=== PATIENT | female | born 1965 | race Caucasian/White ===

== ENCOUNTER → 2017-06-09 11:37 | Outpatient (CLI) | payer MEDICARE, MEDICAID, SELFPAY ==
[2017-06-09 18:17] LABS: Chlamydia Trachomatis by PCR Negative (Negative); Neisserai gonorrhoeae by PCR Negative (Negative); Probe Check PASS; Sample Adequacy Control PASS; Specimen Processing Control PASS
[2017-06-10 05:07] LABS: HIV 1/0/2 SCREEN 4TH GEN Non Reactive (Non Reactive)
[2017-06-11 11:27] LABS: Hep C Antibodies 0.1 s/co ratio (0.0-0.9)
[2017-06-16 02:56] LABS: Rapid Plasmin Reagin (RPR) NONREACTIVE (NONREACTIVE)
== END | disposition home or self-care (01) ==
PROVIDERS: Family Provider Family Medicine; PCP Family Medicine; Visit Provider Nurse Practitioner Women's Health
DX: Z11.3 Encounter for screening for infections with a predominantly sexual mode of transmission (principal); Z12.4 Encounter for screening for malignant neoplasm of cervix
CPT/HCPCS: 36415; 86592; 86703; 86803; 87491; 87591

== ENCOUNTER → 2017-11-15 12:28 | Outpatient (CLI) | payer MEDICARE, MEDICAID, SELFPAY ==
[2017-11-15 13:48] LABS: Absolute Lymphocyte Count 2.78 X10^3/ul (0.83-4.51); Absolute Neutrophil Count 3.6 X10^3/uL (2.0-7.7); Basophil# 0.06 X10^3/uL; Basophil% 0.8 % (0-1); Eosinophil# 0.15 X10^3/uL; Hematocrit 41.5 % (37-47); Hemoglobin 13.5 g/dl (12.0-15.0); Lymphocyte # 2.78 X10^3/ul (4.0); Mean Corp Hgb Conc 32.5 g/gl (32-36); Mean Corpuscular Hgb 28.5 pg (27.0-32.0); Mean Corpuscular Volume 87.7 fL (81-99); Monocyte# 0.69 X10^3/uL; Monocyte% 9.4 % (0-10); Neutrophil % 49.3 % (47-70); Platelet Count 169 K/mm3 (150-450); RBC Distribution Width CV 13.2 % (11.6-14.6); RBC Distribution Width SD 41.5 fl (35.1-43.9); Red Blood Count 4.73 M/mm3 (4.2-5.4); White Blood Count 7.3 K/mm3 (4.4-11.0)
[2017-11-15 13:49] LABS: POSITIVE COUNT NO; POSITIVE DIFFERENTIAL NO; POSITIVE MORPHOLOGY NO
[2017-11-15 14:15] LABS: Ferritin 377 ng/mL (8-252); Iron 61 ug/dL (50-170)
== END ==
PROVIDERS: Family Provider Family Medicine; PCP Family Medicine; Visit Provider Family Medicine
DX: D64.9 Anemia, unspecified (principal)
CPT/HCPCS: 36415; 82728; 83540; 85025

== ENCOUNTER 2018-02-27 01:55 | Emergency (ER) | payer MEDICARE, MEDICAID, SELFPAY ==
[2018-02-27 02:01] VITALS: BP 119/74; PULSE 64; RESP 16; TEMP 36.4; O2SAT 94; BMI 37.8
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
[2018-02-27 03:06] LABS: Absolute Lymphocyte Count 3.35 X10^3/ul (0.83-4.51); Absolute Neutrophil Count 4.3 X10^3/uL (2.0-7.7); Basophil# 0.05 X10^3/uL; Basophil% 0.6 % (0-1); Eosinophil# 0.28 X10^3/uL; Eosinophils% 3.2 % (0-5); Hematocrit 37.2 % (37-47); Hemoglobin 12.1 g/dl (12.0-15.0); Lymphocyte # 3.35 X10^3/ul (4.0); Lymphocyte % 38.6 % (19-41); Mean Corp Hgb Conc 32.5 g/gl (32-36); Mean Corpuscular Hgb 28.6 pg (27.0-32.0); Mean Corpuscular Volume 87.9 fL (81-99); Mean Platelet Vol. 10.7 fl (6.2-12.0); Monocyte# 0.69 X10^3/uL; Monocyte% 7.9 % (0-10); Neutrophil # 4.27 X10^3/uL (2.7-7.7); Neutrophil % 49.2 % (47-70); Platelet Count 189 K/mm3 (150-450); RBC Distribution Width CV 14.4 % (11.6-14.6); RBC Distribution Width SD 46.1 fl (35.1-43.9); Red Blood Count 4.23 M/mm3 (4.2-5.4); White Blood Count 8.7 K/mm3 (4.4-11.0)
[2018-02-27 03:07] LABS: POSITIVE COUNT NO; POSITIVE DIFFERENTIAL NO; POSITIVE MORPHOLOGY NO
[2018-02-27 03:08] LABS: Anion Gap 11 (5-15); BUN 13 mg/dL (7-18); BUN/Creat Ratio 11.4 RATIO (10-20); Calcium,Total 8.7 mg/dL (8.5-10.1); Chloride 102 mmol/L (98-107); Creatinine, Serum 1.14 mg/dL (0.55-1.02); EST Glomerular Filtration Rate 53 mL/min (>60); Est Glom Filt Rate - Afr Amer 64 mL/min (>60); Estimated Creatinine Clearance 45.14 ml/min; Glucose 109 mg/dL (74-106); Potassium 3.4 mmol/L (3.5-5.1); Sodium Level 140 mmol/L (136-145)
[2018-02-27 03:09] VITALS: RESP 18
[2018-02-27 03:22] LABS: Amphetamine Urine VISTA NEGATIVE (<1000 ng/mL); Barbiturate Urine VISTA NEGATIVE (< 200 ng/mL); Benzodiazepine Urine VISTA NEGATIVE (< 200 ng/mL); Cocaine Urine VISTA NEGATIVE (< 300 ng/mL); Ecstacy Urine VISTA NEGATIVE (< 500 ng/mL); Methadone Urine VISTA NEGATIVE (< 300 ng/mL); PCP Urine VISTA NEGATIVE (< 25 ng/mL); THC Urine VISTA NEGATIVE (< 50 ng/mL); Vista UDS pH Range 6
[2018-02-27 03:22] LABS: Pregnancy, Serum, hCG Quali. NEGATIVE Negative (0-9 Nonpreg)
[2018-02-27 05:22] VITALS: BP 126/57; PULSE 80; RESP 17; O2SAT 95
== END 2018-02-27 05:25 | disposition home or self-care (01) ==
PROVIDERS: Emergency Provider Emergency Medicine; Family Provider Family Medicine; PCP Family Medicine
DX: F20.9 Schizophrenia, unspecified (principal); E03.9 Hypothyroidism, unspecified; F41.9 Anxiety disorder, unspecified; K21.9 Gastro-esophageal reflux disease without esophagitis; Z85.3 Personal history of malignant neoplasm of breast
CPT/HCPCS: 72220; 80048; 80307; 80320; 84703; 85025; 99285; G0480

== ENCOUNTER → 2018-03-12 13:33 | Outpatient (CLI) | payer MEDICARE, MEDICAID, SELFPAY ==
[2018-03-12 14:41] LABS: Absolute Lymphocyte Count 3.91 X10^3/ul (0.83-4.51); Absolute Neutrophil Count 5.3 X10^3/uL (2.0-7.7); Basophil# 0.06 X10^3/uL; Basophil% 0.6 % (0-1); Eosinophil# 0.19 X10^3/uL; Eosinophils% 1.9 % (0-5); Hematocrit 38.8 % (37-47); Hemoglobin 12.6 g/dl (12.0-15.0); Lymphocyte # 3.91 X10^3/ul (4.0); Lymphocyte % 38.8 % (19-41); Mean Corp Hgb Conc 32.5 g/gl (32-36); Mean Corpuscular Volume 89.4 fL (81-99); Mean Platelet Vol. 10.7 fl (6.2-12.0); Monocyte% 5.9 % (0-10); Neutrophil # 5.28 X10^3/uL (2.7-7.7); Neutrophil % 52.3 % (47-70); Platelet Count 140 K/mm3 (150-450); RBC Distribution Width CV 14.2 % (11.6-14.6); RBC Distribution Width SD 46.9 fl (35.1-43.9); Red Blood Count 4.34 M/mm3 (4.2-5.4); White Blood Count 10.1 K/mm3 (4.4-11.0)
[2018-03-12 14:43] LABS: POSITIVE COUNT NO; POSITIVE DIFFERENTIAL NO; POSITIVE MORPHOLOGY NO
[2018-03-12 14:52] LABS: Ferritin 347 ng/mL (8-252); Iron 54 ug/dL (50-170); Thyroid Stim Hormone (TSH) 2.48 uIU/mL (0.358-3.74)
== END ==
PROVIDERS: Family Provider Family Medicine; PCP Family Medicine; Visit Provider Family Medicine
DX: D64.9 Anemia, unspecified (principal); E03.9 Hypothyroidism, unspecified
CPT/HCPCS: 36415; 82728; 83540; 84443; 85025

== ENCOUNTER 2018-10-21 17:21 | Emergency (ER) | payer MEDICARE, SELFPAY ==
[2018-09-04 13:53] VITALS: BMI 37.3
[2018-10-21 17:37] VITALS: BP 139/79; PULSE 85; RESP 16; TEMP 36.9; O2SAT 92; BMI 37.5
[2018-10-21 18:36] VITALS: RESP 16
[2018-10-21 18:45] LABS: Absolute Lymphocyte Count 4.36 X10^3/ul (0.83-4.51); Basophil# 0.08 X10^3/uL; Basophil% 0.6 % (0-1); Eosinophil# 0.14 X10^3/uL; Eosinophils% 1.1 % (0-5); Hematocrit 42.8 % (37-47); Hemoglobin 14.1 g/dl (12.0-15.0); Lymphocyte # 4.36 X10^3/ul (4.0); Mean Corp Hgb Conc 32.9 g/gl (32-36); Mean Corpuscular Volume 87.9 fL (81-99); Mean Platelet Vol. 9.6 fl (6.2-12.0); Monocyte# 0.87 X10^3/uL; Neutrophil # 6.97 X10^3/uL (2.7-7.7); POSITIVE COUNT NO; POSITIVE DIFFERENTIAL NO; POSITIVE MORPHOLOGY NO; Platelet Count 262 K/mm3 (150-450); RBC Distribution Width CV 13.3 % (11.6-14.6); RBC Distribution Width SD 42.3 fl (35.1-43.9); Red Blood Count 4.87 M/mm3 (4.2-5.4); White Blood Count 12.5 K/mm3 (4.4-11.0)
[2018-10-21 18:55] LABS: Anion Gap 8 (5-15); BUN 13 mg/dL (7-18); BUN/Creat Ratio 12.4 RATIO (10-20); Chloride 106 mmol/L (98-107); Creatinine, Serum 1.05 mg/dL (0.55-1.02); EST Glomerular Filtration Rate 58 mL/min (>60); Est Glom Filt Rate - Afr Amer 70 mL/min (>60); Estimated Creatinine Clearance 48.44 ml/min; Glucose 107 mg/dL (74-106); Potassium 3.9 mmol/L (3.5-5.1); Sodium Level 137 mmol/L (136-145)
[2018-10-21 18:56] LABS: Alcohol, Blood (Medical)-Serum < 3.0 mg/dL
[2018-10-21 18:57] LABS: Amphetamine Urine VISTA NEGATIVE (<1000 ng/mL); Barbiturate Urine VISTA NEGATIVE (< 200 ng/mL); Benzodiazepine Urine VISTA NEGATIVE (< 200 ng/mL); Cocaine Urine VISTA NEGATIVE (< 300 ng/mL); Ecstacy Urine VISTA NEGATIVE (< 500 ng/mL); Methadone Urine VISTA NEGATIVE (< 300 ng/mL); PCP Urine VISTA NEGATIVE (< 25 ng/mL); THC Urine VISTA NEGATIVE (< 50 ng/mL); Vista UDS pH Range 6
--- NOTE | 2018-10-21 19:00 | ED.RN ---
$304 LOPEZ COUNTED WITH BRAEDEN Srivastava RN PLACED IN VALUABLES ENVELOPE AND TAKEN TO ROLL FORM OPERATOR TO PLACE IN [place].
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
--- NOTE | 2018-10-21 19:10 | ED.RN ---
TALKED TO MARTHA FROM [facility] AND NOTIFIED HER THAT THIS PT IS HERE AND NEEDS TO BE EVALUATED BY [facility]. SHE STATED SHE WILL BE HERE SOON SHE CAN TO SEE THIS PT.
[2018-10-21 19:38] LABS: Thyroid Stim Hormone (TSH) 2.51 uIU/mL (0.358-3.74)
--- NOTE | 2018-10-21 21:48 | ED.RN ---
FELIX FROM [facility] IS HERE TO EVALUATE THIS PT NOW.
[2018-10-21 23:18] VITALS: BP 120/71; PULSE 83; RESP 14; O2SAT 93
--- NOTE | 2018-10-22 01:23 | ED.DEP ---
ED Disposition - Plan for ED Patient: Disposition: Home or Assisted Living Instructions: ED Schizophrenia General Referrals: Counseling,Center [GROUP OF PHYSICIANS] - As soon as possible
[2018-10-22 02:03] VITALS: PULSE 94; RESP 22; O2SAT 96
--- NOTE | 2018-10-22 02:04 | ED.RN ---
D/C INSTRUCTIONS REVIEWED WITH THE PT. PT VALUABLE BELONGING RETURNED TO THE PT. THIS NURSE AND ALO RN COUNTED THE MONEY WITH THE PT. PT BELONGINGS RETURNED TO PT. PT D/C WITH FELIX FROM THE COUNSELING CENTER
== END 2018-10-22 02:06 | disposition home or self-care (01) ==
PROVIDERS: Emergency Medicine; Emergency Provider Emergency Medicine; Family Provider Family Medicine; PCP Family Medicine
DX: R45.851 Suicidal ideations (principal); F22 Delusional disorders; F41.9 Anxiety disorder, unspecified; Z85.3 Personal history of malignant neoplasm of breast; F20.9 Schizophrenia, unspecified; D69.6 Thrombocytopenia, unspecified
CPT/HCPCS: 36415; 80048; 80307; 80320; 84443; 85025; 99284; G0480

== ENCOUNTER → 2019-08-09 13:41 | Outpatient (CLI) | payer MEDICARE, SELFPAY ==
[2019-03-26 13:01] VITALS: BMI 38.5
[2019-08-09 16:22] LABS: Hemoglobin A1c 6.4 % (4.2-6.3)
[2019-08-09 16:23] LABS: ALB/GLOB Ratio 0.8 RATIO (0.9-2.4); AST(SGOT) 18 U/L (15-37); Alanine Aminotransfer ALT/SGPT 40 U/L (13-56); Albumin, Serum 3.2 g/dL (3.2-5.0); Alkaline Phosphatase 95 U/L (45-117); Anion Gap 4 (5-15); BUN 9 mg/dL (7-18); BUN/Creat Ratio 9.9 RATIO (10-20); Calcium,Total 8.8 mg/dL (8.5-10.1); Chloride 111 mmol/L (98-107); Creatinine, Serum 0.91 mg/dL (0.55-1.02); EST Glomerular Filtration Rate 68 mL/min (>60); Est Glom Filt Rate - Afr Amer 83 mL/min (>60); Ferritin 464 ng/mL (8-252); Globulin 4.1 g/dL (2.2-4.2); Glucose 108 mg/dL (74-106); Iron 27 ug/dL (50-170); Potassium 3.8 mmol/L (3.5-5.1); Protein, Total 7.3 g/dL (6.4-8.2); Sodium Level 141 mmol/L (136-145); T4 Free Direct 1.08 ng/dL (0.76-1.46); Thyroid Stim Hormone (TSH) 1.58 uIU/mL (0.358-3.74)
[2019-08-09 16:24] LABS: Absolute Lymphocyte Count 2.54 X10^3/uL (0.83-4.51); Absolute Neutrophil Count 5.8 X10^3/uL (2.0-7.7); Basophil# 0.08 X10^3/uL; Basophil% 0.9 % (0-1); Eosinophil# 0.15 X10^3/uL; Eosinophils% 1.6 % (0-5); Hematocrit 37.6 % (37-47); Hemoglobin 11.9 g/dL (12.0-15.0); Lymphocyte # 2.54 X10^3/ul (4.0); Lymphocyte % 27.9 % (19-41); Mean Corp Hgb Conc 31.6 g/dL (32-36); Mean Corpuscular Hgb 28.5 pg (27.0-32.0); Mean Platelet Vol. 10.7 fl (6.2-12.0); Monocyte# 0.49 X10^3/uL; Monocyte% 5.4 % (0-10); NRBC Flagged by Analyzer 0 % (0-5); Neutrophil # 5.79 X10^3/uL (2.7-7.7); Neutrophil % 63.5 % (47-70); POSITIVE COUNT YES; RBC Distribution Width CV 13.3 % (11.6-14.6); RBC Distribution Width SD 44.1 fl (35.1-43.9); Red Blood Count 4.18 M/mm3 (4.2-5.4); White Blood Count 9.1 K/mm3 (4.4-11.0)
[2019-08-09 16:53] LABS: Differential Indicated SCAN CRITERIA MET
[2019-08-09 18:05] LABS: Platelet Estimate ADEQUATE (ADEQ)
[2019-08-09 18:06] LABS: Red Cell Morphology NORM C+C NORMAL (NORM C&C)
[2019-08-09 18:07] LABS: Platelet Morphology CLUMPED
== END ==
PROVIDERS: Family Provider Family Medicine; PCP Family Medicine; Visit Provider Family Medicine
DX: I10 Essential (primary) hypertension (principal); E03.9 Hypothyroidism, unspecified; D64.9 Anemia, unspecified; D47.2 Monoclonal gammopathy
CPT/HCPCS: 36415; 80053; 82728; 83036; 83540; 84439; 84443; 85025

== ENCOUNTER 2021-01-25 13:40 | Emergency (ER) | payer MEDICARE, MEDICAID, SELFPAY ==
[2020-03-24 13:06] VITALS: BMI 37.5
[2021-01-25 13:41] VITALS: BP 107/64; PULSE 71; RESP 15; TEMP 36.6; O2SAT 95; BMI 29.6
--- NOTE | 2021-01-25 13:46 | RAD_ITS ---
STUDY: X-RAY - LEFT FOOT CLINICAL: Female, 55 years old. INJURY TECHNIQUE: 3 view(s) of the foot. COMPARISON: None. FINDINGS: Normal talus, calcaneus, and tarsal bones. Normal visualized subtalar, talonavicular, calcaneocuboid, tarsal and tarsometatarsal articulations. Normal metatarsi. Normal metatarsophalangeal joint of the great toe. Normal tibial and fibular sesamoid bones. Normal interphalangeal joint of the great toe. Normal phalanges of the great toe. Normal second through fifth metatarsophalangeal joints. Normal interphalangeal joints and phalanges of the lesser toes. Diffuse soft tissue swelling more prominent along the foot. Foot. RAD/Foot min 3 Views IMPRESSION: Diffuse soft tissue swelling more prominent along the dorsal aspect of the foot. Electronically Signed: Doug Colindres MD at 15:12 EDT , Service support ,
--- NOTE | 2021-01-25 15:26 | EDS_ITS ---
HPI History of Present Illness Chief Complaint: Lower Extremity Injury Informant: patient Narrative Narrative: 55-year-old female states that earlier today she kicked a hard plastic rocker in her house. She has noticed a lot of swelling and bruising over the dorsum of the left foot. She notes some mild pain. [facility] Medical History Anxiety Asthma GERD (gastroesophageal reflux disease) Hypertension Hypokalemia Monoclonal gammopathy Schizophrenia Thyroid disease Home Medications omeprazole 20 mg PO DAILY 11/11/13 [History Last Taken 05/09/14 07:30 20 MG] sennosides-docusate sodium [Doc-Q-Lax Tablet] 2 ea PO QHS 05/14/14 [History Last Taken Unknown] quetiapine [Seroquel Xr] 500 mg PO QHS 05/15/14 [History Last Taken Unknown] lisinopril 20 mg PO DAILY 05/12/15 [History Last Taken Unknown] Quetiapine Fumarate [Seroquel Xr] 300 mg PO BREAKFAST 10/05/16 [History Last Taken Unknown] amlodipine 10 mg PO DAILY 10/05/16 [History Last Taken Unknown] benztropine 1 mg PO BID PRN PRN 10/05/16 [History Last Taken Unknown] meloxicam 15 mg PO DAILY 10/05/16 [History Last Taken Unknown] clonazepam [Klonopin] 0.5 mg PO DAILY 10/26/16 [History Last Taken Unknown] propranolol [Inderal Xl] 60 mg PO BID 10/21/18 [History Last Taken Unknown] clonazepam 1 mg PO QHS 03/24/20 [History Last Taken Unknown] tamoxifen 20 mg tablet 20 mg PO DAILY #30 tab 01/21/21 [Rx Last Taken Unknown] Allergy/AdvReac Type Severity Reaction Status Date / Time diazepam [From Valium] Allergy Severe Other Verified 01/25/21 13:41 pseudoephedrine HCl Allergy Severe Other Verified 01/25/21 13:41 [From Sudafed] diphenhydramine HCl AdvReac Severe Unknown Verified 01/25/21 13:41 [From Benadryl] erythromycin base AdvReac Severe Other Verified 01/25/21 13:41 [Erythromycin Base] Antihistamines - Piperidine AdvReac Intermediate Unknown Verified 01/25/21 13:41 Macrolide Antibiotics AdvReac Intermediate Other Verified 01/25/21 13:41 darbepoetin mary AdvReac Unknown Unknown Verified 01/25/21 13:41 [From Aranesp (in polysorbate)] menthol AdvReac Swelling Verified 01/25/21 13:41 quinapril [From Accupril] AdvReac Unknown Verified 01/25/21 13:41 KETOLIDES AdvReac Unknown Uncoded 01/25/21 13:41 Family History Mother Heart disease Father Hypertension Surgical History History of back surgery History of tonsillectomy History of tubal ligation Social History (Updated 01/25/21 @ 15:[address] Wil Ramsey DO) Smoking Status: Never smoker substance use type: does not use ROS ROS ED Constitutional Constitutional ED: Denies chills or weight loss Eyes Eyes: Denies change in vision or diplopia ENT ENT ED: Denies ear pain, rhinorrhea or sore throat Cardiovascular Cardiovascular: Denies chest pain, orthopnea, palpitations or racing heartbeat Respiratory/Chest Respiratory/Chest: Denies cough, dyspnea or orthopnea Gastrointestinal Gastrointestinal: Denies abdominal pain, diarrhea, nausea or vomiting Genitourinary Genitourinary ED: Denies dysuria, hematuria or urinary frequency Musculoskeletal Musculoskeletal: Reports other Details: See history of present illness ; Denies arthralgias or myalgias Integumentary Denies abscess or rash Neurologic Neurologic: Denies headache(s) or weakness Psychiatric Psychiatric: Denies anxiety, depression, suicidal ideation or suicidal thoughts Endocrine Endocrinology: Denies polydipsia, polyphagia or polyuria Allergic/Immunologic Allergic/Immunologic ED: Denies mouth swelling, tongue swelling or urticaria EXAM Physical Exam Const Vital Signs: 01/25/21 13:41 Temperature 97.8 F Temperature Source Temporal Pulse Rate 71 Respiratory Rate 15 Blood Pressure 107/64 Blood Pressure Mean 78 Pulse Ox 95 Oxygen Delivery Method Room Air Positive well nourished, well developed and obese General Appearance ED: well developed Nutritional Appearance: obese HEENT Reports normocephalic, head/scalp atraumatic and moist mucous membranes Eyes PERRL and EOMs intact bilaterally Neck no lymphadenopathy, supple and no JVD Resp normal respiratory effort and clear to auscultation bilaterally Cardio regular rate, regular rhythm and no murmurs GI normal to inspection, nondistended, normoactive bowel sounds and non-tender Palpation: soft Back/Spine no CVA tenderness and normal ROM Extremity Extremity Narrative: There is a large amount of swelling and ecchymosis over the dorsum of the left foot. The swelling is very soft. Neurovascularly intact. Mild tenderness to palpation General Extremety ED: Yes edema General Extremity: edema Neuro oriented x3 and CN's II-XII intact bilaterally Sensorium / Orientation: alert Motor Exam: strength 5/5 throughout Psych mental status grossly normal Mood & Affect: Negative for depressed or tearful Skin no rashes or lesions noted and no wounds MDM MDM MDM Narrative Medical decision making narrative: My impression of the plain films of the left foot is no acute fracture. Radiology concurs. Given the amount of swelling I do not think it can be very comfortable for her to put her foot into a regular shoe. We will give her a postop shoe instructions to ice follow-up primary care 10 to 14 days if not improved Radiography Diagnostic Testing: Radiology Impression Foot X-Ray 01/25/21 13:46 IMPRESSION: Diffuse soft tissue swelling more prominent along the dorsal aspect of the foot. Electronically Signed: Doug Colindres MD at 15:12 EDT , Service support , Discharge Plan Triage Chief Complaint: Lower Extremity Injury ED Provider: Wil Ramsey Dx/Rx/DC Orders Clinical Impression: Contusion of foot, left, Hematoma of left foot Instructions: ED Hematoma Prescriptions: No Action omeprazole 20 MG capsule 20 mg PO DAILY RF: 0 sennosides-docusate sodium [Doc-Q-Lax] 1 EACH tablet 2 ea PO QHS RF: 0 quetiapine [Seroquel XR] 200 MG tablet extended release 24 hr 500 mg PO QHS RF: 0 lisinopril 20 MG tablet 20 mg PO DAILY RF: 0 meloxicam 15 MG tablet 15 mg PO DAILY RF: 0 amlodipine 10 MG tablet 10 mg PO DAILY RF: 0 benztropine 2 MG tablet 1 mg PO BID PRN PRN (Reason: Restlessness) RF: 0 Quetiapine Fumarate [Seroquel Xr] 300 MG Tab.Sr.24h 300 mg PO BREAKFAST RF: 0 clonazepam [Klonopin] 0.5 MG tablet 0.5 mg PO DAILY RF: 0 clonazepam 1 MG tablet 1 mg PO QHS RF: 0 Inderal XL 80 MG capsule,extended release 24hr 60 mg PO BID RF: 0 tamoxifen 20 mg tablet 20 mg PO DAILY Qty: 30 RF: 2 Primary Care Provider: Brannon Cavazos Referrals: Brannon Cavazos MD [Primary Care Provider] - 10-14 Days if not better Disposition Disposition: Home, Self Care
== END 2021-01-25 15:32 | disposition home or self-care (01) ==
LOC: ED 15:16
PROVIDERS: Emergency Provider Emergency Medicine; PCP Family Medicine
DX: S90.32XA Contusion of left foot, initial encounter (principal); W22.8XXA Striking against or struck by other objects, initial encounter; F20.9 Schizophrenia, unspecified; F41.9 Anxiety disorder, unspecified; I10 Essential (primary) hypertension; J45.909 Unspecified asthma, uncomplicated; K21.9 Gastro-esophageal reflux disease without esophagitis; E66.9 Obesity, unspecified; Z79.1 Long term (current) use of non-steroidal anti-inflammatories (NSAID); Z79.899 Other long term (current) drug therapy; Z98.51 Tubal ligation status
CPT/HCPCS: 73630; 99284

== ENCOUNTER 2021-02-03 10:44 | Inpatient (IN) | payer MEDICARE, MEDICAID, SELFPAY ==
[2021-02-03] VITALS (28 sets, daily range): BP systolic 76–151; BP diastolic 36–135; PULSE 91–166; RESP 17–34; TEMP 35.8–36.6; O2SAT 85–100; BMI 33.3; BMI 32.1
--- NOTE | 2021-02-03 10:49 | CT_ITS ---
STUDY: CT BRAIN WITHOUT CONTRAST REASON FOR EXAM: Female, 55 years old. Weakness, found unresponsive RADIATION DOSAGE (If Supplied By Facility): CTDIvol = ( 44.99 ) mGy, DLP = ( 796.11 ) mGycm TECHNIQUE: Transaxial CT imaging of the brain was performed without administration of intravenous contrast material. Individualized dose optimization techniques were used for this CT. COMPARISON: No relevant priors. FINDINGS: Normal soft tissue structures. Normal calvarium. Normal size ventricles and extra-axial spaces for the patient''s age. Normal white matter tracts of the cerebral hemispheres. Normal basal ganglia and thalami. Normal brainstem. Normal cerebellum. There is no intracranial hemorrhage. There are no findings of an acute ischemic infarction. Normal visualized paranasal sinuses. CT/Brain/Head without Contrast IMPRESSION: Normal unenhanced CT scan of the brain. Electronically Signed: Ben Rincon MD ([place]) at 11:23 EDT , Service support ,
--- NOTE | 2021-02-03 10:49 | EKG12_ITS ---
Test Reason : TACHY Blood Pressure : / mmHG Vent. Rate : 105 BPM Atrial Rate : 105 BPM P-R Int : 126 ms QRS Dur : 074 ms QT Int : 336 ms P-R-T Axes : -02 096 020 degrees QTc Int : 444 ms Sinus tachycardia with occasional Premature ventricular complexes Low voltage QRS Borderline ECG Confirmed by JM AWAD, VERONA ([id number]), newspaper managing editor JAMAAL ENRIQUEZ ([id number]) on 02/08/2021 12:52:57 PM Referred By: DAVID Confirmed By:VERONA ONEAL MD
--- NOTE | 2021-02-03 10:55 | EX.ED.DYSGE1 ---
HPI History of Present Illness Chief Complaint: Confusion Informant: patient and EMS Onset/Context/Timing Context: Gradual Onset Timing: Continuous Narrative Narrative: Patient presents with confusion that was noticed today. Someone from [employer] found the patient laying on the floor today because she missed an appointment yesterday. Patient does not remember how she got onto the floor. Patient is unsure if she fell. Patient does not know if she hit her head. Patient is a very poor historian. [facility] Medical History (Updated 02/04/21 @ 06:[address] Deniz Lr MD) Anxiety Asthma GERD (gastroesophageal reflux disease) Hypertension Hypokalemia Monoclonal gammopathy Schizophrenia Thyroid disease Home Medications omeprazole 20 mg PO DAILY 11/11/13 [History Last Taken 05/09/14 07:30 20 MG] sennosides-docusate sodium [Doc-Q-Lax Tablet] 2 ea PO QHS 05/14/14 [History Last Taken Unknown] quetiapine [Seroquel Xr] 500 mg PO QHS 05/15/14 [History Last Taken Unknown] lisinopril 20 mg PO DAILY 05/12/15 [History Last Taken Unknown] Quetiapine Fumarate [Seroquel Xr] 300 mg PO BREAKFAST 10/05/16 [History Last Taken Unknown] amlodipine 10 mg PO DAILY 10/05/16 [History Last Taken Unknown] benztropine 1 mg PO BID PRN PRN 10/05/16 [History Last Taken Unknown] meloxicam 15 mg PO DAILY 10/05/16 [History Last Taken Unknown] clonazepam [Klonopin] 0.5 mg PO DAILY 10/26/16 [History Last Taken Unknown] propranolol [Inderal Xl] 60 mg PO BID 10/21/18 [History Last Taken Unknown] clonazepam 1 mg PO QHS 03/24/20 [History Last Taken Unknown] tamoxifen 20 mg tablet 20 mg PO DAILY #30 tab 01/21/21 [Rx Last Taken Unknown] Allergy/AdvReac Type Severity Reaction Status Date / Time diazepam [From Valium] Allergy Severe Other Verified 01/25/21 13:41 pseudoephedrine HCl Allergy Severe Other Verified 01/25/21 13:41 [From Sudafed] diphenhydramine HCl AdvReac Severe Unknown Verified 01/25/21 13:41 [From Benadryl] erythromycin base AdvReac Severe Other Verified 01/25/21 13:41 [Erythromycin Base] Antihistamines - Piperidine AdvReac Intermediate Unknown Verified 01/25/21 13:41 Macrolide Antibiotics AdvReac Intermediate Other Verified 01/25/21 13:41 darbepoetin mary AdvReac Unknown Unknown Verified 01/25/21 13:41 [From Aranesp (in polysorbate)] menthol AdvReac Swelling Verified 01/25/21 13:41 quinapril [From Accupril] AdvReac Unknown Verified 01/25/21 13:41 KETOLIDES AdvReac Unknown Uncoded 01/25/21 13:41 Family History Mother Heart disease Father Hypertension Surgical History History of back surgery History of tonsillectomy History of tubal ligation Social History Smoking Status: Never smoker substance use type: does not use ROS ROS ED Constitutional Constitutional ED: Denies chills or fever(s) Eyes Eyes: Denies blurry vision or change in vision ENT ENT ED: Denies rhinorrhea or sore throat Cardiovascular Cardiovascular: Denies chest pain or palpitations Respiratory/Chest Respiratory/Chest: Reports cough and dyspnea Gastrointestinal Gastrointestinal: Denies nausea or vomiting Genitourinary Genitourinary ED: Denies dysuria or hematuria Musculoskeletal Musculoskeletal: Denies back pain or neck pain Integumentary Reports abscess; Denies rash Neurologic Neurologic: Denies headache(s) or weakness Allergic/Immunologic Allergic/Immunologic ED: Denies mouth swelling or urticaria EXAM Physical Exam Const Vital Signs: 02/03/21 10:45 02/03/21 10:49 02/03/21 11:16 Temperature 97.8 F 97.8 F Temperature Source Temporal Temporal Pulse Rate 118 H 118 H 100 Respiratory Rate 34 H 34 H 30 H Blood Pressure 151/135 H 151/135 H 77/43 L Blood Pressure Mean 140 140 54 Pulse Ox 95 95 100 Oxygen Delivery Method Non-Rebreather Non-Rebreather Non-Rebreather Oxygen Flow Rate (L/min) 10 10 Fraction of Inspired Oxygen (FIO2) 100 02/03/21 11:26 02/03/21 11:30 02/03/21 11:31 Temperature Temperature Source Pulse Rate 107 H 108 H Respiratory Rate 19 H 26 H Blood Pressure 84/53 L 83/52 L Blood Pressure Mean 63 62 Pulse Ox 100 100 98 Oxygen Delivery Method Non-Rebreather Nasal Cannula Venturi Mask Oxygen Flow Rate (L/min) 15 6 12 Fraction of Inspired Oxygen (FIO2) 100 50 02/03/21 11:41 02/03/21 11:49 02/03/21 12:08 Temperature 97.8 F 97.1 F L Temperature Source Temporal Temporal Pulse Rate 109 H 106 H Respiratory Rate 17 27 H Blood Pressure 90/59 L 90/55 L Blood Pressure Mean 69 66 Pulse Ox 99 100 99 Oxygen Delivery Method Nasal Cannula Nasal Cannula Room Air Oxygen Flow Rate (L/min) 6 6 Fraction of Inspired Oxygen (FIO2) 02/03/21 13:00 02/03/21 14:11 Temperature 97.3 F L Temperature Source Temporal Pulse Rate 98 99 Respiratory Rate 27 H 24 H Blood Pressure 83/59 L 87/57 L Blood Pressure Mean 67 67 Pulse Ox 97 97 Oxygen Delivery Method Nasal Cannula Oxygen Flow Rate (L/min) 6 Fraction of Inspired Oxygen (FIO2) Positive well developed, obese and unkempt General Appearance ED: unkempt and well developed Nutritional Appearance: obese HEENT Reports dry mucous membranes Mouth ED: Yes dry mucous membranes Mouth: dry mucous membranes Neck supple and no JVD Resp normal respiratory effort Auscultation: diminished lung sounds diffuse Cardio regular rhythm Rate: tachycardic GI normal to inspection, nondistended, normoactive bowel sounds and non-tender Palpation: soft Neuro oriented x3, CN's II-XII intact bilaterally and no sensory deficits noted Sensorium / Orientation: alert Motor Exam: general weakness Psych mental status grossly normal Appearance: unkempt Skin Skin Narrative: There are open wounds over the right arm, forearm, elbow, lower leg, left knee, and chest. There is a tunneling wound in the right inguinal area. There is some purulent drainage from this area. MDM MDM MDM Narrative Medical decision making narrative: CBC shows a leukocytosis of 14.4. Comprehensive metabolic profile showed a creatinine of 2.86 and BUN of 57. These are increased from previous. Sodium was 148 and chloride was 116. Total CK was slightly elevated at 260. Lactate was 2.0. High-sensitivity troponin was 18.3. Urinalysis is pending. CT scan of the brain was obtained. There is no acute intracranial abnormality. Portable chest x-ray was obtained. There is 1 view. On my interpretation, there are infiltrates in the right upper and middle lobes. There is no cardiomegaly. Radiologist also interpreted the x-rays and agrees. Patient was started on Zosyn and vancomycin. Patient was given 3 L of IV fluids. Patient's blood pressure was 87/57 as the third liter was finishing. I discussed the need for central venous access with the patient. I informed her of the procedure discussed risks and benefits. She is agreeable with the procedure. She had no further questions. The right internal jugular site was cleaned and prepped in a sterile manner. A right triple-lumen internal jugular central catheter was placed using Seldinger technique. Patient tolerated the procedure well. Patient's blood pressure after the procedure was 105 systolic. Sterile dressing was applied. Repeat chest x-ray was obtained. There is 1 view. On my interpretation it showed good placement of the central catheter. There is no pneumothorax. Urinalysis was obtained. There is cloudy yellow urine. Leukocyte esterase was 500 with 10-25 white blood cells. There were 5-10 red blood cells. Blood cultures and urine cultures were obtained prior to starting antibiotics. Case was discussed with hospitalist. She will admit the patient to ICU. Case was discussed with Dr. Lr. He will follow the patient in the ICU. Patient's heart rate increased. Repeat EKG was obtained. On my interpretation it showed a supraventricular tachycardia of 163. There are no acute ST or T wave changes. There are occasional PVCs noted. Patient's blood pressure dropped again. Patient was started on Levophed. Patient understood and was agreeable with the plan. All questions were answered. Prior to the patient going to ICU, she became agitated and pulled out her right internal jugular triple-lumen catheter. Patient was placed in soft restraints. Care of the patient was turned over to the oncoming physician for replacement of triple-lumen catheter. Lab Data Attestation: I reviewed the patient's lab results. Labs: Laboratory Results - last 24 hr 02/02/21 02/03/21 23:15 11:05 Diff Path Review Reviewed Troponin I High Sens Cancelled Radiography Chest X-Ray - ED: 1 View, Read by ED Physician, Read by Radiologist, Right Infiltrate and Left Infiltrate Diagnostic Testing: Radiology Impression Brain CT 02/03/21 10:49 IMPRESSION: Normal unenhanced CT scan of the brain. Electronically Signed: Ben Rincon MD (Brooks) at 11:23 EDT , Service support , Chest X-Ray 02/03/21 11:15 IMPRESSION: Multilobar infiltrates could represent pneumonia and/or atelectasis. Electronically Signed: Ben Rincon MD (Brooks) at 11:33 EDT , Service support , EKG Initial EKG: Attestation: I personally reviewed and interpreted this EKG as follows: Interpretation: Sinus Rhythm (105) and No Acute Injury Pattern Prior EKG tracings: available for review Prior: Unchanged (11/22/2015) Treatment and Re-Evaluation Vital Sign Attestation:: Vital signs were reviewed prior to admission. Patient became tachycardic. Blood pressure has improved. Critical Care Time Critical Care Time: Yes Critical care time (excluding procedures): 30-74 minutes (44), Including time spent:, Discussing w/Patient &/or Family/Roller Pneumatic, Discussing w/Consultants, Arranging Admission or Transfer and Performing Direct Patient Care at Bedside Discharge Plan Dx/Rx/DC Orders Clinical Impression: Septic shock, Pneumonia Disposition Disposition: Acute Care Hospital [facility] [place] Discharge Date/Time: 02/03/21 15:56
[2021-02-03] MEDS: 0.9% Normal Saline 1,000 ML 1000 ML IV (10:57)
--- NOTE | 2021-02-03 10:59 | ED.RN ---
UPON EXAM PT HAS MULTIPLE WOUNDS AND ABRASIONS. WOUNDS NOTED TO R SHOULDER, R FOREARM, R UPPER ARM, R HIP HAS PRESSURE WOUND, R ABD, R KNEE AND CALF. GROIN HAS TUNNELING WOUND WITH PURULENT DRAINAGE. WOUNDS ALSO TO L FOOT, L KNEE, L GROIN, AND L WRIST.
--- NOTE | 2021-02-03 11:03 | ED.RN ---
BRUISING ALSO NOTED TO R CHEST
[2021-02-03 11:14] LABS: Mean Corp Hgb Conc 31.6 g/dL (32-36); Mean Corpuscular Hgb 30.5 pg (27.0-32.0); Mean Corpuscular Volume 96.4 fL (81-99); Mean Platelet Vol. 10.7 fl (6.2-12.0); POSITIVE COUNT YES; POSITIVE MORPHOLOGY YES; Platelet Count 200 K/mm3 (150-450); RBC Distribution Width CV 14.8 % (11.6-14.6); RBC Distribution Width SD 52.2 fl (35.1-43.9); Red Blood Count 3.94 M/mm3 (4.2-5.4); White Blood Count 14.4 K/mm3 (4.4-11.0)
[2021-02-03 11:15] LABS: Differential Indicated MANUAL DIFF
--- NOTE | 2021-02-03 11:15 | RAD_ITS ---
STUDY: X-RAY CHEST REASON FOR EXAM: Female, 55 years old. Dyspnea TECHNIQUE: AP COMPARISON: 03/17/2013 FINDINGS: Fusion hardware of the thoracal lumbar spine with increased scoliosis as compared to 2012. Patchy scattered consolidation of the right upper lobe, right mid lung and left midlung. There is no demonstrated pleural abnormality. Normal size heart. Normal mediastinum and bryon. Normal visualized pulmonary arteries. Normal visualized aortic arch and descending thoracic aorta. Normal visualized ribs, clavicles, and shoulders. There is no demonstrated abnormality of the visualized soft tissue structures of the upper abdomen. RAD/Chest 1 View (Portable) IMPRESSION: Multilobar infiltrates could represent pneumonia and/or atelectasis. Electronically Signed: Ben Rincon MD (Brooks) at 11:33 EDT , Service support ,
[2021-02-03 11:16] LABS: Mucous, Urine 0 SEEN /hpf (<or=2+); Squamous Epithelial Cells - UA 0 SEEN /hpf (5-10)
[2021-02-03] MEDS: 0.9% Normal Saline 1,000 ML 999 ML IV ×2 (11:28→13:35)
[2021-02-03 11:32] LABS: ALB/GLOB Ratio 0.5 RATIO (0.9-2.4); AST(SGOT) 27 U/L (15-37); Alanine Aminotransfer ALT/SGPT 59 U/L (13-56); Albumin, Serum 2.4 g/dL (3.2-5.0); Alkaline Phosphatase 68 U/L (45-117); Anion Gap 9 (5-15); BUN 57 mg/dL (7-18); BUN/Creat Ratio 19.9 RATIO (10-20); CPK Total, Creatine Kinase 260 U/L (26-192); Calcium,Total 8.8 mg/dL (8.5-10.1); Chloride 116 mmol/L (98-107); Creatinine, Serum 2.86 mg/dL (0.55-1.02); EST Glomerular Filtration Rate 18 mL/min (>60); Est Glom Filt Rate - Afr Amer 22 mL/min (>60); Estimated Creatinine Clearance 21.36 ml/min; Globulin 4.5 g/dL (2.2-4.2); Glucose 144 mg/dL (74-106); Potassium 3.5 mmol/L (3.5-5.1); Protein, Total 6.9 g/dL (6.4-8.2); Sodium Level 148 mmol/L (136-145); Troponin-I HS 18.3 pg/mL (3.0-53.7)
[2021-02-03 11:37] LABS: Lymphocyte 20 % (19-41); Metamyelocyte 2 % (0-1); Monocyte 10 % (0-10); Neutrophil-Band 3 % (0-5); Neutrophil-Segmented 65 % (47-70); Total Cells Counted 100 (MANUAL DIFF)
[2021-02-03 11:38] LABS: Absolute Neutrophil Count 5.5 X10^3/uL (2.0-7.7); Platelet Estimate ADEQUATE (ADEQ); Red Cell Morphology NORM C+C NORMAL (NORM C&C)
[2021-02-03 11:39] LABS: Absolute Lymphocyte Count 2.89 X10^3/uL (0.83-4.51)
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
--- NOTE | 2021-02-03 12:38 | ED.RN ---
TALKED TO PTS SISTER NHAN. [phone]. SISTER TALKED TO PT ON December. SHE HAD TRIED TO CALL HER MULTIPLE TIMES TO TALK AND WAS UNABLE TO CONTACT HER.
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
--- NOTE | 2021-02-03 14:06 | ED.RN ---
pt was seen by Tiesha Castillo at the counseling center on Mon the . Pt was supposed to have an injection on the . Pt did not show up for injection.
--- NOTE | 2021-02-03 14:35 | NURSING ---
HOSPITALIST PAGED DR SKYE DOTSON
--- NOTE | 2021-02-03 14:38 | HP.PCM.HOS_ITS ---
HPI - General General Date of Admission: 02/03/21 HPI Narrative BRANDO NIXON, is a 55 F with an extensive PMH as outlined who presents with a complaint of altered mental status. She was found lying on the floor in her apartment, and couldnt tell whether she fell or not. She couldnt say whether she hit her head. On admission, she was found to have temperature of 97.8F, with KY of 118, RR of 34 and BP initially of 151/35, but which dropped to the 80s systolic. She was unable to give any further information. CBC showed wbc of 14.4, Hb of 12.5 and platelets of 200. Sodium was 148 and creatinine was 2.86 with potassium of 3.5. CT of the brain was normal. Lactic acid was 2. Chest x-ra y showed multilobar infiltrates which could represent pneumonia and atelectasis. She was started on IV fluids and started on IV vancomycin and Zosyn and has been admitted to be managed for septic shock due to pneumonia. WHilst evaluating her in the ED, patient became tachycardic, with heart rate going up into the 170s. [facility], [facility] Medical History Anxiety Asthma GERD (gastroesophageal reflux disease) Hypertension Hypokalemia Monoclonal gammopathy Schizophrenia Thyroid disease Home Medications omeprazole 20 mg PO DAILY 11/11/13 [History Last Taken 05/09/14 07:30 20 MG] sennosides-docusate sodium [Doc-Q-Lax Tablet] 2 ea PO QHS 05/14/14 [History Last Taken Unknown] quetiapine [Seroquel Xr] 500 mg PO QHS 05/15/14 [History Last Taken Unknown] lisinopril 20 mg PO DAILY 05/12/15 [History Last Taken Unknown] Quetiapine Fumarate [Seroquel Xr] 300 mg PO BREAKFAST 10/05/16 [History Last Taken Unknown] amlodipine 10 mg PO DAILY 10/05/16 [History Last Taken Unknown] benztropine 1 mg PO BID PRN PRN 10/05/16 [History Last Taken Unknown] meloxicam 15 mg PO DAILY 10/05/16 [History Last Taken Unknown] clonazepam [Klonopin] 0.5 mg PO DAILY 10/26/16 [History Last Taken Unknown] propranolol [Inderal Xl] 60 mg PO BID 10/21/18 [History Last Taken Unknown] clonazepam 1 mg PO QHS 03/24/20 [History Last Taken Unknown] tamoxifen 20 mg tablet 20 mg PO DAILY #30 tab 01/21/21 [Rx Last Taken Unknown] Allergy/AdvReac Type Severity Reaction Status Date / Time diazepam [From Valium] Allergy Severe Other Verified 01/25/21 13:41 pseudoephedrine HCl Allergy Severe Other Verified 01/25/21 13:41 [From Sudafed] diphenhydramine HCl AdvReac Severe Unknown Verified 01/25/21 13:41 [From Benadryl] erythromycin base AdvReac Severe Other Verified 01/25/21 13:41 [Erythromycin Base] Antihistamines - Piperidine AdvReac Intermediate Unknown Verified 01/25/21 13:41 Macrolide Antibiotics AdvReac Intermediate Other Verified 01/25/21 13:41 darbepoetin mary AdvReac Unknown Unknown Verified 01/25/21 13:41 [From Aranesp (in polysorbate)] menthol AdvReac Swelling Verified 01/25/21 13:41 quinapril [From Accupril] AdvReac Unknown Verified 01/25/21 13:41 KETOLIDES AdvReac Unknown Uncoded 01/25/21 13:41 Family History Mother Heart disease Father Hypertension Surgical History History of back surgery History of tonsillectomy History of tubal ligation Social History Smoking Status: Never smoker substance use type: does not use ROS Review of Systems ROS Unobtainable: due to encephalopathy, due to mental condition and due to mental status Vital Signs Vital Signs Vital Signs: 02/03/21 10:45 02/03/21 10:49 02/03/21 11:16 Temperature 97.8 F 97.8 F Temperature Source Temporal Temporal Pulse Rate 118 H 118 H 100 Respiratory Rate 34 H 34 H 30 H Blood Pressure 151/135 H 151/135 H 77/43 L Blood Pressure Mean 140 140 54 Pulse Ox 95 95 100 Oxygen Delivery Method Non-Rebreather Non-Rebreather Non-Rebreather Oxygen Flow Rate (L/min) 10 10 Fraction of Inspired Oxygen (FIO2) 100 02/03/21 11:26 02/03/21 11:30 02/03/21 11:31 Temperature Temperature Source Pulse Rate 107 H 108 H Respiratory Rate 19 H 26 H Blood Pressure 84/53 L 83/52 L Blood Pressure Mean 63 62 Pulse Ox 100 100 98 Oxygen Delivery Method Non-Rebreather Nasal Cannula Venturi Mask Oxygen Flow Rate (L/min) 15 6 12 Fraction of Inspired Oxygen (FIO2) 100 50 02/03/21 11:41 02/03/21 11:49 02/03/21 12:08 Temperature 97.8 F 97.1 F L Temperature Source Temporal Temporal Pulse Rate 109 H 106 H Respiratory Rate 17 27 H Blood Pressure 90/59 L 90/55 L Blood Pressure Mean 69 66 Pulse Ox 99 100 99 Oxygen Delivery Method Nasal Cannula Nasal Cannula Room Air Oxygen Flow Rate (L/min) 6 6 Fraction of Inspired Oxygen (FIO2) 02/03/21 13:00 02/03/21 14:11 Temperature 97.3 F L Temperature Source Temporal Pulse Rate 98 99 Respiratory Rate 27 H 24 H Blood Pressure 83/59 L 87/57 L Blood Pressure Mean 67 67 Pulse Ox 97 97 Oxygen Delivery Method Nasal Cannula Oxygen Flow Rate (L/min) 6 Fraction of Inspired Oxygen (FIO2) Weight Weight: 212 lb 15.465 oz Body Mass Index (BMI) 33.3 Physical Exam Const alert Orientation / Consciousness: confused, disoriented and lethargic HEENT normocephalic, head/scalp atraumatic and hearing grossly normal bilaterally HEENT Narrative: mucous membranes dry Eyes PERRL, EOMs intact bilaterally and conjunctivae normal Neck no lymphadenopathy Resp Resp Narrative: Tachypneic, diminished breath sounds bibasilarly. No wheezes or crackles. Cardio S1 normal heart sound, S2 normal heart sound and no murmurs Cardio Narrative: Tachycardic. GI normal to inspection, nondistended, normoactive bowel sounds, soft to palpation, non-tender and non-distended Extremity normal to inspection, full ROM and no clubbing, cyanosis or edema Peripheral Pulses: Yes pulses 2+ throughout Neuro Neuro Narrative: Confused, moves all extremities spontaneously. Sensorium / Orientation: alert Psych Psych Narrative: Confused. Results Lab / Micro Data Result Diagrams: 02/03/21 11:05 02/03/21 11:05 Labs: Laboratory Results - last 24 hr 02/03/21 02/03/21 02/03/21 11:05 11:05 11:05 WBC 14.4 H RBC 3.94 L Hgb 12.0 Hct 38.0 MCV 96.4 MCH 30.5 MCHC 31.6 L RDW Std Deviation 52.2 H RDW Coeff of Kenna 14.8 H Plt Count 200 MPV 10.7 Neut % (Auto) Not Reportable Absolute Neuts (auto) 5.5 Absolute Lymphs (auto) 2.89 Total Counted 100 Neutrophils % (Manual) 65 Band Neutrophils % 3 Lymphocytes % (Manual) 20 Monocytes % (Manual) 10 Metamyelocytes % 2 H Diff Path Review May foll Platelet Estimate ADEQUATE RBC Morphology NORM C+C Sodium 148 H Potassium 3.5 Chloride 116 H Carbon Dioxide 23.0 Anion Gap 9 BUN 57 H Creatinine 2.86 H Estim Creat Clear Calc 21.36 Est GFR (MDRD) Af Amer 22 L Est GFR (MDRD) Non-Af 18 L BUN/Creatinine Ratio 19.9 Glucose 144 H Lactic Acid 2.0 Calcium 8.8 Total Bilirubin 0.30 AST 27 ALT 59 H Alkaline Phosphatase 68 Total Creatine Kinase 260 H Troponin I High Sens 18.3 Total Protein 6.9 Albumin 2.4 L Globulin 4.5 H Albumin/Globulin Ratio 0.5 L Radiology Impression Brain CT 02/03/21 10:49 IMPRESSION: Normal unenhanced CT scan of the brain. Electronically Signed: Ben Rincon MD (Brooks) at 11:23 EDT , Service support , Chest X-Ray 02/03/21 11:15 IMPRESSION: Multilobar infiltrates could represent pneumonia and/or atelectasis. Electronically Signed: Ben Rincon MD (Brooks) at 11:33 EDT , Service support , Assessment & Plan Assessment/Plan (1) Septic shock: (2) Pneumonia: PLAN: #Septic shock due to bilateral community acquire pneumonia * admit to ICU * BP currently up in the 100s systolic without vasopressors * get blood cultures. Urinalysis showed no evidence of UTI. * started on IV vancomycin and zosyn; will continue * Hydrate with IV fluids per sepsis protocol. * Consult critical care. * #TRICIA * Baseline creatinine is around 0.9 and creatinine today is 2.86. * And hydrated with IV fluids. Trend creatinine. If creatinine doesn't trend down, will do extensive work-up including renal ultrasound and urine electrolytes. * #Acute metabolic encephalopathy due to septic shock: As above #Sinus tachycardia * patient's hR up in the 170s at time of review. * not on any beta blockers. Will give a dose of IV lopressor. If HR remains elevated, will start on cardizem drip * may be due to septic shock. * #Hypertension: Hold lisinopril and amlodipine on account of septic shock. DVT prophylaxis: Lovenox renally dosed CODE STATUS:unable to discuss as patient is very confused Charges/Coding Visit Charges Inpatient E&M: 53038 Init Hosp L3
--- NOTE | 2021-02-03 14:40 | RAD_ITS ---
STUDY: X-RAY CHEST REASON FOR EXAM: Female, 55 years old. line placement TECHNIQUE: AP COMPARISON: Earlier today FINDINGS: Right jugular central venous catheter present with tip extending to the lower SVC. Fusion hardware of the thoracal lumbar spine with increased scoliosis as compared to 2013. Patchy scattered consolidation of the right upper lobe, right mid lung and left midlung. There is no demonstrated pleural abnormality. Normal size heart. Normal mediastinum and bryon. Normal visualized pulmonary arteries. Normal visualized aortic arch and descending thoracic aorta. Normal visualized ribs, clavicles, and shoulders. There is no demonstrated abnormality of the visualized soft tissue structures of the upper abdomen. RAD/CXR for Line Placement IMPRESSION: Satisfactory position of right jugular central venous catheter. Electronically Signed: Ben Rincon MD (Brooks) at 15:01 EDT , Service support ,
--- NOTE | 2021-02-03 14:52 | NURSING ---
ICU KORAM SEPTIC SHOCK, PNEUMONIA
--- NOTE | 2021-02-03 14:56 | EKG12_ITS ---
Test Reason : REPEAT Blood Pressure : / mmHG Vent. Rate : 163 BPM Atrial Rate : 144 BPM P-R Int : 000 ms QRS Dur : 070 ms QT Int : 292 ms P-R-T Axes : 000 107 053 degrees QTc Int : 480 ms Supraventricular tachycardia with Premature ventricular complexes or Fusion complexes Low voltage QRS Borderline ECG Confirmed by JM AWAD, VERONA ([id number]), online editor JAMAAL ENRIQUEZ ([id number]) on 02/08/2021 12:53:12 PM Referred By: DAVID Confirmed By:VERONA ONEAL MD
[2021-02-03 15:11] LABS: Reflex Lactate? Y
[2021-02-03 15:15] LABS: Color, Urine Yellow (Yellow); Glucose, Dipstick Normal (Normal); Ketone-Dipstick 5 mg/dl (Negative); Leukocyte Esterase-Dipstick 500 /ul (Negative); Nitrite-Dipstick Negative (Negative); Occult Blood-Urine 250 /ul (Negative); Protein-Dipstick 100 mg/dl (Negative); Urine Bilirubin Dipstick 3 mg/dL (Negative); Urine Clarity Cloudy (Clear); Urine Urobilinogen 1 mg/dl (Normal)
--- NOTE | 2021-02-03 15:15 | ED.RN ---
CALLED REPORT ON PT TO ICU
--- NOTE | 2021-02-03 15:17 | NURSING ---
ICU 4
--- NOTE | 2021-02-03 15:27 | ED.RN ---
DR LINDSAY AND CLAUDIA NURSE IN WITH PT. PT RESTLESS PICKING AT O2 TUBING. ADMISSION NURSE REPORTED SHE PULLED CENTRAL LINE OUT. PRESSURE APPLIED AND NOTIFIED.
[2021-02-03 15:29] LABS: Bacteria 2+ /hpf (None Seen); Red Blood Cells-Urine 5-10 SEEN /hpf (0-5); White Blood Cells 10-25 SEEN /hpf (0-5)
[2021-02-03 15:30] LABS: Amorphous Sediment 1+
--- NOTE | 2021-02-03 15:44 | ED.RN ---
dr gustafson took over for dr rivera verbalized bp is stabilized no need for central line at this time.
--- NOTE | 2021-02-03 18:33 | PCM.RX.CS ---
Consult Pharmacy has been consulted to manage selected antiobiotic: Vancomycin Type of Consult: New start Suspected Infection: Pneumonia Labs: Sodium 148 mmol/L (136-145) H 02/03/21 11:05 Potassium 3.5 mmol/L (3.5-5.1) 02/03/21 11:05 Chloride 116 mmol/L (98-107) H 02/03/21 11:05 Carbon Dioxide 23.0 mmol/L (21.0-32.0) 02/03/21 11:05 Anion Gap 9 (5-15) 02/03/21 11:05 BUN 57 mg/dL (7-18) H 02/03/21 11:05 Creatinine 2.86 mg/dL (0.55-1.02) H 02/03/21 11:05 Est GFR (MDRD) Af Amer 22 mL/min (>60) L 02/03/21 11:05 Est GFR (MDRD) Non-Af 18 mL/min (>60) L 02/03/21 11:05 BUN/Creatinine Ratio 19.9 RATIO (10-20) 02/03/21 11:05 Glucose 144 mg/dL (74-106) H 02/03/21 11:05 Microbiology: Microbiology 02/03/21 12:32 Urine Catheter - Henry Legionella Antigen - Final 02/03/21 12:32 Urine Catheter - Henry Streptococcus pneumoniae Antigen (M - Final 02/03/21 14:50 Mucosa - Nose SARS-CoV-2 Antigen (Rapid) - Final Goal Trough: 15-20 mcg/mL Pharmacy Plan for Drug Dosing: NEW START IV VANCOMYCIN Consulting Physician: Dr. Garza Indication: Pneumonia Goal Trough: 15-20 SrCr: 2.86 CrCl: 21mL/min Comments: 2g IV x1 in ED 02/03/21 @1305 Vancomcyin Dose: 750mg IV Q24hr to start 02/04/21 @1300 Pending Level: 02/05/21 @1230 prior to 3rd total dose per protocol Pharmacy Service will continue to monitor and adjust dosing as required.
[2021-02-03 18:47] LABS: Troponin-I HS 17.8 pg/mL (3.0-53.7)
[2021-02-03 18:55] LABS: Lactic Acid 1.7 mmol/L (0.4-1.9)
--- NOTE | 2021-02-03 19:04 | NURSING ---
Dr. Garza notified of pt heart rate in 160's. Ordered to start heparin gtt with bolus, give 2.5 lopressor (if that affects BP start low dose levophed), order cardiology consult.
--- NOTE | 2021-02-03 19:30 | PCM.CONS.C ---
Assessment & Plan Assessment/Plan (1) SVT (supraventricular tachycardia): PLAN: Paroxysmal supraventricular tachyarrhythmia. The patient appears to have this intermittently. This appears to be worsened likely by her septic state. At this time I would recommend that we continue to treat the underlying sepsis with intravenous fluid and correct her electrolytes. I would recommend one bolus of amiodarone, and an echocardiogram in a.m. to assess her ventricular function. Depending on those findings further recommendations will be made. In the meantime other etiologies for sinus tachycardia should be investigated including but not limited to pulmonary embolism, sepsis, anemia etc. Thank you for allowing me to participate in the care of your patient. Please don't hesitate to call if any issues arise. HPI Consult Data Date of Consult: 02/04/21 HPI Narrative HPI Narrative: BRANDO NIXON, is a 55 F who presents to the emergency room being brought in by EMS after being found on the floor of her apartment. It is not clear how long she had been lying there. She was admitted through the emergency room to the intensive care unit and being treated as sepsis. She was initially noted to be hypotensive and was treated with intravenous fluids. She did have a persistently elevated heart rate. Cardiology was called to evaluate patient for further treatment. She appears to be somewhat confused and not very communicative. She did have an EKG strip presumably from the EMS which demonstrated a narrow complex tachycardia with a rate of approximately 160 bpm. While in the intensive care unit she has had bouts between sinus rhythm and a narrow complex tachycardia which appears to be a supraventricular tachyarrhythmia. No obvious atrial fibrillation has been noted. With the little history that is available she does not appear to have had any chest pain. [facility] Medical History (Updated 02/04/21 @ 06:[address] Deniz Lr MD) Anxiety Asthma GERD (gastroesophageal reflux disease) Hypertension Hypokalemia Monoclonal gammopathy Schizophrenia Thyroid disease Home Medications omeprazole 20 mg PO DAILY 11/11/13 [History Last Taken 05/09/14 07:30 20 MG] sennosides-docusate sodium [Doc-Q-Lax Tablet] 2 ea PO QHS 05/14/14 [History Last Taken Unknown] quetiapine [Seroquel Xr] 500 mg PO QHS 05/15/14 [History Last Taken Unknown] lisinopril 20 mg PO DAILY 05/12/15 [History Last Taken Unknown] Quetiapine Fumarate [Seroquel Xr] 300 mg PO BREAKFAST 10/05/16 [History Last Taken Unknown] amlodipine 10 mg PO DAILY 10/05/16 [History Last Taken Unknown] benztropine 1 mg PO BID PRN PRN 10/05/16 [History Last Taken Unknown] meloxicam 15 mg PO DAILY 10/05/16 [History Last Taken Unknown] clonazepam [Klonopin] 0.5 mg PO DAILY 10/26/16 [History Last Taken Unknown] propranolol [Inderal Xl] 60 mg PO BID 10/21/18 [History Last Taken Unknown] clonazepam 1 mg PO QHS 03/24/20 [History Last Taken Unknown] tamoxifen 20 mg tablet 20 mg PO DAILY #30 tab 01/21/21 [Rx Last Taken Unknown] Allergy/AdvReac Type Severity Reaction Status Date / Time diazepam [From Valium] Allergy Severe Other Verified 01/25/21 13:41 pseudoephedrine HCl Allergy Severe Other Verified 01/25/21 13:41 [From Sudafed] diphenhydramine HCl AdvReac Severe Unknown Verified 01/25/21 13:41 [From Benadryl] erythromycin base AdvReac Severe Other Verified 01/25/21 13:41 [Erythromycin Base] Antihistamines - Piperidine AdvReac Intermediate Unknown Verified 01/25/21 13:41 Macrolide Antibiotics AdvReac Intermediate Other Verified 01/25/21 13:41 darbepoetin mary AdvReac Unknown Unknown Verified 01/25/21 13:41 [From Aranesp (in polysorbate)] menthol AdvReac Swelling Verified 01/25/21 13:41 quinapril [From Accupril] AdvReac Unknown Verified 01/25/21 13:41 KETOLIDES AdvReac Unknown Uncoded 01/25/21 13:41 Family History Mother Heart disease Father Hypertension Surgical History History of back surgery History of tonsillectomy History of tubal ligation Social History Smoking Status: Never smoker substance use type: does not use ROS Constitutional Constitutional: Denies fever(s) or weight loss Eyes Eyes: Reports as per HPI ENT HEENT: Reports as per HPI Cardiovascular Cardiovascular: Reports other Respiratory/Chest Respiratory/Chest: Reports other Gastrointestinal Gastrointestinal: Denies change in bowel habits, nausea, vomiting or weight changes Genitourinary Genitourinary: Denies difficulty urinating Musculoskeletal Musculoskeletal: Denies joint stiffness or muscle weakness Integumentary Integumentary: Denies lesions Neurologic Neurologic: Denies dizziness or syncope Psychiatric Psychiatric: Denies anxiety Endocrine Endocrinology: Denies excessive sweating or fatigue Hematologic/Lymphatic Hematologic/Lymphatic: Denies anemia Allergic/Immunologic Allergic/Immunologic: Denies seasonal rhinorrhea Physical Exam Const oriented x3 and healthy appearing Orientation / Consciousness: awake HEENT normocephalic Eyes PERRL and conjunctivae normal Neck supple, no JVD and no carotid bruits Chest inspection of chest normal Resp normal respiratory effort and clear to auscultation bilaterally Cardio Palpation: normal PMI Rate: regular rate Rhythm: regular rhythm Heart Sounds: S1 normal and S2 normal Peripheral Pulses: pulses 2+ throughout GI normal to inspection, nondistended, normoactive bowel sounds Extremity normal to inspection Skin Wounds: wounds noted Wound Narrative: Multiple wounds noted all over body with erythema. Psych mental status grossly normal Objective Data Vital Signs: Vital Signs Temp Pulse Resp BP Pulse Ox 96.9 F L 104 H 24 H 81/55 L 96 02/03/21 16:15 02/03/21 18:00 02/03/21 18:00 02/03/21 18:00 02/03/21 18:00 Oxygen Flow Rate (L/min) 3 Oxygen Delivery Method Nasal Cannula Weight: 204 lb 9.6 oz Body Mass Index (BMI) 32.1 Intake & Output: Intake and Output for Last 24 Hours 02/01/21 02/02/21 02/03/21 23:59 23:59 23:59 Intake Total 3640 / 3640 Output Total 100 / 100 Balance 3540 / 3540 Lab / Micro Data Result Diagrams: 02/04/21 04:30 02/04/21 04:30 Labs: Laboratory Results - last 24 hr 02/03/21 02/03/21 02/03/21 11:05 11:05 11:05 WBC 14.4 H RBC 3.94 L Hgb 12.0 Hct 38.0 MCV 96.4 MCH 30.5 MCHC 31.6 L RDW Std Deviation 52.2 H RDW Coeff of Kenna 14.8 H Plt Count 200 MPV 10.7 Neut % (Auto) Not Reportable Absolute Neuts (auto) 5.5 Absolute Lymphs (auto) 2.89 Total Counted 100 Neutrophils % (Manual) 65 Band Neutrophils % 3 Lymphocytes % (Manual) 20 Monocytes % (Manual) 10 Metamyelocytes % 2 H Diff Path Review May foll Platelet Estimate ADEQUATE RBC Morphology NORM C+C Sodium 148 H Potassium 3.5 Chloride 116 H Carbon Dioxide 23.0 Anion Gap 9 BUN 57 H Creatinine 2.86 H Estim Creat Clear Calc 21.36 Est GFR (MDRD) Af Amer 22 L Est GFR (MDRD) Non-Af 18 L BUN/Creatinine Ratio 19.9 Glucose 144 H Lactic Acid 2.0 Calcium 8.8 Total Bilirubin 0.30 AST 27 ALT 59 H Alkaline Phosphatase 68 Total Creatine Kinase 260 H Troponin I High Sens 18.3 Total Protein 6.9 Albumin 2.4 L Globulin 4.5 H Albumin/Globulin Ratio 0.5 L Urine Color Urine Clarity Urine pH Ur Specific [place] Urine Protein Urine Glucose (UA) Urine Ketones Urine Occult Blood Urine Nitrite Urine Bilirubin Urine Urobilinogen Ur Leukocyte Esterase Urine RBC Urine WBC Ur Squamous Epith Cells Amorphous Sediment Urine Bacteria Urine Mucus COVID-19 (MARCELL) 02/03/21 02/03/21 02/03/21 11:05 15:11 18:15 WBC RBC Hgb Hct MCV MCH MCHC RDW Std Deviation RDW Coeff of [place] Plt Count MPV Neut % (Auto) Absolute Neuts (auto) Absolute Lymphs (auto) Total Counted Neutrophils % (Manual) Band Neutrophils % Lymphocytes % (Manual) Monocytes % (Manual) Metamyelocytes % Diff Path Review Platelet Estimate RBC Morphology Sodium Potassium Chloride Carbon Dioxide Anion Gap BUN Creatinine Estim Creat Clear Calc Est GFR (MDRD) Af Amer Est GFR (MDRD) Non-Af BUN/Creatinine Ratio Glucose Lactic Acid 1.7 Calcium Total Bilirubin AST ALT Alkaline Phosphatase Total Creatine Kinase Troponin I High Sens Total Protein Albumin Globulin Albumin/Globulin Ratio Urine Color Yellow Urine Clarity Cloudy Urine pH 5.0 Ur Specific [place] 1.020 Urine Protein 100 H Urine Glucose (UA) Normal Urine Ketones 5 H Urine Occult Blood 250 H Urine Nitrite Negative Urine Bilirubin 3 H Urine Urobilinogen 1 H Ur Leukocyte Esterase 500 H Urine RBC 5-10 SEEN Urine WBC 10-25 SEEN Ur Squamous Epith Cells 0 SEEN Amorphous Sediment 1+ Urine Bacteria 2+ Urine Mucus 0 SEEN COVID-19 (MARCELL) Not Detected 02/03/21 18:15 WBC RBC Hgb Hct MCV MCH MCHC RDW Std Deviation RDW Coeff of Kenna Plt Count MPV Neut % (Auto) Absolute Neuts (auto) Absolute Lymphs (auto) Total Counted Neutrophils % (Manual) Band Neutrophils % Lymphocytes % (Manual) Monocytes % (Manual) Metamyelocytes % Diff Path Review Platelet Estimate RBC Morphology Sodium Potassium Chloride Carbon Dioxide Anion Gap BUN Creatinine Estim Creat Clear Calc Est GFR (MDRD) Af Amer Est GFR (MDRD) Non-Af BUN/Creatinine Ratio Glucose Lactic Acid Calcium Total Bilirubin AST ALT Alkaline Phosphatase Total Creatine Kinase Troponin I High Sens 17.8 Total Protein Albumin Globulin Albumin/Globulin Ratio Urine Color Urine Clarity Urine pH Ur Specific [place] Urine Protein Urine Glucose (UA) Urine Ketones Urine Occult Blood Urine Nitrite Urine Bilirubin Urine Urobilinogen Ur Leukocyte Esterase Urine RBC Urine WBC Ur Squamous Epith Cells Amorphous Sediment Urine Bacteria Urine Mucus COVID-19 (MARCELL) Micro: Microbiology 02/03/21 12:32 Urine Catheter - Henry Legionella Antigen - Final 02/03/21 12:32 Urine Catheter - Henry Streptococcus pneumoniae Antigen (M - Final 02/03/21 14:50 Mucosa - Nose SARS-CoV-2 Antigen (Rapid) - Final Cardiology Labs/Tests 02/03/21 11:05: WBC 14.4 H, RBC 3.94 L, Hgb 12.0, Hct 38.0, MCV 96.4, MCH 30.5, MCHC 31.6 L, Plt Count 200, MPV 10.7, Neut % (Auto) Not Reportable, Absolute Neuts (auto) 5.5, Total Counted 100, Neutrophils % (Manual) 65, Band Neutrophils % 3, Lymphocytes % (Manual) 20, Monocytes % (Manual) 10, Metamyelocytes % 2 H 02/03/21 11:05: Sodium 148 H, Potassium 3.5, Chloride 116 H, Carbon Dioxide 23.0, Anion Gap 9, BUN 57 H, Creatinine 2.86 H, Est GFR (MDRD) Af Amer 22 L, Est GFR (MDRD) Non-Af 18 L, BUN/Creatinine Ratio 19.9, Glucose 144 H, Calcium 8.8, Total Bilirubin 0.30 02/03/21 11:05: Lactic Acid 2.0 02/03/21 11:05: Urine Color Yellow, Urine Clarity Cloudy, Urine pH 5.0, Ur Specific [place] 1.020, Urine Protein 100 H, Urine Glucose (UA) Normal, Urine Ketones 5 H, Urine Occult Blood 250 H, Urine Nitrite Negative, Urine Bilirubin 3 H, Urine Urobilinogen 1 H, Ur Leukocyte Esterase 500 H, Urine RBC 5-10 SEEN, Urine WBC 10-25 SEEN 02/03/21 18:15: Lactic Acid 1.7 Rhythm: Paroxysmal supraventricular tachyarrhythmia EKG: Sinus tachycardia ECHO: Stress Test: Cardiac Cath: PCI: CT Surgery: Holter monitor: EPS: PPM: CXR: Chest CT Scan: Radiography Diagnostic Testing: Radiology Impression Brain CT 02/03/21 10:49 IMPRESSION: Normal unenhanced CT scan of the brain. Electronically Signed: Ben Rincon MD ([facility]) at 11:23 EDT , Service support , Chest X-Ray 02/03/21 11:15 IMPRESSION: Multilobar infiltrates could represent pneumonia and/or atelectasis. Electronically Signed: Ben Rincon MD ([place]) at 11:33 EDT , Service support ,
[2021-02-03] MEDS: Enoxaparin 100 MG/ML Syringe 90 MG SC (21:17)
[2021-02-03] MEDS: clonazePAM 1 MG Tablet PO (21:18)
[2021-02-03] MEDS: QUEtiapine 100 MG Tablet 500 MG PO (21:19)
[2021-02-03 21:26] LABS: Troponin-I HS 16.9 pg/mL (3.0-53.7)
[2021-02-04] VITALS (34 sets, daily range): BP systolic 74–127; BP diastolic 39–81; PULSE 99–119; RESP 19–30; TEMP 36.1–36.6; O2SAT 92–98
[2021-02-04 04:46] LABS: Hematocrit 33.1 % (37-47); Hemoglobin 10.1 g/dL (12.0-15.0); Mean Corp Hgb Conc 30.5 g/dL (32-36); Mean Corpuscular Hgb 30.1 pg (27.0-32.0); Mean Corpuscular Volume 98.8 fL (81-99); Mean Platelet Vol. 10.5 fl (6.2-12.0); POSITIVE COUNT YES; POSITIVE MORPHOLOGY YES; Platelet Count 137 K/mm3 (150-450); RBC Distribution Width SD 54.5 fl (35.1-43.9); Red Blood Count 3.35 M/mm3 (4.2-5.4); White Blood Count 11.5 K/mm3 (4.4-11.0)
[2021-02-04 04:52] LABS: Differential Indicated MANUAL DIFF
[2021-02-04 04:59] LABS: Anion Gap 7 (5-15); BUN 47 mg/dL (7-18); BUN/Creat Ratio 38.2 RATIO (10-20); Calcium,Total 7.5 mg/dL (8.5-10.1); Chloride 126 mmol/L (98-107); Creatinine, Serum 1.23 mg/dL (0.55-1.02); EST Glomerular Filtration Rate 48 mL/min (>60); Est Glom Filt Rate - Afr Amer 58 mL/min (>60); Estimated Creatinine Clearance 47.81 ml/min; Glucose 145 mg/dL (74-106); Potassium 3.2 mmol/L (3.5-5.1); Sodium Level 154 mmol/L (136-145)
[2021-02-04 05:09] LABS: Total Cells Counted 100 (MANUAL DIFF)
[2021-02-04 05:13] LABS: Eosinophil 1 % (0-5); Lymphocyte 20 % (19-41); Metamyelocyte 1 % (0-1); Monocyte 8 % (0-10); Myelocyte 2 % (0-0); Neutrophil-Band 5 % (0-5); Neutrophil-Segmented 65 % (47-70)
[2021-02-04 05:16] LABS: Platelet Estimate SLT DEC (ADEQ); Red Cell Morphology NORM C+C NORMAL (NORM C&C)
[2021-02-04 05:18] LABS: Absolute Neutrophil Count 8.1 X10^3/uL (2.0-7.7); Neutrophil # 8.07 X10^3/uL (2.7-7.7)
--- NOTE | 2021-02-04 05:55 | ECHOCS_ITS ---
Reason For Study: ARRHYTHMIA Procedure This was a 2D Doppler, Color Flow transthoracic echocardiogram. The study was technically difficult. Contrast injection was performed. Exam performed portable in ICU/CCU. Left Ventricle Normal LV size. Left ventricular systolic function is normal. The estimated ejection fraction is 70 %. Stage 1 diastolic dysfunction. No regional wall motion abnormalities noted. Right Ventricle Normal RV size. Normal systolic function. Atria Normal left atrium. Normal right atrium. Mitral Valve Normal mitral valve. Tricuspid Valve Normal tricuspid valve. Aortic Valve The aortic valve is not well visualized. Pulmonic Valve The pulmonic valve is not well visualized. Great Vessels Normal aortic root. The pulmonary artery is normal size. Pericardium/Pleural Small pericardial effusion. Medication Diluted definity 3ml given slow IV push to enhance endocardial definition. MMode/2D Measurements & Calculations RVDd: 3.3 cm Ao root diam: 2.8 cm LA dimension(2D): 3.5 cm Time Measurements MV dec time: 0.36 sec Doppler Measurements & Calculations MV E max silvano: 62.7 cm/sec Lat Peak E' Silvano: 7.7 cm/sec Med Peak E' Silvano: 5.1 cm/sec MV A max silvano: 83.9 cm/sec E/E' lat: 8.1 E/E' med: 12.4 MV E/A: 0.75 Ao V2 max: 196.9 cm/sec LV V1 max: 158.3 cm/sec PA V2 max: 122.1 cm/sec Ao max P.5 mmHg LV V1 max P.0 mmHg ECHO/Echo Complete W/ Contrast Interpretation Summary Normal LV size. Left ventricular systolic function is normal. The estimated ejection fraction is 70 %. Stage 1 diastolic dysfunction. Contrast injection was performed. Ordering Physician: Ira Garza Referring Physician: KORINA RAYGOZA Performed By: Daisha Stanley RDCS, RVT
--- NOTE | 2021-02-04 06:33 | EX.PCM.CONCC ---
Assessment & Plan Assessment/Plan (1) Septic shock: (2) SVT (supraventricular tachycardia): (3) MGUS (monoclonal gammopathy of unknown significance): (4) Schizophrenia: PLAN: RECOMMENDATIONS: 1. Continue broad-spectrum antibiotics 2. Wound nurse to evaluate 3. Transition IV fluids to D5W 4. Electrolyte repletion as indicated 5. Continue psychiatric meds with restraints as necessary 6. Appreciate cardiology input IMPRESSIONS: 1. Septic shock of unclear etiology Patient with multiple possible sources of infection including pneumonia and skin wounds. We will continue with broad-spectrum antibiotics at this time. Patient does have a tunneling lesion in the inguinal area, so enterocutaneous or urocutaneous fistula is also a concern. Wound team to evaluate the patient. Patient currently has pressors going through a peripheral line, but blood pressures appear to be improving. We will hold on placing a second central line for now as this may cause more harm patient continues to forcibly remove interventions. 2. Acute kidney injury/hypokalemia/hyperchloremia/hypovolemic hypernatremia Baseline creatinine appears to be around 0.9, but was elevated at 2.86 on presentation. Patient does appear to be volume depleted and likely has a prerenal etiology. In addition to septic shock, patient is also on an YOUSIF inhibitor at baseline, which could potentiate injury. Continue with aggressive resuscitation, but transition to D5W as patient does have significant hyperchloremia and hypernatremia. No indication for renal replacement therapy at this time 3. SVT Cardiology currently following. Patient did receive amiodarone overnight. Would hold on any beta-blockers as patient is likely having appropriate tachycardia given volume resuscitation is still underway in the setting of septic shock. Defer to cardiology on whether full anticoagulation needs to be continued. Low clinical suspicion for PE given patient saturations are doing well on minimal nasal cannula oxygen and there are other reasons for the patient to have tachycardia. 4. Metabolic encephalopathy/delirium Patient with multiple etiologies for delirium. Patient does have schizophrenia at baseline, which complicates behavior issues. However, patient also has hypokalemia, hypernatremia and hyperchloremia. Patient also has septic shock. All of these are currently being addressed. Continue with restraints for now, but discontinuation will help with delirium moving forward. 5. Obesity/schizophrenia/hypertension/MGUS/asthma/scoliosis/history of breast cancer Complicates care, management, recovery and prognosis. Antihypertensives will be held until patient is more hemodynamically stable. Continue with psychiatric medications. TIME: 35 minutes critical care time spent addressing patient's septic shock, acute kidney injury, SVT, delirium, review of all data and collaboration with care team (5:45 AM to 6:45 AM) HPI Consult Data Date of Consult: 02/04/21 HPI Narrative HPI Narrative: BRANDO NIXON is a 55 F, with past medical history listed below, who presented to [facility] on 02/03/2021 secondary to being found down. Patient reportedly was checked on from someone from the [employer] [facility] secondary to a missed appointment on the day previously. Patient had recently been at [facility] and discharged at the end of last month. Patient was last contacted by her sister approximately 4 to 5 days ago. Patient was not able to provide much additional history as she forgot how she got on the floor and was unclear if she had fallen. Patient did not know if she had hit her head. Patient does have a baseline of schizophrenia, but reportedly is very good about making her appointments. In the ER, patient was tachycardic at approximately 118 bpm and hypertensive at 151/135. Patient was initially placed on a nonrebreather. Shortly after presentation, patient did become hypotensive at 77/43 and received 3 L of IV fluids with some improvement. However, blood pressures remain marginal so a central line was placed by the ER staff. Pressors did not have to be initiated as patient had responded to the fluid bolus by time the central line was completed. Tachycardia was noted to be SVT by ER personnel. Laboratory data showed a leukocytosis of 14.4, sodium of 148, chloride 116, BUN 57 and creatinine of 2.86. Lactate was elevated at 2, but total CK was only 260. Urinalysis did show some leukocyte esterase and 2+ bacteria. A CT of the head was unremarkable and a chest x-ray showed multilobar infiltrates. Since being in the intensive care unit, patient has had some hypotension and had Levophed initiated. Patient also had some SVT and was evaluated by cardiology. Patient did receive a dose of amiodarone and Lovenox. Patient became confused overnight and did pull out her central line. Patient currently has Levophed running through a peripheral line and has been restrained. Patient is unable to provide much additional history at this time. Patient does have multiple pressure wounds noted that were not documented on previous visits to [facility]. Patient has been doing well on 2 L nasal cannula and does not have any respiratory complaints at this time. [facility] Medical History (Updated 02/04/21 @ 06:[address] Deniz Lr MD) Anxiety Asthma GERD (gastroesophageal reflux disease) Hypertension Hypokalemia Monoclonal gammopathy Schizophrenia Thyroid disease Home Medications omeprazole 20 mg PO DAILY 11/11/13 [History Last Taken 05/09/14 07:30 20 MG] sennosides-docusate sodium [Doc-Q-Lax Tablet] 2 ea PO QHS 05/14/14 [History Last Taken Unknown] quetiapine [Seroquel Xr] 500 mg PO QHS 05/15/14 [History Last Taken Unknown] lisinopril 20 mg PO DAILY 05/12/15 [History Last Taken Unknown] Quetiapine Fumarate [Seroquel Xr] 300 mg PO BREAKFAST 10/05/16 [History Last Taken Unknown] amlodipine 10 mg PO DAILY 10/05/16 [History Last Taken Unknown] benztropine 1 mg PO BID PRN PRN 10/05/16 [History Last Taken Unknown] meloxicam 15 mg PO DAILY 10/05/16 [History Last Taken Unknown] clonazepam [Klonopin] 0.5 mg PO DAILY 10/26/16 [History Last Taken Unknown] propranolol [Inderal Xl] 60 mg PO BID 10/21/18 [History Last Taken Unknown] clonazepam 1 mg PO QHS 03/24/20 [History Last Taken Unknown] tamoxifen 20 mg tablet 20 mg PO DAILY #30 tab 01/21/21 [Rx Last Taken Unknown] Allergy/AdvReac Type Severity Reaction Status Date / Time diazepam [From Valium] Allergy Severe Other Verified 01/25/21 13:41 pseudoephedrine HCl Allergy Severe Other Verified 01/25/21 13:41 [From Sudafed] diphenhydramine HCl AdvReac Severe Unknown Verified 01/25/21 13:41 [From Benadryl] erythromycin base AdvReac Severe Other Verified 01/25/21 13:41 [Erythromycin Base] Antihistamines - Piperidine AdvReac Intermediate Unknown Verified 01/25/21 13:41 Macrolide Antibiotics AdvReac Intermediate Other Verified 01/25/21 13:41 darbepoetin mary AdvReac Unknown Unknown Verified 01/25/21 13:41 [From Aranesp (in polysorbate)] menthol AdvReac Swelling Verified 01/25/21 13:41 quinapril [From Accupril] AdvReac Unknown Verified 01/25/21 13:41 KETOLIDES AdvReac Unknown Uncoded 01/25/21 13:41 Family History Mother Heart disease Father Hypertension Surgical History History of back surgery History of tonsillectomy History of tubal ligation Social History Smoking Status: Never smoker substance use type: does not use ROS Review of Systems ROS Unobtainable: due to encephalopathy and due to mental condition Physical Exam Const no apparent distress General Appearance: disheveled and lethargic; Negative for well kempt Nutritional Appearance: obese HEENT normocephalic Mouth: dry mucous membranes Eyes PERRL and EOMs intact bilaterally Sclera: sclera abnormal Positive for bilateral Details: scleral injection Neck full ROM and no lymphadenopathy Chest inspection of chest normal Resp normal respiratory effort and no use of accessory muscles Effort and Inspection: able to speak in complete sentences Auscultation: clear to auscultation bilaterally; Negative for rales, rhonchi or wheezes Percussion: Negative for dullness Cardio regular rhythm, S1 normal heart sound, S2 normal heart sound, no murmurs, no rub and no gallops Rate: tachycardic GI normal to inspection, nondistended, normoactive bowel sounds no CVA tenderness Extremity no clubbing, cyanosis or edema Skin Skin Narrative: Multiple lesions noted including superficial ulcers, areas of ecchymosis and granulation tissue. Lesions on the knee, right shoulder and bilateral feet were noted. See nursing documentation for specific details Neuro CN's II-XII intact bilaterally, moves all extremities and no focal motor deficits Psych affect normal Appearance: unkempt Attitude: uncooperative Lab / Micro Data Result Diagrams: 02/04/21 04:30 02/04/21 04:30 Labs: Laboratory Results - last 24 hr 02/02/21 02/03/21 02/03/21 23:15 11:05 11:05 WBC 14.4 H RBC 3.94 L Hgb 12.0 Hct 38.0 MCV 96.4 MCH 30.5 MCHC 31.6 L RDW Std Deviation 52.2 H RDW Coeff of Kenna 14.8 H Plt Count 200 MPV 10.7 Neut % (Auto) Not Reportable Absolute Neuts (auto) 5.5 Absolute Lymphs (auto) 2.89 Total Counted 100 Neutrophils % (Manual) 65 Band Neutrophils % 3 Lymphocytes % (Manual) 20 Monocytes % (Manual) 10 Eosinophils % (Manual) Metamyelocytes % 2 H Myelocytes % Diff Path Review May foll Platelet Estimate ADEQUATE RBC Morphology NORM C+C Sodium 148 H Potassium 3.5 Chloride 116 H Carbon Dioxide 23.0 Anion Gap 9 BUN 57 H Creatinine 2.86 H Estim Creat Clear Calc 21.36 Est GFR (MDRD) Af Amer 22 L Est GFR (MDRD) Non-Af 18 L BUN/Creatinine Ratio 19.9 Glucose 144 H Lactic Acid Calcium 8.8 Total Bilirubin 0.30 AST 27 ALT 59 H Alkaline Phosphatase 68 Total Creatine Kinase 260 H Troponin I High Sens Cancelled 18.3 Total Protein 6.9 Albumin 2.4 L Globulin 4.5 H Albumin/Globulin Ratio 0.5 L Urine Color Urine Clarity Urine pH Ur Specific [place] Urine Protein Urine Glucose (UA) Urine Ketones Urine Occult Blood Urine Nitrite Urine Bilirubin Urine Urobilinogen Ur Leukocyte Esterase Urine RBC Urine WBC Ur Squamous Epith Cells Amorphous Sediment Urine Bacteria Urine Mucus COVID-19 (MARCELL) 02/03/21 02/03/21 02/03/21 11:05 11:05 15:11 WBC RBC Hgb Hct MCV MCH MCHC RDW Std Deviation RDW Coeff of Kenna Plt Count MPV Neut % (Auto) Absolute Neuts (auto) Absolute Lymphs (auto) Total Counted Neutrophils % (Manual) Band Neutrophils % Lymphocytes % (Manual) Monocytes % (Manual) Eosinophils % (Manual) Metamyelocytes % Myelocytes % Diff Path Review Platelet Estimate RBC Morphology Sodium Potassium Chloride Carbon Dioxide Anion Gap BUN Creatinine Estim Creat Clear Calc Est GFR (MDRD) Af Amer Est GFR (MDRD) Non-Af BUN/Creatinine Ratio Glucose Lactic Acid 2.0 Calcium Total Bilirubin AST ALT Alkaline Phosphatase Total Creatine Kinase Troponin I High Sens Total Protein Albumin Globulin Albumin/Globulin Ratio Urine Color Yellow Urine Clarity Cloudy Urine pH 5.0 Ur Specific [place] 1.020 Urine Protein 100 H Urine Glucose (UA) Normal Urine Ketones 5 H Urine Occult Blood 250 H Urine Nitrite Negative Urine Bilirubin 3 H Urine Urobilinogen 1 H Ur Leukocyte Esterase 500 H Urine RBC 5-10 SEEN Urine WBC 10-25 SEEN Ur Squamous Epith Cells 0 SEEN Amorphous Sediment 1+ Urine Bacteria 2+ Urine Mucus 0 SEEN COVID-19 (MARCELL) Not Detected 02/03/21 02/03/21 02/03/21 18:15 18:15 20:48 WBC RBC Hgb Hct MCV MCH MCHC RDW Std Deviation RDW Coeff of Kenna Plt Count MPV Neut % (Auto) Absolute Neuts (auto) Absolute Lymphs (auto) Total Counted Neutrophils % (Manual) Band Neutrophils % Lymphocytes % (Manual) Monocytes % (Manual) Eosinophils % (Manual) Metamyelocytes % Myelocytes % Diff Path Review Platelet Estimate RBC Morphology Sodium Potassium Chloride Carbon Dioxide Anion Gap BUN Creatinine Estim Creat Clear Calc Est GFR (MDRD) Af Amer Est GFR (MDRD) Non-Af BUN/Creatinine Ratio Glucose Lactic Acid 1.7 Calcium Total Bilirubin AST ALT Alkaline Phosphatase Total Creatine Kinase Troponin I High Sens 17.8 16.9 Total Protein Albumin Globulin Albumin/Globulin Ratio Urine Color Urine Clarity Urine pH Ur Specific [place] Urine Protein Urine Glucose (UA) Urine Ketones Urine Occult Blood Urine Nitrite Urine Bilirubin Urine Urobilinogen Ur Leukocyte Esterase Urine RBC Urine WBC Ur Squamous Epith Cells Amorphous Sediment Urine Bacteria Urine Mucus COVID-19 (MARCELL) 02/03/21 02/04/21 02/04/21 23:15 04:30 04:30 WBC 11.5 H RBC 3.35 L Hgb 10.1 L Hct 33.1 L MCV 98.8 MCH 30.1 MCHC 30.5 L RDW Std Deviation 54.5 H RDW Coeff of Kenna 15.0 H Plt Count 137 L MPV 10.5 Neut % (Auto) Not Reportable Absolute Neuts (auto) 8.1 H Absolute Lymphs (auto) 2.30 Total Counted 100 Neutrophils % (Manual) 65 Band Neutrophils % 5 Lymphocytes % (Manual) 20 Monocytes % (Manual) 8 Eosinophils % (Manual) 1 Metamyelocytes % 1 Myelocytes % 2 H Diff Path Review May foll Platelet Estimate SLT DEC RBC Morphology NORM C+C Sodium 154 H Potassium 3.2 L Chloride 126 H Carbon Dioxide 21.0 Anion Gap 7 BUN 47 H Creatinine 1.23 H Estim Creat Clear Calc 47.81 Est GFR (MDRD) Af Amer 58 L Est GFR (MDRD) Non-Af 48 L BUN/Creatinine Ratio 38.2 H Glucose 145 H Lactic Acid Calcium 7.5 L Total Bilirubin AST ALT Alkaline Phosphatase Total Creatine Kinase Troponin I High Sens 17.0 Total Protein Albumin Globulin Albumin/Globulin Ratio Urine Color Urine Clarity Urine pH Ur Specific [place] Urine Protein Urine Glucose (UA) Urine Ketones Urine Occult Blood Urine Nitrite Urine Bilirubin Urine Urobilinogen Ur Leukocyte Esterase Urine RBC Urine WBC Ur Squamous Epith Cells Amorphous Sediment Urine Bacteria Urine Mucus COVID-19 (MARCELL) Micro: Microbiology 02/03/21 12:32 Legionella Antigen - Final Urine Catheter - Henry Streptococcus pneumoniae Antigen (M - Final 02/03/21 14:50 SARS-CoV-2 Antigen (Rapid) - Final Mucosa - Nose Radiology Impression Brain CT 02/03/21 10:49 IMPRESSION: Normal unenhanced CT scan of the brain. Electronically Signed: Ben Rincon MD ([facility]) at 11:23 EDT , Service support , Chest X-Ray 02/03/21 11:15 IMPRESSION: Multilobar infiltrates could represent pneumonia and/or atelectasis. Electronically Signed: Ben Rincon MD ([facility]) at 11:33 EDT , Service support , Charges/Coding Procedures Hospitalists Procedures: [id number] Critial Care 1st Hr
[2021-02-04] MEDS: Potassium Chloride 10mEq/100mL 10 MEQ/100 ML IV.SOLN. 100 MEQ IV BOLUS ×4 (06:48→10:42)
--- NOTE | 2021-02-04 07:14 | PN.HOSP_ITS ---
Subjective Subjective Patient seen and examined. She became tachycardic yesterday again, necessitating cardiology evaluation. She was also given a dose of therapeutic lovenox yesterday o/a of concerns for PE in light of tachycardia, tachypnea and respiratory insufficiency. She also remained hypotensive, so levophed was initiated. Of note, patient pulled out her central line in the ED yesterday. She did receive of amiodarone last night per cardiology in light of SVT. WBC is 11.5 today but sodium has gone up to 154 and chloride is also elevated which is likely due to IV fluids that she received. Potassium was also 3.2 today. She has been on 2 L of oxygen throughout the night and creatinine is down to 1.23 today. Objective Data Objective Data Vital Signs: Vital Signs Temp Pulse Resp BP Pulse Ox 97 F L 101 H 19 H 120/66 95 02/04/21 00:00 02/04/21 07:00 02/04/21 07:00 02/04/21 07:00 02/04/21 07:00 Oxygen Flow Rate (L/min) 3 Oxygen Delivery Method Nasal Cannula Weight: 207 lb 11.2 oz Body Mass Index (BMI) 32.1 Intake & Output: Intake and Output for Last 24 Hours 02/02/21 02/03/21 02/04/21 23:59 23:59 23:59 Intake Total 4249 / 4251.82 1103.02 / 1103.02 Output Total 375 / 375 375 / 375 Balance 3874 / 3876.82 728.02 / 728.02 Lab / Micro Data Result Diagrams: 02/04/21 04:30 02/04/21 04:30 Labs: Laboratory Results - last 24 hr 02/02/21 02/03/21 02/03/21 23:15 11:05 11:05 WBC 14.4 H RBC 3.94 L Hgb 12.0 Hct 38.0 MCV 96.4 MCH 30.5 MCHC 31.6 L RDW Std Deviation 52.2 H RDW Coeff of Kenna 14.8 H Plt Count 200 MPV 10.7 Neut % (Auto) Not Reportable Absolute Neuts (auto) 5.5 Absolute Lymphs (auto) 2.89 Total Counted 100 Neutrophils % (Manual) 65 Band Neutrophils % 3 Lymphocytes % (Manual) 20 Monocytes % (Manual) 10 Eosinophils % (Manual) Metamyelocytes % 2 H Myelocytes % Diff Path Review May foll Platelet Estimate ADEQUATE RBC Morphology NORM C+C Sodium 148 H Potassium 3.5 Chloride 116 H Carbon Dioxide 23.0 Anion Gap 9 BUN 57 H Creatinine 2.86 H Estim Creat Clear Calc 21.36 Est GFR (MDRD) Af Amer 22 L Est GFR (MDRD) Non-Af 18 L BUN/Creatinine Ratio 19.9 Glucose 144 H Lactic Acid Calcium 8.8 Total Bilirubin 0.30 AST 27 ALT 59 H Alkaline Phosphatase 68 Total Creatine Kinase 260 H Troponin I High Sens Cancelled 18.3 Total Protein 6.9 Albumin 2.4 L Globulin 4.5 H Albumin/Globulin Ratio 0.5 L Urine Color Urine Clarity Urine pH Ur Specific [place] Urine Protein Urine Glucose (UA) Urine Ketones Urine Occult Blood Urine Nitrite Urine Bilirubin Urine Urobilinogen Ur Leukocyte Esterase Urine RBC Urine WBC Ur Squamous Epith Cells Amorphous Sediment Urine Bacteria Urine Mucus COVID-19 (MARCELL) 02/03/21 02/03/21 02/03/21 11:05 11:05 15:11 WBC RBC Hgb Hct MCV MCH MCHC RDW Std Deviation RDW Coeff of Kenan Plt Count MPV Neut % (Auto) Absolute Neuts (auto) Absolute Lymphs (auto) Total Counted Neutrophils % (Manual) Band Neutrophils % Lymphocytes % (Manual) Monocytes % (Manual) Eosinophils % (Manual) Metamyelocytes % Myelocytes % Diff Path Review Platelet Estimate RBC Morphology Sodium Potassium Chloride Carbon Dioxide Anion Gap BUN Creatinine Estim Creat Clear Calc Est GFR (MDRD) Af Amer Est GFR (MDRD) Non-Af BUN/Creatinine Ratio Glucose Lactic Acid 2.0 Calcium Total Bilirubin AST ALT Alkaline Phosphatase Total Creatine Kinase Troponin I High Sens Total Protein Albumin Globulin Albumin/Globulin Ratio Urine Color Yellow Urine Clarity Cloudy Urine pH 5.0 Ur Specific [place] 1.020 Urine Protein 100 H Urine Glucose (UA) Normal Urine Ketones 5 H Urine Occult Blood 250 H Urine Nitrite Negative Urine Bilirubin 3 H Urine Urobilinogen 1 H Ur Leukocyte Esterase 500 H Urine RBC 5-10 SEEN Urine WBC 10-25 SEEN Ur Squamous Epith Cells 0 SEEN Amorphous Sediment 1+ Urine Bacteria 2+ Urine Mucus 0 SEEN COVID-19 (MARCELL) Not Detected 02/03/21 02/03/21 02/03/21 18:15 18:15 20:48 WBC RBC Hgb Hct MCV MCH MCHC RDW Std Deviation RDW Coeff of Kenna Plt Count MPV Neut % (Auto) Absolute Neuts (auto) Absolute Lymphs (auto) Total Counted Neutrophils % (Manual) Band Neutrophils % Lymphocytes % (Manual) Monocytes % (Manual) Eosinophils % (Manual) Metamyelocytes % Myelocytes % Diff Path Review Platelet Estimate RBC Morphology Sodium Potassium Chloride Carbon Dioxide Anion Gap BUN Creatinine Estim Creat Clear Calc Est GFR (MDRD) Af Amer Est GFR (MDRD) Non-Af BUN/Creatinine Ratio Glucose Lactic Acid 1.7 Calcium Total Bilirubin AST ALT Alkaline Phosphatase Total Creatine Kinase Troponin I High Sens 17.8 16.9 Total Protein Albumin Globulin Albumin/Globulin Ratio Urine Color Urine Clarity Urine pH Ur Specific [place] Urine Protein Urine Glucose (UA) Urine Ketones Urine Occult Blood Urine Nitrite Urine Bilirubin Urine Urobilinogen Ur Leukocyte Esterase Urine RBC Urine WBC Ur Squamous Epith Cells Amorphous Sediment Urine Bacteria Urine Mucus COVID-19 (MARCELL) 02/03/21 02/04/21 02/04/21 23:15 04:30 04:30 WBC 11.5 H RBC 3.35 L Hgb 10.1 L Hct 33.1 L MCV 98.8 MCH 30.1 MCHC 30.5 L RDW Std Deviation 54.5 H RDW Coeff of Kenna 15.0 H Plt Count 137 L MPV 10.5 Neut % (Auto) Not Reportable Absolute Neuts (auto) 8.1 H Absolute Lymphs (auto) 2.30 Total Counted 100 Neutrophils % (Manual) 65 Band Neutrophils % 5 Lymphocytes % (Manual) 20 Monocytes % (Manual) 8 Eosinophils % (Manual) 1 Metamyelocytes % 1 Myelocytes % 2 H Diff Path Review May foll Platelet Estimate SLT DEC RBC Morphology NORM C+C Sodium 154 H Potassium 3.2 L Chloride 126 H Carbon Dioxide 21.0 Anion Gap 7 BUN 47 H Creatinine 1.23 H Estim Creat Clear Calc 47.81 Est GFR (MDRD) Af Amer 58 L Est GFR (MDRD) Non-Af 48 L BUN/Creatinine Ratio 38.2 H Glucose 145 H Lactic Acid Calcium 7.5 L Total Bilirubin AST ALT Alkaline Phosphatase Total Creatine Kinase Troponin I High Sens 17.0 Total Protein Albumin Globulin Albumin/Globulin Ratio Urine Color Urine Clarity Urine pH Ur Specific [place] Urine Protein Urine Glucose (UA) Urine Ketones Urine Occult Blood Urine Nitrite Urine Bilirubin Urine Urobilinogen Ur Leukocyte Esterase Urine RBC Urine WBC Ur Squamous Epith Cells Amorphous Sediment Urine Bacteria Urine Mucus COVID-19 (MARCELL) Micro: Microbiology 02/03/21 12:32 Urine Catheter - Henry Legionella Antigen - Final 02/03/21 12:32 Urine Catheter - Henry Streptococcus pneumoniae Antigen (M - Final 02/03/21 14:50 Mucosa - Nose SARS-CoV-2 Antigen (Rapid) - Final Radiography Diagnostic Testing: Radiology Impression Brain CT 02/03/21 10:49 IMPRESSION: Normal unenhanced CT scan of the brain. Electronically Signed: Ben Rincon MD ([place]) at 11:23 EDT , Service support , Chest X-Ray 02/03/21 11:15 IMPRESSION: Multilobar infiltrates could represent pneumonia and/or atelectasis. Electronically Signed: Ben Rincon MD ([place]) at 11:33 EDT , Service support , Physical Exam Const alert Orientation / Consciousness: confused, disoriented and lethargic HEENT normocephalic, head/scalp atraumatic and hearing grossly normal bilaterally Head and Scalp: normocephalic Eyes PERRL, EOMs intact bilaterally and conjunctivae normal Neck no lymphadenopathy Resp Resp Narrative: Tachypneic, diminished breath sounds bibasilarly. No wheezes or crackles. on 2L of oxygen Cardio S1 normal heart sound, S2 normal heart sound and no murmurs Cardio Narrative: Tachycardic. GI normal to inspection, nondistended, normoactive bowel sounds, soft to palpation, non-tender and non-distended Extremity normal to inspection, full ROM and no clubbing, cyanosis or edema Skin Skin Narrative: has several excoriations and superficial ulcerations over her extremities which appear to be in different stages of healing. Neuro Neuro Narrative: Confused, moves all extremities spontaneously. Sensorium / Orientation: alert Psych Psych Narrative: Confused. Assessment & Plan Assessment/Plan (1) Septic shock: (2) Pneumonia: PLAN: #Septic shock due to bilateral community acquire pneumonia and UTI * was initiated on levophed overnight due to hypotension * has numerous skin excoriations and superficial ulcerations which could also be contributing to sepsis. * blood cultures pending. * on IV vancomycin and zosyn. * critical care on board' * titrate levophed to maintain a MAP of >65 * urine culture also pending * will get wound care to see patient * covid test was negative * #TRICIA * resolved. Cr is down to 1.23 today * * #Acute metabolic encephalopathy due to septic shock: As above #Acute hypoxic respiratory insufficiency due to bilateral pneumonia and septic shock * as under septic shock * currently on 2L of oxygen * titrate oxygen to maintain sats>90% * #SVT * cardiology consulted yesterday o/a of persistent tachycardia * received a dose of IV amiodarone yesterday. also given a dose of SC heparin therapeutic dose due to concerns about PE * HR down to 101 this morning * 2D echo pending * will get CTA of the chest today * #Hypernatremia * due to IVF administration. Na is 154 today * normal saline stopped; will trend and if it remaiins elevated,will give D5W to bring Na down * #Hypokalemia: K is 3.2 today. Will replace and trend #UTI: urine showed 2+ bacteria. Urine cultures pending. On IV zosyn. #Hypertension: Hold lisinopril and amlodipine on account of septic shock. DVT prophylaxis: Lovenox renally dosed Charges/Coding Visit Charges Inpatient E&M: 26627 [facility] L3
--- NOTE | 2021-02-04 07:37 | PN.CARD_ITS ---
Subjective Subjective Patient seen and evaluated. Appears to be doing better this morning. Less episodes of supraventricular tachyarrhythmia. Objective Data Vital Signs: Vital Signs Temp Pulse Resp BP Pulse Ox 97 F L 101 H 19 H 120/66 95 02/04/21 00:00 02/04/21 07:00 02/04/21 07:00 02/04/21 07:00 02/04/21 07:00 Oxygen Flow Rate (L/min) 3 Oxygen Delivery Method Nasal Cannula Weight: 207 lb 11.2 oz Body Mass Index (BMI) 32.1 Intake & Output: Intake and Output for Last 24 Hours 02/02/21 02/03/21 02/04/21 23:59 23:59 23:59 Intake Total 4249 / 4251.82 1103.02 / 1103.02 Output Total 375 / 375 375 / 375 Balance 3874 / 3876.82 728.02 / 728.02 Lab / Micro Data Result Diagrams: 02/04/21 04:30 02/04/21 04:30 Labs: Laboratory Results - last 24 hr 02/02/21 02/03/21 02/03/21 23:15 11:05 11:05 WBC 14.4 H RBC 3.94 L Hgb 12.0 Hct 38.0 MCV 96.4 MCH 30.5 MCHC 31.6 L RDW Std Deviation 52.2 H RDW Coeff of Kenna 14.8 H Plt Count 200 MPV 10.7 Neut % (Auto) Not Reportable Absolute Neuts (auto) 5.5 Absolute Lymphs (auto) 2.89 Total Counted 100 Neutrophils % (Manual) 65 Band Neutrophils % 3 Lymphocytes % (Manual) 20 Monocytes % (Manual) 10 Eosinophils % (Manual) Metamyelocytes % 2 H Myelocytes % Diff Path Review May foll Platelet Estimate ADEQUATE RBC Morphology NORM C+C Sodium 148 H Potassium 3.5 Chloride 116 H Carbon Dioxide 23.0 Anion Gap 9 BUN 57 H Creatinine 2.86 H Estim Creat Clear Calc 21.36 Est GFR (MDRD) Af Amer 22 L Est GFR (MDRD) Non-Af 18 L BUN/Creatinine Ratio 19.9 Glucose 144 H Lactic Acid Calcium 8.8 Total Bilirubin 0.30 AST 27 ALT 59 H Alkaline Phosphatase 68 Total Creatine Kinase 260 H Troponin I High Sens Cancelled 18.3 Total Protein 6.9 Albumin 2.4 L Globulin 4.5 H Albumin/Globulin Ratio 0.5 L Urine Color Urine Clarity Urine pH Ur Specific [place] Urine Protein Urine Glucose (UA) Urine Ketones Urine Occult Blood Urine Nitrite Urine Bilirubin Urine Urobilinogen Ur Leukocyte Esterase Urine RBC Urine WBC Ur Squamous Epith Cells Amorphous Sediment Urine Bacteria Urine Mucus COVID-19 (MARCELL) 02/03/21 02/03/21 02/03/21 11:05 11:05 15:11 WBC RBC Hgb Hct MCV MCH MCHC RDW Std Deviation RDW Coeff of Kenna Plt Count MPV Neut % (Auto) Absolute Neuts (auto) Absolute Lymphs (auto) Total Counted Neutrophils % (Manual) Band Neutrophils % Lymphocytes % (Manual) Monocytes % (Manual) Eosinophils % (Manual) Metamyelocytes % Myelocytes % Diff Path Review Platelet Estimate RBC Morphology Sodium Potassium Chloride Carbon Dioxide Anion Gap BUN Creatinine Estim Creat Clear Calc Est GFR (MDRD) Af Amer Est GFR (MDRD) Non-Af BUN/Creatinine Ratio Glucose Lactic Acid 2.0 Calcium Total Bilirubin AST ALT Alkaline Phosphatase Total Creatine Kinase Troponin I High Sens Total Protein Albumin Globulin Albumin/Globulin Ratio Urine Color Yellow Urine Clarity Cloudy Urine pH 5.0 Ur Specific Buck[place] 1.020 Urine Protein 100 H Urine Glucose (UA) Normal Urine Ketones 5 H Urine Occult Blood 250 H Urine Nitrite Negative Urine Bilirubin 3 H Urine Urobilinogen 1 H Ur Leukocyte Esterase 500 H Urine RBC 5-10 SEEN Urine WBC 10-25 SEEN Ur Squamous Epith Cells 0 SEEN Amorphous Sediment 1+ Urine Bacteria 2+ Urine Mucus 0 SEEN COVID-19 (MARCELL) Not Detected 02/03/21 02/03/21 02/03/21 18:15 18:15 20:48 WBC RBC Hgb Hct MCV MCH MCHC RDW Std Deviation RDW Coeff of Kenna Plt Count MPV Neut % (Auto) Absolute Neuts (auto) Absolute Lymphs (auto) Total Counted Neutrophils % (Manual) Band Neutrophils % Lymphocytes % (Manual) Monocytes % (Manual) Eosinophils % (Manual) Metamyelocytes % Myelocytes % Diff Path Review Platelet Estimate RBC Morphology Sodium Potassium Chloride Carbon Dioxide Anion Gap BUN Creatinine Estim Creat Clear Calc Est GFR (MDRD) Af Amer Est GFR (MDRD) Non-Af BUN/Creatinine Ratio Glucose Lactic Acid 1.7 Calcium Total Bilirubin AST ALT Alkaline Phosphatase Total Creatine Kinase Troponin I High Sens 17.8 16.9 Total Protein Albumin Globulin Albumin/Globulin Ratio Urine Color Urine Clarity Urine pH Ur Specific [place] Urine Protein Urine Glucose (UA) Urine Ketones Urine Occult Blood Urine Nitrite Urine Bilirubin Urine Urobilinogen Ur Leukocyte Esterase Urine RBC Urine WBC Ur Squamous Epith Cells Amorphous Sediment Urine Bacteria Urine Mucus COVID-19 (MARCELL) 02/03/21 02/04/21 02/04/21 23:15 04:30 04:30 WBC 11.5 H RBC 3.35 L Hgb 10.1 L Hct 33.1 L MCV 98.8 MCH 30.1 MCHC 30.5 L RDW Std Deviation 54.5 H RDW Coeff of Kenna 15.0 H Plt Count 137 L MPV 10.5 Neut % (Auto) Not Reportable Absolute Neuts (auto) 8.1 H Absolute Lymphs (auto) 2.30 Total Counted 100 Neutrophils % (Manual) 65 Band Neutrophils % 5 Lymphocytes % (Manual) 20 Monocytes % (Manual) 8 Eosinophils % (Manual) 1 Metamyelocytes % 1 Myelocytes % 2 H Diff Path Review May foll Platelet Estimate SLT DEC RBC Morphology NORM C+C Sodium 154 H Potassium 3.2 L Chloride 126 H Carbon Dioxide 21.0 Anion Gap 7 BUN 47 H Creatinine 1.23 H Estim Creat Clear Calc 47.81 Est GFR (MDRD) Af Amer 58 L Est GFR (MDRD) Non-Af 48 L BUN/Creatinine Ratio 38.2 H Glucose 145 H Lactic Acid Calcium 7.5 L Total Bilirubin AST ALT Alkaline Phosphatase Total Creatine Kinase Troponin I High Sens 17.0 Total Protein Albumin Globulin Albumin/Globulin Ratio Urine Color Urine Clarity Urine pH Ur Specific [place] Urine Protein Urine Glucose (UA) Urine Ketones Urine Occult Blood Urine Nitrite Urine Bilirubin Urine Urobilinogen Ur Leukocyte Esterase Urine RBC Urine WBC Ur Squamous Epith Cells Amorphous Sediment Urine Bacteria Urine Mucus COVID-19 (MARCELL) Micro: Microbiology 02/03/21 12:32 Urine Catheter - Henry Legionella Antigen - Final 02/03/21 12:32 Urine Catheter - Hen[place] Streptococcus pneumoniae Antigen (M - Final 02/03/21 14:50 Mucosa - Nose SARS-CoV-2 Antigen (Rapid) - Final Cardiology Labs/Tests 02/03/21 11:05: WBC 14.4 H, RBC 3.94 L, Hgb 12.0, Hct 38.0, MCV 96.4, MCH 30.5, MCHC 31.6 L, Plt Count 200, MPV 10.7, Neut % (Auto) Not Reportable, Absolute Neuts (auto) 5.5, Total Counted 100, Neutrophils % (Manual) 65, Band Neutrophils % 3, Lymphocytes % (Manual) 20, Monocytes % (Manual) 10, Metamyelocytes % 2 H 02/03/21 11:05: Sodium 148 H, Potassium 3.5, Chloride 116 H, Carbon Dioxide 23.0, Anion Gap 9, BUN 57 H, Creatinine 2.86 H, Est GFR (MDRD) Af Amer 22 L, Est GFR (MDRD) Non-Af 18 L, BUN/Creatinine Ratio 19.9, Glucose 144 H, Calcium 8.8, Total Bilirubin 0.30 02/03/21 11:05: Lactic Acid 2.0 02/03/21 11:05: Urine Color Yellow, Urine Clarity Cloudy, Urine pH 5.0, Ur Specific Buck[place] 1.020, Urine Protein 100 H, Urine Glucose (UA) Normal, Urine Ketones 5 H, Urine Occult Blood 250 H, Urine Nitrite Negative, Urine Bilirubin 3 H, Urine Urobilinogen 1 H, Ur Leukocyte Esterase 500 H, Urine RBC 5-10 SEEN, Urine WBC 10-25 SEEN 02/03/21 18:15: Lactic Acid 1.7 02/04/21 04:30: WBC 11.5 H, RBC 3.35 L, Hgb 10.1 L, Hct 33.1 L, MCV 98.8, MCH 30.1, MCHC 30.5 L, Plt Count 137 L, MPV 10.5, Neut % (Auto) Not Reportable, Absolute Neuts (auto) 8.1 H, Total Counted 100, Neutrophils % (Manual) 65, Band Neutrophils % 5, Lymphocytes % (Manual) 20, Monocytes % (Manual) 8, Eosinophils % (Manual) 1, Metamyelocytes % 1, Myelocytes % 2 H 02/04/21 04:30: Sodium 154 H, Potassium 3.2 L, Chloride 126 H, Carbon Dioxide 21.0, Anion Gap 7, BUN 47 H, Creatinine 1.23 H, Est GFR (MDRD) Af Amer 58 L, Est GFR (MDRD) Non-Af 48 L, BUN/Creatinine Ratio 38.2 H, Glucose 145 H, Calcium 7.5 L Rhythm: EKG: ECHO: Pending Stress Test: Cardiac Cath: PCI: CT Surgery: Holter monitor: EPS: PPM: CXR: Chest CT Scan: Radiography Diagnostic Testing: Radiology Impression Brain CT 02/03/21 10:49 IMPRESSION: Normal unenhanced CT scan of the brain. Electronically Signed: Ben Rincon MD ([facility]) at 11:23 EDT , Service support , Chest X-Ray 02/03/21 11:15 IMPRESSION: Multilobar infiltrates could represent pneumonia and/or atelectasis. Electronically Signed: Ben Rincon MD ([facility]) at 11:33 EDT , Service support , Physical Exam Const oriented x3 and healthy appearing Orientation / Consciousness: awake HEENT normocephalic Eyes PERRL and conjunctivae normal Neck supple, no JVD and no carotid bruits Chest inspection of chest normal Resp normal respiratory effort and clear to auscultation bilaterally Cardio Palpation: normal PMI Rate: regular rate Rhythm: regular rhythm Heart Sounds: S1 normal and S2 normal Peripheral Pulses: pulses 2+ throughout GI normal to inspection, nondistended, normoactive bowel sounds Extremity normal to inspection and no clubbing, cyanosis or edema Skin Wounds: wounds noted Wound Narrative: Multiple wounds noted all over body with erythema. Psych mental status grossly normal Assessment & Plan Assessment/Plan (1) SVT (supraventricular tachycardia): PLAN: Paroxysmal supraventricular tachyarrhythmia. The patient appears to have this intermittently. This appears to be worsened likely by her septic state. At this time I would recommend that we continue to treat the underlying sepsis with intravenous fluid and correct her electrolytes. * Will continue p.o. amiodarone 200 mg twice a day for 48 to 72 hours. * Continue treatment of underlying cause. Will await echocardiographic evaluation later today. Thank you for allowing me to participate in the care of your patient. Please don't hesitate to call if any issues arise.
--- NOTE | 2021-02-04 07:55 | PCM.RX.CS ---
Consult Pharmacy has been consulted to manage selected antiobiotic: Vancomycin Type of Consult: Follow-up Suspected Infection: Sepsis Labs: Sodium 154 mmol/L (136-145) H 02/04/21 04:30 Potassium 3.2 mmol/L (3.5-5.1) L 02/04/21 04:30 Chloride 126 mmol/L (98-107) H 02/04/21 04:30 Carbon Dioxide 21.0 mmol/L (21.0-32.0) 02/04/21 04:30 Anion Gap 7 (5-15) 02/04/21 04:30 BUN 47 mg/dL (7-18) H 02/04/21 04:30 Creatinine 1.23 mg/dL (0.55-1.02) H 02/04/21 04:30 Est GFR (MDRD) Af Amer 58 mL/min (>60) L 02/04/21 04:30 Est GFR (MDRD) Non-Af 48 mL/min (>60) L 02/04/21 04:30 BUN/Creatinine Ratio 38.2 RATIO (10-20) H 02/04/21 04:30 Glucose 145 mg/dL (74-106) H 02/04/21 04:30 Microbiology: Microbiology 02/03/21 12:32 Urine Catheter - Henry Legionella Antigen - Final 02/03/21 12:32 Urine Catheter - Henry Streptococcus pneumoniae Antigen (M - Final 02/03/21 14:50 Mucosa - Nose SARS-CoV-2 Antigen (Rapid) - Final Goal Trough: 15-20 mcg/mL Pharmacy Plan for Drug Dosing: DAILY ASSESSMENT Current Vancomcyin Dose: 750MG IV Q24h to start 02/04/21 @1300 Number of Doses Received: 2g IV x1 in ED 02/03 @1305 Current Renal Function: SCr 1.23 / CrCl 48mL/min Renal Function Trend: Significantly improved from admitting labs Lab/Micro: Pending Any Change in Vanc Plan: Due to improvement in renal function, the patient now qualifies for Q12hr dosing. Will start 750mg IV Q12hr per protocol 02/04/21 @0800, as the pt has not had any other doses except initial 2g dose in ED almost 24hrs ago. Pending Level: 02/05/21 @1930. NOTE: Since the last dose was almost ~24hrs prior, will not count that dose into trough consideration as the patient's renal function has improved significantly and now qualifies for Q12hr dosing. Scheduled trough prior to the 4th dose of new regimen. Pharmacy Service will continue to monitor and adjust dosing as required.
[2021-02-04] MEDS: Enoxaparin 40 MG/0.4 ML Syringe SC (08:20)
--- NOTE | 2021-02-04 09:49 | CASEMGMT ---
Social Work SW attended ICU rounds. Per nursing pt is currently A&O to self only. PT/OT/ST to assess pt today and medical workup continuing. Pt with history of schizophrenia and anxiety. Phone call placed to [facility] who confirm pt does have a Beam Press Operator, Tiesha Castillo, FRANCISCO left for Tiesha. BREN placed call to pt sister for initial assessment and FRANCISCO left. BREN will continue to follow. HALEY Whatley
[2021-02-04] MEDS: Tamoxifen 10 MG Tablet 20 MG PO (09:52)
[2021-02-04] MEDS: Amiodarone 200 MG Tablet PO ×2 (09:52→22:25)
[2021-02-04] MEDS: QUEtiapine 100 MG Tablet 300 MG PO (09:52)
[2021-02-04] MEDS: Pantoprazole Sodium 20 MG Tablet PO (09:53)
[2021-02-04] MEDS: clonazePAM 0.5 MG Tablet PO (09:55)
--- NOTE | 2021-02-04 10:17 | CASEMGMT ---
Social Work SW spoke with pt sister Odilia Miller, , and completed initial assessment. Demographics verified. SW also spoke with Tiesha Castillo at [facility]. Pt Carbon Dioxide Operator is Oliver Ridge and while he was on vacation last week Tiesha was covering CM. Tiesha referred SW to speak with Oliver. left for Oliver Sabillon. PCP: Brannon Cavazos Specialists: Dr. Ball, oncology. Pt follows for breast cancer which is now in remission Preferred Pharmacy: [facility]. Pt uses [facility] and medications are delivered to her home. Insurance: [facility] Prescription Benefit: Yes Living Will/HPOA: Per pt sister, pt does not have a living will or health care POA LNOK: Sister Odilia Miller Living Arrangements: Pt lives alone in one story apartment. Pt is independent with all ADLS and is able to care for her apartment and provide own meals. Transportation: Pt does not drive. Oilver Sabillon, Carbon Dioxide Operator at [facility] provides transportation for groceries, dr appointments and laundromat DME: Pt uses a cane for ambulation. No other DME HHC/SNF: None previous. Mental Health: Pt does have a diagnosis of Schizophrenia and has had multiple ED visits due to mental health and multiple mental health hospitalizations. Pt utilizes the services of [facility] and Oliver Ridge is her Carbon Dioxide Operator. Pt sister states Oliver meets with pt weekly and assists pt as needed. Per pt sister, pt does receive an injection for Schizophrenia monthly at [facility]. Pt last ED visit related to mental health was September 2018 and pt sister states pt has been doing very well since that time. Pt presents to hospital with multiple wounds. SW inquired with sister about this and she states pt never mentioned any of these issues and she is uncertain of their origin. Plan: Pt was living at home independently and functioning well. It is hoped that pt can return home. BREN and RNNAKUL will follow for any additional needs at home. Maranda VIGIL updated. HALEY Whatley
[2021-02-04 12:47] LABS: Pathologist Review Reviewed
[2021-02-04 12:50] LABS: Pathologist Review Reviewed
[2021-02-04] MEDS: CHLORHEXIDINE GLUC 2% CLOTH 1 EACH TOWELETTE TOPICAL (13:05)
[2021-02-04] MEDS: Juven (unflavored) Packet 1 PACKET PO (16:46)
[2021-02-04] MEDS: QUEtiapine 100 MG Tablet 500 MG PO (22:25)
[2021-02-04] MEDS: Senna/Docusate Sodium 1 Tablet 2 TABLET PO (22:25)
[2021-02-04] MEDS: clonazePAM 1 MG Tablet PO (22:30)
[2021-02-05] VITALS (32 sets, daily range): BP systolic 85–125; BP diastolic 52–92; PULSE 99–183; RESP 22–35; TEMP 35.9–37.7; O2SAT 90–96
[2021-02-05 04:31] LABS: Hematocrit 31.6 % (37-47); Hemoglobin 9.7 g/dL (12.0-15.0); Mean Corp Hgb Conc 30.7 g/dL (32-36); Mean Corpuscular Hgb 30.1 pg (27.0-32.0); Mean Corpuscular Volume 98.1 fL (81-99); Mean Platelet Vol. 10.9 fl (6.2-12.0); POSITIVE COUNT YES; POSITIVE MORPHOLOGY YES; Platelet Count 140 K/mm3 (150-450); RBC Distribution Width CV 14.8 % (11.6-14.6); RBC Distribution Width SD 53.5 fl (35.1-43.9); Red Blood Count 3.22 M/mm3 (4.2-5.4); White Blood Count 13.5 K/mm3 (4.4-11.0)
[2021-02-05 04:32] LABS: Differential Indicated MANUAL DIFF
[2021-02-05 04:46] LABS: Anion Gap 6 (5-15); BUN 36 mg/dL (7-18); BUN/Creat Ratio 34.6 RATIO (10-20); Chloride 117 mmol/L (98-107); Creatinine, Serum 1.04 mg/dL (0.55-1.02); EST Glomerular Filtration Rate 58 mL/min (>60); Est Glom Filt Rate - Afr Amer 70 mL/min (>60); Estimated Creatinine Clearance 56.54 ml/min; Glucose 180 mg/dL (74-106); Potassium 3.5 mmol/L (3.5-5.1); Sodium Level 147 mmol/L (136-145)
[2021-02-05 04:50] LABS: Neutrophil-Segmented 54 % (47-70); Total Cells Counted 100 (MANUAL DIFF)
[2021-02-05 04:51] LABS: Promyelocyte 1 % (0-0)
[2021-02-05 04:52] LABS: Myelocyte 3 % (0-0)
[2021-02-05 04:53] LABS: Eosinophil 3 % (0-5); Lymphocyte 34 % (19-41); Metamyelocyte 1 % (0-1); Monocyte 4 % (0-10)
[2021-02-05 04:54] LABS: Absolute Neutrophil Count 7.3 X10^3/uL (2.0-7.7)
[2021-02-05 04:55] LABS: Atypical Lymphocyte RARE %; Platelet Estimate SLT DEC (ADEQ); Red Cell Morphology NORM C+C NORMAL (NORM C&C)
--- NOTE | 2021-02-05 06:59 | PN.CC_ITS ---
Assessment & Plan Assessment/Plan (1) Septic shock: (2) SVT (supraventricular tachycardia): (3) MGUS (monoclonal gammopathy of unknown significance): (4) Schizophrenia: PLAN: RECOMMENDATIONS: 1. Continue broad-spectrum antibiotics 2. Continue wound care recommendations. Anticipate follow-up with wound center as an outpatient 3. Complete current D5W bag and then KVO IV fluids 4. Electrolyte repletion as indicated 5. Continue psychiatric meds 6. Okay to leave the intensive care unit from my perspective IMPRESSIONS: 1. Septic shock of unclear etiology Resolved. Patient with multiple possible sources of infection including pneumonia and skin wounds. We will continue with broad-spectrum antibiotics at this time. Patient does have a tunneling lesion in the inguinal area, so enterocutaneous or urocutaneous fistula is also a concern. Appreciate wound team recommendations. Patient currently does not require pressors. Okay to leave the intensive care unit from my perspective 2. Acute kidney injury/hypokalemia/hyperchloremia/hypovolemic hypernatremia Improving. Baseline creatinine appears to be around 0.9, but was elevated at 2.86 on presentation. Patient does appear to be volume depleted and likely has a prerenal etiology. In addition to septic shock, patient is also on an YOUSIF inhibitor at baseline, which could potentiate injury. Continue with aggressive resuscitation, but transition to D5W as patient does have significant hyperchloremia and hypernatremia. No indication for renal replacement therapy at this time 3. SVT Improving. Cardiology currently following. Patient did receive amiodarone. Defer to cardiology on reinitiation of baseline meds. Defer to cardiology on whether full anticoagulation needs to be continued. Low clinical suspicion for PE given patient saturations are doing well on minimal nasal cannula oxygen and there are other reasons for the patient to have tachycardia. 4. Metabolic encephalopathy/delirium Improving. Patient with multiple etiologies for delirium. Patient does have schizophrenia at baseline, which complicates behavior issues. However, patient also has hypokalemia, hypernatremia and hyperchloremia. Patient also has septic shock. All of these are currently being addressed. Continue with restraints for now, but discontinuation will help with delirium moving forward. 5. Obesity/schizophrenia/hypertension/MGUS/asthma/scoliosis/history of breast cancer Complicates care, management, recovery and prognosis. Defer to cardiology on reinitiation of baseline hypertensive meds. Continue with psychiatric medications. Subjective Subjective Patient did well overnight. Patient was able to come off of pressors approximately 24 hours ago. Patient has been requiring 1 L nasal cannula to maintain saturations overnight. Patient is interacting more often with nursing. Objective Data Objective Data Vital Signs: Vital Signs Temp Pulse Resp BP Pulse Ox 36.2 C L 102 H 27 H 122/62 H 92 02/05/21 00:00 02/05/21 03:00 02/05/21 03:00 02/05/21 03:00 02/05/21 03:00 Oxygen Flow Rate (L/min) 1 Oxygen Delivery Method Nasal Cannula Weight: 98.203 kg Body Mass Index (BMI) 32.1 Intake & Output: Intake and Output for Last 24 Hours 02/03/21 02/04/21 02/05/21 23:59 23:59 23:59 Intake Total 4249 / 4251.82 6082.42 / 6082.42 50 / 50 Output Total 375 / 375 950 / 965 415 / 415 Balance 3874 / 3876.82 5132.42 / 5117.42 -365 / -365 Lab / Micro Data Result Diagrams: 02/05/21 04:15 02/05/21 04:15 Labs: Laboratory Results - last 24 hr 02/03/21 02/04/21 02/05/21 11:05 04:30 04:15 WBC 13.5 H RBC 3.22 L Hgb 9.7 L Hct 31.6 L MCV 98.1 MCH 30.1 MCHC 30.7 L RDW Std Deviation 53.5 H RDW Coeff of Kenna 14.8 H Plt Count 140 L MPV 10.9 Neut % (Auto) Not Reportable Absolute Neuts (auto) 7.3 Absolute Lymphs (auto) 4.60 H Total Counted 100 Neutrophils % (Manual) 54 Lymphocytes % (Manual) 34 Monocytes % (Manual) 4 Eosinophils % (Manual) 3 Metamyelocytes % 1 Myelocytes % 3 H Promyelocytes % 1 H Diff Path Review Reviewed Reviewed May foll Atypical Lymphocytes RARE Platelet Estimate SLT DEC RBC Morphology NORM C+C Sodium Potassium Chloride Carbon Dioxide Anion Gap BUN Creatinine Estim Creat Clear Calc Est GFR (MDRD) Af Amer Est GFR (MDRD) Non-Af BUN/Creatinine Ratio Glucose Calcium 02/05/21 04:15 WBC RBC Hgb Hct MCV MCH MCHC RDW Std Deviation RDW Coeff of Kenna Plt Count MPV Neut % (Auto) Absolute Neuts (auto) Absolute Lymphs (auto) Total Counted Neutrophils % (Manual) Lymphocytes % (Manual) Monocytes % (Manual) Eosinophils % (Manual) Metamyelocytes % Myelocytes % Promyelocytes % Diff Path Review Atypical Lymphocytes Platelet Estimate RBC Morphology Sodium 147 H Potassium 3.5 Chloride 117 H Carbon Dioxide 24.0 Anion Gap 6 BUN 36 H Creatinine 1.04 H Estim Creat Clear Calc 56.54 Est GFR (MDRD) Af Amer 70 Est GFR (MDRD) Non-Af 58 L BUN/Creatinine Ratio 34.6 H Glucose 180 H Calcium 8.0 L Micro: Microbiology 02/03/21 12:32 Urine Catheter - Henry Urine Culture - Preliminary Culture exhibits no growth. 02/03/21 12:32 Urine Catheter - Henry Legionella Antigen - Final 02/03/21 12:32 Urine Catheter - Henry Streptococcus pneumoniae Antigen (M - Final 02/03/21 14:50 Mucosa - Nose SARS-CoV-2 Antigen (Rapid) - Final Radiography Diagnostic Testing: Radiology Impression Echocardiogram 02/04/21 05:55 Interpretation Summary Normal LV size. Left ventricular systolic function is normal. The estimated ejection fraction is 70 %. Stage 1 diastolic dysfunction. Contrast injection was performed. Ordering Physician: Ira Garza Referring Physician: KORINA RAYGOZA Performed By: Daisha Stanley, SUECS, RVT Physical Exam Const no apparent distress Constitutional Narrative: Slow to respond, but improved from yesterday General Appearance: disheveled; Negative for well kempt Nutritional Appearance: obese HEENT normocephalic Eyes PERRL and EOMs intact bilaterally Sclera: sclera abnormal Positive for bilateral Details: scleral injection Neck full ROM and no lymphadenopathy Chest inspection of chest normal Resp normal respiratory effort and no use of accessory muscles Effort and Inspection: able to speak in complete sentences Auscultation: clear to auscultation bilaterally; Negative for rales, rhonchi or wheezes Percussion: Negative for dullness Cardio regular rhythm, S1 normal heart sound, S2 normal heart sound, no murmurs, no rub and no gallops Cardio Narrative: Sinus rhythm on telemetry Rate: tachycardic GI normal to inspection, nondistended, normoactive bowel sounds no CVA tenderness Extremity no clubbing, cyanosis or edema Skin Skin Narrative: Dressings in place. Multiple lesions noted including superficial ulcers, areas of ecchymosis and granulation tissue. Lesions on the knee, right shoulder and bilateral feet were noted. See nursing documentation for specific details Neuro CN's II-XII intact bilaterally, moves all extremities and no focal motor de ficits Psych affect normal Appearance: unkempt Attitude: uncooperative Charges/Coding Visit Charges Inpatient E&M: 36785 Subs Hosp L3
--- NOTE | 2021-02-05 07:37 | PN.HOSP_ITS ---
Subjective Subjective Patient seen and examined. She has remained off levophed, and is now down to 1L of oxygen. She still remains tachycardic and tachypneic but no other active complaints overnight. Review of systems is otherwise negative. Objective Data Objective Data Vital Signs: Vital Signs Temp Pulse Resp BP Pulse Ox 98.2 F 101 H 28 H 117/57 L 93 02/05/21 04:00 02/05/21 07:00 02/05/21 07:00 02/05/21 07:00 02/05/21 07:00 Oxygen Flow Rate (L/min) 1 Oxygen Delivery Method Nasal Cannula Weight: 216 lb 8 oz Body Mass Index (BMI) 32.1 Intake & Output: Intake and Output for Last 24 Hours 02/03/21 02/04/21 02/05/21 23:59 23:59 23:59 Intake Total 4249 / 4251.82 6082.42 / 6082.42 50 / 50 Output Total 375 / 375 950 / 965 415 / 415 Balance 3874 / 3876.82 5132.42 / 5117.42 -365 / -365 Lab / Micro Data Result Diagrams: 02/05/21 04:15 02/05/21 04:15 Labs: Laboratory Results - last 24 hr 02/03/21 02/04/21 02/05/21 11:05 04:30 04:15 WBC 13.5 H RBC 3.22 L Hgb 9.7 L Hct 31.6 L MCV 98.1 MCH 30.1 MCHC 30.7 L RDW Std Deviation 53.5 H RDW Coeff of Kenna 14.8 H Plt Count 140 L MPV 10.9 Neut % (Auto) Not Reportable Absolute Neuts (auto) 7.3 Absolute Lymphs (auto) 4.60 H Total Counted 100 Neutrophils % (Manual) 54 Lymphocytes % (Manual) 34 Monocytes % (Manual) 4 Eosinophils % (Manual) 3 Metamyelocytes % 1 Myelocytes % 3 H Promyelocytes % 1 H Diff Path Review Reviewed Reviewed May foll Atypical Lymphocytes RARE Platelet Estimate SLT DEC RBC Morphology NORM C+C Sodium Potassium Chloride Carbon Dioxide Anion Gap BUN Creatinine Estim Creat Clear Calc Est GFR (MDRD) Af Amer Est GFR (MDRD) Non-Af BUN/Creatinine Ratio Glucose Calcium 02/05/21 04:15 WBC RBC Hgb Hct MCV MCH MCHC RDW Std Deviation RDW Coeff of Kenna Plt Count MPV Neut % (Auto) Absolute Neuts (auto) Absolute Lymphs (auto) Total Counted Neutrophils % (Manual) Lymphocytes % (Manual) Monocytes % (Manual) Eosinophils % (Manual) Metamyelocytes % Myelocytes % Promyelocytes % Diff Path Review Atypical Lymphocytes Platelet Estimate RBC Morphology Sodium 147 H Potassium 3.5 Chloride 117 H Carbon Dioxide 24.0 Anion Gap 6 BUN 36 H Creatinine 1.04 H Estim Creat Clear Calc 56.54 Est GFR (MDRD) Af Amer 70 Est GFR (MDRD) Non-Af 58 L BUN/Creatinine Ratio 34.6 H Glucose 180 H Calcium 8.0 L Micro: Microbiology 02/03/21 12:32 Urine Catheter - Henry Urine Culture - Preliminary Culture exhibits no growth. 02/03/21 12:32 Urine Catheter - Henry Legionella Antigen - Final 02/03/21 12:32 Urine Catheter - [facility] Streptococcus pneumoniae Antigen (M - Final 02/03/21 14:50 Mucosa - Nose SARS-CoV-2 Antigen (Rapid) - Final Radiography Diagnostic Testing: Radiology Impression Echocardiogram 02/04/21 05:55 Interpretation Summary Normal LV size. Left ventricular systolic function is normal. The estimated ejection fraction is 70 %. Stage 1 diastolic dysfunction. Contrast injection was performed. Ordering Physician: Ira Garza Referring Physician: KORINA RAYGOZA Performed By: Daisha Stanley, RDCS, RVT Physical Exam Const alert Orientation / Consciousness: confused Exam Limitations: no limitations HEENT normocephalic, head/scalp atraumatic and hearing grossly normal bilaterally Head and Scalp: normocephalic Eyes PERRL, EOMs intact bilaterally and conjunctivae normal Neck no lymphadenopathy Resp Resp Narrative: Tachypneic, diminished breath sounds bibasilarly. No wheezes or crackles. on 1L of oxygen Cardio S1 normal heart sound, S2 normal heart sound and no murmurs Cardio Narrative: Tachycardic. GI normal to inspection, nondistended, normoactive bowel sounds, soft to palpation, non-tender and non-distended Extremity normal to inspection, full ROM and no clubbing, cyanosis or edema Peripheral Pulses: Yes pulses 2+ throughout Skin Skin Narrative: has several excoriations and superficial ulcerations over her extremities which appear to be in different stages of healing. Neuro Neuro Narrative: Confused, moves all extremities spontaneously. Sensorium / Orientation: alert Psych Psych Narrative: Confused. Assessment & Plan Assessment/Plan (1) Septic shock: (2) Pneumonia: PLAN: #Septic shock due to bilateral community acquire pneumonia and UTI * now off levophed * on IV vancomycin and zosyn * wbc is 13.5 today. * blood cultures pending; urine cultures shows no growth so far * * #TRICIA * resolved. * #Acute metabolic encephalopathy due to septic shock: As above #Acute hypoxic respiratory insufficiency due to bilateral pneumonia and septic shock * as under septic shock * currently on 1L of oxygen * titrate oxygen to maintain sats>90% * #SVT * on PO amiodarone * CTA of the chest wasnt done as patient was improving with current treatment, so PE was thought to be less likely * 2D echo showed EF of 70%, with stage 1 diastolic dysfunction and no regional wall motion abnormalities seen. * cardiology on board * * #Hypernatremia * due to IVF administration.Na has trended down to 147 from 154 yesterday. * #Hypokalemia: resolved. K is 3.5. #UTI: urine showed 2+ bacteria. Urine cultures pending. On IV zosyn. #Hypertension: Hold lisinopril and amlodipine on account of septic shock. DVT prophylaxis: Lovenox renally dosed Charges/Coding Visit Charges Inpatient E&M: 71660 Subs Hosp L3
[2021-02-05] MEDS: Juven (unflavored) Packet 1 PACKET PO ×2 (08:41→17:20)
[2021-02-05] MEDS: Pantoprazole Sodium 20 MG Tablet PO (08:42)
[2021-02-05] MEDS: Amiodarone 200 MG Tablet PO ×2 (08:42→20:17)
[2021-02-05] MEDS: QUEtiapine 100 MG Tablet 300 MG PO (08:42)
[2021-02-05] MEDS: CHLORHEXIDINE GLUC 2% CLOTH 1 EACH TOWELETTE TOPICAL (08:48)
[2021-02-05] MEDS: clonazePAM 0.5 MG Tablet PO (08:48)
[2021-02-05] MEDS: Enoxaparin 40 MG/0.4 ML Syringe SC (08:49)
[2021-02-05] MEDS: Tamoxifen 10 MG Tablet 20 MG PO (08:49)
[2021-02-05 10:42] LABS: Pathologist Review Reviewed
--- NOTE | 2021-02-05 14:54 | CASEMGMT ---
Palliative screening tool completed for Lace/Str[facility] 3. Patient does not meet criteria at this time.
--- NOTE | 2021-02-05 16:34 | EKG12_ITS ---
Test Reason : SVT Blood Pressure : / mmHG Vent. Rate : 162 BPM Atrial Rate : 163 BPM P-R Int : 000 ms QRS Dur : 074 ms QT Int : 300 ms P-R-T Axes : 000 038 047 degrees QTc Int : 492 ms Supraventricular tachycardia Low voltage QRS Borderline ECG When compared with ECG of 03-FEB-2021 15:09, MANUAL COMPARISON REQUIRED, DATA IS UNCONFIRMED Confirmed by JM AWAD, VERONA ([id number]), loan expeditor JAMAAL ENRIQUEZ ([id number]) on 02/09/2021 8:56:28 AM Referred By: Miriam ONEAL Confirmed By:VERONA ONEAL MD
[2021-02-05] MEDS: clonazePAM 1 MG Tablet PO (20:17)
[2021-02-05] MEDS: QUEtiapine 100 MG Tablet 500 MG PO (20:17)
[2021-02-05] MEDS: Senna/Docusate Sodium 1 Tablet 2 TABLET PO (20:18)
[2021-02-05 20:33] LABS: Vancomycin, Trough Level 19.1 ug/mL (5.0-15.0)
--- NOTE | 2021-02-05 22:37 | PCM.RX.CS ---
Consult Pharmacy has been consulted to manage selected antiobiotic: Vancomycin Type of Consult: Follow-up Suspected Infection: Pneumonia Prior Doses of Antibiotics Received/Current Regimen: Medications Vancomycin HCl 750 mg/ Sodium (Chloride) 265 mls @ 250 mls/hr IV Q12H ELIF Last Admin: 02/05/21 21:21 Dose: Infused Labs: Sodium 147 mmol/L (136-145) H 02/05/21 04:15 Potassium 3.5 mmol/L (3.5-5.1) 02/05/21 04:15 Chloride 117 mmol/L (98-107) H 02/05/21 04:15 Carbon Dioxide 24.0 mmol/L (21.0-32.0) 02/05/21 04:15 Anion Gap 6 (5-15) 02/05/21 04:15 BUN 36 mg/dL (7-18) H 02/05/21 04:15 Creatinine 1.04 mg/dL (0.55-1.02) H 02/05/21 04:15 Est GFR (MDRD) Af Amer 70 mL/min (>60) 02/05/21 04:15 Est GFR (MDRD) Non-Af 58 mL/min (>60) L 02/05/21 04:15 BUN/Creatinine Ratio 34.6 RATIO (10-20) H 02/05/21 04:15 Glucose 180 mg/dL (74-106) H 02/05/21 04:15 Vancomycin Trough 19.1 ug/mL (5.0-15.0) H 02/05/21 19:35 Microbiology: Microbiology 02/03/21 12:32 Urine Catheter - Henry Urine Culture - Preliminary Culture exhibits no growth. 02/03/21 12:32 Urine Catheter - [facility] Legionella Antigen - Final 02/03/21 12:32 Urine Catheter - [facility] Streptococcus pneumoniae Antigen (M - Final 02/03/21 14:50 Mucosa - Nose SARS-CoV-2 Antigen (Rapid) - Final Weight used for dosin.2 kg Estimated Creatinine Clearance: 57 Goal Trough: 15-20 mcg/mL Pharmacy Plan for Drug Dosing: Vancomycin trough level of 19.1 was within target range of 15-20. Will continue current dosing and re-draw a trough 02/08/21. Pharmacy Service will continue to monitor and adjust dosing as required. Follow-Up Labs: Trough Vancomycin Labs to be done on [date and time ordered]: 02/08/21 @2216
[2021-02-05] MEDS: Amiodarone 360 MG in Dextrose 5% Viaflo Bag 192.8 ML 33.3 MG CONT INF (23:35)
[2021-02-05] MEDS: 0.9% Saline Lock 10 ML Syringe IV (23:36)
[2021-02-06] VITALS (35 sets, daily range): BP systolic 80–130; BP diastolic 43–82; PULSE 102–156; RESP 22–39; TEMP 36.4–37.6; O2SAT 29–99
[2021-02-06] MEDS: Amiodarone 360 MG in Dextrose 5% Viaflo Bag 192.8 ML 16.7 MG CONT INF (05:22)
[2021-02-06 07:45] LABS: Magnesium 1.8 mg/dL (1.6-2.6)
[2021-02-06 08:00] LABS: Anion Gap 6 (5-15); BUN 45 mg/dL (7-18); BUN/Creat Ratio 34.1 RATIO (10-20); Calcium,Total 8.2 mg/dL (8.5-10.1); Chloride 119 mmol/L (98-107); Creatinine, Serum 1.32 mg/dL (0.55-1.02); EST Glomerular Filtration Rate 44 mL/min (>60); Est Glom Filt Rate - Afr Amer 53 mL/min (>60); Estimated Creatinine Clearance 44.55 ml/min; Glucose 151 mg/dL (74-106); Potassium 4.1 mmol/L (3.5-5.1); Sodium Level 146 mmol/L (136-145)
--- NOTE | 2021-02-06 08:07 | PCM.PN.INT ---
Assessment & Plan Assessment/Plan (1) Septic shock: (2) SVT (supraventricular tachycardia): (3) MGUS (monoclonal gammopathy of unknown significance): (4) Schizophrenia: PLAN: RECOMMENDATIONS: 1. Continue broad-spectrum antibiotics. Consider discontinuing vancomycin 2. Continue wound care recommendations. Anticipate follow-up with wound center as an outpatient 3. Encourage free water administration 4. Electrolyte repletion as indicated 5. Continue psychiatric meds 6. Defer SVT to cardiology. Okay to use beta-blockers from a pulmonary perspective IMPRESSIONS: 1. Septic shock of unclear etiology Resolved. Patient with multiple possible sources of infection including pneumonia and skin wounds. We will continue with broad-spectrum antibiotics at this time. Patient does have a tunneling lesion in the inguinal area, so enterocutaneous or urocutaneous fistula is also a concern. Appreciate wound team recommendations. Patient has been tachycardic overnight, but blood pressures are holding. Blood cultures are negative at 48 hours. Likely okay to discontinue vancomycin, especially given increase in creatinine 2. Acute kidney injury/hypokalemia/hyperchloremia/hypovolemic hypernatremia Worse today. Baseline creatinine appears to be around 0.9, but was elevated at 2.86 on presentation. Patient does appear to be volume depleted and likely has a prerenal etiology. In addition to septic shock, patient is also on an YOUSIF inhibitor at baseline, which could potentiate injury. Patient with worsening renal function compared to yesterday. All cultures have been no growth to date, so it is likely okay to discontinue vancomycin and monitor clinically from my perspective. No indication for renal replacement therapy at this time 3. SVT Recurred. Cardiology currently following. Patient did receive amiodarone. Defer to cardiology on reinitiation of baseline meds. Defer to cardiology on whether full anticoagulation needs to be continued. Low clinical suspicion for PE given patient saturations are doing well on minimal nasal cannula oxygen and there are other reasons for the patient to have tachycardia. 4. Metabolic encephalopathy/delirium Improving. Patient with multiple etiologies for delirium. Patient does have schizophrenia at baseline, which complicates behavior issues. However, patient also has hypokalemia, hypernatremia and hyperchloremia. Patient also has septic shock. All of these are currently being addressed. Continue with restraints for now, but discontinuation will help with delirium moving forward. 5. Obesity/schizophrenia/hypertension/MGUS/asthma/scoliosis/history of breast cancer Complicates care, management, recovery and prognosis. Defer to cardiology on reinitiation of baseline hypertensive meds. Continue with psychiatric medications. Subjective Subjective Patient did okay overnight. Patient has had A. fib with RVR, but otherwise was hemodynamically stable. Patient reports no pain at this time and is much more interactive compared to previous evaluations. Objective Data Objective Data Vital Signs: Vital Signs Temp Pulse Resp BP Pulse Ox 37.1 C 117 H 28 H 107/57 L 93 02/06/21 07:00 02/06/21 07:44 02/06/21 07:00 02/06/21 07:00 02/06/21 07:00 Oxygen Flow Rate (L/min) 2 Oxygen Delivery Method Nasal Cannula Weight: 98.203 kg Body Mass Index (BMI) 32.1 Intake & Output: Intake and Output for Last 24 Hours 02/04/21 02/05/21 02/06/21 23:59 23:59 23:59 Intake Total 6082.42 / 6082.42 1788.55 / 1796.88 271.73 / 271.73 Output Total 950 / 965 915 / 915 175 / 175 Balance 5132.42 / 5117.42 873.55 / 881.88 96.73 / 96.73 Lab / Micro Data Result Diagrams: 02/05/21 04:15 02/06/21 06:57 Labs: Laboratory Results - last 24 hr 02/05/21 02/05/21 02/06/21 04:15 19:35 06:57 Diff Path Review Reviewed Sodium Potassium Chloride Carbon Dioxide Anion Gap BUN Creatinine Estim Creat Clear Calc Est GFR (MDRD) Af Amer Est GFR (MDRD) Non-Af BUN/Creatinine Ratio Glucose Calcium Magnesium 1.8 Vancomycin Trough 19.1 H 02/06/21 06:57 Diff Path Review Sodium 146 H Potassium 4.1 Chloride 119 H Carbon Dioxide 21.0 Anion Gap 6 BUN 45 H Creatinine 1.32 H Estim Creat Clear Calc 44.55 Est GFR (MDRD) Af Amer 53 L Est GFR (MDRD) Non-Af 44 L BUN/Creatinine Ratio 34.1 H Glucose 151 H Calcium 8.2 L Magnesium Vancomycin Trough Micro: Microbiology 02/03/21 20:48 Blood Culture (Wb) - Left Wrist Blood Culture - Preliminary No growth in 48 hours. 02/03/21 18:15 Blood Culture (Wb) - Left Wrist Blood Culture - Preliminary No growth in 48 hours. 02/03/21 12:32 Urine Catheter - Henry Urine Culture - Preliminary Culture exhibits no growth. 02/03/21 12:32 Urine Catheter - [facility] Legionella Antigen - Final 02/03/21 12:32 Urine Catheter - [facility] Streptococcus pneumoniae Antigen (M - Final 02/03/21 14:50 Mucosa - Nose SARS-CoV-2 Antigen (Rapid) - Final Radiography Diagnostic Testing: Radiology Impression Chest X-Ray 02/03/21 14:40 IMPRESSION: Satisfactory position of right jugular central venous catheter. Electronically Signed: Ben Rincon MD ([place]) at 15:01 EDT , Service support , Physical Exam Const no apparent distress Constitutional Narrative: Slow to respond, but improved from yesterday General Appearance: disheveled; Negative for well kempt Nutritional Appearance: obese HEENT normocephalic Eyes PERRL and EOMs intact bilaterally Sclera: sclera abnormal Positive for bilateral Details: scleral injection Neck full ROM and no lymphadenopathy Chest inspection of chest normal Resp normal respiratory effort and no use of accessory muscles Effort and Inspection: able to speak in complete sentences Auscultation: clear to auscultation bilaterally; Negative for rales, rhonchi or wheezes Percussion: Negative for dullness Cardio S1 normal heart sound, S2 normal heart sound, no murmurs, no rub and no gallops Cardio Narrative: A. fib with RVR on telemetry Rate: tachycardic Rhythm: abnormal rhythm irregularly irregular GI normal to inspection, nondistended, normoactive bowel sounds no CVA tenderness Extremity no clubbing, cyanosis or edema Skin Skin Narrative: Dressings in place. Multiple lesions noted including superficial ulcers, areas of ecchymosis and granulation tissue (all dressed). Lesions on the knee, right shoulder and bilateral feet were noted. See nursing documentation for specific details Neuro CN's II-XII intact bilaterally, moves all extremities and no focal motor deficits Psych cooperative Charges/Coding Visit Charges Inpatient E&M: 14737 Subs Hosp L2
[2021-02-06] MEDS: Juven (unflavored) Packet 1 PACKET PO ×2 (08:32→19:05)
[2021-02-06] MEDS: QUEtiapine 100 MG Tablet 300 MG PO (08:33)
[2021-02-06] MEDS: clonazePAM 0.5 MG Tablet PO (08:34)
[2021-02-06] MEDS: Pantoprazole Sodium 20 MG Tablet PO (08:34)
[2021-02-06] MEDS: Amiodarone 200 MG Tablet PO ×2 (08:34→22:02)
[2021-02-06] MEDS: Tamoxifen 10 MG Tablet 20 MG PO (08:34)
[2021-02-06] MEDS: Enoxaparin 40 MG/0.4 ML Syringe SC (08:36)
--- NOTE | 2021-02-06 10:28 | PN.HOSP_ITS ---
Subjective Subjective Patient seen and examined. She was resting comfortably and had no complaints. She remains tachycardic, and remains on amiodarone drip. Review of systems otherwise negative. Objective Data Objective Data Vital Signs: Vital Signs Temp Pulse Resp BP Pulse Ox 98.7 F 116 H 31 H 100/64 95 02/06/21 09:00 02/06/21 09:00 02/06/21 09:00 02/06/21 09:00 02/06/21 09:00 Oxygen Flow Rate (L/min) 2 Oxygen Delivery Method Nasal Cannula Weight: 221 lb 1.978 oz Body Mass Index (BMI) 32.1 Intake & Output: Intake and Output for Last 24 Hours 02/04/21 02/05/21 02/06/21 23:59 23:59 23:59 Intake Total 6082.42 / 6082.42 1788.55 / 1796.88 355.13 / 355.13 Output Total 950 / 965 915 / 915 175 / 175 Balance 5132.42 / 5117.42 873.55 / 881.88 180.13 / 180.13 Lab / Micro Data Result Diagrams: 02/05/21 04:15 02/06/21 06:57 Labs: Laboratory Results - last 24 hr 02/05/21 02/05/21 02/06/21 04:15 19:35 06:57 Diff Path Review Reviewed Sodium Potassium Chloride Carbon Dioxide Anion Gap BUN Creatinine Estim Creat Clear Calc Est GFR (MDRD) Af Amer Est GFR (MDRD) Non-Af BUN/Creatinine Ratio Glucose Calcium Magnesium 1.8 Vancomycin Trough 19.1 H 02/06/21 06:57 Diff Path Review Sodium 146 H Potassium 4.1 Chloride 119 H Carbon Dioxide 21.0 Anion Gap 6 BUN 45 H Creatinine 1.32 H Estim Creat Clear Calc 44.55 Est GFR (MDRD) Af Amer 53 L Est GFR (MDRD) Non-Af 44 L BUN/Creatinine Ratio 34.1 H Glucose 151 H Calcium 8.2 L Magnesium Vancomycin Trough Micro: Microbiology 02/03/21 12:32 Urine Catheter - Henry Urine Culture - Final Culture exhibits no growth. 02/03/21 20:48 Blood Culture (Wb) - Left Wrist Blood Culture - Preliminary No growth in 48 hours. 02/03/21 18:15 Blood Culture (Wb) - Left Wrist Blood Culture - Preliminary No growth in 48 hours. 02/03/21 12:32 Urine Catheter - Henry Legionella Antigen - Final 02/03/21 12:32 Urine Catheter - [facility] Streptococcus pneumoniae Antigen (M - Final 02/03/21 14:50 Mucosa - Nose SARS-CoV-2 Antigen (Rapid) - Final Radiography Diagnostic Testing: Radiology Impression Chest X-Ray 02/03/21 14:40 IMPRESSION: Satisfactory position of right jugular central venous catheter. Electronically Signed: Ben Rincon MD ([place]) at 15:01 EDT , Service support , Physical Exam Const alert and no apparent distress Orientation / Consciousness: lethargic Exam Limitations: no limitations HEENT normocephalic, head/scalp atraumatic and hearing grossly normal bilaterally Head and Scalp: normocephalic Eyes PERRL, EOMs intact bilaterally and conjunctivae normal Neck no lymphadenopathy Resp Resp Narrative: Tachypneic, diminished breath sounds bibasilarly. No wheezes or crackles. on 2L of oxygen Cardio S1 normal heart sound, S2 normal heart sound and no murmurs Cardio Narrative: Tachycardic. GI normal to inspection, nondistended, normoactive bowel sounds, soft to palpation, non-tender and non-distended Extremity normal to inspection, full ROM and no clubbing, cyanosis or edema Skin Skin Narrative: bandages over her extremities with excoriated skin and superficial ulcerations Neuro Neuro Narrative: moves all limbs spontaneously Sensorium / Orientation: awake and alert Psych affect normal Assessment & Plan Assessment/Plan (1) Septic shock: (2) Pneumonia: PLAN: #Septic shock due to bilateral community acquire pneumonia and UTI * on IV vancomycin and zosyn * wbc is 13.5 today. * blood cultures were negative and urine culture negative. * #TRICIA * Cr is up to 1.32 today. Will trend. * #Acute metabolic encephalopathy due to septic shock: As above #Acute hypoxic respiratory insufficiency due to bilateral pneumonia and septic shock * as under septic shock * currently on 2L of oxygen * titrate oxygen to maintain sats>90% * #SVT * still on amiodarone drip; now on PO amiodarone also. Being weaned off amiodarone drip * 2D echo showed EF of 70%, with stage 1 diastolic dysfunction and no regional wall motion abnormalities seen. * cardiology on board * #Hypernatremia * due to IVF administration.Na has trended down to 146 today. . * #Hypokalemia: resolved. K is 3.5. #UTI: urine showed 2+ bacteria. Urine cultures negative. On IV zosyn. #Hypertension: lisinopril and amlodipine on hold now. on amiodarone drip o/a of SVT. DVT prophylaxis: Lovenox Charges/Coding Visit Charges Inpatient E&M: 58430 Subs Hosp L3
[2021-02-06 11:05] LABS: Absolute Neutrophil Count 18.2 X10^3/uL (2.0-7.7); Basophil# 0.13 X10^3/uL; Basophil% 0.5 % (0-1); Eosinophil# 0.12 X10^3/uL; Eosinophils% 0.5 % (0-5); Hematocrit 29.1 % (37-47); Hemoglobin 9.2 g/dL (12.0-15.0); Lymphocyte % 13.3 % (19-41); Mean Corp Hgb Conc 31.6 g/dL (32-36); Mean Corpuscular Hgb 31.3 pg (27.0-32.0); Mean Platelet Vol. 11.7 fl (6.2-12.0); Monocyte# 1.32 X10^3/uL; Monocyte% 5.5 % (0-10); NRBC Flagged by Analyzer 0 % (0-5); Neutrophil # 18.16 X10^3/uL (2.7-7.7); Neutrophil % 75.8 % (47-70); Platelet Count 116 K/mm3 (150-450); RBC Distribution Width CV 15.1 % (11.6-14.6); RBC Distribution Width SD 54.3 fl (35.1-43.9); Red Blood Count 2.94 M/mm3 (4.2-5.4)
--- NOTE | 2021-02-06 11:18 | PCM.PN.CARD ---
Subjective Subjective Patient seen and evaluated. Still moaning and groaning in bed. Objective Data Vital Signs: Vital Signs Temp Pulse Resp BP Pulse Ox 98.7 F 124 H 35 H 95/67 93 02/06/21 09:00 02/06/21 10:42 02/06/21 10:00 02/06/21 10:57 02/06/21 10:00 Oxygen Flow Rate (L/min) 2 Oxygen Delivery Method Nasal Cannula Weight: 221 lb 1.978 oz Body Mass Index (BMI) 32.1 Intake & Output: Intake and Output for Last 24 Hours 02/04/21 02/05/21 02/06/21 23:59 23:59 23:59 Intake Total 6082.42 / 6082.42 1788.55 / 1796.88 636.83 / 636.83 Output Total 950 / 965 915 / 915 175 / 175 Balance 5132.42 / 5117.42 873.55 / 881.88 461.83 / 461.83 Lab / Micro Data Result Diagrams: 02/06/21 06:57 02/06/21 06:57 Labs: Laboratory Results - last 24 hr 02/05/21 02/06/21 02/06/21 19:35 06:57 06:57 WBC RBC Hgb Hct MCV MCH MCHC RDW Std Deviation RDW Coeff of Kenna Plt Count MPV Immature Gran % (Auto) Neut % (Auto) Lymph % (Auto) Cochran % (Auto) Eos % (Auto) Baso % (Auto) Absolute Neuts (auto) Absolute Lymphs (auto) Nucleated RBC % Sodium 146 H Potassium 4.1 Chloride 119 H Carbon Dioxide 21.0 Anion Gap 6 BUN 45 H Creatinine 1.32 H Estim Creat Clear Calc 44.55 Est GFR (MDRD) Af Amer 53 L Est GFR (MDRD) Non-Af 44 L BUN/Creatinine Ratio 34.1 H Glucose 151 H Calcium 8.2 L Magnesium 1.8 Vancomycin Trough 19.1 H 02/06/21 06:57 WBC 24.0 H RBC 2.94 L Hgb 9.2 L Hct 29.1 L MCV 99.0 MCH 31.3 MCHC 31.6 L RDW Std Deviation 54.3 H RDW Coeff of Kenna 15.1 H Plt Count 116 L MPV 11.7 Immature Gran % (Auto) 4.400 H Neut % (Auto) 75.8 H Lymph % (Auto) 13.3 L Cochran % (Auto) 5.5 Eos % (Auto) 0.5 Baso % (Auto) 0.5 Absolute Neuts (auto) 18.2 H Absolute Lymphs (auto) 3.20 Nucleated RBC % 0 Sodium Potassium Chloride Carbon Dioxide Anion Gap BUN Creatinine Estim Creat Clear Calc Est GFR (MDRD) Af Amer Est GFR (MDRD) Non-Af BUN/Creatinine Ratio Glucose Calcium Magnesium Vancomycin Trough Micro: Microbiology 02/03/21 12:32 Urine Catheter - Henry Urine Culture - Final Culture exhibits no growth. 02/03/21 20:48 Blood Culture (Wb) - Left Wrist Blood Culture - Preliminary No growth in 48 hours. 02/03/21 18:15 Blood Culture (Wb) - Left Wrist Blood Culture - Preliminary No growth in 48 hours. 02/03/21 12:32 Urine Catheter - [facility] Legionella Antigen - Final 02/03/21 12:32 Urine Catheter - [facility] Streptococcus pneumoniae Antigen (M - Final 02/03/21 14:50 Mucosa - Nose SARS-CoV-2 Antigen (Rapid) - Final Cardiology Labs/Tests 02/06/21 06:57: Magnesium 1.8 02/06/21 06:57: Sodium 146 H, Potassium 4.1, Chloride 119 H, Carbon Dioxide 21.0, Anion Gap 6, BUN 45 H, Creatinine 1.32 H, Est GFR (MDRD) Af Amer 53 L, Est GFR (MDRD) Non-Af 44 L, BUN/Creatinine Ratio 34.1 H, Glucose 151 H, Calcium 8.2 L 02/06/21 06:57: WBC 24.0 H, RBC 2.94 L, Hgb 9.2 L, Hct 29.1 L, MCV 99.0, MCH 31.3, MCHC 31.6 L, Plt Count 116 L, MPV 11.7, Immature Gran % (Auto) 4.400 H, Neut % (Auto) 75.8 H, Lymph % (Auto) 13.3 L, Cochran % (Auto) 5.5, Eos % (Auto) 0.5, Baso % (Auto) 0.5, Absolute Neuts (auto) 18.2 H, Nucleated RBC % 0 Rhythm: EKG: ECHO: Stress Test: Cardiac Cath: PCI: CT Surgery: Holter monitor: EPS: PPM: CXR: Chest CT Scan: Radiography Diagnostic Testing: Radiology Impression Chest X-Ray 02/03/21 14:40 IMPRESSION: Satisfactory position of right jugular central venous catheter. Electronically Signed: Ben Rincon MD ([place]) at 15:01 EDT , Service support , Physical Exam Const oriented x3 and healthy appearing Orientation / Consciousness: awake HEENT normocephalic Eyes PERRL and conjunctivae normal Neck supple, no JVD and no carotid bruits Chest inspection of chest normal Resp normal respiratory effort and clear to auscultation bilaterally Cardio Palpation: normal PMI Rate: regular rate Rhythm: regular rhythm Heart Sounds: S1 normal and S2 normal Peripheral Pulses: pulses 2+ throughout GI normal to inspection, nondistended, normoactive bowel sounds Extremity normal to inspection and no clubbing, cyanosis or edema Psych mental status grossly normal Assessment & Plan Assessment/Plan (1) SVT (supraventricular tachycardia): PLAN: Paroxysmal supraventricular tachyarrhythmia. The patient appears to have this intermittently. This appears to be worsened likely by her septic state. At this time I would recommend that we continue to treat the underlying sepsis with intravenous fluid and correct her electrolytes. She was started on intravenous amiodarone which will be continued for 24 hours. And then she will transition back to the oral amiodarone. Beta-blockers will be added as necessary. Her blood pressures remain marginal. In the meantime other etiologies for sinus tachycardia should be investigated including but not limited to pulmonary embolism, sepsis, anemia etc. Thank you for allowing me to participate in the care of your patient. Please don't hesitate to call if any issues arise.
--- NOTE | 2021-02-06 11:20 | CT_ITS ---
EXAM: CT ANGIOGRAPHY CHEST WITHOUT AND WITH INTRAVENOUS CONTRAST : 1965 CLINICAL INDICATION: shortness of breath TECHNIQUE: Helically acquired angiography images were obtained of the chest without and with intravenous contrast. This CT exam was performed using one or more of the following dose reduction techniques: automated exposure control, adjustment of the mA and/or kV according to patient size, and/or use of iterative reconstruction technique. This report was created using [employer] report generation technology. MIP reconstructed images were created and reviewed. CONTRAST: IV COMPARISON: None. FINDINGS: PULMONARY ARTERIES: Unremarkable. Normal in caliber. No evidence of pulmonary embolism. AORTA: Unremarkable. Normal in caliber. No evidence of dissection. GREAT VESSELS OF AORTIC ARCH: Unremarkable. Normal in caliber. No evidence of dissection. LUNGS AND PLEURAL SPACES: There is airspace disease in the upper and lower lobes which are present patchy atelectasis or developing pneumonia. There is no effusion. No mass. HEART: Unremarkable. Heart size is normal. No pericardial effusion. No signs of right heart strain. MEDIASTINUM: Unremarkable. No mediastinal or hilar adenopathy. Esophagus is unremarkable. No hiatal hernia. THYROID: Unremarkable. No thyroid lesions. BONES/JOINTS: See above. CT/CTA Chest W/WO Contrast IMPRESSION: 1. No evidence of pulmonary embolus. 2. Patchy bilateral airspace disease which may represent atelectasis or bilateral. Individualized dose optimization techniques were used for this CT. at 1335 Reported and signed by: Nolan Álvarez MD Electronically Signed: Nolan Álvarez MD at 13:34 EDT Tel , Service support ,
[2021-02-06] MEDS: 0.9% Saline Lock 10 ML Syringe IV ×3 (12:36→21:52)
[2021-02-06] MEDS: Ipratropium/Albuterol Sulfate 3 ML AMPUL.NEB INHALATION (19:14)
[2021-02-06] MEDS: Senna/Docusate Sodium 1 Tablet 2 TABLET PO (22:02)
[2021-02-06] MEDS: QUEtiapine 100 MG Tablet 500 MG PO (22:02)
[2021-02-06] MEDS: clonazePAM 1 MG Tablet PO (22:03)
[2021-02-07] VITALS (31 sets, daily range): BP systolic 93–127; BP diastolic 54–106; PULSE 52–144; RESP 12–38; TEMP 36.2–36.9; O2SAT 90–100
[2021-02-07 06:22] LABS: Absolute Lymphocyte Count 2.73 X10^3/uL (0.83-4.51); Basophil# 0.11 X10^3/uL; Basophil% 0.5 % (0-1); Eosinophil# 0.32 X10^3/uL; Eosinophils% 1.4 % (0-5); Hematocrit 30.1 % (37-47); Hemoglobin 9.1 g/dL (12.0-15.0); Lymphocyte # 2.73 X10^3/ul (0.83-4.51); Lymphocyte % 11.8 % (19-41); Mean Corp Hgb Conc 30.2 g/dL (32-36); Mean Corpuscular Hgb 29.7 pg (27.0-32.0); Mean Corpuscular Volume 98.4 fL (81-99); Mean Platelet Vol. 11.6 fl (6.2-12.0); Monocyte# 1.19 X10^3/uL; Monocyte% 5.1 % (0-10); NRBC Flagged by Analyzer 0 % (0-5); Neutrophil # 17.95 X10^3/uL (2.7-7.7); Neutrophil % 77.2 % (47-70); Platelet Count 160 K/mm3 (150-450); RBC Distribution Width CV 15.3 % (11.6-14.6); RBC Distribution Width SD 55.4 fl (35.1-43.9); Red Blood Count 3.06 M/mm3 (4.2-5.4); White Blood Count 23.2 K/mm3 (4.4-11.0)
[2021-02-07 06:32] LABS: Anion Gap 8 (5-15); BUN 61 mg/dL (7-18); BUN/Creat Ratio 37.9 RATIO (10-20); Calcium,Total 8.1 mg/dL (8.5-10.1); Chloride 116 mmol/L (98-107); Creatinine, Serum 1.61 mg/dL (0.55-1.02); EST Glomerular Filtration Rate 35 mL/min (>60); Est Glom Filt Rate - Afr Amer 43 mL/min (>60); Estimated Creatinine Clearance 36.53 ml/min; Glucose 163 mg/dL (74-106); Potassium 4.1 mmol/L (3.5-5.1); Sodium Level 145 mmol/L (136-145)
[2021-02-07] MEDS: Ipratropium/Albuterol Sulfate 3 ML AMPUL.NEB INHALATION ×3 (07:16→18:39)
--- NOTE | 2021-02-07 07:40 | PCM.PN.INT ---
Assessment & Plan Assessment/Plan (1) Septic shock: (2) SVT (supraventricular tachycardia): (3) MGUS (monoclonal gammopathy of unknown significance): (4) Schizophrenia: PLAN: RECOMMENDATIONS: 1. Continue broad-spectrum antibiotics. Consider discontinuing vancomycin 2. Continue wound care recommendations. Anticipate follow-up with wound center as an outpatient 3. Consider diuretic therapy 4. Electrolyte repletion as indicated 5. Continue psychiatric meds 6. Defer SVT to cardiology. Okay to use beta-blockers from a pulmonary perspective 7. Hemodynamically stable on minimal nasal cannula oxygen. Will sign off from a critical care perspective IMPRESSIONS: 1. Septic shock of unclear etiology Resolved. Patient with multiple possible sources of infection including pneumonia and skin wounds. We will continue with broad-spectrum antibiotics at this time. Patient does have a tunneling lesion in the inguinal area, so enterocutaneous or urocutaneous fistula is also a concern. Appreciate wound team recommendations. Patient has been tachycardic overnight, but blood pressures are holding. Blood cultures are negative at 48 hours. Likely okay to discontinue vancomycin, especially given increase in creatinine. Defer to primary service 2. Acute kidney injury/hypokalemia/hyperchloremia/hypovolemic hypernatremia Worse today. Baseline creatinine appears to be around 0.9, but was elevated at 2.86 on presentation. Patient now developing significant anasarca. In addition to septic shock, patient is also on an YOUSIF inhibitor at baseline, which could potentiate injury. Patient with worsening renal function compared to yesterday. All cultures have been no growth to date, so it is likely okay to discontinue vancomycin and monitor clinically from my perspective. No indication for renal replacement therapy at this time. Patient has had some periods of hypotension 3. SVT Recurred. Cardiology currently following. Patient did receive amiodarone. Defer to cardiology on reinitiation of baseline meds. Defer to cardiology on whether full anticoagulation needs to be continued. Low clinical suspicion for PE given patient saturations are doing well on minimal nasal cannula oxygen and there are other reasons for the patient to have tachycardia. 4. Metabolic encephalopathy/delirium Improving. Patient with multiple etiologies for delirium. Patient does have schizophrenia at baseline, which complicates behavior issues. However, patient also has hypokalemia, hypernatremia and hyperchloremia. Patient also has septic shock. All of these are currently being addressed. Continue with restraints for now, but discontinuation will help with delirium moving forward. 5. Obesity/schizophrenia/hypertension/MGUS/asthma/scoliosis/history of breast cancer Complicates care, management, recovery and prognosis. Defer to cardiology on reinitiation of baseline hypertensive meds. Continue with psychiatric medications. Subjective Subjective Patient did okay overnight. Patient has remained hemodynamically stable and is saturating well on minimal nasal cannula. Patient denies any pain, nausea or vomiting. Objective Data Objective Data Vital Signs: Vital Signs Temp Pulse Resp BP Pulse Ox 36.6 C 116 H 28 H 114/66 92 02/07/21 06:00 02/07/21 06:00 02/07/21 06:00 02/07/21 06:00 02/07/21 06:00 Oxygen Flow Rate (L/min) 2 Oxygen Delivery Method Nasal Cannula Weight: 99.2 kg Body Mass Index (BMI) 32.1 Intake & Output: Intake and Output for Last 24 Hours 02/05/21 02/06/21 02/07/21 23:59 23:59 23:59 Intake Total 1788.55 / 1796.88 1564.45 / 1564.45 50 / 50 Output Total 915 / 915 700 / 700 200 / 200 Balance 873.55 / 881.88 864.45 / 864.45 -150 / -150 Lab / Micro Data Result Diagrams: 02/07/21 05:59 02/07/21 05:59 Labs: Laboratory Results - last 24 hr 02/06/21 02/06/21 02/06/21 06:57 06:57 06:57 WBC 24.0 H RBC 2.94 L Hgb 9.2 L Hct 29.1 L MCV 99.0 MCH 31.3 MCHC 31.6 L RDW Std Deviation 54.3 H RDW Coeff of Kenna 15.1 H Plt Count 116 L MPV 11.7 Immature Gran % (Auto) 4.400 H Neut % (Auto) 75.8 H Lymph % (Auto) 13.3 L [place] % (Auto) 5.5 Eos % (Auto) 0.5 Baso % (Auto) 0.5 Absolute Neuts (auto) 18.2 H Absolute Lymphs (auto) 3.20 Nucleated RBC % 0 Sodium 146 H Potassium 4.1 Chloride 119 H Carbon Dioxide 21.0 Anion Gap 6 BUN 45 H Creatinine 1.32 H Estim Creat Clear Calc 44.55 Est GFR (MDRD) Af Amer 53 L Est GFR (MDRD) Non-Af 44 L BUN/Creatinine Ratio 34.1 H Glucose 151 H Calcium 8.2 L Magnesium 1.8 02/07/21 02/07/21 05:59 05:59 WBC 23.2 H RBC 3.06 L Hgb 9.1 L Hct 30.1 L MCV 98.4 MCH 29.7 MCHC 30.2 L RDW Std Deviation 55.4 H RDW Coeff of Kenna 15.3 H Plt Count 160 MPV 11.6 Immature Gran % (Auto) 4.000 H Neut % (Auto) 77.2 H Lymph % (Auto) 11.8 L [place] % (Auto) 5.1 Eos % (Auto) 1.4 Baso % (Auto) 0.5 Absolute Neuts (auto) 18.0 H Absolute Lymphs (auto) 2.73 Nucleated RBC % 0 Sodium 145 Potassium 4.1 Chloride 116 H Carbon Dioxide 21.0 Anion Gap 8 BUN 61 H Creatinine 1.61 H Estim Creat Clear Calc 36.53 Est GFR (MDRD) Af Amer 43 L Est GFR (MDRD) Non-Af 35 L BUN/Creatinine Ratio 37.9 H Glucose 163 H Calcium 8.1 L Magnesium Micro: Microbiology 02/03/21 12:32 Urine Catheter - Henry Urine Culture - Final Culture exhibits no growth. 02/03/21 20:48 Blood Culture (Wb) - Left Wrist Blood Culture - Preliminary No growth in 48 hours. 02/03/21 18:15 Blood Culture (Wb) - Left Wrist Blood Culture - Preliminary No growth in 48 hours. 02/03/21 12:32 Urine Catheter - Henry Legionella Antigen - Final 02/03/21 12:32 Urine Catheter - Henry Streptococcus pneumoniae Antigen (M - Final 02/03/21 14:50 Mucosa - Nose SARS-CoV-2 Antigen (Rapid) - Final Radiography Diagnostic Testing: Radiology Impression Chest CTA 02/06/21 11:20 IMPRESSION: 1. No evidence of pulmonary embolus. 2. Patchy bilateral airspace disease which may represent atelectasis or bilateral. Individualized dose optimization techniques were used for this CT. at 1335 Reported and signed by: Nolan Álvarez MD Electronically Signed: Nolan Álvarez MD at 13:34 EDT Tel , Service support , Physical Exam Const no apparent distress Constitutional Narrative: Slow to respond, but appropriate. Anasarca noted. General Appearance: disheveled; Negative for well kempt Nutritional Appearance: obese HEENT normocephalic Eyes PERRL and EOMs intact bilaterally Sclera: sclera abnormal Positive for bilateral Details: scleral injection Neck full ROM and no lymphadenopathy Chest inspection of chest normal Resp normal respiratory effort and no use of accessory muscles Effort and Inspection: able to speak in complete sentences Auscultation: clear to auscultation bilaterally; Negative for rales, rhonchi or wheezes Percussion: Negative for dullness Cardio S1 normal heart sound, S2 normal heart sound, no murmurs, no rub and no gallops Cardio Narrative: A. fib on telemetry Rate: tachycardic Rhythm: abnormal rhythm irregularly irregular GI normal to inspection, nondistended, normoactive bowel sounds no CVA tenderness Extremity no clubbing, cyanosis or edema Skin Skin Narrative: Dressings in place. Multiple lesions noted including superficial ulcers, areas of ecchymosis and granulation tissue (all dressed). Lesions on the knee, right shoulder and bilateral feet were noted. See nursing documentation for specific details Neuro CN's II-XII intact bilaterally, moves all extremities and no focal motor deficits Psych cooperative Appearance: unkempt Attitude: uncooperative Charges/Coding Visit Charges Inpatient E&M: 28978 Subs Hosp L2
[2021-02-07] MEDS: Juven (unflavored) Packet 1 PACKET PO (09:01)
[2021-02-07] MEDS: Amiodarone 200 MG Tablet PO (09:02)
[2021-02-07] MEDS: Tamoxifen 10 MG Tablet 20 MG PO (09:02)
[2021-02-07] MEDS: Enoxaparin 40 MG/0.4 ML Syringe SC (09:03)
[2021-02-07] MEDS: Pantoprazole Sodium 20 MG Tablet PO (09:08)
[2021-02-07] MEDS: clonazePAM 0.5 MG Tablet PO (09:11)
--- NOTE | 2021-02-07 10:46 | PN.CARD_ITS ---
Subjective Subjective Patient seen and evaluated. Status quo ante Objective Data Vital Signs: Vital Signs Temp Pulse Resp BP Pulse Ox 97.2 F L 108 H 24 H 93/54 L 96 02/07/21 08:00 02/07/21 08:00 02/07/21 08:00 02/07/21 08:00 02/07/21 08:00 Oxygen Flow Rate (L/min) 2 Oxygen Delivery Method Nasal Cannula Weight: 218 lb 11.177 oz Body Mass Index (BMI) 32.1 Intake & Output: Intake and Output for Last 24 Hours 02/05/21 02/06/21 02/07/21 23:59 23:59 23:59 Intake Total 1788.55 / 1796.88 1564.45 / 1564.45 104.17 / 104.17 Output Total 915 / 915 700 / 700 200 / 200 Balance 873.55 / 881.88 864.45 / 864.45 -95.83 / -95.83 Lab / Micro Data Result Diagrams: 02/07/21 05:59 02/07/21 05:59 Labs: Laboratory Results - last 24 hr 02/06/21 02/07/21 02/07/21 06:57 05:59 05:59 WBC 24.0 H 23.2 H RBC 2.94 L 3.06 L Hgb 9.2 L 9.1 L Hct 29.1 L 30.1 L MCV 99.0 98.4 MCH 31.3 29.7 MCHC 31.6 L 30.2 L RDW Std Deviation 54.3 H 55.4 H RDW Coeff of Kenna 15.1 H 15.3 H Plt Count 116 L 160 MPV 11.7 11.6 Immature Gran % (Auto) 4.400 H 4.000 H Neut % (Auto) 75.8 H 77.2 H Lymph % (Auto) 13.3 L 11.8 L [place] % (Auto) 5.5 5.1 Eos % (Auto) 0.5 1.4 Baso % (Auto) 0.5 0.5 Absolute Neuts (auto) 18.2 H 18.0 H Absolute Lymphs (auto) 3.20 2.73 Nucleated RBC % 0 0 Sodium 145 Potassium 4.1 Chloride 116 H Carbon Dioxide 21.0 Anion Gap 8 BUN 61 H Creatinine 1.61 H Estim Creat Clear Calc 36.53 Est GFR (MDRD) Af Amer 43 L Est GFR (MDRD) Non-Af 35 L BUN/Creatinine Ratio 37.9 H Glucose 163 H Calcium 8.1 L Micro: Microbiology 02/03/21 12:32 Urine Catheter - Henry Urine Culture - Final Culture exhibits no growth. 02/03/21 20:48 Blood Culture (Wb) - Left Wrist Blood Culture - Preliminary No growth in 48 hours. 02/03/21 18:15 Blood Culture (Wb) - Left Wrist Blood Culture - Preliminary No growth in 48 hours. 02/03/21 12:32 Urine Catheter - Henry Legionella Antigen - Final 02/03/21 12:32 Urine Catheter - Henry Streptococcus pneumoniae Antigen (M - Final 02/03/21 14:50 Mucosa - Nose SARS-CoV-2 Antigen (Rapid) - Final Cardiology Labs/Tests 02/06/21 06:57: WBC 24.0 H, RBC 2.94 L, Hgb 9.2 L, Hct 29.1 L, MCV 99.0, MCH 31.3, MCHC 31.6 L, Plt Count 116 L, MPV 11.7, Immature Gran % (Auto) 4.400 H, Neut % (Auto) 75.8 H, Lymph % (Auto) 13.3 L, [place] % (Auto) 5.5, Eos % (Auto) 0.5, Baso % (Auto) 0.5, Absolute Neuts (auto) 18.2 H, Nucleated RBC % 0 02/07/21 05:59: WBC 23.2 H, RBC 3.06 L, Hgb 9.1 L, Hct 30.1 L, MCV 98.4, MCH 29.7, MCHC 30.2 L, Plt Count 160, MPV 11.6, Immature Gran % (Auto) 4.000 H, Neut % (Auto) 77.2 H, Lymph % (Auto) 11.8 L, [place] % (Auto) 5.1, Eos % (Auto) 1.4, Baso % (Auto) 0.5, Absolute Neuts (auto) 18.0 H, Nucleated RBC % 0 02/07/21 05:59: Sodium 145, Potassium 4.1, Chloride 116 H, Carbon Dioxide 21.0, Anion Gap 8, BUN 61 H, Creatinine 1.61 H, Est GFR (MDRD) Af Amer 43 L, Est GFR (MDRD) Non-Af 35 L, BUN/Creatinine Ratio 37.9 H, Glucose 163 H, Calcium 8.1 L Rhythm: EKG: ECHO: Stress Test: Cardiac Cath: PCI: CT Surgery: Holter monitor: EPS: PPM: CXR: Chest CT Scan: Radiography Diagnostic Testing: Radiology Impression Chest CTA 02/06/21 11:20 IMPRESSION: 1. No evidence of pulmonary embolus. 2. Patchy bilateral airspace disease which may represent atelectasis or bilateral. Individualized dose optimization techniques were used for this CT. at 1335 Reported and signed by: Nolan Álvarez MD Electronically Signed: Nolan Álvarez MD at 13:34 EDT Tel , Service support , Physical Exam Const oriented x3 and healthy appearing Orientation / Consciousness: awake HEENT normocephalic Eyes PERRL and conjunctivae normal Neck supple, no JVD and no carotid bruits Chest inspection of chest normal Resp normal respiratory effort and clear to auscultation bilaterally Cardio Palpation: normal PMI Rate: regular rate Rhythm: regular rhythm Heart Sounds: S1 normal and S2 normal Peripheral Pulses: pulses 2+ throughout GI normal to inspection, nondistended, normoactive bowel sounds Extremity normal to inspection and no clubbing, cyanosis or edema Psych mental status grossly normal Assessment & Plan Assessment/Plan (1) SVT (supraventricular tachycardia): PLAN: Paroxysmal supraventricular tachyarrhythmia. The patient appears to have this intermittently. This appears to be worsened likely by her septic state. At this time I would recommend that we continue to treat the underlying sepsis with intravenous fluid and correct her electrolytes. * She was started on intravenous amiodarone which was continued for 24 hours. She has been transitioned to oral amiodarone. * Will recommend the addition of low-dose beta-pedro luis Thank you for allowing me to participate in the care of your patient. Please don't hesitate to call if any issues arise.
[2021-02-07 11:15] LABS: Blood Gas Specimen Type VEN; SITE L Radial; VBG BASE EXCESS -5 mmol/L (-1.0-3.5); VBG Bicarbonate 19 mmol/L (22-26); VBG PO2 42 mmHg (25-40); VBG SO2 79 % (50-70); VBG TCO2 20 mmol/L (23-33); VBG pCO2 29.7 mmHg (41-51); VBG pH 7.42 (7.32-7.42)
[2021-02-07] MEDS: 0.45% Normal Saline 1,000 ML 75 ML IV (11:30)
[2021-02-07] MEDS: Metoprolol Tartrate 25 MG Tablet PO (11:35)
--- NOTE | 2021-02-07 12:52 | CPS ---
patient's sat. dropped, unable to recover on NRB, put bipap on per verbal order. Cautioned nursing staff that if patient aspirated, bipap would further push it down, and that bipap is contraindicated because patient cannot remove the mask or tell us if she throws up in the mask.
--- NOTE | 2021-02-07 12:56 | CPS ---
patient noted to have gurgling in back of throat at 07:45 am breathing tx.
--- NOTE | 2021-02-07 13:16 | NURSING ---
This RN called to patients room d/t patient coughing on drink of water and O2 sats dropping to 70's, pt also tachycardic and tachypneic. Attempted to increased O2 demand on NC, ultimately going to 50% Venti mask and then Non rebreather without much improvement of sats to only 85%. Notified MD and received orders to initiate Bipap therapy. Patients sats improved with Bipap but remains tachypneic and tachycardic. MD did come to see patient at bedside, ordered to make patient NPO, have ST reevaluate her swallowing abilities and continue current IV antibiotic course.
--- NOTE | 2021-02-07 16:11 | PCM.PN.HOSP ---
Subjective Subjective Patient's mental status seems suppressed. Per discussion with nursing she was agitated in the ICU and actually pulled out her triple-lumen IJ. She currently answers questions but appears quite sedate. VBG was performed and is not consistent with hypercapnia. Patient was taking her pills with water and had an aspiration event in which she had a desaturation to 83% on room air. Oxygenation improved dramatically with BiPAP. Objective Data Objective Data Vital Signs: Vital Signs Temp Pulse Resp BP Pulse Ox 97.3 F L 90 28 H 109/91 H 100 02/07/21 15:00 02/07/21 15:21 02/07/21 15:21 02/07/21 15:00 02/07/21 15:36 Oxygen Flow Rate (L/min) 2 Oxygen Delivery Method Bi-pap Weight: 99.2 kg Body Mass Index (BMI) 32.1 Intake & Output: Intake and Output for Last 24 Hours 02/05/21 02/06/21 02/07/21 23:59 23:59 23:59 Intake Total 1788.55 / 1796.88 1564.45 / 1564.45 365.00 / 365.00 Output Total 915 / 915 700 / 700 600 / 600 Balance 873.55 / 881.88 864.45 / 864.45 -235.00 / -235.00 Lab / Micro Data Result Diagrams: 02/07/21 05:59 02/07/21 05:59 Labs: Laboratory Results - last 24 hr 02/07/21 02/07/21 05:59 05:59 WBC 23.2 H RBC 3.06 L Hgb 9.1 L Hct 30.1 L MCV 98.4 MCH 29.7 MCHC 30.2 L RDW Std Deviation 55.4 H RDW Coeff of Kenna 15.3 H Plt Count 160 MPV 11.6 Immature Gran % (Auto) 4.000 H Neut % (Auto) 77.2 H Lymph % (Auto) 11.8 L [place] % (Auto) 5.1 Eos % (Auto) 1.4 Baso % (Auto) 0.5 Absolute Neuts (auto) 18.0 H Absolute Lymphs (auto) 2.73 Nucleated RBC % 0 Sodium 145 Potassium 4.1 Chloride 116 H Carbon Dioxide 21.0 Anion Gap 8 BUN 61 H Creatinine 1.61 H Estim Creat Clear Calc 36.53 Est GFR (MDRD) Af Amer 43 L Est GFR (MDRD) Non-Af 35 L BUN/Creatinine Ratio 37.9 H Glucose 163 H Calcium 8.1 L Micro: Microbiology 02/03/21 12:32 Urine Catheter - Henry Urine Culture - Final Culture exhibits no growth. 02/03/21 20:48 Blood Culture (Wb) - Left Wrist Blood Culture - Preliminary No growth in 48 hours. 02/03/21 18:15 Blood Culture (Wb) - Left Wrist Blood Culture - Preliminary No growth in 48 hours. 02/03/21 12:32 Urine Catheter - Henry Legionella Antigen - Final 02/03/21 12:32 Urine Catheter - Henry Streptococcus pneumoniae Antigen (M - Final 02/03/21 14:50 Mucosa - Nose SARS-CoV-2 Antigen (Rapid) - Final ABG Data ABG results: ABG 02/07/21 11:07 Specimen Type LYLY Sample Site L Radial VBG pH 7.42 VBG pO2 42 H VBG HCO3 19 L VBG Total CO2 20 L VBG O2 Sat (Calc) 79 H VBG Base Excess -5 L POC Mix VBG pCO2 Pt Tmp 29.7 L Physical Exam Const Constitutional Narrative: Morbidly obese awake but sleepy middle-aged white female who appears older than stated age, appears comfortable, nontoxic, patient does follow commands although response time is slightly delayed Orientation / Consciousness: lethargic Nutritional Appearance: obese HEENT moist oral mucous membranes HEENT Narrative: Mallampati 3-4, short thick neck Head and Scalp: normocephalic Mouth: oral and palatal mucosa normal Eyes PERRL, EOMs intact bilaterally and conjunctivae normal Neck supple and no JVD Neck Narrative: Trachea midline, neck is short and thick Resp normal respiratory effort, no retractions, no use of accessory muscles and clear to auscultation bilaterally Resp Narrative: Diminished secondary to body habitus Cardio regular rate, regular rhythm, S1 normal heart sound, S2 normal heart sound, no murmurs, no rub, no gallops, no clicks and no JVD GI normal to inspection, nondistended, normoactive bowel sounds, soft to palpation, non-tender and non-distended Extremity normal to inspection and full ROM Extremity Narrative: Diffuse anasarca General Extremity: edema bilateral Peripheral Pulses: Yes pulses 2+ throughout Skin Skin Narrative: Pale, multiple wounds including a tunneling lesion in the right inguinal area Neuro moves all extremities Neuro Narrative: Moves all extremities but speech is slightly slurred, mentation is depressed Psych Psych Narrative: Affect is flattened mentation is depressed Assessment & Plan Assessment/Plan (1) SVT (supraventricular tachycardia): (2) Septic shock: PLAN: Septic shock secondary to unknown clear etiology -Suspect pneumonia versus skin infection -Continue broad-spectrum antibiotics but will discontinue vancomycin at this time -Blood cultures are negative at 48 hours -Urine culture is negative -White count has stabilized -Check a.m. procalcitonin -Consider ID consult if white count remains elevated Acute hypoxic respiratory failure secondary to aspiration event -Aspiration with pills early this afternoon -Continue BiPAP at 18/10 -Wean O2 as able -Reevaluate in a.m. for BiPAP removal back to nasal cannula -Patient was on 2 L prior to event -Check a.m. chest x-ray -VBG shows no hypercapnia -Patient remains on Zosyn so aspiration should be covered -Pulmonary following appreciate input SVT -Patient has been on amiodarone and is now on oral amiodarone -We will place a hold on oral amiodarone until respiratory status and mental status improves and patient is able to take p.o. -Monitor heart rates -ECHO-EF is 70% with stage I diastolic dysfunction -Cardiology following appreciate input -We will defer anticoagulation to cardiology at this time Metabolic encephalopathy -Per discussion with nursing staff her mental status is depressed as compared to where she was in the ICU -Medications were restarted including large doses of Seroquel, Cogentin, and long-acting benzodiazepines -Hold Seroquel and Cogentin for now -1 mg Ativan every 6 hours as needed for agitation and to avoid withdrawal from benzos -May need to consider lower doses or slowly titrate up -CT head was negative on admission 02/03/2021 Hypertension -Hold p.o. meds at this time -As needed's available -Schedule metoprolol 2.5 mg every 6 hours given the fact the patient was on metoprolol 25 mg twice daily -Reevaluate p.o. intake in the morning Acute anemia -Hemoglobin is stable -Suspect delusional -Baseline hemoglobin appears to be 12-13 TRICIA -Baseline creatinine appears to be 0.9-1 -Serum creatinine up to 1.61 which is down from admission but trending back up -Suspect related to contrast-induced nephropathy -Gentle hydration and reevaluate serum creatinine in the morning [id number] -A1c is 6.4 -It appears that this may be a new diagnosis for her -Would recommend diet mediated intervention at this time Anasarca -Suspect related to nutritional deficits versus right-sided heart failure versus both -EF is 70% -Continue to monitor -Currently on gentle hydration secondary to worsening renal function but this may be due to to contrast nephropathy Thrombocytopenia -Resolved History of breast cancer -Hold tamoxifen for now until able to take p.o. Schizophrenia -Hold home medications for now given respiratory status -Restart tomorrow if able -Patient was markedly somnolent -Continue IV as needed benzodiazepines to avoid withdrawal DVT prophylaxis -Lovenox 40 mg subcu daily Charges/Coding Visit Charges Inpatient E&M: 53457 Subs Hosp L3
[2021-02-07] MEDS: Nystatin Powder 15gm Bottle 1 APPLIC TOPICAL (21:02)
[2021-02-08] VITALS (33 sets, daily range): BP systolic 97–124; BP diastolic 44–85; PULSE 96–167; RESP 12–36; TEMP 36.2–37.6; O2SAT 88–96
[2021-02-08] MEDS: 0.45% Normal Saline 1,000 ML 75 ML IV ×2 (00:13→11:57)
--- NOTE | 2021-02-08 06:00 | RAD_ITS ---
STUDY: X-RAY CHEST REASON FOR EXAM: Female, 55 years old. Sob TECHNIQUE: Single AP portable view of the chest. COMPARISON: Comparison is made with prior study dated 02/03/2021. FINDINGS: EKG electrodes are seen. The previously seen right internal jugular venous catheter has been removed. Since prior study, there has been a progression of the bibasilar infiltrates worse on the left side. There is no demonstrated pleural abnormality. Normal size heart. Normal mediastinum and bryon. Normal visualized pulmonary arteries. Normal visualized aortic arch and descending thoracic aorta. [place] shyann fixation of the thoracic and visualized lumbar spine. Normal visualized ribs, clavicles, and shoulders. There is no demonstrated abnormality of the visualized soft tissue structures of the upper abdomen. RAD/Chest 1 View (Portable) IMPRESSION: Progressive bibasilar infiltrates worse on the left side. Electronically Signed: Doug Colindres MD at 8:31 EDT , Service support ,
--- NOTE | 2021-02-08 06:48 | PN.HOSP_ITS ---
Subjective Subjective Patient overnight with continued BiPAP usage per discussion with staff although this morning early has been successfully de-escalate it off to 6 L nasal cannula from BiPAP. Patient is more alert and answering questions appropriately as had been significantly confused previously. Patient with day prior concern for aspiration event awaiting speech therapy for clearance. Patient repeat chest x- ray 02/09/2020 1 AM with progressive bibasilar infiltrates worse on the left side. Patient denies fevers, chills, nausea, emesis, abdominal pain, chest pain. Objective Data Objective Data Vital Signs: Vital Signs Temp Pulse Resp BP Pulse Ox 97.3 F L 117 H 29 H 123/71 H 88 02/08/21 06:00 02/08/21 06:00 02/08/21 06:00 02/08/21 06:00 02/08/21 06:00 Oxygen Flow Rate (L/min) 2 Oxygen Delivery Method Bi-pap Weight: 218 lb 11.177 oz Body Mass Index (BMI) 32.1 Intake & Output: Intake and Output for Last 24 Hours 02/06/21 02/07/21 02/08/21 23:59 23:59 23:59 Intake Total 1564.45 / 1564.45 415.00 / 415.00 1003.75 / 1003.75 Output Total 700 / 700 875 / 1425 1050 / 1050 Balance 864.45 / 864.45 -460.00 / -1010.00 -46.25 / -46.25 Lab / Micro Data Result Diagrams: 02/08/21 07:30 02/08/21 07:30 Micro: Microbiology 02/03/21 12:32 Urine Catheter - Henry Urine Culture - Final Culture exhibits no growth. 02/03/21 20:48 Blood Culture (Wb) - Left Wrist Blood Culture - Preliminary No growth in 48 hours. 02/03/21 18:15 Blood Culture (Wb) - Left Wrist Blood Culture - Preliminary No growth in 48 hours. 02/03/21 12:32 Urine Catheter - Henry Legionella Antigen - Final 02/03/21 12:32 Urine Catheter - Henry Streptococcus pneumoniae Antigen (M - Final 02/03/21 14:50 Mucosa - Nose SARS-CoV-2 Antigen (Rapid) - Final ABG Data ABG results: ABG 02/07/21 11:07 Specimen Type LYLY Sample Site L Radial VBG pH 7.42 VBG pO2 42 H VBG HCO3 19 L VBG Total CO2 20 L VBG O2 Sat (Calc) 79 H VBG Base Excess -5 L POC Mix VBG pCO2 Pt Tmp 29.7 L Physical Exam Narrative Physical Examination: General: Awake, alert, oriented currently to self, place and some recent events but still confused although improving since initial presentation, currently following commands, transition successfully off of BiPAP on 6 L currently, seated upright in the PCU bed, fatigued. Skin: Normal color, normal turgor, no icterus, no cyanosis except occasional staged ecchymoses likely related with recent lab draws, recent left foot injury with associated swelling with recent presentation and aggressive hydration, ecchymoses. HEENT: AT/NC, EOMI, PERRLA, dry MM. Lungs: Diffusely diminished, poor effort, mild increased respiratory rate, currently transitioned off of BiPAP, currently no evidence of distress, improved from prior presentation, no current wheezing, rales or rhonchi but very distant breath sounds. Heart: Tachycardic with regular rhythm; no gallop, rub audible. Abdomen: Soft, obese, NTTP, ND but habitus makes examination difficult, distant bowel sounds. Extremities: No cyanosis, no clubbing, edema to bilateral hands and BL LE pedal to distal benjamin, see skin. Neurological: Patient awake, alert, oriented as noted, cognitive function improving, still not at baseline with underlying psychiatric history; pupils equally reactive to light and accommodation, cranial nerves II-XII grossly normal, moving all 4 extremities, no focal deficits, strength severely global decrease secondary to acute presentation. Psychiatric: Affect appears fatigued, flat, no acute evidence of depressive or anxiety feelings, underlying psychiatric history with schizophrenia. Assessment & Plan Assessment/Plan (1) Septic shock: (2) Pneumonia: QUALIFIERS: Pneumonia type: due to unspecified organism Lateralit y: unspecified laterality Lung location: unspecified part of lung Qualified Code(s): J18.9 - Pneumonia, unspecified organism PLAN: The patient is a 55 y/o F w/ PMHx: Schizophrenia/Anxiety and Depression, Obesity, Asthma, Hx L breast CA, Hx Monoclonal gammopathy IgM type, HTN, GERD, Unclear type of thyroid disease who presents to the [facility] ED on 02/03/21 with lethargy, multiple wounds, found down. 1. Acute Encephalopathy, Infectious/metabolic secondary to Acute Septic Shock with Acute Hypoxic Respiratory Failure secondary to Bilateral Pneumonia, possible Aspiration complicated by underlying Asthma: Patient with significant initial ED presentation with septic shock, admitted to the ICU and treated with broad-spectrum antibiotic therapy initially with IV Zosyn and vancomycin with eventual de-escalation off vancomycin, blood cultures remain negative, urine culture with no growth, pulmonary critical care following with continued BiPAP usage, given clinical improvement transition to PCU status 02/07/2021, currently weaned off of BiPAP but would plan on continue BiPAP nightly or if sleeping, awaiting speech therapy evaluation as currently n.p.o. with concern for aspiration component, transient SVT during presentation with unfortunate hold on oral amiodarone and beta-pedro luis therapy secondary to aspiration concerns awaiting speech therapy evaluation, restart oral medications once able, gently h ydrating only secondary to worsened renal function with possible contrast nephropathy associated given imaging as notable anasarca present. 02/03/2021 CT brain with no acute intracranial findings. 02/04/2021 echocardiogram with normal LV size, LV systolic function normal, EF 70%, stage I diastolic dysfunction. 02/06/2021 CTA chest with no evidence of PE, by lateral patchy airspace disease possibly atelectasis or developing pneumonia. Rapid Covid antigen negative, urine antigens negative. Requested respiratory viral panel. Repeat 02/08/2021 chest x-ray with progressive bibasilar infiltrates, worse on the left side. Awaiting repeat assessment per Pulmonary medicine. Currently on as needed Ativan 2 avoid any withdrawal given long-term benzo usage, holding Seroquel and Cogentin until oral intake allowed. Infectious disease consulted given ongoing leukocytosis. Procalcitonin is pending. 2. Paroxysmal SVT: Patient previously on amiodarone with oral transition and metoprolol edition per cardiology, consulted and following however given hold on any oral intake patient is requiring intermittent IV Lopressor and Cardizem, speech therapy currently evaluating this will transition back to oral regimen once improved. 02/04/2021 echocardiogram with normal LV size, LV systolic function normal, EF 70%, stage I diastolic dysfunction. 3. Acute kidney injury: Secondary to acute presentation #1, baseline creatinine 0.9-1, creatinine up to 1.61 during the admission initially trending downward however now trending upward, suspected secondary to contrast-induced nephropathy. 02/08/2021 BUN/creatinine 50/1.44, continue judicious hydration especially given presentation. 4. Acute anemia, normocytic: Admission hemoglobin 12, has trended downward, 02/08/2021 hemoglobin 8.6, suspected delusional given aggressive hydration with acute septic shock presentation requiring significant hydration, will continue to trend CBC, no obvious evidence of any bleeding. 5. Acute thrombocytopenia, suspected secondary to acute sepsis syndrome as noted above: During the admission platelets did decrease 02/06/2021 down to 116, since resolved, 02/08/2021 platelets 194, continue to trend CBC. 6. Multiple wounds, failure to thrive in adult w/ mild Acute Rhabdomyolsis: Admission TCK minimally elevated 260, found down on the floor, incontinent. Patient also with noted wounds. Patient as noted hydrated aggressively. Wound care consulted, encourage frequent positional changes, given presentation concerns for return to home, barrier agents as needed and scheduled per nursing protocol. 7. History of breast cancer, left and Monoclonal gammopathy IgM type: Patient following w/ Dr. Ball, diagnosed with monoclonal gammopathy IgM type in 2013 with subsequent to diagnosis of invasive ductal carcinoma of the left breast stage III in March 2014 with ER/WV positive, HER-2 negative by FISH with chemotherapy and unfortunate then lost to follow-up with later 4 cycles of additional chemotherapy with deferral by patient at that time of avoidance of lumpectomy or radiation and transition to tamoxifen. Currently holding tamoxifen given n.p.o. status, will resume once clinically appropriate. 8. Obesity: Weight loss and lifestyle changes encouraged. 9. Schizophrenia, unclear type: Currently holding patient medications given n.p.o. status, will resume once improved but may necessitate decreased regimen for concern for sedation given #1. 10. Reported Thyroid disease, unclear type: Given acute illness not best timeline for testing; however, given FTT adult and poor self care will obtain TSH and FT4 to be cautious as no regimen listed. 11. DVT prophylaxis: SCDs, Lovenox. 12. CODE STATUS: Full code. Charges/Coding Visit Charges Inpatient E&M: 04601 Subs Hosp L3
[2021-02-08] MEDS: Ipratropium/Albuterol Sulfate 3 ML AMPUL.NEB INHALATION ×3 (07:34→18:52)
[2021-02-08 07:50] LABS: Absolute Lymphocyte Count 1.85 X10^3/uL (0.83-4.51); Absolute Neutrophil Count 19.3 X10^3/uL (2.0-7.7); Basophil# 0.07 X10^3/uL; Basophil% 0.3 % (0-1); Eosinophil# 0.45 X10^3/uL; Eosinophils% 1.9 % (0-5); Hematocrit 28.1 % (37-47); Hemoglobin 8.6 g/dL (12.0-15.0); Lymphocyte # 1.85 X10^3/ul (0.83-4.51); Lymphocyte % 7.9 % (19-41); Mean Corp Hgb Conc 30.6 g/dL (32-36); Mean Corpuscular Hgb 29.9 pg (27.0-32.0); Mean Corpuscular Volume 97.6 fL (81-99); Mean Platelet Vol. 11.8 fl (6.2-12.0); Monocyte# 1.12 X10^3/uL; Monocyte% 4.8 % (0-10); NRBC Flagged by Analyzer 0 % (0-5); Neutrophil # 19.34 X10^3/uL (2.7-7.7); Neutrophil % 82.2 % (47-70); Platelet Count 194 K/mm3 (150-450); RBC Distribution Width SD 54.3 fl (35.1-43.9); Red Blood Count 2.88 M/mm3 (4.2-5.4); White Blood Count 23.5 K/mm3 (4.4-11.0)
--- NOTE | 2021-02-08 07:52 | PN.CARD_ITS ---
Objective Data Vital Signs: Vital Signs Temp Pulse Resp BP Pulse Ox 97.9 F 97 31 H 114/66 93 02/08/21 07:00 02/08/21 07:22 02/08/21 07:00 02/08/21 07:00 02/08/21 07:00 Oxygen Flow Rate (L/min) 2 Oxygen Delivery Method Bi-pap Weight: 222 lb 10.67 oz Body Mass Index (BMI) 32.1 Intake & Output: Intake and Output for Last 24 Hours 02/06/21 02/07/21 02/08/21 23:59 23:59 23:59 Intake Total 1564.45 / 1564.45 415.00 / 415.00 1003.75 / 1003.75 Output Total 700 / 700 875 / 1425 1050 / 1050 Balance 864.45 / 864.45 -460.00 / -1010.00 -46.25 / -46.25 Lab / Micro Data Result Diagrams: 02/08/21 07:30 02/07/21 05:59 Labs: Laboratory Results - last 24 hr 02/08/21 07:30: WBC 23.5 H, RBC 2.88 L, Hgb 8.6 L, Hct 28.1 L, MCV 97.6, MCH 29.9, MCHC 30.6 L, RDW Std Deviation 54.3 H, RDW Coeff of Kenna 15.0 H, Plt Count 194, MPV 11.8, Immature Gran % (Auto) 2.900 H, Neut % (Auto) 82.2 H, Lymph % (Auto) 7.9 L, Ritchie % (Auto) 4.8, Eos % (Auto) 1.9, Baso % (Auto) 0.3, Absolute Neuts (auto) 19.3 H, Absolute Lymphs (auto) 1.85, Nucleated RBC % 0 ABG Data ABG results: ABG 02/07/21 11:07 Specimen Type LYLY Sample Site L Radial VBG pH 7.42 VBG pO2 42 H VBG HCO3 19 L VBG Total CO2 20 L VBG O2 Sat (Calc) 79 H VBG Base Excess -5 L POC Mix VBG pCO2 Pt Tmp 29.7 L Cardiology Labs/Tests 02/07/21 11:07: VBG pH 7.42, VBG pO2 42 H, VBG HCO3 19 L, VBG O2 Sat (Calc) 79 H , VBG Base Excess -5 L 02/08/21 07:30: WBC 23.5 H, RBC 2.88 L, Hgb 8.6 L, Hct 28.1 L, MCV 97.6, MCH 29.9, MCHC 30.6 L, Plt Count 194, MPV 11.8, Immature Gran % (Auto) 2.900 H, Neut % (Auto) 82.2 H, Lymph % (Auto) 7.9 L, Ritchie % (Auto) 4.8, Eos % (Auto) 1.9, Baso % (Auto) 0.3, Absolute Neuts (auto) 19.3 H, Nucleated RBC % 0 Rhythm: EKG: ECHO: Stress Test: Cardiac Cath: PCI: CT Surgery: Holter monitor: EPS: PPM: CXR: Chest CT Scan: Physical Exam Const oriented x3 and healthy appearing Orientation / Consciousness: awake HEENT normocephalic Eyes PERRL and conjunctivae normal Neck supple, no JVD and no carotid bruits Chest inspection of chest normal Resp normal respiratory effort and clear to auscultation bilaterally Cardio Palpation: normal PMI Rate: regular rate Rhythm: regular rhythm Heart Sounds: S1 normal and S2 normal Peripheral Pulses: pulses 2+ throughout GI normal to inspection, nondistended, normoactive bowel sounds Extremity normal to inspection and no clubbing, cyanosis or edema Psych mental status grossly normal Assessment & Plan Assessment/Plan (1) SVT (supraventricular tachycardia): PLAN: Paroxysmal supraventricular tachyarrhythmia. The patient appears to have not had any significant runs of the above. This appears to be worsened likely by her septic state. * She was started on intravenous amiodarone which was continued for 24 hours. She has been transitioned to oral amiodarone. * Will recommend the addition of low-dose beta-pedro luis Thank you for allowing me to participate in the care of your patient. Please don't hesitate to call if any issues arise.
[2021-02-08 08:30] LABS: ALB/GLOB Ratio 0.3 RATIO (0.9-2.4); AST(SGOT) 49 U/L (15-37); Alanine Aminotransfer ALT/SGPT 37 U/L (13-56); Albumin, Serum 1.3 g/dL (3.2-5.0); Alkaline Phosphatase 75 U/L (45-117); Anion Gap 9 (5-15); BUN 50 mg/dL (7-18); BUN/Creat Ratio 34.7 RATIO (10-20); Calcium,Total 8.2 mg/dL (8.5-10.1); Chloride 116 mmol/L (98-107); Creatinine, Serum 1.44 mg/dL (0.55-1.02); EST Glomerular Filtration Rate 40 mL/min (>60); Est Glom Filt Rate - Afr Amer 48 mL/min (>60); Estimated Creatinine Clearance 40.84 ml/min; Globulin 4.5 g/dL (2.2-4.2); Glucose 116 mg/dL (74-106); Potassium 3.9 mmol/L (3.5-5.1); Protein, Total 5.8 g/dL (6.4-8.2); Sodium Level 146 mmol/L (136-145); Vancomycin, Trough Level 22.3 ug/mL (5.0-15.0)
[2021-02-08] MEDS: Enoxaparin 40 MG/0.4 ML Syringe SC (09:56)
[2021-02-08] MEDS: Nystatin Powder 15gm Bottle 1 APPLIC TOPICAL ×2 (09:57→22:00)
[2021-02-08] MEDS: Metoprolol Tartrate 5 MG/5 ML Vial IV (11:57)
[2021-02-08] MEDS: 0.9% Saline Lock 10 ML Syringe IV ×3 (12:00→21:50)
[2021-02-08] MEDS: dilTIAZem 25 MG/5 ML Vial 10 MG IV BOLUS (13:30)
--- NOTE | 2021-02-08 13:58 | PN.CC_ITS ---
Assessment & Plan Assessment/Plan (1) Acute hypoxemic respiratory failure: PLAN: RECOMMENDATIONS: 1. Continue noninvasive positive pressure ventilatory support. 2. Wean FiO2 to maintain saturations at or above 90%. 3. Transition back to nasal cannula oxygen when appropriate. 4. Consider gentle diuresis if tolerated by hemodynamics and renal function. 5. Stop continuous supplemental IV fluids. 6. Patient to remain n.p.o. pending further speech therapy evaluation. 7. Continue antimicrobials. IMPRESSIONS: 1. Acute hypoxemic respiratory failure Clinical concern for aspiration pneumonia as precipitating etiology. The patient has been compliant with the use of BiPAP therapy with naps and while sleeping, which I would recommend be continued. In the interim, plan to continue to wean supplemental oxygen to maintain saturations at or above 90%. Continue antimicrobials to complete 10-day treatment course. The patient is to remain n.p.o. pending further evaluation by speech therapy. Avoid sedating medication use. The patient is also up from a volume perspective and may benefit from gentle diuresis, if tolerated. 2. Septic shock Improved. Likely secondary to aspiration pneumonia. The patient is currently on appropriate antimicrobial therapy. She remains hemodynamically stable. Wound care consultation is still pending. 3. Metabolic encephalopathy Likely related to acute infectious etiology and possible polypharmacy in the setting of renal insufficiency. As noted above, I would recommend that all sedating medications be withheld. Continue to address underlying infection with antimicrobials as ordered. Obtain repeat arterial blood gas with any change in mentation. 4. Paroxysmal SVT Continue current medical management with beta-blockade as tolerated. 5. History of breast CA/MGUS/schizophrenia/obesity Complicates care, management, recovery and prognosis. Hold home sedating medications, pending improvement in mentation. This note was generated with [employer] dictation software. It may contain incorrect words, spelling, and punctuation that were not noted in checking the note before signing. Subjective Subjective The patient was seen and examined at the bedside this morning. Events from the last 24 hours have been reviewed. The patient is currently afebrile, hemodynamically stable and maintaining appropriate oxygen saturations on BiPAP. The patient is somnolent but will arouse transiently to verbal stimulation and then falls quickly back to sleep. She appears quite tachypneic. There is some concern that she may have experienced another aspiration event yesterday. There has been some progressive worsening in the appearance of her plain film chest x- ray. Objective Data Objective Data The patient's most recent lab work, culture data and imaging studies have all been personally reviewed. Surface echocardiogram revealed stage I diastolic dysfunction. CTA chest demonstrated multifocal airspace disease without PE. Rapid coronavirus antigen testing was negative. Strep and urine Legionella antigens were negative. Blood and urine cultures have shown no growth to date. Vital Signs: Vital Signs Temp Pulse Resp BP Pulse Ox 98.4 F 111 H 22 H 120/81 H 96 02/08/21 12:07 02/08/21 13:30 02/08/21 12:07 02/08/21 13:30 02/08/21 12:07 Oxygen Flow Rate (L/min) 6 Oxygen Delivery Method Bi-pap Weight: 222 lb 10.67 oz Body Mass Index (BMI) 32.1 Intake & Output: Intake and Output for Last 24 Hours 02/06/21 02/07/21 02/08/21 23:59 23:59 23:59 Intake Total 1564.45 / 1564.45 415.00 / 415.00 1933.75 / 1933.75 Output Total 700 / 700 875 / 1425 1500 / 1500 Balance 864.45 / 864.45 -460.00 / -1010.00 433.75 / 433.75 Lab / Micro Data Attestation: I reviewed the patient's lab results. Result Diagrams: 02/09/21 03:40 02/09/21 03:40 Labs: Laboratory Results - last 24 hr 02/08/21 07:30: Vancomycin Trough 22.3 H 02/08/21 07:30: WBC 23.5 H, RBC 2.88 L, Hgb 8.6 L, Hct 28.1 L, MCV 97.6, MCH 29.9, MCHC 30.6 L, RDW Std Deviation 54.3 H, RDW Coeff of Kenna 15.0 H, Plt Count 194, MPV 11.8, Immature Gran % (Auto) 2.900 H, Neut % (Auto) 82.2 H, Lymph % (Auto) 7.9 L, Archer % (Auto) 4.8, Eos % (Auto) 1.9, Baso % (Auto) 0.3, Absolute Neuts (auto) 19.3 H, Absolute Lymphs (auto) 1.85, Nucleated RBC % 0 02/08/21 07:30: Sodium 146 H, Potassium 3.9, Chloride 116 H, Carbon Dioxide 21.0, Anion Gap 9, BUN 50 H, Creatinine 1.44 H, Estim Creat Clear Calc 40.84, Est GFR (MDRD) Af Amer 48 L, Est GFR (MDRD) Non-Af 40 L, BUN/Creatinine Ratio 34.7 H, Glucose 116 H, Calcium 8.2 L, Total Bilirubin 0.30, AST 49 H, ALT 37, Alkaline Phosphatase 75, Total Protein 5.8 L, Albumin 1.3 L, Globulin 4.5 H, Albumin/Globulin Ratio 0.3 L Micro: Microbiology 02/03/21 20:48 Blood Culture (Wb) - Left Wrist Blood Culture - Final No growth in 5 days. 02/03/21 18:15 Blood Culture (Wb) - Left Wrist Blood Culture - Final No growth in 5 days. 02/03/21 12:32 Urine Catheter - Henry Urine Culture - Final Culture exhibits no growth. 02/03/21 12:32 Urine Catheter - Henry Legionella Antigen - Final 02/03/21 12:32 Urine Catheter - Henry Streptococcus pneumoniae Antigen (M - Final 02/03/21 14:50 Mucosa - Nose SARS-CoV-2 Antigen (Rapid) - Final Radiography Diagnostic Testing: Radiology Impression Chest X-Ray 02/08/21 06:00 IMPRESSION: Progressive bibasilar infiltrates worse on the left side. Electronically Signed: Doug Colindres MD at 8:31 EDT , Service support , Physical Exam Const General Appearance: lethargic, ill appearing and on BiPAP HEENT normocephalic and head/scalp atraumatic Eyes PERRL and EOMs intact bilaterally Neck supple General: trachea midline Resp Effort and Inspection: tachypneic Auscultation: diminished lung sounds; Negative for rales, rhonchi or wheezes Cardio regular rate and regular rhythm GI normal to inspection, nondistended, normoactive bowel sounds Extremity General Extremity: edema; Negative for clubbing Neuro no focal motor deficits Psych Mood & Affect: flat affect Charges/Coding Visit Charges Inpatient E&M: 02558 Subs Hosp L3
--- NOTE | 2021-02-08 14:22 | NURSING ---
Addendum entered by Mckayla See 02/08/21 14:57: Pt transported to ICU bed 3 at 1445 by this RN Original Note: Report called to Amy CRANE. Pt going to ICU bed 3.
[2021-02-08 14:31] LABS: T4 Free Direct 0.82 ng/dL (0.76-1.46); Thyroid Stim Hormone (TSH) 5.36 uIU/mL (0.358-3.74)
--- NOTE | 2021-02-08 14:50 | CASEMGMT ---
BREN spoke with patient. Introduced self and role at [facility]. BREN spoke with her about going to a [facility] short term at discharge. BREN told her she would go there short term and get stronger before she goes home. BREN asked her if she would like BREN to talk with Oliver her [employer] Supervisor to help with making the decision of where to go and she said yes. BREN will talk with Oliver. Negin Oconnell MSW JAYY
[2021-02-08 15:42] LABS: Procalcitonin 0.56 ng/mL (0.00-0.09)
[2021-02-08 15:57] LABS: BNP,B-Type NATRIURETIC PEPTIDE 14.7 pg/mL (0-100)
[2021-02-08 17:07] LABS: M R Staph aureus DNA By PCR Negative (Negative); Probe Check PASS; Specimen Processing Control PASS
[2021-02-08] MEDS: Amiodarone 360 MG in Dextrose 5% Viaflo Bag 192.8 ML 16.7 MG CONT INF (17:25)
[2021-02-08] MEDS: Famotidine 200 MG/20 ML MDV 20 MG in 0.9% Normal Saline (Pres. free 8 ML 300 MG IV (21:50)
[2021-02-09] VITALS (39 sets, daily range): BP systolic 94–138; BP diastolic 45–102; PULSE 100–156; RESP 12–40; TEMP 36.4–38.2; O2SAT 92–97
[2021-02-09] MEDS: LORazepam 2 MG/ML Syringe 1 MG IV (00:30)
[2021-02-09] MEDS: Bisacodyl 10 MG Suppository RC (00:31)
[2021-02-09] MEDS: 0.45% Normal Saline 1,000 ML 75 ML IV (01:17)
[2021-02-09 04:09] LABS: ALB/GLOB Ratio 0.3 RATIO (0.9-2.4); AST(SGOT) 43 U/L (15-37); Alanine Aminotransfer ALT/SGPT 34 U/L (13-56); Albumin, Serum 1.3 g/dL (3.2-5.0); Alkaline Phosphatase 78 U/L (45-117); Anion Gap 9 (5-15); BUN 34 mg/dL (7-18); BUN/Creat Ratio 27.6 RATIO (10-20); Calcium,Total 8.1 mg/dL (8.5-10.1); Chloride 116 mmol/L (98-107); Creatinine, Serum 1.23 mg/dL (0.55-1.02); EST Glomerular Filtration Rate 48 mL/min (>60); Est Glom Filt Rate - Afr Amer 58 mL/min (>60); Estimated Creatinine Clearance 47.81 ml/min; Globulin 4.4 g/dL (2.2-4.2); Glucose 115 mg/dL (74-106); Potassium 3.9 mmol/L (3.5-5.1); Protein, Total 5.7 g/dL (6.4-8.2); Sodium Level 146 mmol/L (136-145)
[2021-02-09 04:36] LABS: Absolute Lymphocyte Count 1.92 X10^3/uL (0.83-4.51); Absolute Neutrophil Count 19.2 X10^3/uL (2.0-7.7); Basophil# 0.11 X10^3/uL; Basophil% 0.5 % (0-1); Eosinophil# 0.55 X10^3/uL; Eosinophils% 2.3 % (0-5); Hematocrit 26.8 % (37-47); Hemoglobin 8.3 g/dL (12.0-15.0); Lymphocyte # 1.92 X10^3/ul (0.83-4.51); Lymphocyte % 8.1 % (19-41); Mean Corpuscular Hgb 30.3 pg (27.0-32.0); Mean Corpuscular Volume 97.8 fL (81-99); Mean Platelet Vol. 12.2 fl (6.2-12.0); Monocyte# 1.29 X10^3/uL; Monocyte% 5.5 % (0-10); NRBC Flagged by Analyzer 0 % (0-5); Neutrophil # 19.19 X10^3/uL (2.7-7.7); Neutrophil % 81.2 % (47-70); Platelet Count 244 K/mm3 (150-450); RBC Distribution Width CV 15.2 % (11.6-14.6); Red Blood Count 2.74 M/mm3 (4.2-5.4); White Blood Count 23.6 K/mm3 (4.4-11.0)
[2021-02-09] MEDS: Amiodarone 360 MG in Dextrose 5% Viaflo Bag 192.8 ML 16.7 MG CONT INF ×2 (05:17→19:30)
[2021-02-09] MEDS: CHLORHEXIDINE GLUC 2% CLOTH 1 EACH TOWELETTE TOPICAL (05:20)
--- NOTE | 2021-02-09 06:12 | PCM.PN.HOSP ---
Subjective Subjective Patient is very fatigued and remains lethargic but will awaken and have some discussions, giving correct and appropriate answers to several questions. She notes still feeling less short of breath with less coughing. She did fail speech evaluation the day prior and is awaiting swallow evaluation today with transition to IV amiodarone in the interim with as needed IV Lopressor for treatment of her SVT. Given patient presentation day prior she had been transitioned to the ICU per discussions with pulmonary medicine. Patient's blood pressures have been mildly low the day prior therefore it Lasix had not been initiated as patient was notably volume up since admission but discussed with patient and ICU/critical care physician given pressure improvement plan to trial IV Lasix today. Patient denies fevers, chills, nausea, emesis, abdominal pain, chest pain. Objective Data Objective Data Vital Signs: Vital Signs Temp Pulse Resp BP Pulse Ox 97.6 F L 111 H 32 H 122/51 H 94 02/09/21 04:00 02/09/21 05:00 02/09/21 05:00 02/09/21 05:00 02/09/21 05:00 Oxygen Flow Rate (L/min) 6 Oxygen Delivery Method Bi-pap Weight: 223 lb 1.725 oz Body Mass Index (BMI) 32.1 Intake & Output: Intake and Output for Last 24 Hours 02/07/21 02/08/21 02/09/21 23:59 23:59 23:59 Intake Total 415.00 / 415.00 2118.90 / 2118.90 1114.95 / 1114.95 Output Total 875 / 1425 1800 / 2300 500 / 500 Balance -460.00 / -1010.00 318.90 / -181.10 614.95 / 614.95 Lab / Micro Data Result Diagrams: 02/09/21 03:40 02/09/21 03:40 Labs: Laboratory Results - last 24 hr 02/08/21 06:50: TSH 5.36 H, Free T4 0.82 02/08/21 07:30: Vancomycin Trough 22.3 H 02/08/21 07:30: WBC 23.5 H, RBC 2.88 L, Hgb 8.6 L, Hct 28.1 L, MCV 97.6, MCH 29.9, MCHC 30.6 L, RDW Std Deviation 54.3 H, RDW Coeff of Kenna 15.0 H, Plt Count 194, MPV 11.8, Immature Gran % (Auto) 2.900 H, Neut % (Auto) 82.2 H, Lymph % (Auto) 7.9 L, [place] % (Auto) 4.8, Eos % (Auto) 1.9, Baso % (Auto) 0.3, Absolute Neuts (auto) 19.3 H, Absolute Lymphs (auto) 1.85, Nucleated RBC % 0 02/08/21 07:30: Sodium 146 H, Potassium 3.9, Chloride 116 H, Carbon Dioxide 21.0, Anion Gap 9, BUN 50 H, Creatinine 1.44 H, Estim Creat Clear Calc 40.84, Est GFR (MDRD) Af Amer 48 L, Est GFR (MDRD) Non-Af 40 L, BUN/Creatinine Ratio 34.7 H, Glucose 116 H, Calcium 8.2 L, Total Bilirubin 0.30, AST 49 H, ALT 37, Alkaline Phosphatase 75, Total Protein 5.8 L, Albumin 1.3 L, Globulin 4.5 H, Albumin/Globulin Ratio 0.3 L 02/08/21 07:30: Procalcitonin 0.56 H 02/08/21 07:30: B-Natriuretic Peptide 14.7 02/08/21 15:10: MRSA (PCR) Negative 02/09/21 03:40: WBC 23.6 H, RBC 2.74 L, Hgb 8.3 L, Hct 26.8 L, MCV 97.8, MCH 30.3, MCHC 31.0 L, RDW Std Deviation 54.0 H, RDW Coeff of Kenna 15.2 H, Plt Count 244, MPV 12.2 H, Immature Gran % (Auto) 2.400 H, Neut % (Auto) 81.2 H, Lymph % (Auto) 8.1 L, [place] % (Auto) 5.5, Eos % (Auto) 2.3, Baso % (Auto) 0.5, Absolute Neuts (auto) 19.2 H, Absolute Lymphs (auto) 1.92, Nucleated RBC % 0 02/09/21 03:40: Sodium 146 H, Potassium 3.9, Chloride 116 H, Carbon Dioxide 21.0, Anion Gap 9, BUN 34 H, Creatinine 1.23 H, Estim Creat Clear Calc 47.81, Est GFR (MDRD) Af Amer 58 L, Est GFR (MDRD) Non-Af 48 L, BUN/Creatinine Ratio 27.6 H, Glucose 115 H, Calcium 8.1 L, Total Bilirubin 0.40, AST 43 H, ALT 34, Alkaline Phosphatase 78, Total Protein 5.7 L, Albumin 1.3 L, Globulin 4.4 H, Albumin/Globulin Ratio 0.3 L Micro: Microbiology 02/08/21 13:40 Mucosa - Nose Respiratory Panel (PCR) - Final 02/03/21 20:48 Blood Culture (Wb) - Left Wrist Blood Culture - Final No growth in 5 days. 02/03/21 18:15 Blood Culture (Wb) - Left Wrist Blood Culture - Final No growth in 5 days. 02/03/21 12:32 Urine Catheter - Henry Urine Culture - Final Culture exhibits no growth. 02/03/21 12:32 Urine Catheter - Henry Legionella Antigen - Final 02/03/21 12:32 Urine Catheter - Henry Streptococcus pneumoniae Antigen (M - Final 02/03/21 14:50 Mucosa - Nose SARS-CoV-2 Antigen (Rapid) - Final Radiography Diagnostic Testing: Radiology Impression Chest X-Ray 02/08/21 06:00 IMPRESSION: Progressive bibasilar infiltrates worse on the left side. Electronically Signed: Doug Colindres MD at 8:31 EDT , Service support , Physical Exam Narrative Physical Examination: General: Awake, alert, oriented currently to self, place and some recent events, remains lethargic, on BiPAP in the ICU, fatigued, ongoing increased respiratory rate. Skin: Normal color, normal turgor, no icterus, no cyanosis except occasional staged ecchymoses, recent left foot injury with associated swelling/staged ecchymoses. HEENT: AT/NC, EOMI, PERRLA, dry MM, BiPAP in place. Lungs: Remains diffusely diminished, poor effort, increased respiratory rate, BiPAP in place, no current wheezing, rales or rhonchi but very distant breath sounds. Heart: Tachycardic with regular rhythm; no gallop, rub audible. Abdomen: Soft, obese, NTTP, ND but habitus makes examination difficult, distant bowel sounds. Extremities: No cyanosis, no clubbing, edema to bilateral hands and BL LE pedal to distal benjamin, see skin. Neurological: Patient awake, alert, oriented as noted, cognitive function not at baseline, more lethargic than day prior with concurrent underlying psychiatric history; pupils equally reactive to light and accommodation, cranial nerves II-XII grossly normal, moving all 4 extremities, no focal deficits, strength severely global decrease secondary to acute presentation. Psychiatric: Affect appears fatigued, flat, no acute evidence of depressive or anxiety feelings, underlying psychiatric history with schizophrenia. Assessment & Plan Assessment/Plan (1) Septic shock: (2) Pneumonia: QUALIFIERS: Pneumonia type: due to unspecified organism Laterality: unspecified laterality Lung location: unspecified part of lung Qualified Code(s): J18.9 - Pneumonia, unspecified organism PLAN: The patient is a 55 y/o F w/ PMHx: Schizophrenia/Anxiety and Depression, Obesity, Asthma, Hx L breast CA, Hx Monoclonal gammopathy IgM type, HTN, GERD, Unclear type of thyroid disease who presents to the [facility] ED on 02/03/21 with lethargy, multiple wounds, found down. 1. Acute Encephalopathy, Infectious/metabolic secondary to Acute Septic Shock with Acute Hypoxic Respiratory Failure secondary to Bilateral Pneumonia, possible Aspiration complicated by underlying Asthma: Patient with significant initial ED presentation with septic shock, admitted to the ICU and treated with broad-spectrum antibiotic therapy initially with IV Zosyn and vancomycin with eventual de-escalation off vancomycin (MRSA screen negative), blood cultures remain negative, urine culture with no growth, pulmonary critical care following with continued BiPAP usage, given clinical improvement transition to PCU status 02/07/2021, currently weaned off of BiPAP but would plan on continue BiPAP nightly or if sleeping, awaiting speech therapy evaluation as currently n.p.o. with concern for aspiration component, transient SVT during presentation with unfortunate hold on oral amiodarone and beta-pedro luis therapy secondary to aspiration concerns awaiting speech therapy evaluation, restart oral medications once able, gently hydrating only secondary to worsened renal function with possible contrast nephropathy associated given imaging as notable anasarca present. 02/03/2021 CT brain with no acute intracranial findings. 02/04/2021 echocardiogram with normal LV size, LV systolic function normal, EF 70%, stage I diastolic dysfunction. 02/06/2021 CTA chest with no evidence of PE, by lateral patchy airspace disease possibly atelectasis or developing pneumonia. Rapid Covid antigen negative, urine antigens negative. Requested respiratory viral panel. Repeat 02/08/2021 chest x-ray with progressive bibasilar infiltrates, worse on the left side. 02/08/21 transition back to the ICU. 02/08/[address] oral start with pending swallow evaluation 02/09/21. Maintained on BIPAP. Given improved BPs will start trial pulse lasix 02/09/21 given +11L since admission with 02/08/21 BNP 14.7. 02/08/21 procalcitonin 0.56. Holding all oral medications including sedative regimen. 2. Paroxysmal SVT: Patient previously on amiodarone with oral transition and metoprolol edition per cardiology, consulted and following, held currently given NPO status, transitioned 02/08/21 to IV amiodarone with PRN IV lopressor, primarily with drip hold with zosyn administration. 02/04/2021 echocardiogram with normal LV size, LV systolic function normal, EF 70%, stage I diastolic dysfunction. 3. Acute kidney injury: Secondary to acute presentation #1, baseline creatinine 0.9-1, creatinine up to 1.61 during the admission initially trending downward however now trending upward, suspected secondary to contrast-induced nephropathy. 02/09/2021 BUN/creatinine 34/1.23, improved. Monitor renal function given IV pulse lasix given #1 as noted. Holding on any IVFs given diuresis needs as noted. 4. Acute anemia, normocytic: Admission hemoglobin 12, has trended downward, 02/08/2021 hemoglobin 8.6, suspected delusional given aggressive hydration with acute septic shock presentation requiring significant hydration, 02/09/21 Hgb 8.3, stable, will continue to trend CBC, no obvious evidence of any bleeding. 5. Acute thrombocytopenia, suspected secondary to acute sepsis syndrome as noted above: During the admission platelets did decrease 02/06/2021 down to 116, since resolved, 02/09/2021 platelets 244, continue to trend CBC. 6. Multiple wounds, failure to thrive in adult w/ mild Acute rhabdomyolysis: Admission TCK minimally elevated 260, found down on the floor, incontinent. Patient also with noted wounds. Patient as noted hydrated aggressively. Wound care consulted, encourage frequent positional changes, given presentation concerns for return to home, barrier agents as needed and scheduled per nursing protocol. 7. History of breast cancer, left and Monoclonal gammopathy IgM type: Patient following w/ Dr. Ball, diagnosed with monoclonal gammopathy IgM type in 2013 with subsequent to diagnosis of invasive ductal carcinoma of the left breast stage III in March 2014 with ER/VA positive, HER-2 negative by FISH with chemotherapy and unfortunate then lost to follow-up with later 4 cycles of additional chemotherapy with deferral by patient at that time of avoidance of lumpectomy or radiation and transition to tamoxifen. Currently holding tamoxifen given n.p.o. status, will resume once clinically appropriate. 8. Obesity: Weight loss and lifestyle changes encouraged. 9. Schizophrenia, unclear type: Currently holding patient medications given n.p.o. status, will resume once improved but may necessitate decreased regimen for concern for sedation given #1. 10. Reported Thyroid disease, unclear type: Given acute illness not best timeline for testing; however, given FTT adult and poor self care, obtained, TSH 5.36; however, FT4 normal range 0.82, monitor with repeat testing following discharge given acute illness presentation. 11. DVT prophylaxis: SCDs, Lovenox. 12. CODE STATUS: Full code. Charges/Coding Visit Charges Inpatient E&M: 89715 Subs Hosp L3
[2021-02-09] MEDS: Ipratropium/Albuterol Sulfate 3 ML AMPUL.NEB INHALATION (06:43)
[2021-02-09] MEDS: Furosemide 40 MG/4 ML Vial IV (08:17)
[2021-02-09] MEDS: Metoprolol Tartrate 5 MG/5 ML Vial IV ×3 (08:17→20:42)
[2021-02-09] MEDS: Famotidine 200 MG/20 ML MDV 20 MG in 0.9% Normal Saline (Pres. free 8 ML 300 MG IV (09:16)
--- NOTE | 2021-02-09 10:19 | PN.CC_ITS ---
Assessment & Plan Assessment/Plan (1) Acute hypoxemic respiratory failure: PLAN: RECOMMENDATIONS: 1. Continue noninvasive positive pressure ventilatory support. 2. Wean supplemental oxygen to maintain saturations at or above 90%. 3. Consider gentle diuresis if tolerated by hemodynamics and renal function. 4. Stop continuous supplemental IV fluids. 5. Patient to remain n.p.o. pending further speech therapy evaluation. 6. Continue antimicrobials. IMPRESSIONS: 1. Acute hypoxemic respiratory failure Clinical concern for aspiration pneumonia as precipitating etiology. The patient has been compliant with the use of BiPAP therapy with naps and while sleeping, which I would recommend be continued. In the interim, plan to continu e to wean supplemental oxygen to maintain saturations at or above 90%. Continue antimicrobials to complete 10-day treatment course. The patient is to remain n.p.o. pending further evaluation by speech therapy. Avoid sedating medication use. The patient is also up from a volume perspective and may benefit from gentle diuresis, if tolerated. 2. Septic shock Improved. Likely secondary to aspiration pneumonia. The patient is currently on appropriate antimicrobial therapy. She remains hemodynamically stable. Wound care consultation is still pending. 3. Metabolic encephalopathy Likely related to acute infectious etiology and possible polypharmacy in the setting of renal insufficiency. As noted above, I would recommend that all laila ting medications be withheld. Continue to address underlying infection with antimicrobials as ordered. Obtain repeat arterial blood gas with any change in mentation. 4. Paroxysmal SVT Continue current medical management with beta-blockade as tolerated. 5. History of breast CA/MGUS/schizophrenia/obesity Complicates care, management, recovery and prognosis. Hold home sedating medications, pending improvement in mentation. This note was generated with [employer] dictation software. It may contain incorrect words, spelling, and punctuation that were not noted in checking the note before signing. Subjective Subjective The patient was seen and examined at the bedside this morning. Events from the last 24 hours have been reviewed. The patient is currently afebrile, hemodynamically stable and maintaining appropriate oxygen saturations on BiPAP with an FiO2 requirement of 30%. Yesterday, the patient was being maintained on 6 L/min of supplemental oxygen when not sleeping. She is currently on an amiodarone infusion and is tentatively scheduled for a barium swallow today. She is currently documented to be overall net +11.2 L for the hospital admission. She remains somnolent this morning. Creatinine is stable at 1.23. Objective Data Objective Data The patient's most recent lab work, culture data and imaging studies have all been personally reviewed. Surface echocardiogram revealed stage I diastolic dysfunction. CTA chest demonstrated multifocal airspace disease without PE. Rapid coronavirus antigen testing was negative. Strep and urine Legionella antigens were negative. Blood and urine cultures have shown no growth to date. Vital Signs: Vital Signs Temp Pulse Resp BP Pulse Ox 100.1 F H 104 H 27 H 115/71 93 02/09/21 08:26 02/09/21 08:30 02/09/21 08:26 02/09/21 08:26 02/09/21 08:26 Oxygen Flow Rate (L/min) 6 Oxygen Delivery Method Bi-pap Weight: 223 lb 1.725 oz Body Mass Index (BMI) 32.1 Intake & Output: Intake and Output for Last 24 Hours 02/07/21 02/08/21 02/09/21 23:59 23:59 23:59 Intake Total 415.00 / 415.00 2118.90 / 2118.90 1552.45 / 1552.45 Output Total 875 / 1425 1800 / 2300 900 / 900 Balance -460.00 / -1010.00 318.90 / -181.10 652.45 / 652.45 Lab / Micro Data Attestation: I reviewed the patient's lab results. Result Diagrams: 02/09/21 03:40 02/09/21 03:40 Labs: Laboratory Results - last 24 hr 02/08/21 06:50: TSH 5.36 H, Free T4 0.82 02/08/21 07:30: Procalcitonin 0.56 H 02/08/21 07:30: B-Natriuretic Peptide 14.7 02/08/21 15:10: MRSA (PCR) Negative 02/09/21 03:40: WBC 23.6 H, RBC 2.74 L, Hgb 8.3 L, Hct 26.8 L, MCV 97.8, MCH 30.3, MCHC 31.0 L, RDW Std Deviation 54.0 H, RDW Coeff of Kenna 15.2 H, Plt Count 244, MPV 12.2 H, Immature Gran % (Auto) 2.400 H, Neut % (Auto) 81.2 H, Lymph % (Auto) 8.1 L, [place] % (Auto) 5.5, Eos % (Auto) 2.3, Baso % (Auto) 0.5, Absolute Neuts (auto) 19.2 H, Absolute Lymphs (auto) 1.92, Nucleated RBC % 0 02/09/21 03:40: Sodium 146 H, Potassium 3.9, Chloride 116 H, Carbon Dioxide 21.0, Anion Gap 9, BUN 34 H, Creatinine 1.23 H, Estim Creat Clear Calc 47.81, Est GFR (MDRD) Af Amer 58 L, Est GFR (MDRD) Non-Af 48 L, BUN/Creatinine Ratio 27.6 H, Glucose 115 H, Calcium 8.1 L, Total Bilirubin 0.40, AST 43 H, ALT 34, Alkaline Phosphatase 78, Total Protein 5.7 L, Albumin 1.3 L, Globulin 4.4 H, Albumin/Globulin Ratio 0.3 L Micro: Microbiology 02/08/21 13:40 Mucosa - Nose Respiratory Panel (PCR) - Final 02/03/21 20:48 Blood Culture (Wb) - Left Wrist Blood Culture - Final No growth in 5 days. 02/03/21 18:15 Blood Culture (Wb) - Left Wrist Blood Culture - Final No growth in 5 days. 02/03/21 12:32 Urine Catheter - Henry Urine Culture - Final Culture exhibits no growth. 02/03/21 12:32 Urine Catheter - Henry Legionella Antigen - Final 02/03/21 12:32 Urine Catheter - Henry Streptococcus pneumoniae Antigen (M - Final 02/03/21 14:50 Mucosa - Nose SARS-CoV-2 Antigen (Rapid) - Final Physical Exam Const no apparent distress Constitutional Narrative: The patient is somnolent. General Appearance: ill appearing and on BiPAP Nutritional Appearance: obese HEENT normocephalic and head/scalp atraumatic Eyes PERRL and EOMs intact bilaterally Neck supple General: trachea midline Resp Effort and Inspection: tachypneic Auscultation: diminished lung sounds; Negative for rales, rhonchi or wheezes Cardio S1 normal heart sound and S2 normal heart sound Rate: tachycardic GI normal to inspection, nondistended, normoactive bowel sounds Extremity General Extremity: edema; Negative for clubbing Neuro no focal motor deficits Psych Mood & Affect: flat affect Charges/Coding Visit Charges Inpatient E&M: 64708 Subs Hosp L3
--- NOTE | 2021-02-09 10:35 | RAD_ITS ---
History: PICC Insertion EXAMINATION/TECHNIQUE: XR Chest 1 View: Portable COMPARISON: February 08, 2021 FINDINGS: LINES/DEVICES: Left-sided PICC line catheter tip projects over the mid superior vena cava. LUNGS: Persistent bibasilar airspace opacification. No pneumothorax. MEDIASTINUM AND CARDIOVASCULAR STRUCTURES: Cardiac silhouette not enlarged. Central airways and mediastinal contour are unremarkable. BONES AND SOFT TISSUES: Stephen shyann remains in place associated with scoliosis. RAD/CXR for Line Placement IMPRESSION: Satisfactory PICC line placement. Persistent bibasilar pneumonia. at 1228 Reported and signed by: Stevie Gomez MD Electronically Signed: Stevie Gomez MD at 12:26 EDT Tel , Service support ,
[2021-02-09] MEDS: Nystatin Powder 15gm Bottle 1 APPLIC TOPICAL ×2 (12:42→22:13)
[2021-02-09] MEDS: Enoxaparin 40 MG/0.4 ML Syringe SC (12:44)
--- NOTE | 2021-02-09 13:30 | NURSING ---
wound photo: right foot
--- NOTE | 2021-02-09 13:31 | NURSING ---
wound photo: left foot
--- NOTE | 2021-02-09 13:32 | NURSING ---
wound photo: right lateral lower leg
--- NOTE | 2021-02-09 13:33 | NURSING ---
wound photo: right medial knee '
--- NOTE | 2021-02-09 13:33 | NURSING ---
wound photo: left knee
--- NOTE | 2021-02-09 13:34 | NURSING ---
wound photo: right hip
--- NOTE | 2021-02-09 13:34 | NURSING ---
wound photo: right groin
--- NOTE | 2021-02-09 13:35 | NURSING ---
wound photo: right lateral forearm
--- NOTE | 2021-02-09 13:36 | NURSING ---
wound photo: right medial forearm
--- NOTE | 2021-02-09 14:03 | EKG12_ITS ---
Test Reason : TELE CHANGE Blood Pressure : / mmHG Vent. Rate : 146 BPM Atrial Rate : 101 BPM P-R Int : 000 ms QRS Dur : 068 ms QT Int : 332 ms P-R-T Axes : 000 048 028 degrees QTc Int : 517 ms Supraventricular tachycardia with Fusion complexes Low voltage QRS Borderline ECG No previous ECGs available Confirmed by JM AWAD, VERONA ([id number]), news video editor JAMAAL ENRIQUEZ ([id number]) on 02/12/2021 9:41:42 AM Referred By: JENY Confirmed By:VERONA ONEAL MD
[2021-02-09] MEDS: 0.9% Saline Lock 10 ML Syringe IV ×2 (20:43→22:14)
[2021-02-09] MEDS: Famotidine 200 MG/20 ML MDV 20 MG in 0.9% Normal Saline (Pres. free 8 ML IV (22:14)
[2021-02-10] VITALS (46 sets, daily range): BP systolic 94–158; BP diastolic 49–87; PULSE 96–149; RESP 12–38; TEMP 36.7–38.5; O2SAT 86–99
--- NOTE | 2021-02-10 00:15 | EKG12_ITS ---
Test Reason : RHYTHM CHANGE Blood Pressure : / mmHG Vent. Rate : 138 BPM Atrial Rate : 138 BPM P-R Int : 104 ms QRS Dur : 084 ms QT Int : 320 ms P-R-T Axes : 000 047 036 degrees QTc Int : 484 ms Sinus tachycardia with short [place] Low voltage QRS Borderline ECG When compared with ECG of 05-FEB-2021 16:34, No significant change was found Confirmed by JM AWAD, VEROAN ([id number]), editor producer JAMAAL ENRIQUEZ ([id number]) on 02/12/2021 9:40:37 AM Referred By: ANGÉLICA Confirmed By:VERONA ONEAL MD
[2021-02-10] MEDS: 0.9% Saline Lock 10 ML Syringe IV ×4 (00:43→21:38)
[2021-02-10] MEDS: Metoprolol Tartrate 5 MG/5 ML Vial IV (00:47)
[2021-02-10] MEDS: Acetaminophen 650 MG Suppository RC ×2 (04:17→21:00)
[2021-02-10] MEDS: CHLORHEXIDINE GLUC 2% CLOTH 1 EACH TOWELETTE TOPICAL (04:33)
[2021-02-10 05:02] LABS: Absolute Lymphocyte Count 2.28 X10^3/uL (0.83-4.51); Absolute Neutrophil Count 17.9 X10^3/uL (2.0-7.7); Basophil# 0.12 X10^3/uL; Basophil% 0.5 % (0-1); Eosinophil# 0.44 X10^3/uL; Eosinophils% 1.9 % (0-5); Hemoglobin 8.5 g/dL (12.0-15.0); Lymphocyte # 2.28 X10^3/ul (0.83-4.51); Lymphocyte % 10.1 % (19-41); Mean Corp Hgb Conc 31.5 g/dL (32-36); Mean Corpuscular Hgb 30.4 pg (27.0-32.0); Mean Corpuscular Volume 96.4 fL (81-99); Mean Platelet Vol. 11.6 fl (6.2-12.0); Monocyte# 1.15 X10^3/uL; Monocyte% 5.1 % (0-10); NRBC Flagged by Analyzer 0 % (0-5); Neutrophil # 17.85 X10^3/uL (2.7-7.7); Neutrophil % 78.9 % (47-70); Platelet Count 308 K/mm3 (150-450); RBC Distribution Width CV 15.1 % (11.6-14.6); RBC Distribution Width SD 53.1 fl (35.1-43.9); White Blood Count 22.6 K/mm3 (4.4-11.0)
[2021-02-10 05:20] LABS: ALB/GLOB Ratio 0.3 RATIO (0.9-2.4); AST(SGOT) 37 U/L (15-37); Alanine Aminotransfer ALT/SGPT 30 U/L (13-56); Albumin, Serum 1.3 g/dL (3.2-5.0); Alkaline Phosphatase 82 U/L (45-117); Anion Gap 7 (5-15); BUN 27 mg/dL (7-18); BUN/Creat Ratio 21.6 RATIO (10-20); Calcium,Total 8.1 mg/dL (8.5-10.1); Chloride 114 mmol/L (98-107); Creatinine, Serum 1.25 mg/dL (0.55-1.02); EST Glomerular Filtration Rate 47 mL/min (>60); Est Glom Filt Rate - Afr Amer 57 mL/min (>60); Estimated Creatinine Clearance 47.04 ml/min; Globulin 4.8 g/dL (2.2-4.2); Glucose 131 mg/dL (74-106); Potassium 3.5 mmol/L (3.5-5.1); Protein, Total 6.1 g/dL (6.4-8.2); Sodium Level 146 mmol/L (136-145)
--- NOTE | 2021-02-10 06:17 | PN.HOSP_ITS ---
Subjective Subjective Patient overnight with significant difficulties with atrial fibrillation with RVR with intermittent required pulse dose IV Lopressor in addition to patient's IV amiodarone. ST evaluations with now allowance of medications crushed with applesauce only as had failed the day prior. Patient administered also digoxin x 1 per Cardiology recommendation this AM. Patient without any evidence of fevers, chills, nausea, emesis, abdominal pain, chest pain. Objective Data Objective Data Vital Signs: Vital Signs Temp Pulse Resp BP Pulse Ox 98.2 F 144 H 21 H 103/50 L 94 02/10/21 05:00 02/10/21 05:00 02/10/21 05:00 02/10/21 05:00 02/10/21 05:00 Oxygen Flow Rate (L/min) 6 Oxygen Delivery Method Bi-pap Weight: 214 lb 4.629 oz Body Mass Index (BMI) 32.1 Intake & Output: Intake and Output for Last 24 Hours 02/08/21 02/09/21 02/10/21 23:59 23:59 23:59 Intake Total 2118.90 / 2118.90 1812.17 / 1812.17 50 / 50 Output Total 1800 / 2300 3800 / 3800 Balance 318.90 / -181.10 -1987.83 / -1987.83 50 / 50 Lab / Micro Data Result Diagrams: 02/10/21 04:35 02/10/21 04:35 Labs: Laboratory Results - last 24 hr 02/10/21 04:35: WBC 22.6 H, RBC 2.80 L, Hgb 8.5 L, Hct 27.0 L, MCV 96.4, MCH 30.4, MCHC 31.5 L, RDW Std Deviation 53.1 H, RDW Coeff of Kenna 15.1 H, Plt Count 308, MPV 11.6, Immature Gran % (Auto) 3.500 H, Neut % (Auto) 78.9 H, Lymph % (Auto) 10.1 L, Power % (Auto) 5.1, Eos % (Auto) 1.9, Baso % (Auto) 0.5, Absolute Neuts (auto) 17.9 H, Absolute Lymphs (auto) 2.28, Nucleated RBC % 0 02/10/21 04:35: Sodium 146 H, Potassium 3.5, Chloride 114 H, Carbon Dioxide 25.0, Anion Gap 7, BUN 27 H, Creatinine 1.25 H, Estim Creat Clear Calc 47.04, Est GFR (MDRD) Af Amer 57 L, Est GFR (MDRD) Non-Af 47 L, BUN/Creatinine Ratio 21.6 H, Glucose 131 H, Calcium 8.1 L, Total Bilirubin 0.40, AST 37, ALT 30, Alkaline Phosphatase 82, Total Protein 6.1 L, Albumin 1.3 L, Globulin 4.8 H, Albumin/Globulin Ratio 0.3 L Micro: Microbiology 02/08/21 13:40 Mucosa - Nose Respiratory Panel (PCR) - Final 02/03/21 20:48 Blood Culture (Wb) - Left Wrist Blood Culture - Final No growth in 5 days. 02/03/21 18:15 Blood Culture (Wb) - Left Wrist Blood Culture - Final No growth in 5 days. 02/03/21 12:32 Urine Catheter - Henry Urine Culture - Final Culture exhibits no growth. 02/03/21 12:32 Urine Catheter - Henry Legionella Antigen - Final 02/03/21 12:32 Urine Catheter - Henry Streptococcus pneumoniae Antigen (M - Final 02/03/21 14:50 Mucosa - Nose SARS-CoV-2 Antigen (Rapid) - Final Radiography Diagnostic Testing: Radiology Impression Chest X-Ray 02/09/21 10:35 IMPRESSION: Satisfactory PICC line placement. Persistent bibasilar pneumonia. at 1228 Reported and signed by: Stevie Gomez MD Electronically Signed: Stevie Gomez MD at 12:26 EDT Tel , Service support , Physical Exam Narrative Physical Examination: General: Patient awakens to stimuli, not markedly alert, will answer some orientation questions appropriately including to self and place, remains sedate, currently on BiPAP still in the ICU. Skin: Normal color, normal turgor, no icterus, no cyanosis except occasional staged ecchymoses, recent left foot injury with associated swelling/staged ecchymoses and various wounds/abrasions. HEENT: AT/NC, EOMI, PERRLA, dry MM, BiPAP in place. Lungs: Diminished, still somewhat increased respiratory rate, BiPAP in place, no obvious wheezing, rales or rhonchi currently. Heart: Tachycardic with irregular rhythm; no gallop, rub audible. Abdomen: Soft, obese, NTTP, ND but habitus makes examination difficult, distant bowel sounds. Extremities: No cyanosis, no clubbing, edema to bilateral hands and BL LE pedal to distal benjamin, see skin. Neurological: Patient awake, alert, oriented as noted, cognitive function not at baseline, more lethargic than day prior with concurrent underlying psychiatric history; pupils equally reactive to light and accommodation, cranial nerves II- XII grossly normal, moving all 4 extremities, no focal deficits, strength severely global decrease secondary to acute presentation. Psychiatric: Affect appears flat, no acute evidence of depressive or anxiety feelings, underlying psychiatric history with schizophrenia. Assessment & Plan Assessment/Plan (1) Septic shock: (2) Pneumonia: QUALIFIERS: Pneumonia type: due to unspecified organism Laterality: unspecified laterality Lung location: unspecified part of lung Qualified Code(s): J18.9 - Pneumonia, unspecified organism PLAN: The patient is a 55 y/o F w/ PMHx: Schizophrenia/Anxiety and Depression, Obesity, Asthma, Hx L breast CA, Hx Monoclonal gammopathy IgM type, HTN, GERD, Unclear type of thyroid disease who presents to the [facility] ED on 02/03/21 with lethargy, multiple wounds, found down. 1. Acute Encephalopathy, Infectious/metabolic secondary to Acute Septic Shock with Acute Hypoxic Respiratory Failure secondary to Bilateral Pneumonia, possible Aspiration complicated by underlying Asthma: Patient with significant initial ED presentation with septic shock, admitted to the ICU and treated with broad-spectrum antibiotic therapy initially with IV Zosyn and vancomycin with eventual de-escalation off vancomycin (MRSA screen negative), blood cultures initially obtained upon presentation negative, urine culture no growth, urine antigens negative, COVID negative, respiratory viral panel negative. Patient initially had clinical improvement w/ transition to PCU status 02/07/2021, however worsened and transitioned back to ICU 02/08/21. 02/03/2021 CT brain with no acute intracranial findings. 02/04/2021 echocardiogram with normal LV size, LV systolic function normal, EF 70%, stage I diastolic dysfunction. 02/06/2021 CTA chest with no evidence of PE, by lateral patchy airspace disease possibly atelectasis or developing pneumonia. Rapid Covid antigen negative, urine antig ens negative. Requested respiratory viral panel. Repeat 02/08/2021 chest x-ray with progressive bibasilar infiltrates, worse on the left side. 02/09/21 pulse dose lasix 40 IV x 1 given +11L since although admission with 02/08/21 BNP 14.7. 02/08/21 procalcitonin 0.56. 02/10/2021 CBC with WC 22.6 with ongoing significant left shift. Case discussed with infectious disease who is evaluating. Repeat blood cultures also obtained 02/08/2021. 2. Paroxysmal SVT: 02/04/2021 echocardiogram with normal LV size, LV systolic function normal, EF 70%, stage I diastolic dysfunction. Patient previously on amiodarone with oral transition and metoprolol edition per cardiology, consulted and following, held transiently following aspiration event w/ NPO status, transitioned 02/08/21 to IV amiodarone with PRN IV lopressor, primarily with drip hold with zosyn administration. 02/04/2021 echocardiogram with normal LV size, LV systolic function normal, EF 70%, stage I diastolic dysfunction. 3. Acute kidney injury: Secondary to acute presentation #1, baseline creatinine 0.9-1, creatinine up to 1.61 during the admission initially trending downward however now trending upward, suspected secondary to contrast-induced nephropathy. 02/10/2021 BUN/creatinine 27/1.25, improved. Monitor renal function given IV pulse lasix given #1 as noted. Holding on any IVFs given diuresis needs as noted. 4. Acute anemia, normocytic: Admission hemoglobin 12, has trended downward, 02/08/2021 hemoglobin 8.6, suspected delusional given aggressive hydration with acute septic shock presentation requiring significant hydration, 02/10/21 Hgb 8.5, stable, will continue to trend CBC, no obvious evidence of any bleeding. 5. Acute thrombocytopenia, suspected secondary to acute sepsis syndrome as noted above: During the admission platelets did decrease 02/06/2021 down to 116, since resolved, 02/10/2021 platelets 308, continue to trend CBC. 6. Multiple wounds, failure to thrive in adult w/ mild Acute rhabdomyolysis: Admission TCK minimally elevated 260, found down on the floor, incontinent. Patient also with noted wounds. Patient as noted hydrated aggressively. Wound care consulted, encourage frequent positional changes, given presentation concerns for return to home, barrier agents as needed and scheduled per nursing protocol. 7. History of breast cancer, left and Monoclonal gammopathy IgM type: Patient following w/ Dr. Ball, diagnosed with monoclonal gammopathy IgM type in 2013 with subsequent to diagnosis of invasive ductal carcinoma of the left breast stage III in March 2014 with ER/KY positive, HER-2 negative by FISH with chemotherapy and unfortunate then lost to follow-up with later 4 cycles of additional chemotherapy with deferral by patient at that time of avoidance of lumpectomy or radiation and transition to tamoxifen. Will restart tamoxifen given ST allowance of medications if patient able. 8. Obesity: Weight loss and lifestyle changes encouraged. 9. Schizophrenia, unclear type: Currently holding patient medications given n.p.o. status, will resume once improved but may necessitate decreased regimen for concern for sedation given #1. 10. Reported Thyroid disease, unclear type: Given acute illness not best timeline for testing; however, given FTT adult and poor self care, obtained, TSH 5.36; however, FT4 normal range 0.82, monitor with repeat testing following discharge given acute illness presentation. 11. DVT prophylaxis: SCDs, Lovenox. 12. CODE STATUS: Full code. Charges/Coding Visit Charges Inpatient E&M: 23161 Subs Hosp L3
[2021-02-10] MEDS: Ipratropium/Albuterol Sulfate 3 ML AMPUL.NEB INHALATION ×3 (07:19→19:09)
[2021-02-10] MEDS: Amiodarone 360 MG in Dextrose 5% Viaflo Bag 192.8 ML 16.7 MG CONT INF ×2 (07:47→19:34)
[2021-02-10 07:51] LABS: Blood Gas Specimen Type VEN; O2 Delivery Device BiPAP; RR 12; SITE R Brach; VBG BASE EXCESS -3 mmol/L (-1.0-3.5); VBG Bicarbonate 22 mmol/L (22-26); VBG PO2 35 mmHg (25-40); VBG SO2 67 % (50-70); VBG TCO2 23 mmol/L (23-33); VBG pCO2 36.1 mmHg (41-51); VBG pH 7.39 (7.32-7.42)
--- NOTE | 2021-02-10 08:47 | PN.CARD_ITS ---
Subjective Subjective Patient seen and evaluated. Appears to be fairly stable this morning. Has had some bouts of tachycardia. Objective Data Vital Signs: Vital Signs Temp Pulse Resp BP Pulse Ox 98.2 F 149 H 25 H 103/66 94 02/10/21 05:00 02/10/21 08:00 02/10/21 08:00 02/10/21 08:00 02/10/21 08:00 Oxygen Flow Rate (L/min) 3 Oxygen Delivery Method Nasal Cannula Weight: 214 lb 4.629 oz Body Mass Index (BMI) 32.1 Intake & Output: Intake and Output for Last 24 Hours 02/08/21 02/09/21 02/10/21 23:59 23:59 23:59 Intake Total 2118.90 / 2118.90 1812.17 / 1812.17 250 / 250 Output Total 1800 / 2300 3800 / 3800 400 / 400 Balance 318.90 / -181.10 -1987.83 / -1987.83 -150 / -150 Lab / Micro Data Result Diagrams: 02/10/21 04:35 02/10/21 04:35 Labs: Laboratory Results - last 24 hr 02/10/21 04:35: WBC 22.6 H, RBC 2.80 L, Hgb 8.5 L, Hct 27.0 L, MCV 96.4, MCH 30.4, MCHC 31.5 L, RDW Std Deviation 53.1 H, RDW Coeff of Kenna 15.1 H, Plt Count 308, MPV 11.6, Immature Gran % (Auto) 3.500 H, Neut % (Auto) 78.9 H, Lymph % (Auto) 10.1 L, Meagher % (Auto) 5.1, Eos % (Auto) 1.9, Baso % (Auto) 0.5, Absolute Neuts (auto) 17.9 H, Absolute Lymphs (auto) 2.28, Nucleated RBC % 0 02/10/21 04:35: Sodium 146 H, Potassium 3.5, Chloride 114 H, Carbon Dioxide 25.0, Anion Gap 7, BUN 27 H, Creatinine 1.25 H, Estim Creat Clear Calc 47.04, Est GFR (MDRD) Af Amer 57 L, Est GFR (MDRD) Non-Af 47 L, BUN/Creatinine Ratio 21.6 H, Glucose 131 H, Calcium 8.1 L, Total Bilirubin 0.40, AST 37, ALT 30, Alkaline Phosphatase 82, Total Protein 6.1 L, Albumin 1.3 L, Globulin 4.8 H, Albumin/Globulin Ratio 0.3 L ABG Data ABG results: ABG 02/10/21 07:42 Specimen Type LYLY Sample Site R Brach VBG pH 7.39 VBG pO2 35 VBG HCO3 22 VBG Total CO2 23 VBG O2 Sat (Calc) 67 VBG Base Excess -3 L POC Mix VBG pCO2 Pt Tmp 36.1 L Respiration Rate 12 O2 Delivery Device BiPAP Cardiology Labs/Tests 02/10/21 04:35: WBC 22.6 H, RBC 2.80 L, Hgb 8.5 L, Hct 27.0 L, MCV 96.4, MCH 30.4, MCHC 31.5 L, Plt Count 308, MPV 11.6, Immature Gran % (Auto) 3.500 H, Neut % (Auto) 78.9 H, Lymph % (Auto) 10.1 L, Meagher % (Auto) 5.1, Eos % (Auto) 1.9, B aso % (Auto) 0.5, Absolute Neuts (auto) 17.9 H, Nucleated RBC % 0 02/10/21 04:35: Sodium 146 H, Potassium 3.5, Chloride 114 H, Carbon Dioxide 25.0, Anion Gap 7, BUN 27 H, Creatinine 1.25 H, Est GFR (MDRD) Af Amer 57 L, Est GFR (MDRD) Non-Af 47 L, BUN/Creatinine Ratio 21.6 H, Glucose 131 H, Calcium 8.1 L, Total Bilirubin 0.40 02/10/21 07:42: VBG pH 7.39, VBG pO2 35, VBG HCO3 22, VBG O2 Sat (Calc) 67, VBG Base Excess -3 L Rhythm: EKG: ECHO: Stress Test: Cardiac Cath: PCI: CT Surgery: Holter monitor: EPS: PPM: CXR: Chest CT Scan: Radiography Diagnostic Testing: Radiology Impression Chest X-Ray 02/09/21 10:35 IMPRESSION: Satisfactory PICC line placement. Persistent bibasilar pneumonia. at 1228 Reported and signed by: Stevie Gomez MD Electronically Signed: Stevie Gomez MD at 12:26 EDT Tel , Service support , Assessment & Plan Assessment/Plan (1) SVT (supraventricular tachycardia): PLAN: Paroxysmal supraventricular tachyarrhythmia. The patient appears to have not had any significant runs of the above. This appears to be worsened likely by her septic state. * She was started on intravenous amiodarone which was continued for 24 hours. She has been transitioned to oral amiodarone. * Will recommend the addition of low-dose beta-pedro luis when the blood pressure is better * This is probably worsened by her anemia. * Would not give IV Lopressor now on account of her low blood pressure. Continue amiodarone. Would use low-dose digoxin x1. Thank you for allowing me to participate in the care of your patient. Please don't hesitate to call if any issues arise.
[2021-02-10] MEDS: Digoxin 250 MCG/ML Ampul IV (09:22)
--- NOTE | 2021-02-10 09:30 | PCM.PN.INT ---
Assessment & Plan Assessment/Plan (1) Acute hypoxemic respiratory failure: PLAN: RECOMMENDATIONS: 1. Continue BiPAP, at a minimum with naps and nightly. 2. Wean supplemental oxygen to maintain saturations at or above 90%. 3. Consider gentle diuresis if tolerated by hemodynamics and renal function. 4. Patient to remain n.p.o. pending further speech therapy evaluation. 5. Continue antimicrobials. 6. Rate control strategy per cardiology recommendations. IMPRESSIONS: 1. Acute hypoxemic respiratory failure Clinical concern for aspiration pneumonia as precipitating etiology. The patient has been compliant with the use of BiPAP therapy with naps and while sleeping, which I would recommend be continued. In the interim, plan to continue to wean supplemental oxygen to maintain saturations at or above 90%. Continue antimicrobials to complete 10-day treatment course. The patient is to remain n.p.o. pending further evaluation by speech therapy. Avoid sedating medication use. The patient is also up from a volume perspective and may benefit from continued gentle diuresis, if tolerated. 2. Septic shock Improved. Likely secondary to aspiration pneumonia. The patient is currently on appropriate antimicrobial therapy. She remains hemodynamically stable. Wound care is following. 3. Metabolic encephalopathy Likely related to acute infectious etiology and possible polypharmacy in the setting of renal insufficiency. As noted above, I would recommend that all sedating medications be withheld. Continue to address underlying infection with antimicrobials as ordered. Obtain repeat arterial blood gas with any change in mentation. 4. Paroxysmal SVT Continue current medical management with beta-blockade as tolerated. 5. History of breast CA/MGUS/schizophrenia/obesity Complicates care, management, recovery and prognosis. Hold home sedating medications, pending improvement in mentation. This note was generated with [employer] dictation software. It may contain incorrect words, spelling, and punctuation that were not noted in checking the note before signing. Subjective Subjective The patient was seen and examined at the bedside this morning. Events from the last 24 hours have been reviewed. The patient is currently afebrile and hemodynamically stable. She continues to have issues with her heart rate, and per nursing report, did experience a transient episode of atrial fibrillation with RVR overnight. The patient has been maintained on BiPAP all of the day yesterday and into this morning. The patient does appear to be more alert and interactive. Therefore, she was able to be weaned from BiPAP to nasal cannula supplemental oxygen at 3 L/min. She is currently documented to be overall net +8.4 L for the hospital admission. She did receive IV diuretic therapy yesterday. The patient is still awaiting further reevaluation by speech therapy and possible swallow evaluation. Objective Data Objective Data The patient's most recent lab work, culture data and imaging studies have all been personally reviewed. Surface echocardiogram revealed stage I diastolic dysfunction. CTA chest demonstrated multifocal airspace disease without PE. Rapid coronavirus antigen testing was negative. Strep and urine Legionella antigens were negative. Blood and urine cultures have shown no growth to date. Vital Signs: Vital Signs Temp Pulse Resp BP Pulse Ox 98.1 F 113 H 20 H 98/75 95 02/10/21 09:00 02/10/21 09:00 02/10/21 09:00 02/10/21 09:00 02/10/21 09:00 Oxygen Flow Rate (L/min) 3 Oxygen Delivery Method Nasal Cannula Weight: 214 lb 4.629 oz Body Mass Index (BMI) 32.1 Intake & Output: Intake and Output for Last 24 Hours 02/08/21 02/09/21 02/10/21 23:59 23:59 23:59 Intake Total 2118.90 / 2118.90 1812.17 / 1812.17 250 / 250 Output Total 1800 / 2300 3800 / 3800 400 / 400 Balance 318.90 / -181.10 -1987.83 / -1987.83 -150 / -150 Lab / Micro Data Attestation: I reviewed the patient's lab results. Result Diagrams: 02/10/21 04:35 02/10/21 04:35 Labs: Laboratory Results - last 24 hr 02/10/21 04:35: WBC 22.6 H, RBC 2.80 L, Hgb 8.5 L, Hct 27.0 L, MCV 96.4, MCH 30.4, MCHC 31.5 L, RDW Std Deviation 53.1 H, RDW Coeff of Kenna 15.1 H, Plt Count 308, MPV 11.6, Immature Gran % (Auto) 3.500 H, Neut % (Auto) 78.9 H, Lymph % (Auto) 10.1 L, [place] % (Auto) 5.1, Eos % (Auto) 1.9, Baso % (Auto) 0.5, Absolute Neuts (auto) 17.9 H, Absolute Lymphs (auto) 2.28, Nucleated RBC % 0 02/10/21 04:35: Sodium 146 H, Potassium 3.5, Chloride 114 H, Carbon Dioxide 25.0, Anion Gap 7, BUN 27 H, Creatinine 1.25 H, Estim Creat Clear Calc 47.04, Est GFR (MDRD) Af Amer 57 L, Est GFR (MDRD) Non-Af 47 L, BUN/Creatinine Ratio 21.6 H, Glucose 131 H, Calcium 8.1 L, Total Bilirubin 0.40, AST 37, ALT 30, Alkaline Phosphatase 82, Total Protein 6.1 L, Albumin 1.3 L, Globulin 4.8 H, Albumin/Globulin Ratio 0.3 L Micro: Microbiology 02/08/21 13:40 Mucosa - Nose Respiratory Panel (PCR) - Final 02/03/21 20:48 Blood Culture (Wb) - Left Wrist Blood Culture - Final No growth in 5 days. 02/03/21 18:15 Blood Culture (Wb) - Left Wrist Blood Culture - Final No growth in 5 days. 02/03/21 12:32 Urine Catheter - Henry Urine Culture - Final Culture exhibits no growth. 02/03/21 12:32 Urine Catheter - Henry Legionella Antigen - Final 02/03/21 12:32 Urine Catheter - Henry Streptococcus pneumoniae Antigen (M - Final 02/03/21 14:50 Mucosa - Nose SARS-CoV-2 Antigen (Rapid) - Final ABG Data ABG results: ABG 02/10/21 07:42 Specimen Type LYLY Sample Site R Brach VBG pH 7.39 VBG pO2 35 VBG HCO3 22 VBG Total CO2 23 VBG O2 Sat (Calc) 67 VBG Base Excess -3 L POC Mix VBG pCO2 Pt Tmp 36.1 L Respiration Rate 12 O2 Delivery Device BiPAP Radiography Diagnostic Testing: Radiology Impression Chest X-Ray 02/09/21 10:35 IMPRESSION: Satisfactory PICC line placement. Persistent bibasilar pneumonia. at 1228 Reported and signed by: Stevie Gomez MD Electronically Signed: Stevie Gomez MD at 12:26 EDT Tel , Service support , Physical Exam Const alert and no apparent distress Constitutional Narrative: The patient is somnolent. General Appearance: ill appearing Nutritional Appearance: obese HEENT normocephalic and head/scalp atraumatic Mouth: dry mucous membranes Eyes PERRL, EOMs intact bilaterally and conjunctivae normal Neck supple General: trachea midline Resp Effort and Inspection: tachypneic Auscultation: diminished lung sounds; Negative for rales, rhonchi or wheezes Cardio S1 normal heart sound and S2 normal heart sound Rate: tachycardic GI normal to inspection, nondistended, normoactive bowel sounds Extremity General Extremity: edema; Negative for clubbing Neuro CN's II-XII intact bilaterally, moves all extremities and no focal motor deficits Psych Mood & Affect: flat affect Charges/Coding Visit Charges Inpatient E&M: 18302 Subs Hosp L2
[2021-02-10] MEDS: Enoxaparin 40 MG/0.4 ML Syringe SC (09:51)
[2021-02-10] MEDS: Nystatin Powder 15gm Bottle 1 APPLIC TOPICAL ×2 (09:52→21:35)
--- NOTE | 2021-02-10 10:49 | CASEMGMT ---
Addendum entered by Yamile Dias 02/10/21 11:48: Social Work Return call from pt sister Odilia. BREN discussed with Odilia pt need for Max A x2 with therapy and possible need for SNF at time of discharge. Odilia is in agreement that pt will likely need short term SNF prior to returning home. SW reviewed list of SNFs including quality and resource use data and consistent with the patient's preferred geographic region, medical needs and insurance network. SW also informed Odilia that SW will review discharge plan with pt when she is more alert and able to make decisions. Odilia states at this time her choices would be [facility] or [facility]. SW will continue to follow and make SNF referrals at appropriate time and speak to pt when she is able. HALEY Whatley Original Note: Social Work Per speech therapist and nursing pt continues with confusion and inability to converse appropriatly. VM left with pt sister Odilia to discuss discharge plans. BREN will continue to follow. HALEY Whatley
[2021-02-10] MEDS: Famotidine 200 MG/20 ML MDV 20 MG in 0.9% Normal Saline (Pres. free 8 ML 300 MG IV ×2 (12:57→21:36)
--- NOTE | 2021-02-10 13:22 | PCM.CONS.GEN ---
Assessment & Plan Assessment/Plan (1) Acute hypoxemic respiratory failure: (2) Pneumonia: QUALIFIERS: Pneumonia type: due to unspecified organism Laterality: unspecified laterality Lung location: unspecified part of lung Qualified Code(s): J18.9 - Pneumonia, unspecified organism PLAN: Fever overnight, back on bipap, poor mental status, and persistently elevated wbc despite zosyn. Covid pcr neg, no lymphopenia. Cxs neg. Possible ongoing aspiration. Wounds appear relatively stable. CTA of chest showed no PE. Hgb slowly trending down. TRICIA improved. Will check repeat procalcitonin. Had 2 BM yesterday. Consider brain MRI if mental status does not improve. Check Bcx x2, UA/Ucx, cxr if fever returns. Cont zosyn. Will follow, thank you HPI Consult Data Date of Consult: 02/10/21 HPI Narrative HPI Narrative: BRANDO NIXON, is a 55 F with h/o schizophrenia who presented 02/03 after being found down at home. Pt is unable to provide ROS or history. Has been on zosyn for pneumonia coverage, fever last night to 101. On bipap with poor mental status. [facility] Medical History Anxiety Asthma GERD (gastroesophageal reflux disease) Hypertension Hypokalemia Monoclonal gammopathy Schizophrenia Thyroid disease Home Medications omeprazole 20 mg PO DAILY 11/11/13 [History Last Taken 05/09/14 07:30 20 MG] sennosides-docusate sodium [Doc-Q-Lax Tablet] 2 ea PO QHS 05/14/14 [History Last Taken Unknown] quetiapine [Seroquel Xr] 500 mg PO QHS 05/15/14 [History Last Taken Unknown] lisinopril 20 mg PO DAILY 05/12/15 [History Last Taken Unknown] Quetiapine Fumarate [Seroquel Xr] 300 mg PO BREAKFAST 10/05/16 [History Last Taken Unknown] amlodipine 10 mg PO DAILY 10/05/16 [History Last Taken Unknown] benztropine 1 mg PO BID PRN PRN 10/05/16 [History Last Taken Unknown] meloxicam 15 mg PO DAILY 10/05/16 [History Last Taken Unknown] clonazepam [Klonopin] 0.5 mg PO DAILY 10/26/16 [History Last Taken Unknown] propranolol [Inderal Xl] 60 mg PO BID 10/21/18 [History Last Taken Unknown] clonazepam 1 mg PO QHS 03/24/20 [History Last Taken Unknown] tamoxifen 20 mg tablet 20 mg PO DAILY #30 tab 01/21/21 [Rx Last Taken Unknown] Allergy/AdvReac Type Severity Reaction Status Date / Time diazepam [From Valium] Allergy Severe Other Verified 01/25/21 13:41 pseudoephedrine HCl Allergy Severe Other Verified 01/25/21 13:41 [From Sudafed] diphenhydramine HCl AdvReac Severe Unknown Verified 01/25/21 13:41 [From Benadryl] erythromycin base AdvReac Severe Other Verified 01/25/21 13:41 [Erythromycin Base] Antihistamines - Piperidine AdvReac Intermediate Unknown Verified 01/25/21 13:41 Macrolide Antibiotics AdvReac Intermediate Other Verified 01/25/21 13:41 darbepoetin mary AdvReac Unknown Unknown Verified 01/25/21 13:41 [From Aranesp (in polysorbate)] menthol AdvReac Swelling Verified 01/25/21 13:41 quinapril [From Accupril] AdvReac Unknown Verified 01/25/21 13:41 KETOLIDES AdvReac Unknown Uncoded 01/25/21 13:41 Family History Mother Heart disease Father Hypertension Surgical History History of back surgery History of tonsillectomy History of tubal ligation Social History Smoking Status: Never smoker substance use type: does not use Physical Exam Const Constitutional Narrative: opens eyes briefly to stim, some unintelligible speech, unable to follow commands HEENT normocephalic and head/scalp atraumatic Eyes PERRL and EOMs intact bilaterally Neck supple and nodes Resp Auscultation: diminished lung sounds Cardio Rate: tachycardic GI normal to inspection, nondistended, normoactive bowel sounds Extremity Extremity Narrative: BLE General Extremity: edema Skin Skin Narrative: reviewed wound photos Neuro CN's II-XII intact bilaterally Lab / Micro Data Result Diagrams: 02/10/21 04:35 02/10/21 04:35 Labs: Laboratory Results - last 24 hr 02/10/21 04:35: WBC 22.6 H, RBC 2.80 L, Hgb 8.5 L, Hct 27.0 L, MCV 96.4, MCH 30.4, MCHC 31.5 L, RDW Std Deviation 53.1 H, RDW Coeff of Kenna 15.1 H, Plt Count 308, MPV 11.6, Immature Gran % (Auto) 3.500 H, Neut % (Auto) 78.9 H, Lymph % (Auto) 10.1 L, [place] % (Auto) 5.1, Eos % (Auto) 1.9, Baso % (Auto) 0.5, Absolute Neuts (auto) 17.9 H, Absolute Lymphs (auto) 2.28, Nucleated RBC % 0 02/10/21 04:35: Sodium 146 H, Potassium 3.5, Chloride 114 H, Carbon Dioxide 25.0, Anion Gap 7, BUN 27 H, Creatinine 1.25 H, Estim Creat Clear Calc 47.04, Est GFR (MDRD) Af Amer 57 L, Est GFR (MDRD) Non-Af 47 L, BUN/Creatinine Ratio 21.6 H, Glucose 131 H, Calcium 8.1 L, Total Bilirubin 0.40, AST 37, ALT 30, Alkaline Phosphatase 82, Total Protein 6.1 L, Albumin 1.3 L, Globulin 4.8 H, Albumin/Globulin Ratio 0.3 L Micro: Microbiology 02/08/21 15:10 Blood Culture (Wb) - Central Line Blood Culture - Preliminary No growth in 48 hours. ABG Data ABG results: ABG 02/10/21 07:42 Specimen Type LYLY Sample Site R Brach VBG pH 7.39 VBG pO2 35 VBG HCO3 22 VBG Total CO2 23 VBG O2 Sat (Calc) 67 VBG Base Excess -3 L POC Mix VBG pCO2 Pt Tmp 36.1 L Respiration Rate 12 O2 Delivery Device BiPAP
--- NOTE | 2021-02-10 14:14 | CASEMGMT ---
Social Work Pt rn case manager Oliver Sabillon called SW. Update provided. Atif Dias, [employer] GR[employer]ER
[2021-02-11] VITALS (42 sets, daily range): BP systolic 91–155; BP diastolic 44–83; PULSE 64–149; RESP 12–31; TEMP 37.6–38.2; O2SAT 92–98; BMI 33.5
[2021-02-11] MEDS: 0.9% Saline Lock 10 ML Syringe IV ×2 (03:36→21:32)
[2021-02-11 03:49] LABS: Absolute Lymphocyte Count 2.45 X10^3/uL (0.83-4.51); Absolute Neutrophil Count 15.4 X10^3/uL (2.0-7.7); Basophil# 0.15 X10^3/uL; Basophil% 0.7 % (0-1); Eosinophil# 0.43 X10^3/uL; Eosinophils% 2.1 % (0-5); Hematocrit 25.8 % (37-47); Lymphocyte # 2.45 X10^3/ul (0.83-4.51); Lymphocyte % 12.1 % (19-41); Mean Corpuscular Hgb 30.3 pg (27.0-32.0); Mean Corpuscular Volume 97.7 fL (81-99); Mean Platelet Vol. 11.1 fl (6.2-12.0); Monocyte# 0.98 X10^3/uL; Monocyte% 4.8 % (0-10); NRBC Flagged by Analyzer 0 % (0-5); Neutrophil # 15.39 X10^3/uL (2.7-7.7); Neutrophil % 75.8 % (47-70); POSITIVE MORPHOLOGY YES; Platelet Count 318 K/mm3 (150-450); RBC Distribution Width CV 15.3 % (11.6-14.6); Red Blood Count 2.64 M/mm3 (4.2-5.4); White Blood Count 20.3 K/mm3 (4.4-11.0)
[2021-02-11 03:54] LABS: Differential Indicated SCAN CRITERIA MET
[2021-02-11 04:08] LABS: ALB/GLOB Ratio 0.3 RATIO (0.9-2.4); AST(SGOT) 34 U/L (15-37); Alanine Aminotransfer ALT/SGPT 29 U/L (13-56); Albumin, Serum 1.2 g/dL (3.2-5.0); Alkaline Phosphatase 78 U/L (45-117); Anion Gap 5 (5-15); BUN 23 mg/dL (7-18); BUN/Creat Ratio 20.4 RATIO (10-20); Calcium,Total 8.3 mg/dL (8.5-10.1); Chloride 115 mmol/L (98-107); Creatinine, Serum 1.13 mg/dL (0.55-1.02); EST Glomerular Filtration Rate 53 mL/min (>60); Est Glom Filt Rate - Afr Amer 64 mL/min (>60); Estimated Creatinine Clearance 52.04 ml/min; Globulin 4.7 g/dL (2.2-4.2); Glucose 126 mg/dL (74-106); Potassium 3.4 mmol/L (3.5-5.1); Protein, Total 5.9 g/dL (6.4-8.2); Sodium Level 147 mmol/L (136-145)
[2021-02-11 04:14] LABS: Procalcitonin 0.49 ng/mL (0.00-0.09)
[2021-02-11] MEDS: CHLORHEXIDINE GLUC 2% CLOTH 1 EACH TOWELETTE TOPICAL (04:59)
--- NOTE | 2021-02-11 06:15 | PCM.PN.HOSP ---
Subjective Subjective Patient overnight with continued encephalopathy, less interactive today with mumbling when stimuli applied. Patient maintained on BiPAP. Patient evaluated per infectious disease and antibiotic therapy broadened to vancomycin and meropenem. Patient with ongoing fevers although WBC mildly decreased from previously. BP mildly improved this a.m. thus per discussion with paper reel operator, pulse dose IV Lasix 40 mg x 1 administered. Patient unable to give any ROS but no obvious evidence of chills, nausea, emesis, abdominal pain, chest pain. Objective Data Objective Data Vital Signs: Vital Signs Temp Pulse Resp BP Pulse Ox 99.8 F H 97 18 130/54 H 96 02/11/21 03:45 02/11/21 06:00 02/11/21 06:00 02/11/21 06:00 02/11/21 06:00 Oxygen Flow Rate (L/min) 3 Oxygen Delivery Method Bi-pap Weight: 214 lb 1.102 oz Body Mass Index (BMI) 32.1 Intake & Output: Intake and Output for Last 24 Hours 02/09/21 02/10/21 02/11/21 23:59 23:59 23:59 Intake Total 1812.17 / 1812.17 566.78 / 566.78 50 / 50 Output Total 3800 / 3800 950 / 1125 650 / 650 Balance -1987.83 / -1987.83 -383.22 / -558.22 -600 / -600 Lab / Micro Data Result Diagrams: 02/11/21 03:40 02/11/21 03:40 Labs: Laboratory Results - last 24 hr 02/11/21 03:40: WBC 20.3 H, RBC 2.64 L, Hgb 8.0 L, Hct 25.8 L, MCV 97.7, MCH 30.3, MCHC 31.0 L, RDW Std Deviation 55.0 H, RDW Coeff of Kenna 15.3 H, Plt Count 318, MPV 11.1, Immature Gran % (Auto) 4.500 H, Neut % (Auto) 75.8 H, Lymph % (Auto) 12.1 L, [place] % (Auto) 4.8, Eos % (Auto) 2.1, Baso % (Auto) 0.7, Absolute Neuts (auto) 15.4 H, Absolute Lymphs (auto) 2.45, Nucleated RBC % 0 02/11/21 03:40: Sodium 147 H, Potassium 3.4 L, Chloride 115 H, Carbon Dioxide 27.0, Anion Gap 5, BUN 23 H, Creatinine 1.13 H, Estim Creat Clear Calc 52.04, Est GFR (MDRD) Af Amer 64, Est GFR (MDRD) Non-Af 53 L, BUN/Creatinine Ratio 20.4 H, Glucose 126 H, Calcium 8.3 L, Total Bilirubin 0.40, AST 34, ALT 29, Alkaline Phosphatase 78, Total Protein 5.9 L, Albumin 1.2 L, Globulin 4.7 H, Albumin/Globulin Ratio 0.3 L 02/11/21 03:40: Procalcitonin 0.49 H Micro: Microbiology 02/08/21 15:10 Blood Culture (Wb) - Central Line Blood Culture - Preliminary No growth in 48 hours. 02/08/21 13:40 Mucosa - Nose Respiratory Panel (PCR) - Final 02/03/21 20:48 Blood Culture (Wb) - Left Wrist Blood Culture - Final No growth in 5 days. 02/03/21 18:15 Blood Culture (Wb) - Left Wrist Blood Culture - Final No growth in 5 days. 02/03/21 12:32 Urine Catheter - Henry Urine Culture - Final Culture exhibits no growth. 02/03/21 12:32 Urine Catheter - Henry Legionella Antigen - Final 02/03/21 12:32 Urine Catheter - Henry Streptococcus pneumoniae Antigen (M - Final 02/03/21 14:50 Mucosa - Nose SARS-CoV-2 Antigen (Rapid) - Final ABG Data ABG results: ABG 02/10/21 07:42 Specimen Type LYLY Sample Site R Brach VBG pH 7.39 VBG pO2 35 VBG HCO3 22 VBG Total CO2 23 VBG O2 Sat (Calc) 67 VBG Base Excess -3 L POC Mix VBG pCO2 Pt Tmp 36.1 L Respiration Rate 12 O2 Delivery Device BiPAP Physical Exam Narrative Physical Examination: General: Patient awakens to stimuli, not markedly alert, BiPAP in place, not answering any questions today, mumbling. Skin: Normal color, normal turgor, no icterus, no cyanosis except occasional staged ecchymoses, recent left foot injury with associated swelling/staged ecchymoses and various wounds/abrasions. HEENT: AT/NC, EOM unable to be assessed, PERRLA, dry MM, BiPAP in place. Lungs: Diminished, ongoing mildly increased respiratory rate, BiPAP in place, no obvious wheezing, rales or rhonchi currently. Heart: Tachycardic with irregular rhythm; no gallop, rub audible. Abdomen: Soft, obese, NTTP, ND but habitus makes examination difficult, distant bowel sounds. Extremities: No cyanosis, no clubbing, edema to bilateral hands and BL LE pedal to distal benjamin, see skin. Neurological: Patient as noted less alert, will awaken but mumbling only, cognitive function not at baseline, pupils equally reactive to light and accommodation, cranial nerves II-XII grossly normal, moving all 4 extremities, no focal deficits, strength severely global decrease secondary to acute presentation. Psychiatric: Affect appears flat, no acute evidence of depressive or anxiety feelings, underlying psychiatric history with schizophrenia. Assessment & Plan Assessment/Plan (1) Septic shock: (2) Pneumonia: QUALIFIERS: Pneumonia type: due to unspecified organism Laterality: unspecified laterality Lung location: unspecified part of lung Qualified Code(s): J18.9 - Pneumonia, unspecified organism PLAN: The patient is a 55 y/o F w/ PMHx: Schizophrenia/Anxiety and Depression, Obesity, Asthma, Hx L breast CA, Hx Monoclonal gammopathy IgM type, HTN, GERD, Unclear type of thyroid disease who presents to the [facility] ED on 02/03/21 with lethargy, multiple wounds, found down. 1. Acute Encephalopathy, Infectious/metabolic secondary to Acute Septic Shock with Acute Hypoxic Respiratory Failure secondary to Bilateral Pneumonia, possible Aspiration complicated by underlying Asthma: Patient with significant initial ED presentation with septic shock, admitted to the ICU and treated with broad-spectrum antibiotic therapy initially with IV Zosyn and vancomycin with eventual de-escalation off vancomycin (MRSA screen negative); however, following ID evaluation transitioned back on vancomycin and from zosyn to meropenem given unclear etiology organism, blood cultures initially obtained upon presentation negative, urine culture no growth, urine antigens negative, COVID negative, respiratory viral panel negative. Patient initially had clinical improvement w/ transition to PCU status 02/07/2021, however worsened and transitioned back to ICU 02/08/21. 02/03/2021 CT brain with no acute intracranial findings. 02/04/2021 echocardiogram with normal LV size, LV systolic function normal, EF 70%, stage I diastolic dysfunction. 02/06/2021 CTA chest with no evidence of PE, by lateral patchy airspace disease possibly atelectasis or developing pneumonia. Rapid Covid antigen negative, urine antigens negative. Requested respiratory viral panel. Repeat 02/08/2021 chest x-ray with progressive bibasilar infiltrates, worse on the left side. 02/09/21 pulse dose lasix 40 IV x 1 given +11L since although admission with 02/08/21 BNP 14.7. 02/08/21 procalcitonin 0.56. 02/10/2021 CBC with WC 22.6 with ongoing significant left shift. Repeat blood cultures also obtained 02/08/2021. 02/11/2021 MRI of the brain with no acute intracranial findings. ID evaluation performed with transition to vancomycin and meropenem. Will await further ID input. Director Of Fundraising considering NG for TF initiation given timeline. 2. Paroxysmal SVT: 02/04/2021 echocardiogram with normal LV size, LV systolic function normal, EF 70%, stage I diastolic dysfunction. Patient previously on amiodarone with oral transition and metoprolol edition per cardiology, consulted and following, held transiently following aspiration event w/ NPO status, transitioned 02/08/21 to IV amiodarone with PRN IV lopressor. 02/04/2021 echocardiogram with normal LV size, LV systolic function normal, EF 70%, stage I diastolic dysfunction. 3. Acute kidney injury: Secondary to acute presentation #1, baseline creatinine 0.9-1, creatinine up to 1.61 during the admission initially trending downward however now trending upward, suspected secondary to contrast-induced nephropathy. 02/11/2021 BUN/creatinine 23/1.13, improved. Monitor renal function given IV pulse lasix given #1 as noted and repeat pulse dose 02/11/21. Holding on any IVFs given diuresis needs as noted. 4. Acute anemia, normocytic: Admission hemoglobin 12, has trended downward, 02/08/2021 hemoglobin 8.6, suspected delusional given aggressive hydration with acute septic shock presentation requiring significant hydration, 02/11/21 Hgb 8.0, stable, will continue to trend CBC, no obvious evidence of any bleeding. Will obtain guiac, Fe panel, ferritin, vitamin B12, folic acid to be cautious as continues to trend downward. 5. Acute thrombocytopenia, suspected secondary to acute sepsis syndrome as noted above: During the admission platelets did decrease 02/06/2021 down to 116, since resolved, 02/11/2021 platelets 318, continue to trend CBC. 6. Multiple wounds, failure to thrive in adult w/ mild Acute rhabdomyolysis: Admission TCK minimally elevated 260, found down on the floor, incontinent. Patient also with noted wounds. Patient as noted hydrated aggressively. Wound care consulted, encourage frequent positional changes, given presentation concerns for return to home, barrier agents as needed and scheduled per nursing protocol. Wounds do not appear infected. 7. History of breast cancer, left and Monoclonal gammopathy IgM type: Patient following w/ Dr. Ball, diagnosed with monoclonal gammopathy IgM type in 2013 with subsequent to diagnosis of invasive ductal carcinoma of the left breast stage III in March 2014 with ER/NY positive, HER-2 negative by FISH with chemotherapy and unfortunate then lost to follow-up with later 4 cycles of additional chemotherapy with deferral by patient at that time of avoidance of lumpectomy or radiation and transition to tamoxifen. Will restart tamoxifen once given ST allowance of medications if patient able. 8. Obesity: Weight loss and lifestyle changes encouraged. 9. Schizophrenia, unclear type: Currently holding patient medications given n.p.o. status, will resume once improved but may necessitate decreased regimen for concern for sedation given #1. 10. Reported Thyroid disease, unclear type: Given acute illness not best timeline for testing; however, given FTT adult and poor self care, obtained, TSH 5.36; however, FT4 normal range 0.82, monitor with repeat testing following discharge given acute illness presentation. 11. DVT prophylaxis: SCDs, Lovenox. 12. CODE STATUS: Full code. Charges/Coding Visit Charges Inpatient E&M: 01847 Subs Hosp L3
--- NOTE | 2021-02-11 06:16 | MRI_ITS ---
EXAM: MR HEAD WITHOUT INTRAVENOUS CONTRAST CLINICAL INDICATION: Obtunded. CVA. TECHNIQUE: Multiplanar and multisequence MR images of the brain were obtained without intravenous contrast. This report was created using [employer] report generation technology. COMPARISON: CT head without contrast 02/03/2021. FINDINGS: BRAIN AND EXTRA-AXIAL SPACES: No diffusion restriction to suspect acute or subacute ischemic infarct. No remote cortical based ischemic infarcts or old lacunar infarcts. No intra- or extra-axial hemorrhage. No intracranial mass or mass effect. Posterior fossa structures are unremarkable. Ventricles are appropriate for age. No hydrocephalus. Basal cisterns are patent. SELLA: Unremarkable. Normal sella turcica, pituitary gland, infundibular stalk, optic chiasm and hypothalamus. AUDITORY SYSTEM: Unremarkable. The internal auditory canals are patent. BONES/JOINTS: Unremarkable. No discrete lytic or blastic abnormalities. SINUSES: Unremarkable as visualized. Clear. MASTOID AIR CELLS: Unremarkable as visualized. Clear. ORBITS: Unremarkable as visualized. Both globes, extraocular muscles, optic nerves and retrobulbar fat appear unremarkable. VASCULATURE: Unremarkable as visualized. Normal flow voids in the major intracranial circulation. MRI/Brain without Contrast IMPRESSION: Normal MRI brain without contrast. Electronically Signed: Antonio Donovan MD at 12:07 EDT , Service support ,
[2021-02-11] MEDS: Amiodarone 360 MG in Dextrose 5% Viaflo Bag 192.8 ML 16.7 MG CONT INF ×2 (06:25→18:43)
--- NOTE | 2021-02-11 07:01 | PN.CC_ITS ---
Assessment & Plan Assessment/Plan (1) Acute hypoxemic respiratory failure: PLAN: RECOMMENDATIONS: 1. Continue BiPAP, at a minimum with naps and nightly. 2. Wean supplemental oxygen to maintain saturations at or above 90%. 3. Consider gentle diuresis if tolerated by hemodynamics and renal function. 4. Patient to remain n.p.o. pending further speech therapy evaluation. 5. Continue antimicrobials per ID recommendations. 6. Rate control strategy per cardiology recommendations. 7. Obtain MRI brain. If unremarkable, may need to consider neurology consultation. 8. Consider placing NG tube to facilitate enteral feeding. IMPRESSIONS: 1. Acute hypoxemic respiratory failure Clinical concern for aspiration pneumonia as precipitating etiology. The patient has been compliant with the use of BiPAP therapy with naps and while sleeping, which I would recommend be continued. In the interim, plan to continue to wean supplemental oxygen to maintain saturations at or above 90%. Continue antimicrobials per ID recommendations. The patient is to remain n.p.o. pending further evaluation by speech therapy. Avoid sedating medication use. The patient is also up from a volume perspective and may benefit from continued gentle diuresis, if tolerated. 2. Septic shock Improved. Likely secondary to aspiration pneumonia. The patient is currently on appropriate antimicrobial therapy. She remains hemodynamically stable. Wound care is following. 3. Metabolic encephalopathy Likely related to acute infectious etiology and possible polypharmacy in the setting of renal insufficiency. As noted above, I would recommend that all sedating medications be withheld. Continue to address underlying infection with antimicrobials as ordered. Arterial blood gases within normal limits. MRI brain is pending. If unremarkable, will consider neurology consultation. 4. Paroxysmal SVT Continue current medical management with beta-blockade as tolerated. 5. History of breast CA/MGUS/schizophrenia/obesity Complicates care, management, recovery and prognosis. Hold home sedating medications, pending improvement in mentation. This note was generated with [employer] dictation software. It may contain incorrect words, spelling, and punctuation that were not noted in checking the note before signing. Subjective Subjective The patient was seen and examined at the bedside this morning. Events from the last 24 hours have been reviewed. The patient is currently afebrile, hemodynamically stable and maintaining appropriate oxygen saturations on BiPAP currently. The patient was able to be weaned to nasal cannula oxygen at 3 L/min throughout the day yesterday. She is currently documented to be overall net +7.8 L for the hospital admission. White count remains elevated this morning at 20,000. Hemoglobin was noted to be 8.0 g/dL. Potassium was low at 3.4. Objective Data Objective Data The patient's most recent lab work, culture data and imaging studies have all been personally reviewed. Surface echocardiogram revealed stage I diastolic dysfunction. CTA chest demonstrated multifocal airspace disease without PE. Rapid coronavirus antigen testing was negative. Strep and urine Legionella antigens were negative. Blood and urine cultures have shown no growth to date. Vital Signs: Vital Signs Temp Pulse Resp BP Pulse Ox 99.8 F H 97 18 130/54 H 96 02/11/21 03:45 02/11/21 06:00 02/11/21 06:00 02/11/21 06:00 02/11/21 06:00 Oxygen Flow Rate (L/min) 3 Oxygen Delivery Method Bi-pap Weight: 214 lb 1.102 oz Body Mass Index (BMI) 32.1 Intake & Output: Intake and Output for Last 24 Hours 02/09/21 02/10/21 02/11/21 23:59 23:59 23:59 Intake Total 1812.17 / 1812.17 566.78 / 566.78 231.2 / 231.2 Output Total 3800 / 3800 950 / 1125 650 / 650 Balance -1987.83 / -1987.83 -383.22 / -558.22 -418.8 / -418.8 Lab / Micro Data Attestation: I reviewed the patient's lab results. Result Diagrams: 02/11/21 03:40 02/11/21 03:40 Labs: Laboratory Results - last 24 hr 02/11/21 03:40: WBC 20.3 H, RBC 2.64 L, Hgb 8.0 L, Hct 25.8 L, MCV 97.7, MCH 30.3, MCHC 31.0 L, RDW Std Deviation 55.0 H, RDW Coeff of Kenna 15.3 H, Plt Count 318, MPV 11.1, Immature Gran % (Auto) 4.500 H, Neut % (Auto) 75.8 H, Lymph % (Auto) 12.1 L, [place] % (Auto) 4.8, Eos % (Auto) 2.1, Baso % (Auto) 0.7, Absolute Neuts (auto) 15.4 H, Absolute Lymphs (auto) 2.45, Nucleated RBC % 0 02/11/21 03:40: Sodium 147 H, Potassium 3.4 L, Chloride 115 H, Carbon Dioxide 27.0, Anion Gap 5, BUN 23 H, Creatinine 1.13 H, Estim Creat Clear Calc 52.04, Est GFR (MDRD) Af Amer 64, Est GFR (MDRD) Non-Af 53 L, BUN/Creatinine Ratio 20.4 H, Glucose 126 H, Calcium 8.3 L, Total Bilirubin 0.40, AST 34, ALT 29, Alkaline Phosphatase 78, Total Protein 5.9 L, Albumin 1.2 L, Globulin 4.7 H, Albumin/Globulin Ratio 0.3 L 02/11/21 03:40: Procalcitonin 0.49 H Micro: Microbiology 02/08/21 15:10 Blood Culture (Wb) - Central Line Blood Culture - Preliminary No growth in 48 hours. 02/08/21 13:40 Mucosa - Nose Respiratory Panel (PCR) - Final 02/03/21 20:48 Blood Culture (Wb) - Left Wrist Blood Culture - Final No growth in 5 days. 02/03/21 18:15 Blood Culture (Wb) - Left Wrist Blood Culture - Final No growth in 5 days. 02/03/21 12:32 Urine Catheter - Henry Urine Culture - Final Culture exhibits no growth. 02/03/21 12:32 Urine Catheter - Henry Legionella Antigen - Final 02/03/21 12:32 Urine Catheter - Henry Streptococcus pneumoniae Antigen (M - Final 02/03/21 14:50 Mucosa - Nose SARS-CoV-2 Antigen (Rapid) - Final ABG Data ABG results: ABG 02/10/21 07:42 Specimen Type LYLY Sample Site R Brach VBG pH 7.39 VBG pO2 35 VBG HCO3 22 VBG Total CO2 23 VBG O2 Sat (Calc) 67 VBG Base Excess -3 L POC Mix VBG pCO2 Pt Tmp 36.1 L Respiration Rate 12 O2 Delivery Device BiPAP Physical Exam Const no apparent distress Constitutional Narrative: The patient is somnolent. Difficult to arouse even wi th sternal rub. General Appearance: lethargic and ill appearing Nutritional Appearance: obese HEENT normocephalic and head/scalp atraumatic Mouth: dry mucous membranes Eyes PERRL, EOMs intact bilaterally and conjunctivae normal Neck supple General: trachea midline Resp Effort and Inspection: tachypneic Auscultation: diminished lung sounds; Negative for rales, rhonchi or wheezes Cardio S1 normal heart sound and S2 normal heart sound Rate: tachycardic GI normal to inspection, nondistended, normoactive bowel sounds Extremity General Extremity: edema; Negative for clubbing Neuro CN's II-XII intact bilaterally, moves all extremities and no focal motor deficits Psych Mood & Affect: flat affect Charges/Coding Visit Charges Inpatient E&M: 19132 Subs Hosp L3
[2021-02-11 07:30] LABS: Allen Test Positive; Base Excess -1 mmol/L (-2 to +2); Bicarbonate 24.5 mmol/L (22-26); Blood Gas Specimen Type ART; FI02 30; O2 Delivery Device BiPAP; PO2 83 mmHG (75-100); SITE L Radial; SO2 96 % (95-99); Total Carbon Dioxide 26 mmol/L; pCO2 40.4 mmHg (35-45); pH 7.39 (7.35-7.45)
[2021-02-11] MEDS: Ipratropium/Albuterol Sulfate 3 ML AMPUL.NEB INHALATION ×3 (07:34→18:42)
[2021-02-11] MEDS: Enoxaparin 40 MG/0.4 ML Syringe SC (07:56)
[2021-02-11] MEDS: Nystatin Powder 15gm Bottle 1 APPLIC TOPICAL ×2 (07:56→21:10)
[2021-02-11] MEDS: Furosemide 40 MG/4 ML Vial IV (07:56)
--- NOTE | 2021-02-11 10:08 | NT.THERAPY_ITS ---
Medical Nutrition Therapy - History Nutrition Services has been consulted to:: Manage nutrient details of diet order, Manage enteral nutrition Current diet/nutrition support order:: NPO - Anthropometric Measurements Height:: 5 ft 6.93 in Weight:: 97.1 kg Body Mass Index (BMI):: 33.5 - Relevant Labs Relevant Labs:: WBC 20.3 K/mm3 (4.4-11.0) H 02/11/21 03:40 RBC 2.64 M/mm3 (4.2-5.4) L 02/11/21 03:40 Hgb 8.0 g/dL (12.0-15.0) L 02/11/21 03:40 Hct 25.8 % (37-47) L 02/11/21 03:40 MCHC 31.0 g/dL (32-36) L 02/11/21 03:40 RDW Std Deviation 55.0 fl (35.1-43.9) H 02/11/21 03:40 RDW Coeff of Kenna 15.3 % (11.6-14.6) H 02/11/21 03:40 Plt Count 116 K/mm3 (150-450) L 02/06/21 06:57 MPV 12.2 fl (6.2-12.0) H 02/09/21 03:40 Immature Gran % (Auto) 4.500 % (0.0-0.9) H 02/11/21 03:40 Neut % (Auto) 75.8 % (47-70) H 02/11/21 03:40 Lymph % (Auto) 12.1 % (19-41) L 02/11/21 03:40 Absolute Neuts (auto) 15.4 X10^3/uL (2.0-7.7) H 02/11/21 03:40 Absolute Lymphs (auto) 4.60 X10^3/uL (0.83-4.51) H 02/05/21 04:15 Metamyelocytes % 2 % (0-1) H 02/03/21 11:05 Myelocytes % 3 % (0-0) H 02/05/21 04:15 Promyelocytes % 1 % (0-0) H 02/05/21 04:15 Sodium 147 mmol/L (136-145) H 02/11/21 03:40 Potassium 3.4 mmol/L (3.5-5.1) L 02/11/21 03:40 Chloride 115 mmol/L (98-107) H 02/11/21 03:40 BUN 23 mg/dL (7-18) H 02/11/21 03:40 Creatinine 1.13 mg/dL (0.55-1.02) H 02/11/21 03:40 Est GFR (MDRD) Af Amer 57 mL/min (>60) L 02/10/21 04:35 Est GFR (MDRD) Non-Af 53 mL/min (>60) L 02/11/21 03:40 BUN/Creatinine Ratio 20.4 RATIO (10-20) H 02/11/21 03:40 Glucose 126 mg/dL (74-106) H 02/11/21 03:40 Calcium 8.3 mg/dL (8.5-10.1) L 02/11/21 03:40 AST 43 U/L (15-37) H 02/09/21 03:40 ALT 59 U/L (13-56) H 02/03/21 11:05 Total Creatine Kinase 260 U/L (26-192) H 02/03/21 11:05 Total Protein 5.9 g/dL (6.4-8.2) L 02/11/21 03:40 Albumin 1.2 g/dL (3.2-5.0) L 02/11/21 03:40 Globulin 4.7 g/dL (2.2-4.2) H 02/11/21 03:40 Albumin/Globulin Ratio 0.3 RATIO (0.9-2.4) L 02/11/21 03:40 Procalcitonin 0.49 ng/mL (0.00-0.09) H 02/11/21 03:40 TSH 5.36 uIU/mL (0.358-3.74) H 02/08/21 06:50 - Assessment Food and Nutrient Intake: Remains NPO day #4 w/ little improvement in mental status. [employer] noted plans for MBS once mental status improves. Tolerating oxygen via nasal cannula during rounds. Plans for MRI today w/ possible neurology consult pending MRI results. Wt stable since last review. - Nutrition Diagnosis: Intake Problem Inadequate Oral Intake Intake Problem - Etiology: r/t altered mental status and difficulty swallowing Intake Problem - Signs/Symptoms: as evidenced by no PO intake x 4 days Status: Active Problem Increased Nutrient Needs (specify) Intake Problem - Etiology: (protein) related to increased protein needs for wound healing Intake Problem - Signs/Symptoms: as evidenced by multiple areas of pressure injury wounds Status: Active Problem - Nutrition Diagnosis: Clinical Problem Unintended Weight Gain Clinical Problem - Etiology: related to fluid retention Clinical Problem - Signs/Symptoms: as evidenced by 8.395 kg wt gain x 1 week, significant edema Status: Active Problem - Protein Calorie Malnutrition Evidence of Malnutrition Exists: No - Nutrition Intervention Nutrition Prescription: [id number] calories/day (1.3xRMR-250). 94-114 g protein/day (1.0-1.2 g/kg). 1800mL fluid/day (1mL/calorie) - Food / Nutrient Delivery Interventions Summary of nutrition intervention:: Order/adjust enteral nutrition Nutrition support ordered as / adjusted to:: Per discussion in rounds, it is not anticipated pt will be able to participate in swallow study within next 24 hours. Recommend placement of NGT for enteral nutrition support. Recommend Vital AF 1.2 via NGT at goal rate of 60mL/hour w/ 100mL H2O flush every 4 hours to provide 1728 calories, 108 g protein, and 1767mL fluid/day. Would start at 20mL/hour and increase by 10mL every 8 hours as pt tolerates until goal rate is achieved. When enteral nutrition reaches goal rate, recommend Ambrocio BID via NGT for wound healing. Regular diet- consistency per [employer] when appropriate for PO intake. Nutrition education provided?: No Coordination of Nutrition Care: Will monitor for placement of NGT and provide enteral nutrition support when appropriate. - MNT Monitoring Active Nutrition Patient: Yes Nutrition Status: Requires Follow Up in 1-2 Days
--- NOTE | 2021-02-11 10:19 | PCM.PN.ID ---
ID ID: Route of nutrition/ use of supplements: [] Nutritional Intake: [] IV Site: [] Henry Catheter: [] Assessment & Plan Assessment/Plan (1) Acute hypoxemic respiratory failure: (2) Pneumonia: QUALIFIERS: Pneumonia type: due to unspecified organism Laterality: unspecified laterality Lung location: unspecified part of lung Qualified Code(s): J18.9 - Pneumonia, unspecified organism PLAN: Covid pcr was neg, no lymphopenia. Cxs neg. Possible ongoing aspiration. Wounds appear relatively stable. CTA of chest showed no PE. Pt gone to brain MRI this AM. Worsened fever, wbc slightly improved. Will check bcx, UA. Ucx pending. PCT remains stable, around 0.5. Will broaden abx to vanc/cathryn. Will follow
[2021-02-11] MEDS: Famotidine 200 MG/20 ML MDV 20 MG in 0.9% Normal Saline (Pres. free 8 ML 300 MG IV ×2 (11:51→21:09)
[2021-02-11 13:25] LABS: Mucous, Urine 0 SEEN /hpf (<or=2+); Red Blood Cells-Urine 0 SEEN /hpf (0-5); Squamous Epithelial Cells - UA 0 SEEN /hpf (5-10)
[2021-02-11 13:40] LABS: Color, Urine Yellow (Yellow); Glucose, Dipstick Normal (Normal); Ketone-Dipstick 5 mg/dl (Negative); Leukocyte Esterase-Dipstick 500 /ul (Negative); Nitrite-Dipstick Negative (Negative); Occult Blood-Urine 25 /ul (Negative); Protein-Dipstick 30 mg/dl (Negative); Urine Bilirubin Dipstick Negative (Negative); Urine Clarity Sl. Cloudy (Clear); Urine Urobilinogen Normal (Normal)
[2021-02-11 14:12] LABS: Amorphous Sediment 2+; Bacteria 1+ /hpf (None Seen); White Blood Cells 5-10 SEEN /hpf (0-5)
--- NOTE | 2021-02-11 14:40 | PCM.RX.CS ---
Consult Pharmacy has been consulted to manage selected antiobiotic: Vancomycin Type of Consult: New start Labs: Sodium 147 mmol/L (136-145) H 02/11/21 03:40 Potassium 3.4 mmol/L (3.5-5.1) L 02/11/21 03:40 Chloride 115 mmol/L (98-107) H 02/11/21 03:40 Carbon Dioxide 27.0 mmol/L (21.0-32.0) 02/11/21 03:40 Anion Gap 5 (5-15) 02/11/21 03:40 BUN 23 mg/dL (7-18) H 02/11/21 03:40 Creatinine 1.13 mg/dL (0.55-1.02) H 02/11/21 03:40 Est GFR (MDRD) Af Amer 64 mL/min (>60) 02/11/21 03:40 Est GFR (MDRD) Non-Af 53 mL/min (>60) L 02/11/21 03:40 BUN/Creatinine Ratio 20.4 RATIO (10-20) H 02/11/21 03:40 Glucose 126 mg/dL (74-106) H 02/11/21 03:40 Vancomycin Trough 22.3 ug/mL (5.0-15.0) H 02/08/21 07:30 Microbiology: Microbiology 02/08/21 16:15 Blood Culture (Wb) - Left Hand Blood Culture - Preliminary No growth in 48 hours. 02/08/21 15:10 Blood Culture (Wb) - Central Line Blood Culture - Preliminary No growth in 48 hours. 02/08/21 13:40 Mucosa - Nose Respiratory Panel (PCR) - Final 02/03/21 20:48 Blood Culture (Wb) - Left Wrist Blood Culture - Final No growth in 5 days. 02/03/21 18:15 Blood Culture (Wb) - Left Wrist Blood Culture - Final No growth in 5 days. 02/03/21 12:32 Urine Catheter - Henry Urine Culture - Final Culture exhibits no growth. 02/03/21 12:32 Urine Catheter - Henry Legionella Antigen - Final 02/03/21 12:32 Urine Catheter - Henry Streptococcus pneumoniae Antigen (M - Final 02/03/21 14:50 Mucosa - Nose SARS-CoV-2 Antigen (Rapid) - Final Goal Trough: 15-20 mcg/mL Pharmacy Plan for Drug Dosing: NEW START IV VANCOMYCIN Consulting Physician: Yeimi Indication: Goal Trough: 15-20 SrCr: 1.13 CrCl: 52mls/min Comments: Pt was previously on Vancomycin, which was DCd 02/07/21. Vancomcyin Dose: Based on pt's weight and renal function, recommend a Loading Dose of 2000mg IV x1 02/11/21 at 1100 and an initial dose of 1000mg q12h starting 02/11/21 at 2300. Pending Level: 02/12/21 at 2230 Pharmacy Service will continue to monitor and adjust dosing as required. Follow-Up Labs: Trough Vancomycin - 02/22/21 at 2230
[2021-02-11 17:18] LABS: Ferritin 2692 ng/mL (8-252); Iron 20 ug/dL (50-170); Iron Binding Capacity,Total 96 ug/dL (250-450); PERCENT IRON SATURATION 20.8 % (15.0-55.0)
[2021-02-11] MEDS: Metoprolol Tartrate 5 MG/5 ML Vial IV (21:31)
[2021-02-11] MEDS: Acetaminophen 650 MG Suppository RC (21:32)
[2021-02-12] VITALS (33 sets, daily range): BP systolic 98–147; BP diastolic 34–69; PULSE 95–153; RESP 11–32; TEMP 36.9–38.6; O2SAT 91–99; BMI 33.0
[2021-02-12] MEDS: CHLORHEXIDINE GLUC 2% CLOTH 1 EACH TOWELETTE TOPICAL (03:25)
[2021-02-12] MEDS: 0.9% Saline Lock 10 ML Syringe IV ×2 (03:25→06:45)
[2021-02-12 03:44] LABS: Mean Corp Hgb Conc 30.8 g/dL (32-36); Mean Corpuscular Hgb 30.1 pg (27.0-32.0); Mean Corpuscular Volume 97.7 fL (81-99); Mean Platelet Vol. 11.4 fl (6.2-12.0); POSITIVE COUNT YES; POSITIVE MORPHOLOGY YES; Platelet Count 338 K/mm3 (150-450); RBC Distribution Width CV 15.5 % (11.6-14.6); RBC Distribution Width SD 54.9 fl (35.1-43.9); Red Blood Count 2.66 M/mm3 (4.2-5.4); White Blood Count 17.6 K/mm3 (4.4-11.0)
[2021-02-12 03:45] LABS: Differential Indicated MANUAL DIFF
[2021-02-12 04:01] LABS: ALB/GLOB Ratio 0.3 RATIO (0.9-2.4); AST(SGOT) 29 U/L (15-37); Alanine Aminotransfer ALT/SGPT 26 U/L (13-56); Albumin, Serum 1.3 g/dL (3.2-5.0); Alkaline Phosphatase 76 U/L (45-117); Anion Gap 9 (5-15); BUN 22 mg/dL (7-18); BUN/Creat Ratio 19.8 RATIO (10-20); Chloride 114 mmol/L (98-107); Creatinine, Serum 1.11 mg/dL (0.55-1.02); EST Glomerular Filtration Rate 54 mL/min (>60); Est Glom Filt Rate - Afr Amer 65 mL/min (>60); Estimated Creatinine Clearance 52.98 ml/min; Globulin 4.9 g/dL (2.2-4.2); Glucose 117 mg/dL (74-106); Potassium 3.4 mmol/L (3.5-5.1); Protein, Total 6.2 g/dL (6.4-8.2); Sodium Level 149 mmol/L (136-145)
[2021-02-12 05:06] LABS: Lymphocyte 13 % (19-41); Metamyelocyte 5 % (0-1); Monocyte 4 % (0-10); Myelocyte 1 % (0-0); Neutrophil-Band 0 % (0-5); Neutrophil-Segmented 77 % (47-70); Total Cells Counted 100 (MANUAL DIFF)
[2021-02-12 05:07] LABS: Absolute Neutrophil Count 13.6 X10^3/uL (2.0-7.7); Platelet Estimate ADEQUATE (ADEQ); Red Cell Morphology NORM C+C NORMAL (NORM C&C)
[2021-02-12] MEDS: Amiodarone 360 MG in Dextrose 5% Viaflo Bag 192.8 ML 16.7 MG CONT INF (05:26)
--- NOTE | 2021-02-12 05:51 | PN.CC_ITS ---
Assessment & Plan Assessment/Plan (1) Acute hypoxemic respiratory failure: PLAN: RECOMMENDATIONS: 1. Continue BiPAP, at a minimum with naps and nightly. 2. Wean supplemental oxygen to maintain saturations at or above 90%. 3. Consider gentle diuresis if tolerated by hemodynamics and renal function. 4. Patient to remain n.p.o. pending further speech therapy evaluation. 5. Continue antimicrobials per ID recommendations. 6. Rate control strategy per cardiology recommendations. 7. Place NG tube to facilitate tube feeds today. 8. Obtain neurology consultation. 9. The patient can be transferred out of the ICU from my perspective. IMPRESSIONS: 1. Acute hypoxemic respiratory failure Clinical concern for aspiration pneumonia as precipitating etiology. The patient has been compliant with the use of BiPAP therapy with naps and while sleeping, which I would recommend be continued. In the interim, plan to continue to wean supplemental oxygen to maintain saturations at or above 90%. Continue antimicrobials per ID recommendations. The patient is to remain n.p.o. pending further evaluation by speech therapy. Avoid sedating medication use. The patient is also up from a volume perspective and would benefit from continued gentle diuresis. 2. Septic shock Improved. Likely secondary to aspiration pneumonia. The patient is currently on appropriate antimicrobial therapy. She remains hemodynamically stable. Wound care is following. 3. Metabolic encephalopathy Likely related to acute infectious etiology and possible polypharmacy in the setting of renal insufficiency. As noted above, I would recommend that all sedating medications be withheld. Continue to address underlying infection with antimicrobials as ordered. Arterial blood gases within normal limits. MRI brain was unremarkable. Given that the patient still remains lethargic, will obtain neurology consultation. 4. Paroxysmal SVT Continue current medical management with beta-blockade as tolerated. 5. History of breast CA/MGUS/schizophrenia/obesity Complicates care, management, recovery and prognosis. Hold home sedating medications, pending improvement in mentation. This note was generated with [employer] dictation software. It may contain incorrect words, spelling, and punctuation that were not noted in checking the note before signing. Subjective Subjective The patient was seen and examined at the bedside this morning. Events from the last 24 hours have been reviewed. The patient did have some low-grade fevers overnight with a T-max last evening noted to be 101.3 degrees Fahrenheit. She is otherwise hemodynamically stable. The patient was able to be weaned to 3 L/min via nasal cannula throughout the day yesterday and was placed back on BiPAP for overnight support per protocol. She is currently documented to be overall net +6.3 L for the hospital admission. White count is elevated to 18,000. Creatinine is stable at 1.1. Potassium is low at 3.4. Objective Data Objective Data The patient's most recent lab work, culture data and imaging studies have all been personally reviewed. Surface echocardiogram revealed stage I diastolic dysfunction. CTA chest demonstrated multifocal airspace disease without PE. Brain MRI completed on February 11 was normal. Rapid coronavirus antigen testing was negative. Strep and urine Legionella antigens were negative. Blood and uri ne cultures have shown no growth to date. Vital Signs: Vital Signs Temp Pulse Resp BP Pulse Ox 99.9 F H 109 H 19 H 137/49 H 97 02/12/21 04:00 02/12/21 05:00 02/12/21 05:00 02/12/21 05:00 02/12/21 05:00 Oxygen Flow Rate (L/min) 3 Oxygen Delivery Method Bi-pap Weight: 95.4 kg Body Mass Index (BMI) 33.5 Intake & Output: Intake and Output for Last 24 Hours 02/10/21 02/11/21 02/12/21 23:59 23:59 23:59 Intake Total 566.78 / 566.78 1281.2 / 1281.2 498.97 / 498.97 Output Total 950 / 1125 3465 / 3465 200 / 200 Balance -383.22 / -558.22 -2183.8 / -2183.8 298.97 / 298.97 Lab / Micro Data Attestation: I reviewed the patient's lab results. Result Diagrams: 02/12/21 03:25 02/12/21 03:25 Labs: Laboratory Results - last 24 hr 02/11/21 03:40: Iron 20 L, TIBC 96 L, Iron Saturation 20.8, Ferritin 2692 H, Folate 25.30 02/11/21 08:00: Urine Color Yellow, Urine Clarity Sl. Cloudy, Urine pH 5.0, Ur Specific Clemons 1.020, Urine Protein 30 H, Urine Glucose (UA) Normal, Urine Ketones 5 H, Urine Occult Blood 25 H, Urine Nitrite Negative, Urine Bilirubin Negative, Urine Urobilinogen Normal, Ur Leukocyte Esterase 500 H, Urine RBC 0 SEEN, Urine WBC 5-10 SEEN, Ur Squamous Epith Cells 0 SEEN, Amorphous Sediment 2+, Urine Bacteria 1+, Urine Mucus 0 SEEN 02/12/21 03:25: WBC 17.6 H, RBC 2.66 L, Hgb 8.0 L, Hct 26.0 L, MCV 97.7, MCH 30.1, MCHC 30.8 L, RDW Std Deviation 54.9 H, RDW Coeff of Kenna 15.5 H, Plt Count 338, MPV 11.4, Neut % (Auto) Not Reportable, Absolute Neuts (auto) 13.6 H, Absolute Lymphs (auto) 2.30, Total Counted 100, Neutrophils % (Manual) 77 H, Band Neutrophils % 0, Lymphocytes % (Manual) 13 L, Monocytes % (Manual) 4, Metamyelocytes % 5 H, Myelocytes % 1 H, Diff Path Review November, Platelet Estimate ADEQUATE, RBC Morphology NORM C+C 02/12/21 03:25: Sodium 149 H, Potassium 3.4 L, Chloride 114 H, Carbon Dioxide 26.0, Anion Gap 9, BUN 22 H, Creatinine 1.11 H, Estim Creat Clear Calc 52.98, Est GFR (MDRD) Af Amer 65, Est GFR (MDRD) Non-Af 54 L, BUN/Creatinine Ratio 19.8, Glucose 117 H, Calcium 8.0 L, Total Bilirubin 0.30, AST 29, ALT 26, Alkaline Phosphatase 76, Total Protein 6.2 L, Albumin 1.3 L, Globulin 4.9 H, Albumin/Globulin Ratio 0.3 L Micro: Microbiology 02/08/21 16:15 Blood Culture (Wb) - Left Hand Blood Culture - Preliminary No growth in 48 hours. 02/08/21 15:10 Blood Culture (Wb) - Central Line Blood Culture - Preliminary No growth in 48 hours. 02/08/21 13:40 Mucosa - Nose Respiratory Panel (PCR) - Final 02/03/21 20:48 Blood Culture (Wb) - Left Wrist Blood Culture - Final No growth in 5 days. 02/03/21 18:15 Blood Culture (Wb) - Left Wrist Blood Culture - Final No growth in 5 days. 02/03/21 12:32 Urine Catheter - Henry Urine Culture - Final Culture exhibits no growth. 02/03/21 12:32 Urine Catheter - Henry Legionella Antigen - Final 02/03/21 12:32 Urine Catheter - Henry Streptococcus pneumoniae Antigen (M - Final 02/03/21 14:50 Mucosa - Nose SARS-CoV-2 Antigen (Rapid) - Final ABG Data ABG results: ABG 02/11/21 07:24 Specimen Type ART Sample Site L Radial pH 7.39 Bicarbonate Actual 24.5 Total CO2 26 Base Excess -1 O2 Saturation 96 O2 % 30 ABG pCO2 40.4 ABG pO2 83 Antony Test Positive O2 Delivery Device BiPAP Clinical Comments 17/05 bipap Radiography Diagnostic Testing: Radiology Impression Brain MRI 02/11/21 06:16 IMPRESSION: Normal MRI brain without contrast. Electronically Signed: Antonio Donovan MD at 12:07 EDT , Service support , Physical Exam Const alert and no apparent distress Orientation / Consciousness: lethargic Nutritional Appearance: obese HEENT normocephalic and head/scalp atraumatic Eyes PERRL, EOMs intact bilaterally and conjunctivae normal Neck supple General: trachea midline Resp Auscultation: diminished lung sounds; Negative for rales, rhonchi or wheezes Cardio S1 normal heart sound and S2 normal heart sound Rate: tachycardic GI normal to inspection, nondistended, normoactive bowel sounds Extremity General Extremity: edema; Negative for clubbing Skin no rashes or lesions noted Neuro no focal motor deficits Psych Mood & Affect: flat affect Charges/Coding Visit Charges Inpatient E&M: 45950 Subs Hosp L3
--- NOTE | 2021-02-12 06:13 | PN.HOSP_ITS ---
Subjective Subjective Patient overnight with improvement from respiratory standpoint, still transition to nasal cannula successfully aside from BiPAP nightly. Patient this morning arousable, mumbling and at one point did say Dr. Ervin. Other speech incoherent and patient not following commands. Evaluations ongoing by pulmonary, ID as well as neurology today with recommendation for repeat CK, ammonia, EEG, thiamine 5 mg IV daily x5 days as well as autoimmune encephalitis panel to be sent to [facility] with continued current treatment otherwise. Patient unable to give ROS but patient no obvious evidence of chills, nausea, emesis, abdominal pain, chest pain or dyspnea and temperatures improving since evening prior. Objective Data Objective Data Vital Signs: Vital Signs Temp Pulse Resp BP Pulse Ox 99.9 F H 112 H 17 121/49 H 95 02/12/21 04:00 02/12/21 06:00 02/12/21 06:00 02/12/21 06:00 02/12/21 06:00 Oxygen Flow Rate (L/min) 3 Oxygen Delivery Method Bi-pap Weight: 210 lb 5.136 oz Body Mass Index (BMI) 33.5 Intake & Output: Intake and Output for Last 24 Hours 02/10/21 02/11/21 02/12/21 23:59 23:59 23:59 Intake Total 566.78 / 566.78 1281.2 / 1281.2 498.97 / 498.97 Output Total 950 / 1125 3465 / 3465 200 / 200 Balance -383.22 / -558.22 -2183.8 / -2183.8 298.97 / 298.97 Lab / Micro Data Result Diagrams: 02/12/21 03:25 02/12/21 13:15 Labs: Laboratory Results - last 24 hr 02/11/21 03:40: Iron 20 L, TIBC 96 L, Iron Saturation 20.8, Ferritin 2692 H, Folate 25.30 02/11/21 08:00: Urine Color Yellow, Urine Clarity Sl. Cloudy, Urine pH 5.0, Ur Specific [place] 1.020, Urine Protein 30 H, Urine Glucose (UA) Normal, Urine Ketones 5 H, Urine Occult Blood 25 H, Urine Nitrite Negative, Urine Bilirubin Negative, Urine Urobilinogen Normal, Ur Leukocyte Esterase 500 H, Urine RBC 0 SEEN, Urine WBC 5-10 SEEN, Ur Squamous Epith Cells 0 SEEN, Amorphous Sediment 2+, Urine Bacteria 1+, Urine Mucus 0 SEEN 02/12/21 03:25: WBC 17.6 H, RBC 2.66 L, Hgb 8.0 L, Hct 26.0 L, MCV 97.7, MCH 30.1, MCHC 30.8 L, RDW Std Deviation 54.9 H, RDW Coeff of Kenna 15.5 H, Plt Count 338, MPV 11.4, Neut % (Auto) Not Reportable, Absolute Neuts (auto) 13.6 H, Absolute Lymphs (auto) 2.30, Total Counted 100, Neutrophils % (Manual) 77 H, Band Neutrophils % 0, Lymphocytes % (Manual) 13 L, Monocytes % (Manual) 4, Metamyelocytes % 5 H, Myelocytes % 1 H, Diff Path Review November, Platelet Estimate ADEQUATE, RBC Morphology NORM C+C 02/12/21 03:25: Sodium 149 H, Potassium 3.4 L, Chloride 114 H, Carbon Dioxide 26.0, Anion Gap 9, BUN 22 H, Creatinine 1.11 H, Estim Creat Clear Calc 52.98, Est GFR (MDRD) Af Amer 65, Est GFR (MDRD) Non-Af 54 L, BUN/Creatinine Ratio 19.8, Glucose 117 H, Calcium 8.0 L, Total Bilirubin 0.30, AST 29, ALT 26, Alkal ine Phosphatase 76, Total Protein 6.2 L, Albumin 1.3 L, Globulin 4.9 H, Albumin/Globulin Ratio 0.3 L Micro: Microbiology 02/08/21 16:15 Blood Culture (Wb) - Left Hand Blood Culture - Preliminary No growth in 48 hours. 02/08/21 15:10 Blood Culture (Wb) - Central Line Blood Culture - Preliminary No growth in 48 hours. 02/08/21 13:40 Mucosa - Nose Respiratory Panel (PCR) - Final 02/03/21 20:48 Blood Culture (Wb) - Left Wrist Blood Culture - Final No growth in 5 days. 02/03/21 18:15 Blood Culture (Wb) - Left Wrist Blood Culture - Final No growth in 5 days. 02/03/21 12:32 Urine Catheter - Henry Urine Culture - Final Culture exhibits no growth. 02/03/21 12:32 Urine Catheter - Henry Legionella Antigen - Final 02/03/21 12:32 Urine Catheter - Henry Streptococcus pneumoniae Antigen (M - Final 02/03/21 14:50 Mucosa - Nose SARS-CoV-2 Antigen (Rapid) - Final ABG Data ABG results: ABG 02/11/21 07:24 Specimen Type ART Sample Site L Radial pH 7.39 Bicarbonate Actual 24.5 Total CO2 26 Base Excess -1 O2 Saturation 96 O2 % 30 ABG pCO2 40.4 ABG pO2 83 Antony Test Positive O2 Delivery Device BiPAP Clinical Comments 17/05 bipap Radiography Diagnostic Testing: Radiology Impression Brain MRI 02/11/21 06:16 IMPRESSION: Normal MRI brain without contrast. Electronically Signed: Antonio Donovan MD at 12:07 EDT , Service support , Physical Exam Narrative Physical Examination: General: Patient awake, not answering orientation questions but at one point did say Dr. Ervin following introduction again, mumbling, no obvious distress, on nasal cannula. Skin: Normal color, normal turgor, no icterus, no cyanosis except occasional staged ecchymoses, recent left foot injury with associated swelling/staged ecchymoses and various wounds/abrasions. HEENT: AT/NC, EOM unable to be assessed as not following commands well, PERRLA, dry MM, poor dentition. Lungs: Remains diminished, ongoing mild increased respiratory rate, more comfortable than previously, no obvious evidence of any distress, nasal cannula in place, no obvious wheezing, rales or rhonchi. Heart: Mildly tachycardic; no gallop, rub audible. Abdomen: Soft, obese, NTTP, ND but habitus makes examination difficult, distant bowel sounds. Extremities: No cyanosis, no clubbing, edema to bilateral hands and BL LE pedal to distal benjamin, see skin. Neurological: Patient as noted less alert, will awaken but mumbling only, cognitive function not at baseline, pupils equally reactive to light and accommodation, cranial nerves II-XII grossly normal, moving all 4 extremities, no focal deficits, strength severely global decrease secondary to acute presentation. Psychiatric: Affect more interactive, underlying psychiatric history with nanda izophrenia. Assessment & Plan Assessment/Plan (1) Septic shock: (2) Pneumonia: QUALIFIERS: Laterality: unspecified laterality Lung location: unspecified part of lung Pneumonia type: due to unspecified organism Qualified Code(s): J18.9 - Pneumonia, unspecified organism PLAN: The patient is a 55 y/o F w/ PMHx: Schizophrenia/Anxiety and Depression, Obesity, Asthma, Hx L breast CA, Hx Monoclonal gammopathy IgM type, HTN, GERD, Unclear type of thyroid disease who presents to the [facility] ED on 02/03/21 with lethargy, multiple wounds, found down. 1. Acute Encephalopathy, Infectious/metabolic secondary to Acute Septic Shock with Acute Hypoxic Respiratory Failure secondary to Bilateral Pneumonia, possible Aspiration complicated by underlying Asthma: Patient with significant initial ED presentation with septic shock, admitted to the ICU and treated with broad-spectrum antibiotic therapy initially with IV Zosyn and vancomycin with eventual de-escalation off vancomycin (MRSA screen negative); however, following ID evaluation transitioned back on vancomycin and from zosyn to meropenem given unclear etiology organism, blood cultures initially obtained upon presentation negative, urine culture no growth, urine antigens negative, COVID negative, respiratory viral panel negative. Patient initially had clinical improvement w/ transition to PCU status 02/07/2021, however worsened and transitioned back to ICU 02/08/21. 02/03/2021 CT brain with no acute intracranial findings. 02/04/2021 echocardiogram with normal LV size, LV systolic function normal, EF 70%, stage I diastolic dysfunction. 02/06/2021 CTA chest with no evidence of PE, by lateral patchy airspace disease possibly atelectasis or developing pneumonia. Rapid Covid antigen negative, urine antigens negative. Requested respiratory viral panel. Repeat 02/08/2021 chest x-ray with progressive bibasilar infiltrates, worse on the left side. 02/09/21 pulse dose lasix 40 IV x 1 given +11L since although admission with 02/08/21 BNP 14.7. 02/08/21 procalcitonin 0.56. 02/10/2021 CBC with WC 22.6 with ongoing significant left shift. Repeat blood cultures also obtained 02/08/2021. 02/11/2021 MRI of the brain with no acute intracranial findings. ID evaluation performed with transition to vancomycin and meropenem. 02/11/2021 patient initiated on tube feeds with transition of IV regimen to oral options. 02/12/2021 evaluation per neurology with recommendation for repeat CK, ammonia, EEG, thiamine 5 mg IV daily x5 days as well as autoimmune encephalitis panel to be sent to [facility] which have all been ordered/requested. Since transition to more broad antibiotic therapy, temperature improving and CBC with WBC decreasing, WBC 17.6. 2. Paroxysmal SVT: 02/04/2021 echocardiogram with normal LV size, LV systolic function normal, EF 70%, stage I diastolic dysfunction. Patient previously on amiodarone with oral transition and metoprolol edition per cardiology, consulted and following, held transiently following aspiration event w/ NPO status, transitioned 02/08/21 to IV amiodarone with PRN IV lopressor. 02/04/2021 echocardiogram with normal LV size, LV systolic function normal, EF 70%, stage I diastolic dysfunction. 02/11/2021 NG tube placement for tube feeds, metoprolol and amiodarone oral regimen resumed. 3. Acute kidney injury: Secondary to acute presentation #1, baseline creatinine 0.9-1, creatinine up to 1.61 during the admission initially trending downward however now trending upward, suspected secondary to contrast-induced nephropathy. 02/12/2021 BUN/creatinine 22/1.11, improved. Monitor renal function given IV pulse lasix when BP allows. 4. Acute anemia, normocytic: Admission hemoglobin 12, has trended downward, 02/08/2021 hemoglobin 8.6, suspected delusional given aggressive hydration with acute septic shock presentation requiring significant hydration, 02/12/21 Hgb 8.0, stable, will continue to trend CBC, no obvious evidence of any bleeding. Stool guaiac negative, iron 20, TIBC 96, iron saturation 20.8, ferritin 2692 consistent with AOCD/inflammation, vitamin B-12 269, folic acid 25.30. 5. Acute thrombocytopenia, suspected secondary to acute sepsis syndrome as noted above: During the admission platelets did decrease 02/06/2021 down to 116, since resolved, 02/12/2021 platelets 338, continue to trend CBC. 6. Multiple wounds, failure to thrive in adult w/ mild Acute rhabdomyolysis: Admission TCK minimally elevated 260, found down on the floor, incontinent. Patient also with noted wounds. Patient as noted hydrated aggressively. Wound care consulted, encourage frequent positional changes, given presentation concerns for return to home, barrier agents as needed and scheduled per nursing protocol. Wounds do not appear infected. 7. History of breast cancer, left and Monoclonal gammopathy IgM type: Patient following w/ Dr. Ball, diagnosed with monoclonal gammopathy IgM type in 2013 with subsequent to diagnosis of invasive ductal carcinoma of the left breast stage III in March 2014 with ER/MO positive, HER-2 negative by FISH with chemotherapy and unfortunate then lost to follow-up with later 4 cycles of additional chemotherapy with deferral by patient at that time of avoidance of lumpectomy or radiation and transition to tamoxifen. Will restart tamoxifen once given ST allowance of medications if patient able. 8. Obesity: Weight loss and lifestyle changes encouraged. 9. Schizophrenia, unclear type: Currently holding patient medications given n.p.o. status. 10. Reported Thyroid disease, unclear type: Given acute illness not best timeline for testing; however, given FTT adult and poor self care, obtained, TSH 5.36; however, FT4 normal range 0.82, monitor with repeat testing following discharge given acute illness presentation. 11. DVT prophylaxis: SCDs, Lovenox. 12. CODE STATUS: Full code. Charges/Coding Visit Charges Inpatient E&M: 89032 Subs Hosp L3
--- NOTE | 2021-02-12 06:32 | TELEMED_ITS ---
[facility] Tele[facility] has confirmed receipt of a request for visit. This document confirms receipt of the order initiating the consult. To find the results of the consultation, please view the patient's reports for the scanned Telemed Consult.
[2021-02-12] MEDS: Furosemide 40 MG/4 ML Vial IV (06:45)
--- NOTE | 2021-02-12 07:54 | RAD_ITS ---
EXAM: XR ABDOMEN, 1 VIEW CLINICAL INDICATION: NG placement TECHNIQUE: Frontal supine view of the abdomen/pelvis. This report was created using [employer] report generation technology. COMPARISON: None. FINDINGS: LOWER THORAX: Horizontal linear subsegmental atelectases in the right lower lobe. GASTROINTESTINAL TRACT: Unremarkable. Non-obstructive. No bowel or stomach distention. ORGANS: Unremarkable as visualized. No organomegaly. No abnormal calcifications. BONES/JOINTS: Intact metallic shyann in the in the thoracic spine down to L2. SOFT TISSUES: No acute pathology. TUBES, LINES AND DEVICES: NG tube tip is in the gastric antrum. RAD/Abdomen Single View IMPRESSION: Successful placement of NG tube, tip is in the gastric antrum. Electronically Signed: Antonio Donovan MD at 8:41 EDT , Service support ,
[2021-02-12 08:04] LABS: Vitamin B12 269 pg/mL (211-911)
[2021-02-12] MEDS: Potassium Chloride 10mEq/100mL 10 MEQ/100 ML IV.SOLN. 100 MEQ IV BOLUS ×2 (08:34→10:42)
[2021-02-12] MEDS: Enoxaparin 40 MG/0.4 ML Syringe SC (09:35)
[2021-02-12] MEDS: Nystatin Powder 15gm Bottle 1 APPLIC TOPICAL ×2 (09:36→21:22)
[2021-02-12] MEDS: Famotidine 200 MG/20 ML MDV 20 MG in 0.9% Normal Saline (Pres. free 8 ML 300 MG IV ×2 (09:40→21:21)
--- NOTE | 2021-02-12 09:46 | EX.NTREPO ---
Medical Nutrition Therapy - History Nutrition Services has been consulted to:: Manage nutrient details of diet order, Manage enteral nutrition Current diet/nutrition support order:: NPO- Tube Feeding. Vital AF 1.2 via NGT at goal rate of 60mL/hour w/ 50mL H2O flush every 4 hours to provide 1728 calories, 108 g protein, and 1467mL fluid/day. Ambrocio BID via NGT - Anthropometric Measurements Height:: 5 ft 6.93 in Weight:: 95.4 kg Body Mass Index (BMI):: 33.0 - Relevant Labs Relevant Labs:: WBC 17.6 K/mm3 (4.4-11.0) H 02/12/21 03:25 RBC 2.66 M/mm3 (4.2-5.4) L 02/12/21 03:25 Hgb 8.0 g/dL (12.0-15.0) L 02/12/21 03:25 Hct 26.0 % (37-47) L 02/12/21 03:25 MCHC 30.8 g/dL (32-36) L 02/12/21 03:25 RDW Std Deviation 54.9 fl (35.1-43.9) H 02/12/21 03:25 RDW Coeff of Kenna 15.5 % (11.6-14.6) H 02/12/21 03:25 Plt Count 116 K/mm3 (150-450) L 02/06/21 06:57 MPV 12.2 fl (6.2-12.0) H 02/09/21 03:40 Immature Gran % (Auto) 4.500 % (0.0-0.9) H 02/11/21 03:40 Neut % (Auto) 75.8 % (47-70) H 02/11/21 03:40 Lymph % (Auto) 12.1 % (19-41) L 02/11/21 03:40 Absolute Neuts (auto) 13.6 X10^3/uL (2.0-7.7) H 02/12/21 03:25 Absolute Lymphs (auto) 4.60 X10^3/uL (0.83-4.51) H 02/05/21 04:15 Neutrophils % (Manual) 77 % (47-70) H 02/12/21 03:25 Lymphocytes % (Manual) 13 % (19-41) L 02/12/21 03:25 Metamyelocytes % 5 % (0-1) H 02/12/21 03:25 Myelocytes % 1 % (0-0) H 02/12/21 03:25 Promyelocytes % 1 % (0-0) H 02/05/21 04:15 Sodium 149 mmol/L (136-145) H 02/12/21 03:25 Potassium 3.4 mmol/L (3.5-5.1) L 02/12/21 03:25 Chloride 114 mmol/L (98-107) H 02/12/21 03:25 BUN 22 mg/dL (7-18) H 02/12/21 03:25 Creatinine 1.11 mg/dL (0.55-1.02) H 02/12/21 03:25 Est GFR (MDRD) Af Amer 57 mL/min (>60) L 02/10/21 04:35 Est GFR (MDRD) Non-Af 54 mL/min (>60) L 02/12/21 03:25 BUN/Creatinine Ratio 20.4 RATIO (10-20) H 02/11/21 03:40 Glucose 117 mg/dL (74-106) H 02/12/21 03:25 Calcium 8.0 mg/dL (8.5-10.1) L 02/12/21 03:25 Iron 20 ug/dL (50-170) L 02/11/21 03:40 TIBC 96 ug/dL (250-450) L 02/11/21 03:40 Ferritin 2692 ng/mL (8-252) H 02/11/21 03:40 AST 43 U/L (15-37) H 02/09/21 03:40 ALT 59 U/L (13-56) H 02/03/21 11:05 Total Creatine Kinase 260 U/L (26-192) H 02/03/21 11:05 Total Protein 6.2 g/dL (6.4-8.2) L 02/12/21 03:25 Albumin 1.3 g/dL (3.2-5.0) L 02/12/21 03:25 Globulin 4.9 g/dL (2.2-4.2) H 02/12/21 03:25 Albumin/Globulin Ratio 0.3 RATIO (0.9-2.4) L 02/12/21 03:25 Procalcitonin 0.49 ng/mL (0.00-0.09) H 02/11/21 03:40 TSH 5.36 uIU/mL (0.358-3.74) H 02/08/21 06:50 - Assessment Food and Nutrient Intake: NGT placed this AM. Enteral nutrition support ordered to start this date. No significant improvements in mentation, neurology consulted. Wt decrease of 1.7 kg since last review- lasix given yesterday and today. Noted improvement in edema. Wt appears to be trending towards admission wt, 92.805kg. - Nutrition Diagnosis: Intake Problem Inadequate Oral Intake Intake Problem - Etiology: r/t altered mental status and difficulty swallowing Intake Problem - Signs/Symptoms: as evidenced by no PO intake x 5 days Status: Active Problem Increased Nutrient Needs (specify) Intake Problem - Etiology: (protein) related to increased protein needs for wound healing Intake Problem - Signs/Symptoms: as evidenced by multiple areas of pressure injury wounds Status: Active Problem - Nutrition Diagnosis: Clinical Problem Unintended Weight Gain Clinical Problem - Etiology: related to fluid retention Clinical Problem - Signs/Symptoms: as evidenced by 8.395 kg wt gain x 1 week, significant edema Status: Active Problem - Protein Calorie Malnutrition Evidence of Malnutrition Exists: No - Nutrition Intervention Nutrition Prescription: 6639-7919 calories/day (1.3xRMR-250). 94-114 g protein/day (1.0-1.2 g/kg). 1600mL fluid/day (1mL/calorie) - Food / Nutrient Delivery Interventions Summary of nutrition intervention:: Order/adjust enteral nutrition Nutrition support ordered as / adjusted to:: Vital AF 1.2 via NGT at goal rate of 60mL/hour w/ 50mL H2O flush every 4 hours to provide 1728 calories, 108 g protein, and 1467mL fluid/day. Would start at 20mL/hour and increase by 10mL every 8 hours as pt tolerates until goal rate is achieved. Ambrocio BID mixed in 8oz H2O via NGT for wound healing. - MNT Monitoring Active Nutrition Patient: Yes Nutrition Status: Requires Follow Up in 1-2 Days
--- NOTE | 2021-02-12 10:01 | CASEMGMT ---
Social Work [facility] with the understanding pt is not yet medically ready for discharge. [facility] will review referral and notify SW if they would consider accepting pt. SW will then follow up next week to continue SNF placement process. HALEY Whatley
[2021-02-12 10:16] LABS: Pathologist Review Reviewed
[2021-02-12] MEDS: Metoprolol Tartrate 25 MG Tablet NG ×2 (10:43→21:23)
[2021-02-12] MEDS: Juven (unflavored) Packet 1 PACKET NG ×2 (10:43→18:00)
[2021-02-12] MEDS: Vancomycin IV 1,000 MG/200 ML BAG 200 MG IV ×3 (11:55→22:30)
[2021-02-12] MEDS: Vital AF 1.2 Cal Liquid 1,000 ML 60 ML GT (12:06)
--- NOTE | 2021-02-12 12:47 | PCM.PN.ID ---
Physical Exam Narrative MRI done, fever improved Const Orientation / Consciousness: lethargic Resp clear to auscultation bilaterally Auscultation: diminished lung sounds Cardio regular rate and regular rhythm GI normal to inspection, nondistended, normoactive bowel sounds Skin no rashes or lesions noted ID ID: Route of nutrition/ use of supplements: [] Nutritional Intake: [] IV Site: [] Henry Catheter: [] Assessment & Plan Assessment/Plan (1) Acute hypoxemic respiratory failure: (2) Pneumonia: QUALIFIERS: Pneumonia type: due to unspecified organism Laterality: unspecified laterality Lung location: unspecified part of lung Qualified Code(s): J18.9 - Pneumonia, unspecified organism PLAN: Covid pcr was neg, no lymphopenia. Cxs neg. Possible ongoing aspiration. Wounds appear relatively stable. CTA of chest showed no PE. Developed worsened fever. Broadened abx to vanc/cathryn 02/11. MRI brain was normal. Now wbc slowly improving, tmax better. Will follow, d/w Dr. Nguyen
[2021-02-12] MEDS: Ipratropium/Albuterol Sulfate 3 ML AMPUL.NEB INHALATION ×2 (13:20→19:04)
[2021-02-12 13:32] LABS: Potassium 3.3 mmol/L (3.5-5.1)
[2021-02-12] MEDS: Potassium Chloride Oral Soln 20 MEQ/15 ML UDC 40 MEQ NG (14:33)
[2021-02-12 16:40] LABS: CPK Total, Creatine Kinase 28 U/L (26-192)
[2021-02-12] MEDS: Amiodarone 200 MG Tablet NG (18:00)
[2021-02-12] MEDS: 0.9 % NaCl (Sterile) Posiflush 10 mL IV (18:54)
[2021-02-12] MEDS: Acetaminophen 650 MG Suppository RC (21:42)
--- NOTE | 2021-02-12 23:02 | CPS ---
CANE FURNITURE MAKER checked on patient at this time. Resting comfortably on 4LNC O2 with appropriate pulse ox reading. Able to be woken up easily and answers questions such as place and person. NG tube was placed today. Will try patient off BiPAP tonight with monitoring because of NG placement.
[2021-02-12 23:18] LABS: Vancomycin, Trough Level 31.7 ug/mL (5.0-15.0)
[2021-02-13] VITALS (20 sets, daily range): BP systolic 120–149; BP diastolic 50–84; PULSE 95–112; RESP 16–26; TEMP 35.6–37.9; O2SAT 93–98
[2021-02-13 04:17] LABS: Hematocrit 24.8 % (37-47); Hemoglobin 7.5 g/dL (12.0-15.0); Mean Corp Hgb Conc 30.2 g/dL (32-36); Mean Corpuscular Volume 99.2 fL (81-99); Mean Platelet Vol. 11.2 fl (6.2-12.0); POSITIVE COUNT YES; POSITIVE MORPHOLOGY YES; Platelet Count 316 K/mm3 (150-450); RBC Distribution Width CV 15.4 % (11.6-14.6); RBC Distribution Width SD 55.8 fl (35.1-43.9); White Blood Count 15.8 K/mm3 (4.4-11.0)
[2021-02-13 04:34] LABS: ALB/GLOB Ratio 0.3 RATIO (0.9-2.4); AST(SGOT) 27 U/L (15-37); Alanine Aminotransfer ALT/SGPT 24 U/L (13-56); Albumin, Serum 1.3 g/dL (3.2-5.0); Alkaline Phosphatase 62 U/L (45-117); Anion Gap 5 (5-15); BUN 33 mg/dL (7-18); BUN/Creat Ratio 30.6 RATIO (10-20); Calcium,Total 7.7 mg/dL (8.5-10.1); Chloride 114 mmol/L (98-107); Creatinine, Serum 1.08 mg/dL (0.55-1.02); EST Glomerular Filtration Rate 56 mL/min (>60); Est Glom Filt Rate - Afr Amer 67 mL/min (>60); Estimated Creatinine Clearance 54.45 ml/min; Globulin 4.5 g/dL (2.2-4.2); Glucose 116 mg/dL (74-106); Potassium 3.4 mmol/L (3.5-5.1); Protein, Total 5.8 g/dL (6.4-8.2); Sodium Level 147 mmol/L (136-145)
[2021-02-13 04:48] LABS: Differential Indicated MANUAL DIFF
[2021-02-13 04:51] LABS: Absolute Lymphocyte Count 2.37 X10^3/uL (0.83-4.51); Absolute Neutrophil Count 11.4 X10^3/uL (2.0-7.7)
[2021-02-13 04:52] LABS: Basophil 2 % (0-1); Blast 1 % (0-0); Eosinophil 2 % (0-5); Lymphocyte 15 % (19-41); Metamyelocyte 1 % (0-1); Monocyte 4 % (0-10); Myelocyte 2 % (0-0); Neutrophil-Segmented 72 % (47-70)
[2021-02-13 04:53] LABS: Platelet Estimate ADEQUATE (ADEQ)
[2021-02-13 04:54] LABS: Red Cell Morphology NORM C+C NORMAL (NORM C&C)
--- NOTE | 2021-02-13 05:29 | CPS ---
COMPUTER REPAIRER checked on patient multiple times throughout the night to determine responsiveness. Patient has not been able to answer question appropriately as she had during the one visit during the night. Will open eyes on command this morning, but rambles during questioning. Is easily arousable. Did not wear BiPAP last night. Remained on NC O2.
--- NOTE | 2021-02-13 05:47 | PN.CC_ITS ---
Assessment & Plan Assessment/Plan (1) Acute hypoxemic respiratory failure: PLAN: RECOMMENDATIONS: 1. Continue BiPAP, at a minimum with naps and nightly. 2. Wean supplemental oxygen to maintain saturations at or above 90%. 3. Consider gentle diuresis if tolerated by hemodynamics and renal function. 4. Patient to remain n.p.o. pending further speech therapy evaluation. 5. Continue antimicrobials per ID recommendations. 6. Rate control strategy per cardiology recommendations. 7. Continue tube feeds per NG tube until diet can be advanced by speech therapy. IMPRESSIONS: 1. Acute hypoxemic respiratory failure Clinical concern for aspiration pneumonia as precipitating etiology. The patient has been compliant with the use of BiPAP therapy with naps and while sleeping, which I would recommend be continued. In the interim, plan to continue to wean supplemental oxygen to maintain saturations at or above 90%. Continue antimicrobials per ID recommendations. The patient is to remain n.p.o. pending further evaluation by speech therapy. Avoid sedating medication use. The patient is also up from a volume perspective and would benefit from continued gentle diuresis. 2. Septic shock Improved. Likely secondary to aspiration pneumonia. The patient is currently on appropriate antimicrobial therapy. She remains hemodynamically stable. Wound care is following. 3. Metabolic encephalopathy Improving. Likely related to acute infectious etiology and possible polypharmacy in the setting of renal insufficiency. As noted above, I would recommend that all sedating medications be withheld. Continue to address underlying infection with antimicrobials as ordered. Arterial blood gases within normal limits. MRI brain was unremarkable. 4. Paroxysmal SVT Continue current medical management with beta-blockade as tolerated. 5. History of breast CA/MGUS/schizophrenia/obesity Complicates care, management, recovery and prognosis. Hold home sedating medications, pending improvement in mentation. This note was generated with [employer] dictation software. It may contain incorrect words, spelling, and punctuation that were not noted in checking the note before signing. Subjective Subjective The patient was seen and examined at the bedside this morning. Events from the last 24 hours have been reviewed. The patient has continued to have some low- grade fevers overnight. She is otherwise hemodynamically stable and maintaining appropriate oxygen saturations on 4 L/min via nasal cannula. She is currently documented to be overall net +7.4 L for the hospital admission. White count remains elevated at 16,000. Hemoglobin is trending downward and was noted to be 7.5 g/dL this morning. Sodium was elevated to 147 with a chloride of 114 and potassium of 3.4. Creatinine is stable. The patient is far more alert this morning and actually able to carry on a conversation with me. Objective Data Objective Data The patient's most recent lab work, culture data and imaging studies have all been personally reviewed. Surface echocardiogram revealed stage I diastolic dysfunction. CTA chest demonstrated multifocal airspace disease without PE. Brain MRI completed on February 11 was normal. Rapid coronavirus antigen testing was negative. Strep and urine Legionella antigens were negative. Blood and urine cultures have shown no growth to date. Vital Signs: Vital Signs Temp Pulse Resp BP Pulse Ox 100.3 F H 99 18 134/53 H 95 02/13/21 04:00 02/13/21 04:00 02/13/21 04:00 02/13/21 04:00 02/13/21 04:00 Oxygen Flow Rate (L/min) 4 Oxygen Delivery Method Nasal Cannula Weight: 95.4 kg Body Mass Index (BMI) 33.0 Intake & Output: Intake and Output for Last 24 Hours 02/11/21 02/12/21 02/13/21 23:59 23:59 23:59 Intake Total 1281.2 / 1281.2 2123.97 / 2466.97 463 / 463 Output Total 3465 / 3465 1100 / 1200 100 / 100 Balance -2183.8 / -2183.8 1023.97 / 1266.97 363 / 363 Lab / Micro Data Attestation: I reviewed the patient's lab results. Result Diagrams: 02/13/21 04:10 02/13/21 04:10 Labs: Laboratory Results - last 24 hr 02/11/21 03:40: Vitamin B12 269 02/12/21 03:25: Diff Path Review Reviewed 02/12/21 13:15: Potassium 3.3 L 02/12/21 15:55: Total Creatine Kinase 28 02/12/21 15:55: Ammonia 26.0 02/12/21 22:30: Vancomycin Trough 31.7 H 02/13/21 04:10: WBC 15.8 H, RBC 2.50 L, Hgb 7.5 L, Hct 24.8 L, MCV 99.2 H, MCH 30.0, MCHC 30.2 L, RDW Std Deviation 55.8 H, RDW Coeff of Kenna 15.4 H, Plt Count 316, MPV 11.2, Neut % (Auto) Not Reportable, Absolute Neuts (auto) 11.4 H, Absolute Lymphs (auto) 2.37, Neutrophils % (Manual) 72 H, Lymphocytes % (Manual) 15 L, Monocytes % (Manual) 4, Eosinophils % (Manual) 2, Basophils % (Manual) 2 H , Metamyelocytes % 1, Myelocytes % 2 H, Blast Cells % 1 H*, Diff Path Review November, Platelet Estimate ADEQUATE, RBC Morphology NORM C+C 02/13/21 04:10: Sodium 147 H, Potassium 3.4 L, Chloride 114 H, Carbon Dioxide 28.0, Anion Gap 5, BUN 33 H, Creatinine 1.08 H, Estim Creat Clear Calc 54.45, Est GFR (MDRD) Af Amer 67, Est GFR (MDRD) Non-Af 56 L, BUN/Creatinine Ratio 30.6 H, Glucose 116 H, Calcium 7.7 L, Total Bilirubin 0.20, AST 27, ALT 24, Alkaline Phosphatase 62, Total Protein 5.8 L, Albumin 1.3 L, Globulin 4.5 H, Albumin/Globulin Ratio 0.3 L Micro: Microbiology 02/11/21 08:00 Urine Catheter - Henry Urine Culture - Preliminary Yeast 02/12/21 08:15 Stool Stool Occult Blood (EDU) - Final 02/08/21 16:15 Blood Culture (Wb) - Left Hand Blood Culture - Preliminary No growth in 48 hours. 02/08/21 15:10 Blood Culture (Wb) - Central Line Blood Culture - Preliminary No growth in 48 hours. 02/08/21 13:40 Mucosa - Nose Respiratory Panel (PCR) - Final 02/03/21 20:48 Blood Culture (Wb) - Left Wrist Blood Culture - Final No growth in 5 days. 02/03/21 18:15 Blood Culture (Wb) - Left Wrist Blood Culture - Final No growth in 5 days. 02/03/21 12:32 Urine Catheter - Henry Urine Culture - Final Culture exhibits no growth. 02/03/21 12:32 Urine Catheter - Henry Legionella Antigen - Final 02/03/21 12:32 Urine Catheter - Henry Streptococcus pneumoniae Antigen (M - Final 02/03/21 14:50 Mucosa - Nose SARS-CoV-2 Antigen (Rapid) - Final Radiography Diagnostic Testing: Radiology Impression KUB X-Ray 02/12/21 07:54 IMPRESSION: Successful placement of NG tube, tip is in the gastric antrum. Electronically Signed: Antonio Donovan MD at 8:41 EDT , Service support , Physical Exam Const alert and no apparent distress General Appearance: cooperative Nutritional Appearance: obese HEENT normocephalic and head/scalp atraumatic HEENT Narrative: NG tube remains in place. Eyes PERRL, EOMs intact bilaterally and conjunctivae normal Neck supple General: trachea midline Resp Auscultation: diminished lung sounds; Negative for rales, rhonchi or wheezes Cardio regular rate, regular rhythm, S1 normal heart sound and S2 normal heart sound GI normal to inspection, nondistended, normoactive bowel sounds Extremity Extremity Narrative: Wrapped lower extremities General Extremity: edema; Negative for clubbing Skin no rashes or lesions noted Neuro no focal motor deficits Psych Mood & Affect: flat affect Charges/Coding Visit Charges Inpatient E&M: 89486 Subs Hosp L2
--- NOTE | 2021-02-13 06:25 | PN.HOSP_ITS ---
Subjective Subjective Patient this a.m. awake, able to actually interact and appropriately answering some questions. Patient is not oriented, unable to give place, month or year but is caring on appropriately. Patient requesting specifically Ensure. Discussed patient current presentation, ongoing work-up and need for reevaluation by speech therapy prior to any oral intake with ongoing nasogastric tube in place with tube feeds. Also patient with worsened anemia with hemoglobin 7.5, reviewed with pulmonary and will administer 1 unit PRBC with IV Lasix concurrently. Patient has continued to have low-grade temperatures through the evening but CBC with WBC 15.8 with improvement. Patient currently denies any acute complaints including dyspnea or chest discomfort. Patient chills, nausea, emesis, abdominal pain. Objective Data Objective Data Vital Signs: Vital Signs Temp Pulse Resp BP Pulse Ox 100.3 F H 99 18 134/53 H 95 02/13/21 04:00 02/13/21 04:00 02/13/21 04:00 02/13/21 04:00 02/13/21 04:00 Oxygen Flow Rate (L/min) 4 Oxygen Delivery Method Nasal Cannula Weight: 210 lb 5.136 oz Body Mass Index (BMI) 33.0 Intake & Output: Intake and Output for Last 24 Hours 02/11/21 02/12/21 02/13/21 23:59 23:59 23:59 Intake Total 1281.2 / 1281.2 2123.97 / 2466.97 513 / 513 Output Total 3465 / 3465 1100 / 1200 100 / 100 Balance -2183.8 / -2183.8 1023.97 / 1266.97 413 / 413 Lab / Micro Data Result Diagrams: 02/13/21 04:10 02/13/21 04:10 Labs: Laboratory Results - last 24 hr 02/11/21 03:40: Vitamin B12 269 02/12/21 03:25: Diff Path Review Reviewed 02/12/21 13:15: Potassium 3.3 L 02/12/21 15:55: Total Creatine Kinase 28 02/12/21 15:55: Ammonia 26.0 02/12/21 22:30: Vancomycin Trough 31.7 H 02/13/21 04:10: WBC 15.8 H, RBC 2.50 L, Hgb 7.5 L, Hct 24.8 L, MCV 99.2 H, MCH 30.0, MCHC 30.2 L, RDW Std Deviation 55.8 H, RDW Coeff of Kenna 15.4 H, Plt Count 316, MPV 11.2, Neut % (Auto) Not Reportable, Absolute Neuts (auto) 11.4 H, Absolute Lymphs (auto) 2.37, Neutrophils % (Manual) 72 H, Lymphocytes % (Manual) 15 L, Monocytes % (Manual) 4, Eosinophils % (Manual) 2, Basophils % (Manual) 2 H , Metamyelocytes % 1, Myelocytes % 2 H, Blast Cells % 1 H*, Diff Path Review November, Platelet Estimate ADEQUATE, RBC Morphology NORM C+C 02/13/21 04:10: Sodium 147 H, Potassium 3.4 L, Chloride 114 H, Carbon Dioxide 28.0, Anion Gap 5, BUN 33 H, Creatinine 1.08 H, Estim Creat Clear Calc 54.45, Est GFR (MDRD) Af Amer 67, Est GFR (MDRD) Non-Af 56 L, BUN/Creatinine Ratio 30.6 H, Glucose 116 H, Calcium 7.7 L, Total Bilirubin 0.20, AST 27, ALT 24, Alkaline Phosphatase 62, Total Protein 5.8 L, Albumin 1.3 L, Globulin 4.5 H, Albumin/Globulin Ratio 0.3 L Micro: Microbiology 02/11/21 08:00 Urine Catheter - Henry Urine Culture - Preliminary Yeast 02/12/21 08:15 Stool Stool Occult Blood (EDU) - Final 02/08/21 16:15 Blood Culture (Wb) - Left Hand Blood Culture - Preliminary No growth in 48 hours. 02/08/21 15:10 Blood Culture (Wb) - Central Line Blood Culture - Preliminary No growth in 48 hours. 02/08/21 13:40 Mucosa - Nose Respiratory Panel (PCR) - Final 02/03/21 20:48 Blood Culture (Wb) - Left Wrist Blood Culture - Final No growth in 5 days. 02/03/21 18:15 Blood Culture (Wb) - Left Wrist Blood Culture - Final No growth in 5 days. 02/03/21 12:32 Urine Catheter - Henry Urine Culture - Final Culture exhibits no growth. 02/03/21 12:32 Urine Catheter - Henry Legionella Antigen - Final 02/03/21 12:32 Urine Catheter - Henry Streptococcus pneumoniae Antigen (M - Final 02/03/21 14:50 Mucosa - Nose SARS-CoV-2 Antigen (Rapid) - Final Radiography Diagnostic Testing: Radiology Impression KUB X-Ray 02/12/21 07:54 IMPRESSION: Successful placement of NG tube, tip is in the gastric antrum. Electronically Signed: Antonio Donovan MD at 8:41 EDT , Service support , Physical Exam Narrative Physical Examination: General: Patient awake, more than day prior, answering questions coherently which is the first time since any evaluation this prior week, currently NG tube in place, tolerating tube feeds, asking for Ensure. Skin: Normal color, normal turgor, no icterus, no cyanosis except occasional staged ecchymoses, recent left foot injury, mildly improved bilateral lower extr emity swelling, hand swelling, ongoing staged ecchymoses and various wounds/abrasions. HEENT: AT/NC, EOMI, PERRLA, dry MM, NG tube in place, poor dentition. Lungs: Patient with improved effort, more coherent, diminished, > at bases, no obvious evidence of any distress, no wheezing, rales or rhonchi. Heart: Continued mild tachycardia; no gallop, rub audible. Abdomen: Soft, obese, NTTP, ND but habitus makes examination difficult, distant bowel sounds. Extremities: No cyanosis, no clubbing, edema to bilateral hands and BL LE pedal to distal benjamin, see skin. Neurological: Patient awake, more than day prior, answering questions coherently which is the first time since any evaluation this prior week, following commands, cognitive function significantly improved from even day prior, pupils equally reactive to light and accommodation, cranial nerves grossly normal, moving all 4 extremities, strength severely global decrease secondary to acute presentation. Psychiatric: Affect more interactive, talking coherently today and purposefully, underlying psychiatric history with schizophrenia. Assessment & Plan Assessment/Plan (1) Septic shock: (2) Pneumonia: QUALIFIERS: Pneumonia type: due to unspecified organism Laterality: unspecified laterality Lung location: unspecified part of lung Qualified Code(s): J18.9 - Pneumonia, unspecified organism PLAN: The patient is a 55 y/o F w/ PMHx: Schizophrenia/Anxiety and Depression, Obesity, Asthma, Hx L breast CA, Hx Monoclonal gammopathy IgM type, HTN, GERD, Unclear type of thyroid disease who presents to the [facility] ED on 02/03/21 with lethargy, multiple wounds, found down. 1. Acute Encephalopathy, Infectious/metabolic secondary to Acute Septic Shock with Acute Hypoxic Respiratory Failure secondary to Bilateral Pneumonia, possible Aspiration complicated by underlying Asthma: Patient with significant initial ED presentation with septic shock, admitted to the ICU and treated with broad-spectrum antibiotic therapy initially with IV Zosyn and vancomycin with eventual de-escalation off vancomycin (MRSA screen negative); however, following ID evaluation transitioned back on vancomycin and from zosyn to meropenem given unclear etiology organism, blood cultures initially obtained upon presentation negative, urine culture no growth, urine antigens negative, COVID negative, respiratory viral panel negative. Patient initially had clinical improvement w/ transition to PCU status 02/07/2021, however worsened and transitioned back to ICU 02/08/21. 02/03/2021 CT brain with no acute intracranial findings. 02/04/2021 echocardiogram with normal LV size, LV systolic function normal, EF 70%, stage I diastolic dysfunction. 02/06/2021 CTA chest with no evidence of PE, by lateral patchy airspace disease possibly atelectasis or developing pneumonia. Rapid Covid antigen negative, urine antigens negative. Requested respiratory viral panel. Repeat 02/08/2021 chest x-ray with progressive bibasilar infiltrates, worse on the left side. 02/09/21 pulse dose lasix 40 IV x 1 given +11L since although admission with 02/08/21 BNP 14.7. 02/08/21 procalcitonin 0.56. 02/10/2021 CBC with WC 22.6 with ongoing significant left shift. Repeat blood cultures also obtained 02/08/2021. 02/11/2021 MRI of the brain with no acute intracranial findings. ID evaluation performed with transition to vancomycin and meropenem. 02/11/2021 patient initiated on tube feeds with transition of IV regimen to oral options. 02/12/2021 evaluation per neurology with recommendation for repeat CK, ammonia, EEG, thiamine 5 mg IV daily x5 days as well as autoimmune encephalitis panel to be sent to [facility] which have all been ordered/requested. CK carmelo l. [place] normal. EEG requested, awaiting it to be performed although given notable improvement upon 02/13/21 evaluation, likely infectious. ST re-evaluation requested given 02/13/21 evaluation improved. PT, OT, CM consulted and following. 2. Paroxysmal SVT: 02/04/2021 echocardiogram with normal LV size, LV systolic function normal, EF 70%, stage I diastolic dysfunction. Patient previously on amiodarone with oral transition and metoprolol edition per cardiology, consulted and following, held transiently following aspiration event w/ NPO status, transitioned 02/08/21 to IV amiodarone with PRN IV lopressor. 02/04/2021 echocardiogram with normal LV size, LV systolic function normal, EF 70%, stage I diastolic dysfunction. 02/11/2021 NG tube placement for tube feeds, metoprolol and amiodarone oral regimen resumed. ST re-evaluation requested given 02/13/21 evaluation improved. 3. Acute kidney injury: Secondary to acute presentation #1, baseline creatinine 0.9-1, creatinine up to 1.61 during the admission initially trending downward however now trending upward, suspected secondary to contrast-induced nephropathy. 02/13/2021 BUN/creatinine 33/1.08, improved. Monitor renal function given IV pulse lasix when BP allows. 4. Acute anemia, normocytic: Admission hemoglobin 12, has trended downward, 06/2021 hemoglobin 8.6, suspected delusional given aggressive hydration with acute septic shock presentation requiring significant hydration, 02/13/21 Hgb 7.5, although no obvious evidence of any bleeding. Stool guaiac negative, iron 20, TIBC 96, iron saturation 20.8, ferritin 2692 consistent with A OCD/inflammation, vitamin B-12 269, folic acid 25.30. 02/13/21 will plan 1 u PRBC administration with lasix 40 mg IV x 1 concurrently. Discussed with medical staff manager as family will need to be contacted for consent. 5. Acute thrombocytopenia, suspected secondary to acute sepsis syndrome as noted above: During the admission platelets did decrease 02/06/2021 down to 116, since resolved, 02/13/2021 platelets 316, continue to trend CBC. 6. Multiple wounds, failure to thrive in adult w/ mild Acute rhabdomyolysis: Admission TCK minimally elevated 260, found down on the floor, incontinent. Patient also with noted wounds. Patient as noted hydrated aggressively. Wound care consulted, encourage frequent positional changes, given presentation concerns for return to home, barrier agents as needed and scheduled per nursing protocol. Wounds do not appear infected. 7. History of breast cancer, left and Monoclonal gammopathy IgM type: Patient following w/ Dr. Ball, diagnosed with monoclonal gammopathy IgM type in 2013 with subsequent to diagnosis of invasive ductal carcinoma of the left breast stage III in March 2014 with ER/MA positive, HER-2 negative by FISH with chemotherapy and unfortunate then lost to follow-up with later 4 cycles of additional chemotherapy with deferral by patient at that time of avoidance of lumpectomy or radiation and transition to tamoxifen. Will restart tamoxifen once given ST allowance of medications if patient able. 8. Obesity: Weight loss and lifestyle changes encouraged. 9. Schizophrenia, unclear type: Currently holding patient medications given n.p.o. status. 10. Reported Thyroid disease, unclear type: Given acute illness not best timeline for testing; however, given FTT adult and poor self care, obtained, TSH 5.36; however, FT4 normal range 0.82, monitor with repeat testing following discharge given acute illness presentation. 11. DVT prophylaxis: SCDs, Lovenox. 12. CODE STATUS: Full code. Charges/Coding Visit Charges Inpatient E&M: 42578 Subs Hosp L2
[2021-02-13] MEDS: Ipratropium/Albuterol Sulfate 3 ML AMPUL.NEB INHALATION ×2 (07:11→20:15)
--- NOTE | 2021-02-13 07:34 | PCM.RX.CS ---
Consult Pharmacy has been consulted to manage selected antiobiotic: Vancomycin Type of Consult: Follow-up Labs: Sodium 147 mmol/L (136-145) H 02/13/21 04:10 Potassium 3.4 mmol/L (3.5-5.1) L 02/13/21 04:10 Chloride 114 mmol/L (98-107) H 02/13/21 04:10 Carbon Dioxide 28.0 mmol/L (21.0-32.0) 02/13/21 04:10 Anion Gap 5 (5-15) 02/13/21 04:10 BUN 33 mg/dL (7-18) H 02/13/21 04:10 Creatinine 1.08 mg/dL (0.55-1.02) H 02/13/21 04:10 Est GFR (MDRD) Af Amer 67 mL/min (>60) 02/13/21 04:10 Est GFR (MDRD) Non-Af 56 mL/min (>60) L 02/13/21 04:10 BUN/Creatinine Ratio 30.6 RATIO (10-20) H 02/13/21 04:10 Glucose 116 mg/dL (74-106) H 02/13/21 04:10 Vancomycin Trough 31.7 ug/mL (5.0-15.0) H 02/12/21 22:30 Microbiology: Microbiology 02/11/21 08:00 Urine Catheter - Henry Urine Culture - Preliminary Yeast 02/12/21 08:15 Stool Stool Occult Blood (EDU) - Final 02/08/21 16:15 Blood Culture (Wb) - Left Hand Blood Culture - Preliminary No growth in 48 hours. 02/08/21 15:10 Blood Culture (Wb) - Central Line Blood Culture - Preliminary No growth in 48 hours. 02/08/21 13:40 Mucosa - Nose Respiratory Panel (PCR) - Final 02/03/21 20:48 Blood Culture (Wb) - Left Wrist Blood Culture - Final No growth in 5 days. 02/03/21 18:15 Blood Culture (Wb) - Left Wrist Blood Culture - Final No growth in 5 days. 02/03/21 12:32 Urine Catheter - Henry Urine Culture - Final Culture exhibits no growth. 02/03/21 12:32 Urine Catheter - Henry Legionella Antigen - Final 02/03/21 12:32 Urine Catheter - Henry Streptococcus pneumoniae Antigen (M - Final 02/03/21 14:50 Mucosa - Nose SARS-CoV-2 Antigen (Rapid) - Final Goal Trough: 15-20 mcg/mL Pharmacy Plan for Drug Dosing: VANCOMYCIN LEVEL RECEIVED Current Vancomycin Dose: 1000mg IV q12h (00,12) Number of Doses Received: 2000mg IV x1 on 02/11/21 at 1100, 1000mg IV x2 Vancomycin Level: 31.7 Hours Since Last Dose: 11.5 Renal Function: SrCr 1.08 Renal Function Trend: stable Lab/Micro: Vancomycin Plan/Comments: dose was scanned/hung at 2230, and level was drawn at 2230. it's possible elevated trough could be from dose being hung before trough was drawn. will hold dose and re-check level in 24 hours. Pending Level: 02/13/21 at 2230 Pharmacy Service will continue to monitor and adjust dosing as required. Follow-Up Labs: Trough Vancomycin - 02/13/21 at 2230
[2021-02-13] MEDS: Potassium Chloride Oral Soln 20 MEQ/15 ML UDC 40 MEQ NG (08:13)
[2021-02-13] MEDS: Furosemide 40 MG/4 ML Vial IV (08:14)
[2021-02-13] MEDS: Thiamine Hydrochloride 200 MG/2 ML Vial (08:15)
[2021-02-13] MEDS: Juven (unflavored) Packet 1 PACKET NG ×2 (08:15→18:00)
[2021-02-13] MEDS: Enoxaparin 40 MG/0.4 ML Syringe SC (08:15)
[2021-02-13] MEDS: Amiodarone 200 MG Tablet NG ×2 (08:16→22:18)
[2021-02-13] MEDS: Metoprolol Tartrate 25 MG Tablet NG ×2 (08:16→22:18)
[2021-02-13] MEDS: Tamoxifen 10 MG Tablet 20 MG NG (08:17)
[2021-02-13] MEDS: CHLORHEXIDINE GLUC 2% CLOTH 1 EACH TOWELETTE TOPICAL (08:18)
[2021-02-13] MEDS: Nystatin Powder 15gm Bottle 1 APPLIC TOPICAL ×2 (08:18→22:24)
[2021-02-13] MEDS: Famotidine 200 MG/20 ML MDV 20 MG in 0.9% Normal Saline (Pres. free 8 ML 300 MG IV ×2 (10:53→22:23)
[2021-02-13] MEDS: Vital AF 1.2 Cal Liquid 1,000 ML 50 ML GT (15:07)
[2021-02-13 23:14] LABS: Vancomycin, Random Level 22.6 ug/mL (0.0-15.0)
[2021-02-14] VITALS (35 sets, daily range): BP systolic 98–157; BP diastolic 55–85; PULSE 89–139; RESP 16–36; TEMP 35.7–38.1; O2SAT 91–96
[2021-02-14] MEDS: Metoprolol Tartrate 5 MG/5 ML Vial IV ×2 (02:09→06:52)
[2021-02-14] MEDS: Acetaminophen 650 MG Suppository RC (02:20)
[2021-02-14] MEDS: dilTIAZem 25 MG/5 ML Vial IV BOLUS (03:45)
[2021-02-14] MEDS: Amiodarone 360 MG in Dextrose 5% Viaflo Bag 192.8 ML 33.3 MG CONT INF (05:35)
[2021-02-14 05:48] LABS: Hematocrit 32.1 % (37-47); Mean Corp Hgb Conc 31.2 g/dL (32-36); Mean Corpuscular Hgb 30.3 pg (27.0-32.0); Mean Corpuscular Volume 97.3 fL (81-99); Mean Platelet Vol. 11.7 fl (6.2-12.0); POSITIVE COUNT YES; POSITIVE MORPHOLOGY YES; Platelet Count 308 K/mm3 (150-450); RBC Distribution Width CV 15.9 % (11.6-14.6); RBC Distribution Width SD 57.2 fl (35.1-43.9); White Blood Count 15.4 K/mm3 (4.4-11.0)
[2021-02-14 06:01] LABS: Differential Indicated MANUAL DIFF
--- NOTE | 2021-02-14 06:07 | EKG12_ITS ---
Test Reason : DYSRHYTHMIA Blood Pressure : / mmHG Vent. Rate : 138 BPM Atrial Rate : 127 BPM P-R Int : 000 ms QRS Dur : 082 ms QT Int : 368 ms P-R-T Axes : 000 073 028 degrees QTc Int : 557 ms Supraventricular tachycardia Low voltage QRS Borderline ECG When compared with ECG of 10-FEB-2021 00:15, No significant change was found Confirmed by JM AWAD, VERONA ([id number]), telegraph editor JAMAAL ENRIQUEZ ([id number]) on 02/15/2021 11:54:10 AM Referred By: ANGÉLICA Confirmed By:VERONA ONEAL MD
[2021-02-14 06:20] LABS: Basophil 1 % (0-1); Eosinophil 1 % (0-5); Lymphocyte 19 % (19-41); Metamyelocyte 5 % (0-1); Monocyte 6 % (0-10); Neutrophil-Band 3 % (0-5); Neutrophil-Segmented 65 % (47-70); Total Cells Counted 100 (MANUAL DIFF)
[2021-02-14 06:21] LABS: Absolute Lymphocyte Count 2.93 X10^3/uL (0.83-4.51); Absolute Neutrophil Count 10.5 X10^3/uL (2.0-7.7); Platelet Estimate ADEQUATE (ADEQ); Red Cell Morphology NORM C+C NORMAL (NORM C&C)
--- NOTE | 2021-02-14 06:23 | PN.HOSP_ITS ---
Subjective Subjective Patient overnight with recurrent issues with significant tachycardia, restarted on amiodarone drip although is on oral amiodarone and metoprolol. Discussed with staff and given ICU presentation, had benefited from digoxin which has been initiated IV x1 with increase of beta-pedro luis given stabilized blood pressure per discussion with RN. Cardiology also following and planned evaluation today. Patient failed speech therapy reevaluation day prior, awaiting reevaluation today. Patient is currently able to answer some questions but mumbling more today than day prior, patient denies fevers, chills, nausea, emesis, abdominal pain, chest pain. Objective Data Objective Data Vital Signs: Vital Signs Temp Pulse Resp BP Pulse Ox 99.1 F 136 H 27 H 114/55 L 92 02/14/21 06:00 02/14/21 06:00 02/14/21 06:00 02/14/21 06:00 02/14/21 06:00 Oxygen Flow Rate (L/min) 5 Oxygen Delivery Method Nasal Cannula Weight: 209 lb 10.554 oz Body Mass Index (BMI) 33.0 Intake & Output: Intake and Output for Last 24 Hours 02/12/21 02/13/21 02/14/21 23:59 23:59 23:59 Intake Total 2123.97 / 2466.97 2671.25 / 2671.25 287.38 / 287.38 Output Total 1100 / 1200 1500 / 1500 325 / 325 Balance 1023.97 / 1266.97 1171.25 / 1171.25 -37.62 / -37.62 Lab / Micro Data Result Diagrams: 02/14/21 05:05 02/14/21 05:05 Labs: Laboratory Results - last 24 hr 02/13/21 06:48: Blood Type Cancelled, Antibody Screen Cancelled, Crossmatch See Detail 02/13/21 06:48: Blood Type A POSITIVE, Antibody Screen NEGATIVE, Crossmatch See Detail 02/13/21 22:29: Random Vancomycin 22.6 H 02/14/21 05:05: WBC 15.4 H, RBC 3.30 L, Hgb 10.0 L, Hct 32.1 L, MCV 97.3, MCH 3 0.3, MCHC 31.2 L, RDW Std Deviation 57.2 H, RDW Coeff of Kenna 15.9 H, Plt Count 308, MPV 11.7, Neut % (Auto) Not Reportable, Absolute Neuts (auto) 10.5 H, Absolute Lymphs (auto) 2.93, Total Counted 100, Neutrophils % (Manual) 65, Band Neutrophils % 3, Lymphocytes % (Manual) 19, Monocytes % (Manual) 6, Eosinophils % (Manual) 1, Basophils % (Manual) 1, Metamyelocytes % 5 H, Diff Path Review November, Platelet Estimate ADEQUATE, RBC Morphology NORM C+C Micro: Microbiology 02/08/21 16:15 Blood Culture (Wb) - Left Hand Blood Culture - Final No growth in 5 days. 02/08/21 15:10 Blood Culture (Wb) - Central Line Blood Culture - Final No growth in 5 days. 02/11/21 08:00 Urine Catheter - Henry Urine Culture - Final Presumptive C albicans 02/12/21 08:15 Stool Stool Occult Blood (EDU) - Final 02/08/21 13:40 Mucosa - Nose Respiratory Panel (PCR) - Final 02/03/21 20:48 Blood Culture (Wb) - Left Wrist Blood Culture - Final No growth in 5 days. 02/03/21 18:15 Blood Culture (Wb) - Left Wrist Blood Culture - Final No growth in 5 days. 02/03/21 12:32 Urine Catheter - Henry Urine Culture - Final Culture exhibits no growth. 02/03/21 12:32 Urine Catheter - Henry Legionella Antigen - Final 02/03/21 12:32 Urine Catheter - Henry Streptococcus pneumoniae Antigen (M - Final 02/03/21 14:50 Mucosa - Nose SARS-CoV-2 Antigen (Rapid) - Final Physical Exam Narrative Physical Examination: General: Patient awake, more than day prior, answering some questions coherently, more garbled than day prior, NG tube still in place with tube feeds going. Skin: Normal color, normal turgor, no icterus, no cyanosis except occasional staged ecchymoses, recent left foot injury, mildly improved bilateral lower extremity swelling, hand swelling, ongoing staged ecchymoses and various wounds/abrasions. HEENT: AT/NC, EOMI, PERRLA, dry MM, NG tube in place, poor dentition. Lungs: Decreased, still mildly to moderately diminished, > at bases, no obvious evidence of any distress, no wheezing, rales or rhonchi. Heart: Continued mild tachycardia; no gallop, rub audible. Abdomen: Soft, obese, NTTP, ND but habitus makes examination difficult, distant bowel sounds. Extremities: No cyanosis, no clubbing, edema to bilateral hands and BL LE pedal to distal benjamin, see skin. Neurological: Patient awake, answering some questions coherently, following some commands, cognitive function significantly improved but vacillates, pupils equally reactive to light and accommodation, cranial nerves grossly normal, moving all 4 extremities, strength severely global decrease secondary to acute presentation. Psychiatric: Affect more interactive, interacting today but less coherent mumbling, underlying psychiatric history with schizophrenia. Assessment & Plan Assessment/Plan (1) Septic shock: (2) Pneumonia: QUALIFIERS: Laterality: unspecified laterality Lung location: unspecified part of lung Pneumonia type: due to unspecified organism Qualified Code(s): J18.9 - Pneumonia, unspecified organism PLAN: The patient is a 55 y/o F w/ PMHx: Schizophrenia/Anxiety and Depression, Obesity, Asthma, Hx L breast CA, Hx Monoclonal gammopathy IgM type, HTN, GERD, Unclear type of thyroid disease who presents to the [facility] ED on 02/03/21 with lethargy, multiple wounds, found down. 1. Acute Encephalopathy, Infectious/metabolic secondary to Acute Septic Shock with Acute Hypoxic Respiratory Failure secondary to Bilateral Pneumonia, possible Aspiration complicated by underlying Asthma: Patient with significant initial ED presentation with septic shock, admitted to the ICU and treated with broad-spectrum antibiotic therapy initially with IV Zosyn and vancomycin with eventual de-escalation off vancomycin (MRSA screen negative); however, following ID evaluation transitioned back on vancomycin and from zosyn to meropenem given unclear etiology organism, blood cultures initially obtained upon presentation negative, urine culture no growth, urine antigens negative, COVID negative, respiratory viral panel negative. Patient initially had clinical improvement w/ transition to PCU status 02/07/2021, however worsened and transitioned back to ICU 02/08/21. 02/03/2021 CT brain with no acute intracranial findings. 02/04/2021 echocardiogram with normal LV size, LV systolic function normal, EF 70%, stage I diastolic dysfunction. 02/06/2021 CTA chest with no evidence of PE, by lateral patchy airspace disease possibly atelectasis or developing pneumonia. Rapid Covid antigen negative, urine antigens negative. Requested respiratory viral panel. Repeat 02/08/2021 chest x-ray with progressive bibasilar infiltrates, worse on the left side. 02/09/21 pulse dose lasix 40 IV x 1 given +11L since although admission with 02/08/21 BNP 14.7. 02/08/21 procalcitonin 0.56. 02/10/2021 CBC with WC 22.6 with ongoing significant left shift. Repeat blood cultures also obtained 02/08/2021. 02/11/2021 MRI of the brain with no acute intracranial findings. ID evaluation performed with transition to vancomycin and meropenem. 02/11/2021 patient initiated on tube feeds with transition of IV regimen to oral options. 02/12/2021 evaluation per neurology with recommendation for repeat CK, ammonia, EEG, thiamine 5 mg IV daily x5 days as well as autoimmune encephalitis panel to be sent to [facility] which have all been ordered/requested. CK normal. NH normal. EEG requested, per discussion with staff will be performed 02/14/2021. Failed to 02/13/2021 ST evaluation, repeat evaluation today although do suspect continued n.p.o. status likely outcome. Issues as noted #2 with overnight transient tachycardia recurrence. Given BP improvement and still notably +L from admission, although weight down, will start scheduled lasix 40 mg daily. 2. Paroxysmal SVT: 02/04/2021 echocardiogram with normal LV size, LV systolic function normal, EF 70%, stage I diastolic dysfunction. Patient previously on amiodarone with oral transition and metoprolol edition per cardiology, consulted and following, held transiently following aspiration event w/ NPO status, transitioned 02/08/21 to IV amiodarone with PRN IV lopressor transiently. 02/04/2021 echocardiogram with normal LV size, LV systolic function normal, EF 70%, stage I diastolic dysfunction. 02/11/2021 NG tube placement for tube feeds, metoprolol and amiodarone oral regimen resumed; however, 02/14/2020 overnight significant recurrent events of paroxysmal SVT, restarted on amiodarone drip per night staff with ongoing metoprolol and amiodarone oral also. Will DC drip and attempt IV digoxin x1 now, continue oral amiodarone, increase oral beta-pedro luis therapy as BP currently improved with repeat cardiology evaluation pending for this afternoon. 3. Acute kidney injury: Secondary to acute presentation #1, baseline creatinine 0.9-1, creatinine up to 1.61 during the admission initially trending downward however now trending upward, suspected secondary to contrast-induced nephropathy. 02/14/2021 BUN/creatinine 45/1.14. 4. Acute anemia, normocytic: Admission hemoglobin 12, has trended downward, 02/08/2021 hemoglobin 8.6, suspected delusional given aggressive hydration with acute septic shock presentation requiring significant hydration, 02/13/21 Hgb 7.5, although no obvious evidence of any bleeding. Stool guaiac negative, iron 20, TIBC 96, iron saturation 20.8, ferritin 2692 consistent with AOCD/inf lammation, vitamin B-12 269, folic acid 25.30. 02/13/21 1 u PRBC administration with lasix 40 mg IV x 1 concurrently-->02/14/2021 hemoglobin 10. 5. Acute thrombocytopenia, suspected secondary to acute sepsis syndrome as noted above: During the admission platelets did decrease 02/06/2021 down to 116, since resolved, 02/14/2021 platelets 308. 6. Multiple wounds, failure to thrive in adult w/ mild Acute rhabdomyolysis: Admission TCK minimally elevated 260, found down on the floor, incontinent. Ruthie ent also with noted wounds. Patient as noted hydrated aggressively. Wound care consulted, encourage frequent positional changes, given presentation concerns for return to home, barrier agents as needed and scheduled per nursing protocol. Wounds do not appear infected. 02/12/21 repeat TCK 28, normalized. 7. History of breast cancer, left and Monoclonal gammopathy IgM type: Patient following w/ Dr. Ball, diagnosed with monoclonal gammopathy IgM type in 2013 with subsequent to diagnosis of invasive ductal carcinoma of the left breast stage III in March 2014 with ER/LA positive, HER-2 negative by FISH with chemotherapy and unfortunate then lost to follow-up with later 4 cycles of additional chemotherapy with deferral by patient at that time of avoidance of lumpectomy or radiation and transition to tamoxifen. Will restart tamoxifen once given ST allowance of medications if patient able. 8. Obesity: Weight loss and lifestyle changes encouraged. 9. Schizophrenia, unclear type: Currently holding patient medications given n.p.o. status. 10. Reported Thyroid disease, unclear type: Given acute illness not best timeline for testing; however, given FTT adult and poor self care, obtained, TSH 5.36; however, FT4 normal range 0.82, monitor with repeat testing following discharge given acute illness presentation. 11. DVT prophylaxis: SCDs, Lovenox. 12. CODE STATUS: Full code. Charges/Coding Visit Charges Inpatient E&M: 64036 Subs Hosp L3
[2021-02-14] MEDS: 0.9% Saline Lock 10 ML Syringe IV ×2 (06:52→08:57)
[2021-02-14 07:06] LABS: ALB/GLOB Ratio 0.3 RATIO (0.9-2.4); AST(SGOT) 29 U/L (15-37); Alanine Aminotransfer ALT/SGPT 22 U/L (13-56); Albumin, Serum 1.5 g/dL (3.2-5.0); Alkaline Phosphatase 60 U/L (45-117); Anion Gap 4 (5-15); BUN 45 mg/dL (7-18); BUN/Creat Ratio 39.5 RATIO (10-20); Calcium,Total 8.1 mg/dL (8.5-10.1); Chloride 114 mmol/L (98-107); Creatinine, Serum 1.14 mg/dL (0.55-1.02); EST Glomerular Filtration Rate 52 mL/min (>60); Est Glom Filt Rate - Afr Amer 63 mL/min (>60); Estimated Creatinine Clearance 51.58 ml/min; Globulin 4.7 g/dL (2.2-4.2); Glucose 130 mg/dL (74-106); Potassium 3.4 mmol/L (3.5-5.1); Protein, Total 6.2 g/dL (6.4-8.2); Sodium Level 148 mmol/L (136-145)
[2021-02-14] MEDS: Ipratropium/Albuterol Sulfate 3 ML AMPUL.NEB INHALATION ×3 (07:19→19:26)
--- NOTE | 2021-02-14 08:09 | PN.CC_ITS ---
Assessment & Plan Assessment/Plan (1) Acute hypoxemic respiratory failure: PLAN: RECOMMENDATIONS: 1. Continue BiPAP, at a minimum with naps and nightly. 2. Wean supplemental oxygen to maintain saturations at or above 90%. 3. Consider gentle diuresis if tolerated by hemodynamics and renal function. 4. Patient to remain n.p.o. pending further speech therapy evaluation. 5. Continue antimicrobials per ID recommendations. 6. Rate control strategy per cardiology recommendations. 7. Continue tube feeds per NG tube until diet can be advanced by speech therapy. IMPRESSIONS: 1. Acute hypoxemic respiratory failure Clinical concern for aspiration pneumonia as precipitating etiology. The patient has been compliant with the use of BiPAP therapy with naps and while sleeping, which I would recommend be continued. In the interim, plan to continue to wean supplemental oxygen to maintain saturations at or above 90%. Continue antimicrobials per ID recommendations. The patient is to remain n.p.o. pending further evaluation by speech therapy. Avoid sedating medication use. The patient is also up from a volume perspective and would benefit from continued gentle diuresis. Nasal cannula oxygen delivery is somewhat limited given need for NG 2. Septic shock Improved. Likely secondary to aspiration pneumonia. The patient is currently on appropriate antimicrobial therapy. She remains hemodynamically stable. Wound care is following. 3. Metabolic encephalopathy Deteriorated. Likely related to acute infectious etiology and possible polypharmacy in the setting of renal insufficiency. As noted above, I would recommend that all sedating medications be withheld. Continue to address underlying infection with antimicrobials as ordered. Arterial blood gases within normal limits. MRI brain was unremarkable. Neurology consult has recommended some work-up including EEG. 4. A. fib with RVR Continue current medical management with beta-blockade as tolerated. Cardiology has been consulted in the past 5. History of breast CA/MGUS/schizophrenia/obesity Complicates care, management, recovery and prognosis. Hold home sedating medications, pending improvement in mentation. This note was generated with [employer] dictation software. It may contain incorrect words, spelling, and punctuation that were not noted in checking the note before signing. Subjective Subjective Patient with significant issues overnight. Patient did spike a low-grade fever that led to A. fib with RVR. Patient was placed back on IV amiodarone. Patient's mental status was marginal this morning. Patient did grunt and mumble responses, but not interactive. Patient was protecting her airway. Objective Data Objective Data Vital Signs: Vital Signs Temp Pulse Resp BP Pulse Ox 37.2 C 94 24 H 117/67 93 02/14/21 07:00 02/14/21 07:22 02/14/21 07:22 02/14/21 07:00 02/14/21 07:22 Oxygen Flow Rate (L/min) 5 Oxygen Delivery Method Nasal Cannula Weight: 94.5 kg Body Mass Index (BMI) 33.0 Intake & Output: Intake and Output for Last 24 Hours 02/12/21 02/13/21 02/14/21 23:59 23:59 23:59 Intake Total 2123.97 / 2466.97 2671.25 / 2671.25 320.69 / 320.69 Output Total 1100 / 1200 1500 / 1500 325 / 325 Balance 1023.97 / 1266.97 1171.25 / 1171.25 -4.31 / -4.31 Lab / Micro Data Result Diagrams: 02/14/21 05:05 02/14/21 05:05 Labs: Laboratory Results - last 24 hr 02/13/21 06:48: Blood Type A POSITIVE, Antibody Screen NEGATIVE, Crossmatch See Detail 02/13/21 22:29: Random Vancomycin 22.6 H 02/14/21 05:05: WBC 15.4 H, RBC 3.30 L, Hgb 10.0 L, Hct 32.1 L, MCV 97.3, MCH 30.3, MCHC 31.2 L, RDW Std Deviation 57.2 H, RDW Coeff of Kenna 15.9 H, Plt Count 308, MPV 11.7, Neut % (Auto) Not Reportable, Absolute Neuts (auto) 10.5 H, Absolute Lymphs (auto) 2.93, Total Counted 100, Neutrophils % (Manual) 65, Band Neutrophils % 3, Lymphocytes % (Manual) 19, Monocytes % (Manual) 6, Eosinophils % (Manual) 1, Basophils % (Manual) 1, Metamyelocytes % 5 H, Diff Path Review May , Platelet Estimate ADEQUATE, RBC Morphology NORM C+C 02/14/21 05:05: Sodium 148 H, Potassium 3.4 L, Chloride 114 H, Carbon Dioxide 30.0, Anion Gap 4 L, BUN 45 H, Creatinine 1.14 H, Estim Creat Clear Calc 51.58, Est GFR (MDRD) Af Amer 63, Est GFR (MDRD) Non-Af 52 L, BUN/Creatinine Ratio 39.5 H, Glucose 130 H, Calcium 8.1 L, Total Bilirubin 0.20, AST 29, ALT 22, Alkaline Phosphatase 60, Total Protein 6.2 L, Albumin 1.5 L, Globulin 4.7 H, Alb umin/Globulin Ratio 0.3 L Micro: Microbiology 02/08/21 16:15 Blood Culture (Wb) - Left Hand Blood Culture - Final No growth in 5 days. 02/08/21 15:10 Blood Culture (Wb) - Central Line Blood Culture - Final No growth in 5 days. 02/11/21 08:00 Urine Catheter - Henry Urine Culture - Final Presumptive C albicans 02/12/21 08:15 Stool Stool Occult Blood (EDU) - Final 02/08/21 13:40 Mucosa - Nose Respiratory Panel (PCR) - Final 02/03/21 20:48 Blood Culture (Wb) - Left Wrist Blood Culture - Final No growth in 5 days. 02/03/21 18:15 Blood Culture (Wb) - Left Wrist Blood Culture - Final No growth in 5 days. 02/03/21 12:32 Urine Catheter - Henry Urine Culture - Final Culture exhibits no growth. 02/03/21 12:32 Urine Catheter - Henry Legionella Antigen - Final 02/03/21 12:32 Urine Catheter - Henry Streptococcus pneumoniae Antigen (M - Final 02/03/21 14:50 Mucosa - Nose SARS-CoV-2 Antigen (Rapid) - Final Physical Exam Const Constitutional Narrative: The patient is somnolent. Arouses to voice General Appearance: cooperative, disheveled and lethargic; Negative for well kempt Eyes Sclera: sclera abnormal Positive for bilateral Details: scleral injection Neck full ROM and no lymphadenopathy Chest inspection of chest normal Resp normal respiratory effort and no use of accessory muscles Auscultation: clear to auscultation bilaterally Percussion: Negative for dullness Cardio no murmurs, no rub and no gallops Cardio Narrative: A. fib on telemetry Rate: tachycardic Rhythm: abnormal rhythm irregularly irregular no CVA tenderness Extremity no clubbing, cyanosis or edema Extremity Narrative: Wrapped lower extremities Psych cooperative Appearance: unkempt Attitude: uncooperative Charges/Coding Visit Charges Inpatient E&M: 79586 Subs Hosp L3
[2021-02-14] MEDS: Furosemide 40 MG/4 ML Vial IV (08:56)
[2021-02-14] MEDS: Digoxin 250 MCG/ML Ampul IV (10:05)
[2021-02-14] MEDS: Vital AF 1.2 Cal Liquid 1,000 ML 60 ML GT (10:49)
[2021-02-14] MEDS: Juven (unflavored) Packet 1 PACKET NG ×2 (10:52→15:40)
[2021-02-14] MEDS: Enoxaparin 40 MG/0.4 ML Syringe SC (10:53)
[2021-02-14] MEDS: Nystatin Powder 15gm Bottle 1 APPLIC TOPICAL ×2 (10:53→21:27)
[2021-02-14] MEDS: Amiodarone 200 MG Tablet NG ×2 (10:53→21:38)
[2021-02-14] MEDS: Tamoxifen 10 MG Tablet 20 MG NG (10:55)
[2021-02-14] MEDS: Famotidine 200 MG/20 ML MDV 20 MG in 0.9% Normal Saline (Pres. free 8 ML 330 MG IV ×2 (11:10→21:26)
[2021-02-14] MEDS: Metoprolol Tartrate 50 MG Tablet NG ×2 (13:36→21:38)
--- NOTE | 2021-02-14 17:12 | PN.CARD_ITS ---
Subjective Subjective Patient denies any cardiac complaints. Overnight she spiked a fever and her heart rate also went up. She appears to have gone into an SVT. She was given a dose of IV digoxin and was briefly on IV amiodarone in addition to the p.o. Her beta-pedro luis was also increased. She has converted to a sinus rhythm and is currently in normal sinus rhythm. Objective Data Vital Signs: Vital Signs Temp Pulse Resp BP Pulse Ox 99.1 F 91 30 H 140/65 H 91 02/14/21 17:00 02/14/21 17:00 02/14/21 17:00 02/14/21 17:00 02/14/21 17:00 Oxygen Flow Rate (L/min) 3 Oxygen Delivery Method Nasal Cannula Weight: 208 lb 5.389 oz Body Mass Index (BMI) 33.0 Intake & Output: Intake and Output for Last 24 Hours 02/12/21 02/13/21 02/14/21 23:59 23:59 23:59 Intake Total 2123.97 / 2466.97 2671.25 / 2671.25 1377.48 / 1377.48 Output Total 1100 / 1200 1500 / 1500 875 / 875 Balance 1023.97 / 1266.97 1171.25 / 1171.25 502.48 / 502.48 Lab / Micro Data Result Diagrams: 02/14/21 05:05 02/14/21 05:05 Labs: Laboratory Results - last 24 hr 02/13/21 22:29: Random Vancomycin 22.6 H 02/14/21 05:05: WBC 15.4 H, RBC 3.30 L, Hgb 10.0 L, Hct 32.1 L, MCV 97.3, MCH 30.3, MCHC 31.2 L, RDW Std Deviation 57.2 H, RDW Coeff of Kenna 15.9 H, Plt Count 308, MPV 11.7, Neut % (Auto) Not Reportable, Absolute Neuts (auto) 10.5 H, Absolute Lymphs (auto) 2.93, Total Counted 100, Neutrophils % (Manual) 65, Band Neutrophils % 3, Lymphocytes % (Manual) 19, Monocytes % (Manual) 6, Eosinophils % (Manual) 1, Basophils % (Manual) 1, Metamyelocytes % 5 H, Diff Path Review May , Platelet Estimate ADEQUATE, RBC Morphology NORM C+C 02/14/21 05:05: Sodium 148 H, Potassium 3.4 L, Chloride 114 H, Carbon Dioxide 30.0, Anion Gap 4 L, BUN 45 H, Creatinine 1.14 H, Estim Creat Clear Calc 51.58, Est GFR (MDRD) Af Amer 63, Est GFR (MDRD) Non-Af 52 L, BUN/Creatinine Ratio 39.5 H, Glucose 130 H, Calcium 8.1 L, Total Bilirubin 0.20, AST 29, ALT 22, Alkaline Phosphatase 60, Total Protein 6.2 L, Albumin 1.5 L, Globulin 4.7 H, Albumin/Globulin Ratio 0.3 L Micro: Microbiology 02/11/21 11:00 Blood Culture (Wb) - Other Blood Culture - Preliminary No growth in 48 hours. 02/11/21 11:15 Blood Culture (Wb) - Left Forearm Blood Culture - Preliminary No growth in 48 hours. 02/08/21 16:15 Blood Culture (Wb) - Left Hand Blood Culture - Final No growth in 5 days. 02/08/21 15:10 Blood Culture (Wb) - Central Line Blood Culture - Final No growth in 5 days. 02/11/21 08:00 Urine Catheter - Henry Urine Culture - Final Presumptive C albicans Cardiology Labs/Tests 02/14/21 05:05: WBC 15.4 H, RBC 3.30 L, Hgb 10.0 L, Hct 32.1 L, MCV 97.3, MCH 30.3, MCHC 31.2 L, Plt Count 308, MPV 11.7, Neut % (Auto) Not Reportable, Absolute Neuts (auto) 10.5 H, Total Counted 100, Neutrophils % (Manual) 65, Band Neutrophils % 3, Lymphocytes % (Manual) 19, Monocytes % (Manual) 6, Eosinophils % (Manual) 1, Basophils % (Manual) 1, Metamyelocytes % 5 H 02/14/21 05:05: Sodium 148 H, Potassium 3.4 L, Chloride 114 H, Carbon Dioxide 30.0, Anion Gap 4 L, BUN 45 H, Creatinine 1.14 H, Est GFR (MDRD) Af Amer 63, Est GFR (MDRD) Non-Af 52 L, BUN/Creatinine Ratio 39.5 H, Glucose 130 H, Calcium 8.1 L, Total Bilirubin 0.20 Rhythm: EKG: ECHO: Stress Test: Cardiac Cath: PCI: CT Surgery: Holter monitor: EPS: PPM: CXR: Chest CT Scan: Physical Exam Const Orientation / Consciousness: awake HEENT normocephalic Eyes no scleral icterus Resp normal respiratory effort Cardio regular rate Assessment & Plan Assessment/Plan (1) SVT (supraventricular tachycardia): PLAN: Paroxysmal supraventricular tachyarrhythmia. Overnight she had an episode and as mentioned in the HPI she was given IV amiodarone briefly, 1 dose of IV digoxin and her beta-pedro luis was increased. She converted to normal sinus rhythm and is currently in sinus rhythm. Continue p.o. amiodarone and beta- pedro luis at current dose.
[2021-02-15] VITALS (24 sets, daily range): BP systolic 118–146; BP diastolic 54–83; PULSE 84–135; RESP 12–34; TEMP 36.2–37.7; O2SAT 91–97
[2021-02-15 05:25] LABS: Hematocrit 30.6 % (37-47); Hemoglobin 9.2 g/dL (12.0-15.0); Mean Corp Hgb Conc 30.1 g/dL (32-36); Mean Corpuscular Hgb 29.8 pg (27.0-32.0); Mean Platelet Vol. 11.2 fl (6.2-12.0); POSITIVE COUNT YES; POSITIVE MORPHOLOGY YES; Platelet Count 264 K/mm3 (150-450); RBC Distribution Width CV 15.6 % (11.6-14.6); RBC Distribution Width SD 56.5 fl (35.1-43.9); Red Blood Count 3.09 M/mm3 (4.2-5.4); White Blood Count 15.2 K/mm3 (4.4-11.0)
[2021-02-15 05:26] LABS: Differential Indicated MANUAL DIFF
[2021-02-15 05:41] LABS: ALB/GLOB Ratio 0.4 RATIO (0.9-2.4); AST(SGOT) 28 U/L (15-37); Alanine Aminotransfer ALT/SGPT 22 U/L (13-56); Albumin, Serum 1.6 g/dL (3.2-5.0); Alkaline Phosphatase 54 U/L (45-117); Anion Gap 4 (5-15); BUN 54 mg/dL (7-18); Calcium,Total 7.6 mg/dL (8.5-10.1); Chloride 113 mmol/L (98-107); Creatinine, Serum 1.08 mg/dL (0.55-1.02); EST Glomerular Filtration Rate 56 mL/min (>60); Est Glom Filt Rate - Afr Amer 67 mL/min (>60); Estimated Creatinine Clearance 54.45 ml/min; Globulin 4.4 g/dL (2.2-4.2); Glucose 143 mg/dL (74-106); Potassium 3.2 mmol/L (3.5-5.1); Sodium Level 149 mmol/L (136-145)
[2021-02-15 05:46] LABS: Vancomycin, Random Level 11.1 ug/mL (0.0-15.0)
[2021-02-15 06:06] LABS: Metamyelocyte 7 % (0-1); Neutrophil-Band 2 % (0-5); Neutrophil-Segmented 67 % (47-70); Total Cells Counted 100 (MANUAL DIFF)
[2021-02-15 06:07] LABS: Absolute Neutrophil Count 10.5 X10^3/uL (2.0-7.7); Lymphocyte 18 % (19-41); Monocyte 6 % (0-10); Platelet Estimate ADEQUATE (ADEQ); Red Cell Morphology NORM C+C NORMAL (NORM C&C)
[2021-02-15] MEDS: Ipratropium/Albuterol Sulfate 3 ML AMPUL.NEB INHALATION ×3 (07:08→23:13)
--- NOTE | 2021-02-15 07:37 | PCM.PN.INT ---
Assessment & Plan Assessment/Plan (1) Acute hypoxemic respiratory failure: PLAN: RECOMMENDATIONS: 1. Resume BiPAP, at a minimum with naps and nightly once NG removed. 2. Wean supplemental oxygen to maintain saturations at or above 90%. 3. Consider gentle diuresis if tolerated by hemodynamics and renal function. Aggressive potassium repletion ordered 4. Patient to remain n.p.o. pending further speech therapy evaluation. 5. Continue antimicrobials per ID recommendations. 6. Appreciate cardiology recommendations. 7. Continue tube feeds per NG tube until diet can be advanced by speech therapy. IMPRESSIONS: 1. Acute hypoxemic respiratory failure Clinical concern for aspiration pneumonia as precipitating etiology. The patient has been compliant with the use of BiPAP therapy with naps and while sleeping, which I would recommend be continued once NG removed. In the interim, plan to continue to wean supplemental oxygen to maintain saturations at or above 90%. Continue antimicrobials per ID recommendations. The patient is to remain n.p.o. pending further evaluation by speech therapy. Avoid sedating medication use. The patient is also up from a volume perspective and would benefit from continued gentle diuresis. Potassium will be repleted. Nasal cannula oxygen delivery is somewhat limited given need for NG 2. Septic shock Improved. Likely secondary to aspiration pneumonia. The patient is currently on appropriate antimicrobial therapy. She remains hemodynamically stable. Wound care is following. 3. Metabolic/toxic encephalopathy Slightly improved. Likely related to acute infectious etiology and possible polypharmacy in the setting of renal insufficiency. As noted above, I would recommend that all sedating medications be withheld. Continue to address underlying infection with antimicrobials as ordered. Arterial blood gases within normal limits. MRI brain was unremarkable. EEG showed no epileptiform activity 4. A. fib with RVR Result. Continue current medical management with beta-blockade as tolerated. Appreciate cardiology input 5. History of breast CA/MGUS/schizophrenia/obesity Complicates care, management, recovery and prognosis. Hold home sedating medications, pending improvement in mentation. This note was generated with Dianping dictation software. It may contain incorrect words, spelling, and punctuation that were not noted in checking the note before signing. Subjective Subjective Patient is more interactive today compared to yesterday. Patient is not aware of her location, but denies any pain or shortness of breath. Patient does report some discomfort from the NG, but is tolerating it relatively well. Objective Data Objective Data Review of telemetry shows patient has reverted to normal sinus rhythm. EEG results were reviewed and are suggestive of toxic encephalopathy without seizure activity. Vital Signs: Vital Signs Temp Pulse Resp BP Pulse Ox 37.0 C 127 H 27 H 145/64 H 93 02/15/21 06:00 02/15/21 07:09 02/15/21 07:09 02/15/21 06:00 02/15/21 07:09 Oxygen Flow Rate (L/min) 3 Oxygen Delivery Method Nasal Cannula Weight: 95.2 kg Body Mass Index (BMI) 33.0 Intake & Output: Intake and Output for Last 24 Hours 02/13/21 02/14/21 02/15/21 23:59 23:59 23:59 Intake Total 2671.25 / 2671.25 2052.48 / 2587.48 1122.25 / 1122.25 Output Total 1500 / 1500 1425 / 1675 575 / 575 Balance 1171.25 / 1171.25 627.48 / 912.48 547.25 / 547.25 Lab / Micro Data Result Diagrams: 02/15/21 05:15 02/15/21 05:15 Labs: Laboratory Results - last 24 hr 02/15/21 05:15: WBC 15.2 H, RBC 3.09 L, Hgb 9.2 L, Hct 30.6 L, MCV 99.0, MCH 29.8, MCHC 30.1 L, RDW Std Deviation 56.5 H, RDW Coeff of Kenna 15.6 H, Plt Count 264, MPV 11.2, Neut % (Auto) Not Reportable, Absolute Neuts (auto) 10.5 H, Absolute Lymphs (auto) 2.70, Total Counted 100, Neutrophils % (Manual) 67, Band Neutrophils % 2, Lymphocytes % (Manual) 18 L, Monocytes % (Manual) 6, Metamyelocytes % 7 H, Diff Path Review May , Platelet Estimate ADEQUATE, RBC Morphology NORM C+C 02/15/21 05:15: Sodium 149 H, Potassium 3.2 L, Chloride 113 H, Carbon Dioxide 32.0, Anion Gap 4 L, BUN 54 H, Creatinine 1.08 H, Estim Creat Clear Calc 54.45, Est GFR (MDRD) Af Amer 67, Est GFR (MDRD) Non-Af 56 L, BUN/Creatinine Ratio 50.0 H, Glucose 143 H, Calcium 7.6 L, Total Bilirubin 0.20, AST 28, ALT 22, Alkaline Phosphatase 54, Total Protein 6.0 L, Albumin 1.6 L, Globulin 4.4 H, Albumin/Globulin Ratio 0.4 L 02/15/21 05:15: Random Vancomycin 11.1 Micro: Microbiology 02/11/21 11:00 Blood Culture (Wb) - Other Blood Culture - Preliminary No growth in 48 hours. 02/11/21 11:15 Blood Culture (Wb) - Left Forearm Blood Culture - Preliminary No growth in 48 hours. 02/08/21 16:15 Blood Culture (Wb) - Left Hand Blood Culture - Final No growth in 5 days. 02/08/21 15:10 Blood Culture (Wb) - Central Line Blood Culture - Final No growth in 5 days. 02/11/21 08:00 Urine Catheter - Henry Urine Culture - Final Presumptive C albicans 02/12/21 08:15 Stool Stool Occult Blood (EDU) - Final 02/08/21 13:40 Mucosa - Nose Respiratory Panel (PCR) - Final 02/03/21 20:48 Blood Culture (Wb) - Left Wrist Blood Culture - Final No growth in 5 days. 02/03/21 18:15 Blood Culture (Wb) - Left Wrist Blood Culture - Final No growth in 5 days. 02/03/21 12:32 Urine Catheter - Henry Urine Culture - Final Culture exhibits no growth. 02/03/21 12:32 Urine Catheter - Henry Legionella Antigen - Final 02/03/21 12:32 Urine Catheter - Henry Streptococcus pneumoniae Antigen (M - Final 02/03/21 14:50 Mucosa - Nose SARS-CoV-2 Antigen (Rapid) - Final Physical Exam Const Constitutional Narrative: The patient is more interactive today. Arouses to voice General Appearance: cooperative, disheveled and lethargic; Negative for well kempt Eyes Sclera: sclera abnormal Positive for bilateral Details: scleral injection Neck full ROM and no lymphadenopathy Chest inspection of chest normal Resp normal respiratory effort and no use of accessory muscles Effort and Inspection: able to speak in complete sentences Auscultation: clear to auscultation bilaterally Percussion: Negative for dullness Cardio no murmurs, no rub and no gallops Cardio Narrative: NSR on telemetry Rate: tachycardic Rhythm: abnormal rhythm irregularly irregular no CVA tenderness Extremity no clubbing, cyanosis or edema Extremity Narrative: Wrapped lower extremities Skin Skin Narrative: Dressings in place. Multiple lesions noted including superficial ulcers, areas of ecchymosis and granulation tissue (all dressed). Lesions on the knee, right shoulder and bilateral feet were noted. See nursing documentation for specific details Psych cooperative Appearance: unkempt Attitude: uncooperative Charges/Coding Visit Charges Inpatient E&M: 74621 [facility] Hosp L3
--- NOTE | 2021-02-15 07:44 | PCM.RX.CS ---
Consult Pharmacy has been consulted to manage selected antiobiotic: Vancomycin Type of Consult: Follow-up Suspected Infection: Pneumonia Prior Doses of Antibiotics Received/Current Regimen: 1gm iv q12h. Labs: Sodium 149 mmol/L (136-145) H 02/15/21 05:15 Potassium 3.2 mmol/L (3.5-5.1) L 02/15/21 05:15 Chloride 113 mmol/L (98-107) H 02/15/21 05:15 Carbon Dioxide 32.0 mmol/L (21.0-32.0) 02/15/21 05:15 Anion Gap 4 (5-15) L 02/15/21 05:15 BUN 54 mg/dL (7-18) H 02/15/21 05:15 Creatinine 1.08 mg/dL (0.55-1.02) H 02/15/21 05:15 Est GFR (MDRD) Af Amer 67 mL/min (>60) 02/15/21 05:15 Est GFR (MDRD) Non-Af 56 mL/min (>60) L 02/15/21 05:15 BUN/Creatinine Ratio 50.0 RATIO (10-20) H 02/15/21 05:15 Glucose 143 mg/dL (74-106) H 02/15/21 05:15 Vancomycin Trough 31.7 ug/mL (5.0-15.0) H 02/12/21 22:30 Random Vancomycin 11.1 ug/mL (0.0-15.0) 02/15/21 05:15 Microbiology: Microbiology 02/11/21 11:00 Blood Culture (Wb) - Other Blood Culture - Preliminary No growth in 48 hours. 02/11/21 11:15 Blood Culture (Wb) - Left Forearm Blood Culture - Preliminary No growth in 48 hours. 02/08/21 16:15 Blood Culture (Wb) - Left Hand Blood Culture - Final No growth in 5 days. 02/08/21 15:10 Blood Culture (Wb) - Central Line Blood Culture - Final No growth in 5 days. 02/11/21 08:00 Urine Catheter - Henry Urine Culture - Final Presumptive C albicans 02/12/21 08:15 Stool Stool Occult Blood (EDU) - Final 02/08/21 13:40 Mucosa - Nose Respiratory Panel (PCR) - Final 02/03/21 20:48 Blood Culture (Wb) - Left Wrist Blood Culture - Final No growth in 5 days. 02/03/21 18:15 Blood Culture (Wb) - Left Wrist Blood Culture - Final No growth in 5 days. 02/03/21 12:32 Urine Catheter - Henry Urine Culture - Final Culture exhibits no growth. 02/03/21 12:32 Urine Catheter - Henry Legionella Antigen - Final 02/03/21 12:32 Urine Catheter - Henry Streptococcus pneumoniae Antigen (M - Final 02/03/21 14:50 Mucosa - Nose SARS-CoV-2 Antigen (Rapid) - Final Weight used for dosin kg Estimated Creatinine Clearance: 54ml/min Goal Trough: 15-20 mcg/mL Pharmacy Plan for Drug Dosing: Today's random level (55 hrs post last dose) was 11.1. Previous level was 22.6. Renal function about same. Will decrease dose to 750mg iv q12h. A trough level is ordered for 7.20.21 before 4th dose of new regimen. Pharmacy Service will continue to monitor and adjust dosing as required. Follow-Up Labs: Trough Vancomycin - 7.20.21 @2130 before 2200 dose
--- NOTE | 2021-02-15 08:38 | PN.CARD_ITS ---
Subjective Subjective Patient seen and evaluated. Objective Data Vital Signs: Vital Signs Temp Pulse Resp BP Pulse Ox 98.6 F 127 H 27 H 145/64 H 93 02/15/21 06:00 02/15/21 07:09 02/15/21 07:09 02/15/21 06:00 02/15/21 07:09 Oxygen Flow Rate (L/min) 3 Oxygen Delivery Method Nasal Cannula Weight: 209 lb 14.081 oz Body Mass Index (BMI) 33.0 Intake & Output: Intake and Output for Last 24 Hours 02/13/21 02/14/21 02/15/21 23:59 23:59 23:59 Intake Total 2671.25 / 2671.25 2052.48 / 2587.48 1122.25 / 1122.25 Output Total 1500 / 1500 1425 / 1675 575 / 575 Balance 1171.25 / 1171.25 627.48 / 912.48 547.25 / 547.25 Lab / Micro Data Result Diagrams: 02/15/21 05:15 02/15/21 05:15 Labs: Laboratory Results - last 24 hr 02/15/21 05:15: WBC 15.2 H, RBC 3.09 L, Hgb 9.2 L, Hct 30.6 L, MCV 99.0, MCH 29.8, MCHC 30.1 L, RDW Std Deviation 56.5 H, RDW Coeff of Kenna 15.6 H, Plt Count 264, MPV 11.2, Neut % (Auto) Not Reportable, Absolute Neuts (auto) 10.5 H, Absolute Lymphs (auto) 2.70, Total Counted 100, Neutrophils % (Manual) 67, Band Neutrophils % 2, Lymphocytes % (Manual) 18 L, Monocytes % (Manual) 6, Metamyelocytes % 7 H, Diff Path Review November, Platelet Estimate ADEQUATE, RBC Morphology NORM C+C 02/15/21 05:15: Sodium 149 H, Potassium 3.2 L, Chloride 113 H, Carbon Dioxide 32.0, Anion Gap 4 L, BUN 54 H, Creatinine 1.08 H, Estim Creat Clear Calc 54.45, Est GFR (MDRD) Af Amer 67, Est GFR (MDRD) Non-Af 56 L, BUN/Creatinine Ratio 50.0 H, Glucose 143 H, Calcium 7.6 L, Total Bilirubin 0.20, AST 28, ALT 22, Alkaline Phosphatase 54, Total Protein 6.0 L, Albumin 1.6 L, Globulin 4.4 H, Albu min/Globulin Ratio 0.4 L 02/15/21 05:15: Random Vancomycin 11.1 Micro: Microbiology 02/11/21 11:00 Blood Culture (Wb) - Other Blood Culture - Preliminary No growth in 48 hours. 02/11/21 11:15 Blood Culture (Wb) - Left Forearm Blood Culture - Preliminary No growth in 48 hours. Cardiology Labs/Tests 02/15/21 05:15: WBC 15.2 H, RBC 3.09 L, Hgb 9.2 L, Hct 30.6 L, MCV 99.0, MCH 29.8, MCHC 30.1 L, Plt Count 264, MPV 11.2, Neut % (Auto) Not Reportable, Absolute Neuts (auto) 10.5 H, Total Counted 100, Neutrophils % (Manual) 67, Band Neutrophils % 2, Lymphocytes % (Manual) 18 L, Monocytes % (Manual) 6, Metamyelocytes % 7 H 02/15/21 05:15: Sodium 149 H, Potassium 3.2 L, Chloride 113 H, Carbon Dioxide 32.0, Anion Gap 4 L, BUN 54 H, Creatinine 1.08 H, Est GFR (MDRD) Af Amer 67, Est GFR (MDRD) Non-Af 56 L, BUN/Creatinine Ratio 50.0 H, Glucose 143 H, Calcium 7.6 L, Total Bilirubin 0.20 Rhythm: EKG: ECHO: Stress Test: Cardiac Cath: PCI: CT Surgery: Holter monitor: EPS: PPM: CXR: Chest CT Scan: Physical Exam Const oriented x3 and healthy appearing Orientation / Consciousness: awake HEENT normocephalic Eyes PERRL and conjunctivae normal Neck supple, no JVD and no carotid bruits Chest inspection of chest normal Resp normal respiratory effort and clear to auscultation bilaterally Cardio Palpation: normal PMI Rate: regular rate Rhythm: regular rhythm Heart Sounds: S1 normal and S2 normal Peripheral Pulses: pulses 2+ throughout GI normal to inspection, nondistended, normoactive bowel sounds Extremity normal to inspection and no clubbing, cyanosis or edema Psych mental status grossly normal Assessment & Plan Assessment/Plan (1) SVT (supraventricular tachycardia): PLAN: Paroxysmal supraventricular tachyarrhythmia. She has continued to have intermittent paroxysms of supraventricular tachyarrhythmia. She does have preserved left ventricular systolic function. She has been transitioned from IV amiodarone to p.o. amiodarone * Would also continue the p.o. beta-pedro luis as we are doing. * Recommend increasing the dose of the metoprolol to 100 mg twice a day and continue to observe. * * Thank you for allowing me to participate in the care of your patient. Please don't hesitate to call if any issues arise.
[2021-02-15] MEDS: 0.9% Saline Lock 10 ML Syringe IV ×2 (09:39→22:17)
[2021-02-15] MEDS: Furosemide 40 MG Tablet PO (09:40)
[2021-02-15] MEDS: Enoxaparin 40 MG/0.4 ML Syringe SC (09:41)
[2021-02-15] MEDS: Juven (unflavored) Packet 1 PACKET NG ×2 (09:41→16:45)
[2021-02-15] MEDS: Nystatin Powder 15gm Bottle 1 APPLIC TOPICAL ×2 (09:42→22:26)
[2021-02-15] MEDS: Amiodarone 200 MG Tablet NG ×2 (09:42→18:03)
[2021-02-15] MEDS: Tamoxifen 10 MG Tablet 20 MG NG (09:43)
[2021-02-15] MEDS: Metoprolol Tartrate 100 MG Tablet NG ×2 (09:47→19:49)
[2021-02-15] MEDS: Potassium Chloride Oral Soln 20 MEQ/15 ML UDC 40 MEQ NG (09:47)
[2021-02-15] MEDS: Famotidine 200 MG/20 ML MDV 20 MG in 0.9% Normal Saline (Pres. free 8 ML 330 MG IV ×2 (10:12→22:15)
--- NOTE | 2021-02-15 11:30 | CASEMGMT ---
Addendum entered by Magy Calvin 02/15/21 11:46: Oliver called this SW back. Oliver states pt normally pays her own bills, he takes her to pay her bills. Oliver states he also called pt's sister and left her a message. If guardianship is needed, he may be able to assist. He states he also may be able to assist pt's sister with accessing pt's apartment and paying bills. Oliver inquired if pt can sign a check, SW explained that pt has not been alert and oriented but will go in to see pt to assess how she is today. Oliver will speak to pt's sister when she returns call. He also asked if pt got a Haldol injection while here, SW is unsure, can ask physician. As per Oliver, pt was due for her Haldol injection on 02/01/21 and is to get that injection every two weeks. SW met w/pt in room, pt not able to answer most questions, and difficult to understand. She did tell SW that Odilia is her sister and agreed to Odilia assisting w/paying bills. Otherwise, pt not able to answer SW correctly in regard to where she is, what bills she pays, who Oliver is. Though pt answering SW, SW not able to understand her. SW spoke w/RN, he states pt able to answer some questions, but not others. Pt also was speech today and was again able to answer some questions, not others. BREN will continue to follow. JOHN Mills Original Note: SW spoke w/ Lisa at [facility], she states they are not able to take pt. SW called [facility], faxed referral, called and left a message. SW called pt's sister Odilia, let her know that [facility] cannot take pt, but referral was sent to [facility], will let her know if [facility] can take her. Odilia inquired how to assist pt w/bills while pt is not able to do so, as she does not have any type of POA for pt. SW explained that she may need to get temporary guardianship of pt, however will also reach out to pt's wrapper caser Oliver at [facility] to see if he has any other ideas. Pt's sister states she did leave Oliver a message as well. BREN explained will call Oliver and let her know what Oliver says, or ask him to call her directly. SW called pt's wrapper caser Oliver, message left to call this SW back. SW will continue to follow. JOHN Mills
[2021-02-15 12:54] LABS: Pathologist Review Reviewed
[2021-02-15 12:54] LABS: Pathologist Review Reviewed
[2021-02-15 13:07] LABS: Pathologist Review Reviewed
--- NOTE | 2021-02-15 13:10 | PCM.PN.ID ---
Physical Exam Narrative Remains poorly responsive, no fever Const no apparent distress Resp clear to auscultation bilaterally Auscultation: diminished lung sounds Cardio regular rate and regular rhythm GI normal to inspection, nondistended, normoactive bowel sounds Skin no rashes or lesions noted ID ID: Route of nutrition/ use of supplements: [] Nutritional Intake: [] IV Site: [] Henry Catheter: [] Assessment & Plan Assessment/Plan (1) Acute hypoxemic respiratory failure: (2) Pneumonia: QUALIFIERS: Pneumonia type: due to unspecified organism Laterality: unspecified laterality Lung location: unspecified part of lung Qualified Code(s): J18.9 - Pneumonia, unspecified organism PLAN: Covid pcr was neg, no lymphopenia. Cxs neg. Possible ongoing aspiration. Wounds appear relatively stable. CTA of chest showed no PE. Developed worsened fever. Broadened abx to vanc/cathryn 02/11. MRI brain was normal. Now wbc slowly improving, fever resolved, O2 improved. Will stop vanc today. Will follow
--- NOTE | 2021-02-15 13:39 | PN.HOSP_ITS ---
Subjective Subjective No issues overnight. Difficult to have a conversation with her. She is confused and is not sure where she is at currently Objective Data Objective Data Vital Signs: Vital Signs Temp Pulse Resp BP Pulse Ox 97.3 F L 92 32 H 122/66 H 95 02/15/21 12:30 02/15/21 12:45 02/15/21 12:45 02/15/21 12:30 02/15/21 12:30 Oxygen Flow Rate (L/min) 4 Oxygen Delivery Method Nasal Cannula Weight: 209 lb 14.081 oz Body Mass Index (BMI) 33.0 Intake & Output: Intake and Output for Last 24 Hours 02/14/21 02/15/21 02/16/21 03:59 03:59 03:59 Intake Total 2328.25 / 2328.25 2612.73 / 2612.73 1192 / 1192 Output Total 1400 / 1400 1675 / 1675 575 / 575 Balance 928.25 / 928.25 937.73 / 937.73 617 / 617 Lab / Micro Data Result Diagrams: 02/15/21 05:15 02/16/21 05:15 Labs: Laboratory Results - last 24 hr 02/13/21 04:10: Diff Path Review Reviewed 02/14/21 05:05: Diff Path Review Reviewed 02/15/21 05:15: WBC 15.2 H, RBC 3.09 L, Hgb 9.2 L, Hct 30.6 L, MCV 99.0, MCH 29.8, MCHC 30.1 L, RDW Std Deviation 56.5 H, RDW Coeff of Kenna 15.6 H, Plt Count 264, MPV 11.2, Neut % (Auto) Not Reportable, Absolute Neuts (auto) 10.5 H, Absolute Lymphs (auto) 2.70, Total Counted 100, Neutrophils % (Manual) 67, Band Neutrophils % 2, Lymphocytes % (Manual) 18 L, Monocytes % (Manual) 6, Metamyelocytes % 7 H, Diff Path Review Reviewed, Platelet Estimate ADEQUATE, RBC Morphology NORM C+C 02/15/21 05:15: Sodium 149 H, Potassium 3.2 L, Chloride 113 H, Carbon Dioxide 32.0, Anion Gap 4 L, BUN 54 H, Creatinine 1.08 H, Estim Creat Clear Calc 54.45, Est GFR (MDRD) Af Amer 67, Est GFR (MDRD) Non-Af 56 L, BUN/Creatinine Ratio 50.0 H, Glucose 143 H, Calcium 7.6 L, Total Bilirubin 0.20, AST 28, ALT 22, Alkaline Phosphatase 54, Total Protein 6.0 L, Albumin 1.6 L, Globulin 4.4 H, Albumin/Globulin Ratio 0.4 L 02/15/21 05:15: Random Vancomycin 11.1 Micro: Microbiology 02/11/21 11:00 Blood Culture (Wb) - Other Blood Culture - Preliminary No growth in 48 hours. 02/11/21 11:15 Blood Culture (Wb) - Left Forearm Blood Culture - Preliminary No growth in 48 hours. 02/08/21 16:15 Blood Culture (Wb) - Left Hand Blood Culture - Final No growth in 5 days. 02/08/21 15:10 Blood Culture (Wb) - Central Line Blood Culture - Final No growth in 5 days. 02/11/21 08:00 Urine Catheter - Henry Urine Culture - Final Presumptive C albicans 02/12/21 08:15 Stool Stool Occult Blood (EDU) - Final 02/08/21 13:40 Mucosa - Nose Respiratory Panel (PCR) - Final 02/03/21 20:48 Blood Culture (Wb) - Left Wrist Blood Culture - Final No growth in 5 days. 02/03/21 18:15 Blood Culture (Wb) - Left Wrist Blood Culture - Final No growth in 5 days. 02/03/21 12:32 Urine Catheter - Henry Urine Culture - Final Culture exhibits no growth. 02/03/21 12:32 Urine Catheter - Henry Legionella Antigen - Final 02/03/21 12:32 Urine Catheter - Henry Streptococcus pneumoniae Antigen (M - Final 02/03/21 14:50 Mucosa - Nose SARS-CoV-2 Antigen (Rapid) - Final Physical Exam Const no apparent distress General Appearance: cooperative Orientation / Consciousness: confused and lethargic Nutritional Appearance: obese HEENT normocephalic and moist oral mucous membranes Eyes PERRL, EOMs intact bilaterally and conjunctivae normal Neck supple and no JVD Resp normal respiratory effort, no retractions, no use of accessory muscles and clear to auscultation bilaterally Auscultation: Negative for crackles, rales, rhonchi or wheezes Cardio S1 normal heart sound, S2 normal heart sound and no murmurs Rate: tachycardic Rhythm: abnormal rhythm GI soft to palpation, non-tender and non-distended; Negative for hepatosplenomegaly Extremity no clubbing, cyanosis or edema Skin Skin Narrative: Multiple wounds and lesions with dressings in place. No significant surrounding erythema Neuro no focal motor deficits and no sensory deficits noted Psych Appearance: unkempt Speech: incoherent Assessment & Plan Assessment/Plan (1) Septic shock: (2) Pneumonia: QUALIFIERS: Laterality: unspecified laterality Lung location: unspecified part of lung Pneumonia type: due to unspecified organism Qualified Code(s): J18.9 - Pneumonia, unspecified organism PLAN: 1. Acute encephalopathy secondary to septic shock and acute hypoxic respiratory failure secondary to bilateral pneumonia likely aspiration/hypernatremia/TRICIA -We will continue with antibiotics, appreciate pulmonology and ID recomme ndations -Continue with BiPAP as needed especially with sleeping -NG tube in place -No longer in septic shock, she did have to transition to the ICU on 02/08/2021 secondary to respiratory distress from the aspiration event -Awaiting pre[facility] -Discontinue her Lasix and place her on increased free water flushes -Continue to monitor renal function 2. A. fib with RVR -Echo was unremarkable -Continue with amiodarone and metoprolol -Appreciate cardiology assistance 3. Acute normocytic anemia/acute thrombocytopenia -Stool guaiac negative, iron studies consistent with anemia of chronic disease -Vitamin B12 level of 269 -Transfused on 02/13/2021 -Thrombocytopenia is likely secondary to sepsis, has resolved 4. Failure to thrive with multiple wounds and mild acute rhabdomyolysis -Rhabdomyolysis has resolved, CK was minimally elevated to 260 -Continue with local wound care -PT/OT for possible placement 5. Schizophrenia -She is on quite a few medications that can be sedating, the will hold and monitor -If she does become more alert can start restarting some of these DVT: SCDs/Lovenox Charges/Coding Visit Charges Inpatient E&M: 45154 Subs Hosp L2
--- NOTE | 2021-02-15 13:57 | NURSING ---
wound photo: right hip
--- NOTE | 2021-02-15 13:58 | NURSING ---
wound photo: right groin
--- NOTE | 2021-02-15 13:59 | NURSING ---
wound photo: left foot
--- NOTE | 2021-02-15 13:59 | NURSING ---
wound photo: right foot
--- NOTE | 2021-02-15 14:00 | NURSING ---
wound photo: left knee
--- NOTE | 2021-02-15 14:00 | NURSING ---
wound photo: right lower leg
--- NOTE | 2021-02-15 14:01 | NURSING ---
wound photo: right medial knee
--- NOTE | 2021-02-15 16:56 | EKG12_ITS ---
Test Reason : Blood Pressure : / mmHG Vent. Rate : 120 BPM Atrial Rate : 120 BPM P-R Int : 246 ms QRS Dur : 084 ms QT Int : 212 ms P-R-T Axes : 057 057 222 degrees QTc Int : 299 ms Sinus tachycardia with 1st degree A-V block Low voltage QRS Poor R wave progression Anterior WA, age undetermined, cannot be excluded Nonspecific ST and T wave abnormality Confirmed by ELIF AWAD, SHAGUFTA ([id number]), assistant production editor JAMAAL ENRIQUEZ ([id number]) on 02/17/2021 12:45:40 PM Referred By: OK Confirmed By:SHAGUFTA ASENCIO MD
[2021-02-15] MEDS: Acetaminophen 650 MG/20 ML UDC NG (22:15)
[2021-02-15] MEDS: Vital AF 1.2 Cal Liquid 1,000 ML 60 ML GT (22:16)
[2021-02-16] VITALS (29 sets, daily range): BP systolic 116–147; BP diastolic 62–80; PULSE 81–122; RESP 12–37; TEMP 36.6–38.4; O2SAT 93–97
[2021-02-16] MEDS: Metoprolol Tartrate 5 MG/5 ML Vial IV (05:55)
[2021-02-16] MEDS: Acetaminophen 650 MG/20 ML UDC NG ×2 (05:55→21:27)
[2021-02-16] MEDS: 0.9% Saline Lock 10 ML Syringe IV ×2 (05:59→21:25)
[2021-02-16] MEDS: Ipratropium/Albuterol Sulfate 3 ML AMPUL.NEB INHALATION ×3 (06:40→19:37)
[2021-02-16 06:45] LABS: Anion Gap 6 (5-15); BUN 60 mg/dL (7-18); BUN/Creat Ratio 48.8 RATIO (10-20); Calcium,Total 7.8 mg/dL (8.5-10.1); Chloride 117 mmol/L (98-107); Creatinine, Serum 1.23 mg/dL (0.55-1.02); EST Glomerular Filtration Rate 48 mL/min (>60); Est Glom Filt Rate - Afr Amer 58 mL/min (>60); Estimated Creatinine Clearance 47.81 ml/min; Glucose 153 mg/dL (74-106); Phosphorus 1.7 mg/dL (2.5-4.9); Sodium Level 152 mmol/L (136-145)
--- NOTE | 2021-02-16 07:40 | PN.CC_ITS ---
Assessment & Plan Assessment/Plan (1) Acute hypoxemic respiratory failure: PLAN: RECOMMENDATIONS: 1. Resume BiPAP, at a minimum with naps and nightly once NG removed. 2. Wean supplemental oxygen to maintain saturations at or above 90%. 3. Patient would benefit from increased free water, either with free water flushes or D5W 4. Patient to remain n.p.o. pending further speech therapy evaluation. 5. Continue antimicrobials per ID recommendations. 6. Appreciate cardiology recommendations. 7. Continue tube feeds per NG tube until diet can be advanced by speech therapy. IMPRESSIONS: 1. Acute hypoxemic respiratory failure Clinical concern for aspiration pneumonia as precipitating etiology. The patient has been compliant with the use of BiPAP therapy with naps and while sleeping, which I would recommend be continued once NG removed. In the interim, plan to continue to wean supplemental oxygen to maintain saturations at or above 90%. Continue antimicrobials per ID recommendations. The patient is to remain n.p.o. pending further evaluation by speech therapy. Avoid sedating medication use. The patient is also up from a volume perspective and would benefit from continued gentle diuresis. Phosphorus should be repleted. Nasal cannula oxygen delivery is somewhat limited given need for NG 2. Septic shock Improved. Likely secondary to aspiration pneumonia. The patient is cu rrently on appropriate antimicrobial therapy. She remains hemodynamically stable. Wound care is following. 3. Metabolic/toxic encephalopathy/hypernatremia Unchanged. Likely related to acute infectious etiology and possible polypharmacy in the setting of renal insufficiency. As noted above, I would recommend that all sedating medications be withheld. Continue to address underlying infection with antimicrobials as ordered. Arterial blood gases within normal limits. MRI brain was unremarkable. EEG showed no epileptiform activity. Patient may have delirium from hypernatremia. Patient would benefit from increased free water 4. A. fib with RVR Intermittent. Continue current medical management with beta-blockade as tolerated. Appreciate cardiology input 5. History of breast CA/MGUS/schizophrenia/obesity Complicates care, management, recovery and prognosis. Hold home sedating medications, pending improvement in mentation. This note was generated with [employer] dictation software. It may contain incorrect words, spelling, and punctuation that were not noted in checking the note before signing. Subjective Subjective Patient did okay overnight. Patient did tolerate BiPAP while sleeping and was on 4 L during the day. Patient is more tachycardic this morning, but mentation appears to be similar to previous. Objective Data Objective Data Vital Signs: Vital Signs Temp Pulse Resp BP Pulse Ox 36.9 C 114 H 32 H 126/69 H 96 02/16/21 07:00 02/16/21 07:00 02/16/21 07:00 02/16/21 07:00 02/16/21 07:00 Oxygen Flow Rate (L/min) 4 Oxygen Delivery Method Bi-pap Weight: 95.4 kg Body Mass Index (BMI) 33.0 Intake & Output: Intake and Output for Last 24 Hours 02/14/21 02/15/21 02/16/21 23:59 23:59 23:59 Intake Total 2052.48 / 2587.48 2296.25 / 2296.25 120 / 120 Output Total 1425 / 1675 1175 / 1175 150 / 150 Balance 627.48 / 912.48 1121.25 / 1121.25 -30 / -30 Lab / Micro Data Result Diagrams: 02/15/21 05:15 02/16/21 05:15 Labs: Laboratory Results - last 24 hr 02/13/21 04:10: Diff Path Review Reviewed 02/14/21 05:05: Diff Path Review Reviewed 02/15/21 05:15: Diff Path Review Reviewed 02/16/21 05:15: Sodium 152 H, Potassium 4.0, Chloride 117 H, Carbon Dioxide 29.0, Anion Gap 6, BUN 60 H, Creatinine 1.23 H, Estim Creat Clear Calc 47.81, Est GFR (MDRD) Af Amer 58 L, Est GFR (MDRD) Non-Af 48 L, BUN/Creatinine Ratio 48.8 H, Glucose 153 H, Calcium 7.8 L, Phosphorus 1.7 L, Magnesium 2.0 Micro: Microbiology 02/11/21 11:00 Blood Culture (Wb) - Other Blood Culture - Preliminary No growth in 48 hours. 02/11/21 11:15 Blood Culture (Wb) - Left Forearm Blood Culture - Preliminary No growth in 48 hours. 02/08/21 16:15 Blood Culture (Wb) - Left Hand Blood Culture - Final No growth in 5 days. 02/08/21 15:10 Blood Culture (Wb) - Central Line Blood Culture - Final No growth in 5 days. 02/11/21 08:00 Urine Catheter - Henry Urine Culture - Final Presumptive C albicans 02/12/21 08:15 Stool Stool Occult Blood (EDU) - Final 02/08/21 13:40 Mucosa - Nose Respiratory Panel (PCR) - Final 02/03/21 20:48 Blood Culture (Wb) - Left Wrist Blood Culture - Final No growth in 5 days. 02/03/21 18:15 Blood Culture (Wb) - Left Wrist Blood Culture - Final No growth in 5 days. 02/03/21 12:32 Urine Catheter - Henry Urine Culture - Final Culture exhibits no growth. 02/03/21 12:32 Urine Catheter - Henry Legionella Antigen - Final 02/03/21 12:32 Urine Catheter - Henry Streptococcus pneumoniae Antigen (M - Final 02/03/21 14:50 Mucosa - Nose SARS-CoV-2 Antigen (Rapid) - Final Physical Exam Const Constitutional Narrative: The patient is relatively unchanged from a mentation standpoint today. Arouses to voice General Appearance: cooperative, disheveled and lethargic; Negative for well kempt Eyes Sclera: sclera abnormal Positive for bilateral Details: scleral injection Neck full ROM and no lymphadenopathy Chest inspection of chest normal Resp normal respiratory effort and no use of accessory muscles Effort and Inspection: able to speak in complete sentences Auscultation: clear to auscultation bilaterally Percussion: Negative for dullness Cardio no murmurs, no rub and no gallops Cardio Narrative: NSR on telemetry Rate: tachycardic Rhythm: abnormal rhythm irregularly irregular no CVA tenderness Extremity no clubbing, cyanosis or edema Extremity Narrative: Wrapped lower extremities Psych cooperative Appearance: unkempt Attitude: uncooperative Charges/Coding Visit Charges Inpatient E&M: 80424 Subs Hosp L3
--- NOTE | 2021-02-16 08:02 | PN.CARD_ITS ---
Subjective Subjective Patient seen and evaluated. Had a few more episodes of tachycardia yesterday. Had to adjust the dosage times of the beta-pedro luis. Objective Data Vital Signs: Vital Signs Temp Pulse Resp BP Pulse Ox 98.4 F 114 H 32 H 126/69 H 96 02/16/21 07:00 02/16/21 07:00 02/16/21 07:00 02/16/21 07:00 02/16/21 07:00 Oxygen Flow Rate (L/min) 4 Oxygen Delivery Method Bi-pap Weight: 210 lb 5.136 oz Body Mass Index (BMI) 33.0 Intake & Output: Intake and Output for Last 24 Hours 02/14/21 02/15/21 02/16/21 23:59 23:59 23:59 Intake Total 2052.48 / 2587.48 2296.25 / 2296.25 120 / 120 Output Total 1425 / 1675 1175 / 1175 150 / 150 Balance 627.48 / 912.48 1121.25 / 1121.25 -30 / -30 Lab / Micro Data Result Diagrams: 02/15/21 05:15 02/16/21 05:15 Labs: Laboratory Results - last 24 hr 02/13/21 04:10: Diff Path Review Reviewed 02/14/21 05:05: Diff Path Review Reviewed 02/15/21 05:15: Diff Path Review Reviewed 02/16/21 05:15: Sodium 152 H, Potassium 4.0, Chloride 117 H, Carbon Dioxide 29.0, Anion Gap 6, BUN 60 H, Creatinine 1.23 H, Estim Creat Clear Calc 47.81, Est GFR (MDRD) Af Amer 58 L, Est GFR (MDRD) Non-Af 48 L, BUN/Creatinine Ratio 48.8 H, Glucose 153 H, Calcium 7.8 L, Phosphorus 1.7 L, Magnesium 2.0 Cardiology Labs/Tests 02/16/21 05:15: Sodium 152 H, Potassium 4.0, Chloride 117 H, Carbon Dioxide 29.0, Anion Gap 6, BUN 60 H, Creatinine 1.23 H, Est GFR (MDRD) Af Amer 58 L, Est GFR (MDRD) Non-Af 48 L, BUN/Creatinine Ratio 48.8 H, Glucose 153 H, Calcium 7.8 L, Phosphorus 1.7 L, Magnesium 2.0 Rhythm: EKG: ECHO: Stress Test: Cardiac Cath: PCI: CT Surgery: Holter monitor: EPS: PPM: CXR: Chest CT Scan: Assessment & Plan Assessment/Plan (1) SVT (supraventricular tachycardia): PLAN: Paroxysmal supraventricular tachyarrhythmia. She has continued to have intermittent paroxysms of supraventricular tachyarrhythmia. She appears to be mainly in sinus tachycardia at this time. She does have preserved left ventricular systolic function. She has been transitioned from IV amiodarone to p.o. amiodarone * Would also continue the p.o. beta-pedro luis as we are doing. * Recommend increasing the dose of the metoprolol to 100 mg twice a day and continue to observe. * Would recommend discontinuing the Lasix. She appears to be dehydrated. * Thank you for allowing me to participate in the care of your patient. Please don't hesitate to call if any issues arise.
[2021-02-16] MEDS: Tamoxifen 10 MG Tablet 20 MG NG (08:24)
[2021-02-16] MEDS: Enoxaparin 40 MG/0.4 ML Syringe SC (08:24)
[2021-02-16] MEDS: Amiodarone 200 MG Tablet NG ×2 (08:25→21:25)
[2021-02-16] MEDS: Metoprolol Tartrate 100 MG Tablet NG ×2 (08:26→21:25)
[2021-02-16] MEDS: Juven (unflavored) Packet 1 PACKET NG ×2 (08:26→17:01)
[2021-02-16] MEDS: Nystatin Powder 15gm Bottle 1 APPLIC TOPICAL ×2 (08:27→21:26)
[2021-02-16] MEDS: Famotidine 200 MG/20 ML MDV 20 MG in 0.9% Normal Saline (Pres. free 8 ML 300 MG IV (08:35)
--- NOTE | 2021-02-16 09:09 | CASEMGMT ---
Addendum entered by Magy Calvin 02/16/21 14:17: SW spoke w/pt's sister Odilia. SW explained we have not heard back from [facility], as soon as we do will let her know. SW also inquired if she spoke w/Oliver, pt's employment evaluator/case manager. She did speak w/him this morning and he is putting pt's sister in touch w/pt's landlord to help figure out how to pay the bills. SW explained as soon as SW hears from [facility] will let her know. Pt's sister states understanding. SW will continue to follow. JOHN Mills Addendum entered by Magy Calvin 02/16/21 13:20: SW called [facility], message left. JOHN Mills Addendum entered by Magy Calvin 02/16/21 12:15: SW called [facility], left a second message inquiring about referral sent yesterday. JOHN Mills Original Note: SW called [facility], message left inquiring if they are able to accept pt. SW will continue to follow. JOHN Mills
[2021-02-16] MEDS: Acetaminophen 650 MG Suppository RC (12:36)
--- NOTE | 2021-02-16 16:43 | PCM.PN.HOSP ---
Subjective Subjective No issues overnight, tolerating BiPAP. No significant change in her mentation. Objective Data Objective Data Vital Signs: Vital Signs Temp Pulse Resp BP Pulse Ox 98.8 F 94 24 H 135/79 H 96 02/16/21 15:15 02/16/21 15:15 02/16/21 15:15 02/16/21 15:15 02/16/21 15:15 Oxygen Flow Rate (L/min) 4 Oxygen Delivery Method Nasal Cannula Weight: 210 lb 5.136 oz Body Mass Index (BMI) 33.0 Intake & Output: Intake and Output for Last 24 Hours 02/15/21 02/16/21 02/17/21 03:59 03:59 03:59 Intake Total 2612.73 / 2612.73 1736 / 1736 1246 / 1246 Output Total 1675 / 1675 925 / 925 200 / 200 Balance 937.73 / 937.73 811 / 811 1046 / 1046 Lab / Micro Data Result Diagrams: 02/15/21 05:15 02/16/21 05:15 Labs: Laboratory Results - last 24 hr 02/16/21 05:15: Sodium 152 H, Potassium 4.0, Chloride 117 H, Carbon Dioxide 29.0, Anion Gap 6, BUN 60 H, Creatinine 1.23 H, Estim Creat Clear Calc 47.81, Est GFR (MDRD) Af Amer 58 L, Est GFR (MDRD) Non-Af 48 L, BUN/Creatinine Ratio 48.8 H, Glucose 153 H, Calcium 7.8 L, Phosphorus 1.7 L, Magnesium 2.0 Micro: Microbiology 02/11/21 11:00 Blood Culture (Wb) - Other Blood Culture - Preliminary No growth in 48 hours. 02/11/21 11:15 Blood Culture (Wb) - Left Forearm Blood Culture - Preliminary No growth in 48 hours. 02/08/21 16:15 Blood Culture (Wb) - Left Hand Blood Culture - Final No growth in 5 days. 02/08/21 15:10 Blood Culture (Wb) - Central Line Blood Culture - Final No growth in 5 days. 02/11/21 08:00 Urine Catheter - Henry Urine Culture - Final Presumptive C albicans 02/12/21 08:15 Stool Stool Occult Blood (EDU) - Final 02/08/21 13:40 Mucosa - Nose Respiratory Panel (PCR) - Final 02/03/21 20:48 Blood Culture (Wb) - Left Wrist Blood Culture - Final No growth in 5 days. 02/03/21 18:15 Blood Culture (Wb) - Left Wrist Blood Culture - Final No growth in 5 days. 02/03/21 12:32 Urine Catheter - Henry Urine Culture - Final Culture exhibits no growth. 02/03/21 12:32 Urine Catheter - Henry Legionella Antigen - Final 02/03/21 12:32 Urine Catheter - Henry Streptococcus pneumoniae Antigen (M - Final 02/03/21 14:50 Mucosa - Nose SARS-CoV-2 Antigen (Rapid) - Final Physical Exam Const no apparent distress Orientation / Consciousness: confused and lethargic Nutritional Appearance: obese HEENT normocephalic and moist oral mucous membranes Eyes PERRL, EOMs intact bilaterally and conjunctivae normal Neck supple and no JVD Resp normal respiratory effort, no retractions, no use of accessory muscles and clear to auscultation bilaterally Resp Narrative: Diminished secondary to body habitus Auscultation: Negative for crackles, rales, rhonchi or wheezes Cardio S1 normal heart sound, S2 normal heart sound and no murmurs Rate: tachycardic Rhythm: abnormal rhythm GI soft to palpation, non-tender and non-distended; Negative for hepatosplenomegaly Extremity no clubbing, cyanosis or edema Extremity Narrative: Diffuse anasarca Skin Skin Narrative: Multiple wounds and lesions with dressings in place. No significant surrounding erythema Neuro no focal motor deficits and no sensory deficits noted Psych Appearance: unkempt Speech: incoherent Assessment & Plan Assessment/Plan (1) Septic shock: (2) Pneumonia: QUALIFIERS: Pneumonia type: due to unspecified organism Laterality: unspecified laterality Lung location: unspecified part of lung Qualified Code(s): J18.9 - Pneumonia, unspecified organism PLAN: 1. Acute encephalopathy secondary to septic shock and acute hypoxic respiratory failure secondary to bilateral pneumonia likely aspiration/hypernatremia/TRICIA -We will continue with antibiotics vancomycin was discontinued, continue with meropenem, appreciate pulmonology and ID recommendations -Continue with BiPAP as needed especially with sleeping -NG tube in place -No longer in septic shock, she did have to transition to the ICU on 02/08/2021 secondary to respiratory distress from the aspiration event -Awaiting pre-CERT for transition back to the senior living -Discontinue her Lasix and place her on increased free water flushes -Continue to monitor renal function 2. A. fib with RVR/HTN -Echo was unremarkable -Continue with amiodarone and metoprolol -Appreciate cardiology assistance 3. Acute normocytic anemia/acute thrombocytopenia -Stool guaiac negative, iron studies consistent with anemia of chronic disease -Vitamin B12 level of 269 -Transfused on 02/13/2021 -Thrombocytopenia is likely secondary to sepsis, has resolved 4. Failure to thrive with multiple wounds and mild acute rhabdomyolysis -Rhabdomyolysis has resolved, CK was minimally elevated to 260 -Continue with local wound care -PT/OT for possible placement 5. Schizophrenia -She is on quite a few medications that can be sedating, the will hold and monitor -If she does become more alert can start restarting some of these DVT: SCDs/Lovenox Charges/Coding Visit Charges Inpatient E&M: 57634 Subs Hosp L2
[2021-02-16] MEDS: Vital AF 1.2 Cal Liquid 1,000 ML 60 ML GT (17:03)
[2021-02-16] MEDS: Famotidine 200 MG/20 ML MDV 20 MG in 0.9% Normal Saline (Pres. free 8 ML 330 MG IV (21:25)
[2021-02-17] VITALS (26 sets, daily range): BP systolic 110–145; BP diastolic 53–93; PULSE 74–119; RESP 12–37; TEMP 36.8–38.3; O2SAT 91–97
[2021-02-17 06:52] LABS: Absolute Lymphocyte Count 3.51 X10^3/uL (0.83-4.51); Absolute Neutrophil Count 9.9 X10^3/uL (2.0-7.7); Basophil# 0.15 X10^3/uL; Basophil% 0.9 % (0-1); Eosinophil# 0.51 X10^3/uL; Eosinophils% 3.2 % (0-5); Hematocrit 33.2 % (37-47); Lymphocyte # 3.51 X10^3/ul (0.83-4.51); Lymphocyte % 22.1 % (19-41); Mean Corp Hgb Conc 30.1 g/dL (32-36); Mean Corpuscular Hgb 30.3 pg (27.0-32.0); Mean Corpuscular Volume 100.6 fL (81-99); Mean Platelet Vol. 11.5 fl (6.2-12.0); Monocyte# 1.01 X10^3/uL; Monocyte% 6.4 % (0-10); NRBC Flagged by Analyzer 0.1 % (0-5); Neutrophil # 9.91 X10^3/uL (2.7-7.7); Neutrophil % 62.5 % (47-70); Platelet Count 225 K/mm3 (150-450); RBC Distribution Width CV 15.3 % (11.6-14.6); RBC Distribution Width SD 56.2 fl (35.1-43.9); White Blood Count 15.9 K/mm3 (4.4-11.0)
[2021-02-17] MEDS: Ipratropium/Albuterol Sulfate 3 ML AMPUL.NEB INHALATION ×3 (07:22→19:25)
[2021-02-17 07:27] LABS: Anion Gap 5 (5-15); BUN 79 mg/dL (7-18); BUN/Creat Ratio 44.4 RATIO (10-20); Calcium,Total 7.9 mg/dL (8.5-10.1); Chloride 117 mmol/L (98-107); Creatinine, Serum 1.78 mg/dL (0.55-1.02); EST Glomerular Filtration Rate 31 mL/min (>60); Est Glom Filt Rate - Afr Amer 38 mL/min (>60); Estimated Creatinine Clearance 33.04 ml/min; Glucose 153 mg/dL (74-106); Potassium 3.9 mmol/L (3.5-5.1); Sodium Level 150 mmol/L (136-145)
--- NOTE | 2021-02-17 08:30 | PN.CC_ITS ---
Assessment & Plan Assessment/Plan (1) Acute hypoxemic respiratory failure: PLAN: RECOMMENDATIONS: 1. Resume BiPAP, at a minimum with naps and nightly once NG removed. 2. Wean supplemental oxygen to maintain saturations at or above 90%. 3. Continue increased free water, either with free water flushes or D5W 4. Patient to remain n.p.o. pending further speech therapy evaluation. 5. Continue antimicrobials per ID recommendations. 6. Appreciate cardiology recommendations. 7. Continue tube feeds per NG tube until diet can be advanced by speech therapy. IMPRESSIONS: 1. Acute hypoxemic respiratory failure Clinical concern for aspiration pneumonia as precipitating etiology. The patient has been compliant with the use of BiPAP therapy with naps and while sleeping, which I would recommend be continued once NG removed. In the interim, plan to continue to wean supplemental oxygen to maintain saturations at or above 90%. Continue antimicrobials per ID recommendations. The patient is to remain n.p.o. pending further evaluation by speech therapy. Patient with significant hypernatremia and hyperchloremia, so is being given increased free water. This is likely okay to continue from a respiratory standpoint as oxygen requirements have not changed. Patient has been volume sensitive in the past, so we will have to watch closely. 2. Septic shock Improved. Likely secondary to aspiration pneumonia. The patient is currently on appropriate antimicrobial therapy. She remains hemodynamically stable. Wound care is following. 3. Metabolic/toxic encephalopathy/hypernatremia Unchanged. Likely related to acute infectious etiology and possible polypharmacy in the setting of renal insufficiency. As noted above, I would recommend that all sedating medications be withheld. Continue to address underlying infection with antimicrobials as ordered. Arterial blood gases within normal limits. MRI brain was unremarkable. EEG showed no epileptiform activity. Patient may have delirium from hypernatremia. Patient would benefit from continued increased free water 4. A. fib with RVR Intermittent. Continue current medical management with beta-blockade as tolerated. Appreciate cardiology input 5. History of breast CA/MGUS/schizophrenia/obesity Complicates care, management, recovery and prognosis. Hold home sedating medications, pending improvement in mentation. This note was generated with [employer] software. It may contain incorrect words, spelling, and punctuation that were not noted in checking the note before signing. Subjective Subjective Patient did okay overnight from a respiratory standpoint. Patient remains on the same amount of supplemental oxygen despite increased free water. Patient is interactive and denies any pain or shortness of breath. Patient has not answering more complex questions. Objective Data Objective Data Vital Signs: Vital Signs Temp Pulse Resp BP Pulse Ox 36.8 C 112 H 37 H 128/74 H 94 02/17/21 07:00 02/17/21 07:23 02/17/21 07:23 02/17/21 07:00 02/17/21 07:23 Oxygen Flow Rate (L/min) 5 Oxygen Delivery Method Nasal Cannula Weight: 95.4 kg Body Mass Index (BMI) 33.0 Intake & Output: Intake and Output for Last 24 Hours 02/15/21 02/16/21 02/17/21 23:59 23:59 23:59 Intake Total 2296.25 / 2296.25 2200 / 2200 120 / 120 Output Total 1175 / 1175 450 / 450 200 / 200 Balance 1121.25 / 1121.25 1750 / 1750 -80 / -80 Lab / Micro Data Result Diagrams: 02/17/21 06:38 02/17/21 06:38 Labs: Laboratory Results - last 24 hr 02/17/21 06:38: WBC 15.9 H, RBC 3.30 L, Hgb 10.0 L, Hct 33.2 L, MCV 100.6 H, MCH 30.3, MCHC 30.1 L, RDW Std Deviation 56.2 H, RDW Coeff of Kenna 15.3 H, Plt Count 225, MPV 11.5, Immature Gran % (Auto) 4.900 H, Neut % (Auto) 62.5, Lymph % (Auto) 22.1, Edgar % (Auto) 6.4, Eos % (Auto) 3.2, Baso % (Auto) 0.9, Absolute Neuts (auto) 9.9 H, Absolute Lymphs (auto) 3.51, Nucleated RBC % 0.1 02/17/21 06:38: Sodium 150 H, Potassium 3.9, Chloride 117 H, Carbon Dioxide 28.0, Anion Gap 5, BUN 79 H, Creatinine 1.78 H, Estim Creat Clear Calc 33.04, Est GFR (MDRD) Af Amer 38 L, Est GFR (MDRD) Non-Af 31 L, BUN/Creatinine Ratio 44.4 H, Glucose 153 H, Calcium 7.9 L Micro: Microbiology 02/11/21 11:00 Blood Culture (Wb) - Other Blood Culture - Preliminary No growth in 48 hours. 02/11/21 11:15 Blood Culture (Wb) - Left Forearm Blood Culture - Preliminary No growth in 48 hours. 02/08/21 16:15 Blood Culture (Wb) - Left Hand Blood Culture - Final No growth in 5 days. 02/08/21 15:10 Blood Culture (Wb) - Central Line Blood Culture - Final No growth in 5 days. 02/11/21 08:00 Urine Catheter - Henry Urine Culture - Final Presumptive C albicans 02/12/21 08:15 Stool Stool Occult Blood (EDU) - Final 02/08/21 13:40 Mucosa - Nose Respiratory Panel (PCR) - Final 02/03/21 20:48 Blood Culture (Wb) - Left Wrist Blood Culture - Final No growth in 5 days. 02/03/21 18:15 Blood Culture (Wb) - Left Wrist Blood Culture - Final No growth in 5 days. 02/03/21 12:32 Urine Catheter - Henry Urine Culture - Final Culture exhibits no growth. 02/03/21 12:32 Urine Catheter - Henry Legionella Antigen - Final 02/03/21 12:32 Urine Catheter - Henry Streptococcus pneumoniae Antigen (M - Final 02/03/21 14:50 Mucosa - Nose SARS-CoV-2 Antigen (Rapid) - Final Physical Exam Const Constitutional Narrative: The patient is relatively unchanged from a mentation standpoint today. Arouses to voice General Appearance: cooperative, disheveled and lethargic; Negative for well kempt Eyes Sclera: sclera abnormal Positive for bilateral Details: scleral injection Neck full ROM and no lymphadenopathy Chest inspection of chest normal Resp normal respiratory effort and no use of accessory muscles Effort and Inspection: able to speak in complete sentences Auscultation: clear to auscultation bilaterally Percussion: Negative for dullness Cardio no murmurs, no rub and no gallops Cardio Narrative: Sinus tachycardia on telemetry Rate: tachycardic Rhythm: abnormal rhythm irregularly irregular no CVA tenderness Extremity no clubbing, cyanosis or edema Extremity Narrative: Wrapped lower extremities Skin Skin Narrative: Dressings in place. Multiple lesions noted including superficial ulcers, areas of ecchymosis and granulation tissue (all dressed). L brandynons on the knee, right shoulder and bilateral feet were noted. See nursing documentation for specific details Psych cooperative Appearance: unkempt Attitude: uncooperative Charges/Coding Visit Charges Inpatient E&M: 50297 Subs Hosp L3
--- NOTE | 2021-02-17 08:32 | PN.CARD_ITS ---
Subjective Subjective Patient seen and evaluated. Appears to be stable. Objective Data Vital Signs: Vital Signs Temp Pulse Resp BP Pulse Ox 98.3 F 112 H 37 H 128/74 H 94 02/17/21 07:00 02/17/21 07:23 02/17/21 07:23 02/17/21 07:00 02/17/21 07:23 Oxygen Flow Rate (L/min) 5 Oxygen Delivery Method Nasal Cannula Weight: 210 lb 5.136 oz Body Mass Index (BMI) 33.0 Intake & Output: Intake and Output for Last 24 Hours 02/15/21 02/16/21 02/17/21 23:59 23:59 23:59 Intake Total 2296.25 / 2296.25 2200 / 2200 120 / 120 Output Total 1175 / 1175 450 / 450 200 / 200 Balance 1121.25 / 1121.25 1750 / 1750 -80 / -80 Lab / Micro Data Result Diagrams: 02/17/21 06:38 02/17/21 06:38 Labs: Laboratory Results - last 24 hr 02/17/21 06:38: WBC 15.9 H, RBC 3.30 L, Hgb 10.0 L, Hct 33.2 L, MCV 100.6 H, MCH 30.3, MCHC 30.1 L, RDW Std Deviation 56.2 H, RDW Coeff of Kenna 15.3 H, Plt Count 225, MPV 11.5, Immature Gran % (Auto) 4.900 H, Neut % (Auto) 62.5, Lymph % (Auto) 22.1, [place] % (Auto) 6.4, Eos % (Auto) 3.2, Baso % (Auto) 0.9, Absolute Neuts (auto) 9.9 H, Absolute Lymphs (auto) 3.51, Nucleated RBC % 0.1 02/17/21 06:38: Sodium 150 H, Potassium 3.9, Chloride 117 H, Carbon Dioxide 28.0, Anion Gap 5, BUN 79 H, Creatinine 1.78 H, Estim Creat Clear Calc 33.04, Est GFR (MDRD) Af Amer 38 L, Est GFR (MDRD) Non-Af 31 L, BUN/Creatinine Ratio 44.4 H, Glucose 153 H, Calcium 7.9 L Cardiology Labs/Tests 02/17/21 06:38: WBC 15.9 H, RBC 3.30 L, Hgb 10.0 L, Hct 33.2 L, MCV 100.6 H, MCH 30.3, MCHC 30.1 L, Plt Count 225, MPV 11.5, Immature Gran % (Auto) 4.900 H, Neut % (Auto) 62.5, Lymph % (Auto) 22.1, [place] % (Auto) 6.4, Eos % (Auto) 3.2, Baso % (Auto) 0.9, Absolute Neuts (auto) 9.9 H, Nucleated RBC % 0.1 02/17/21 06:38: Sodium 150 H, Potassium 3.9, Chloride 117 H, Carbon Dioxide 28.0, Anion Gap 5, BUN 79 H, Creatinine 1.78 H, Est GFR (MDRD) Af Amer 38 L, Est GFR (MDRD) Non-Af 31 L, BUN/Creatinine Ratio 44.4 H, Glucose 153 H, Calcium 7.9 L Rhythm: EKG: ECHO: Stress Test: Cardiac Cath: PCI: CT Surgery: Holter monitor: EPS: PPM: CXR: Chest CT Scan: Physical Exam Const Orientation / Consciousness: awake HEENT normocephalic Eyes PERRL and conjunctivae normal Neck supple, no JVD and no carotid bruits Chest inspection of chest normal Resp normal respiratory effort and clear to auscultation bilaterally Cardio Palpation: normal PMI Rate: regular rate Rhythm: regular rhythm Heart Sounds: S1 normal and S2 normal Peripheral Pulses: pulses 2+ throughout GI normal to inspection, nondistended, normoactive bowel sounds Extremity normal to inspection and no clubbing, cyanosis or edema Psych mental status grossly normal Assessment & Plan Assessment/Plan (1) SVT (supraventricular tachycardia): PLAN: Paroxysmal supraventricular tachyarrhythmia. She has continued to have intermittent paroxysms of supraventricular tachyarrhythmia. She appears to be mainly in sinus tachycardia at this time. She does have preserved left ventricular systolic function. She has been transitioned from IV amiodarone to p.o. amiodarone * Would also continue the p.o. beta-pedro luis as we are doing. * Recommend increasing the dose of the metoprolol to 100 mg twice a day and continue to observe. * Will continue with free water flushes. * Thank you for allowing me to participate in the care of your patient. Please don't hesitate to call if any issues arise.
--- NOTE | 2021-02-17 08:45 | CASEMGMT ---
BREN received a voice mail yesterday evening from Devora with [facility]. She said they are able to accept patient. She asked BREN to call her this am to notify her if pre-cert needs initiated. BREN called Devora back this am. BREN told her not to start the pre-cert yet. She asked about the correction plan for the NG tube. BREN told her BREN is not sure, but will try and find out. Negin Oconnell MSW JAYY
[2021-02-17] MEDS: Amiodarone 200 MG Tablet NG ×2 (08:52→21:01)
[2021-02-17] MEDS: Metoprolol Tartrate 100 MG Tablet NG ×2 (08:52→21:01)
[2021-02-17] MEDS: Juven (unflavored) Packet 1 PACKET NG ×2 (08:52→16:32)
[2021-02-17] MEDS: Enoxaparin 40 MG/0.4 ML Syringe SC (08:53)
[2021-02-17] MEDS: Nystatin Powder 15gm Bottle 1 APPLIC TOPICAL ×2 (08:53→21:02)
[2021-02-17] MEDS: Tamoxifen 10 MG Tablet 20 MG NG (08:55)
[2021-02-17] MEDS: Famotidine 200 MG/20 ML MDV 20 MG in 0.9% Normal Saline (Pres. free 8 ML 300 MG IV (09:05)
[2021-02-17] MEDS: Acetaminophen 650 MG/20 ML UDC NG (09:05)
[2021-02-17] MEDS: Vital AF 1.2 Cal Liquid 1,000 ML 60 ML GT (13:13)
--- NOTE | 2021-02-17 14:35 | PCM.PN.HOSP ---
Subjective Subjective Mentation is still poor, difficult to have a conversation with her. At times her speech is incoherent Objective Data Objective Data Vital Signs: Vital Signs Temp Pulse Resp BP Pulse Ox 98.4 F 85 34 H 111/69 91 02/17/21 12:35 02/17/21 13:43 02/17/21 13:43 02/17/21 12:35 02/17/21 12:35 Oxygen Flow Rate (L/min) 1 Oxygen Delivery Method Nasal Cannula Weight: 210 lb 5.136 oz Body Mass Index (BMI) 33.0 Intake & Output: Intake and Output for Last 24 Hours 02/16/21 02/17/21 02/18/21 03:59 03:59 03:59 Intake Total 1736 / 1736 2200 / 2200 1807 / 1807 Output Total 925 / 925 450 / 450 225 / 225 Balance 811 / 811 1750 / 1750 1582 / 1582 Lab / Micro Data Result Diagrams: 02/17/21 06:38 02/17/21 06:38 Labs: Laboratory Results - last 24 hr 02/17/21 06:38: WBC 15.9 H, RBC 3.30 L, Hgb 10.0 L, Hct 33.2 L, MCV 100.6 H, MCH 30.3, MCHC 30.1 L, RDW Std Deviation 56.2 H, RDW Coeff of [place] 15.3 H, Plt Count 225, MPV 11.5, Immature Gran % (Auto) 4.900 H, Neut % (Auto) 62.5, Lymph % (Auto) 22.1, [place] % (Auto) 6.4, Eos % (Auto) 3.2, Baso % (Auto) 0.9, Absolute Neuts (auto) 9.9 H, Absolute Lymphs (auto) 3.51, Nucleated RBC % 0.1 02/17/21 06:38: Sodium 150 H, Potassium 3.9, Chloride 117 H, Carbon Dioxide 28.0, Anion Gap 5, BUN 79 H, Creatinine 1.78 H, Estim Creat Clear Calc 33.04, Est GFR (MDRD) Af Amer 38 L, Est GFR (MDRD) Non-Af 31 L, BUN/Creatinine Ratio 44.4 H, Glucose 153 H, Calcium 7.9 L Micro: Microbiology 02/11/21 11:00 Blood Culture (Wb) - Other Blood Culture - Preliminary No growth in 48 hours. 02/11/21 11:15 Blood Culture (Wb) - Left Forearm Blood Culture - Preliminary No growth in 48 hours. 02/08/21 16:15 Blood Culture (Wb) - Left Hand Blood Culture - Final No growth in 5 days. 02/08/21 15:10 Blood Culture (Wb) - Central Line Blood Culture - Final No growth in 5 days. 02/11/21 08:00 Urine Catheter - Henry Urine Culture - Final Presumptive C albicans 02/12/21 08:15 Stool Stool Occult Blood (EDU) - Final 02/08/21 13:40 Mucosa - Nose Respiratory Panel (PCR) - Final 02/03/21 20:48 Blood Culture (Wb) - Left Wrist Blood Culture - Final No growth in 5 days. 02/03/21 18:15 Blood Culture (Wb) - Left Wrist Blood Culture - Final No growth in 5 days. 02/03/21 12:32 Urine Catheter - Henry Urine Culture - Final Culture exhibits no growth. 02/03/21 12:32 Urine Catheter - Henry Legionella Antigen - Final 02/03/21 12:32 Urine Catheter - Henry Streptococcus pneumoniae Antigen (M - Final 02/03/21 14:50 Mucosa - Nose SARS-CoV-2 Antigen (Rapid) - Final Physical Exam Const no apparent distress General Appearance: cooperative Orientation / Consciousness: confused and lethargic Nutritional Appearance: obese HEENT normocephalic and moist oral mucous membranes Eyes PERRL, EOMs intact bilaterally and conjunctivae normal Neck supple and no JVD Resp normal respiratory effort, no retractions, no use of accessory muscles and clear to auscultation bilaterally Auscultation: Negative for crackles, rales, rhonchi or wheezes Cardio S1 normal heart sound, S2 normal heart sound and no murmurs Rhythm: abnormal rhythm GI soft to palpation, non-tender and non-distended; Negative for hepatosplenomegaly Extremity no clubbing, cyanosis or edema General Extremity: edema bilateral Skin Skin Narrative: Multiple wounds and lesions with dressings in place. No significant surrounding erythema Neuro no focal motor deficits and no sensory deficits noted Psych Appearance: unkempt Speech: incoherent Assessment & Plan Assessment/Plan (1) Septic shock: (2) Pneumonia: QUALIFIERS: Pneumonia type: due to unspecified organism Laterality: unspecified laterality Lung location: unspecified part of lung Qualified Code(s): J18.9 - Pneumonia, unspecified organism PLAN: 1. Acute encephalopathy secondary to septic shock and acute hypoxic respiratory failure secondary to bilateral pneumonia likely aspiration/hypernatremia/TRICIA -We will continue with antibiotics vancomycin was discontinued, continue with meropenem, appreciate pulmonology and ID recommendations -Continue with BiPAP as needed especially with sleeping -NG tube in place -No longer in septic shock, she did have to transition to the ICU on 02/08/2021 secondary to respiratory distress from the aspiration event -Awaiting pre-CERT [facility] -Discontinue her Lasix and place her on increased free water flushes -Continue to monitor renal function -Had a 30-minute discussion with the sister on advance care planning options and what the plan is going from here. We discussed possibility of a PEG tube versus removing the NG tube and making her hospice. She would like to come in and see her sister prior to making any decisions. 2. A. fib with RVR/HTN -Echo was unremarkable -Continue with amiodarone and metoprolol -Appreciate cardiology assistance 3. Acute normocytic anemia/acute thrombocytopenia -Stool guaiac negative, iron studies consistent with anemia of chronic disease -Vitamin B12 level of 269 -Transfused on 02/13/2021 -Thrombocytopenia is likely secondary to sepsis, has resolved 4. Failure to thrive with multiple wounds and mild acute rhabdomyolysis -Rhabdomyolysis has resolved, CK was minimally elevated to 260 -Continue with local wound care -PT/OT for possible placement 5. Schizophrenia -She is on quite a few medications that can be sedating, the will hold and monitor -If she does become more alert can start restarting some of these DVT: SCDs/Lovenox Charges/Coding Visit Charges Inpatient E&M: 00568 Subs Hosp L2 Procedures Hospitalists Procedures: 87754 Advncd Care Plan 30 Min
--- NOTE | 2021-02-17 16:02 | PCM.PN.ID ---
Physical Exam Narrative Fever this AM Const no apparent distress Orientation / Consciousness: lethargic Resp normal air movement and clear to auscultation bilaterally Cardio regular rate and regular rhythm GI normal to inspection, nondistended, normoactive bowel sounds Extremity no clubbing, cyanosis or edema Skin no rashes or lesions noted ID ID: Route of nutrition/ use of supplements: [] Nutritional Intake: [] IV Site: [] Henry Catheter: [] Assessment & Plan Assessment/Plan (1) Acute hypoxemic respiratory failure: (2) Pneumonia: QUALIFIERS: Pneumonia type: due to unspecified organism Laterality: unspecified laterality Lung location: unspecified part of lung Qualified Code(s): J18.9 - Pneumonia, unspecified organism PLAN: Covid pcr was neg, no lymphopenia. Cxs neg. Possible ongoing aspiration. Wounds appear relatively stable. CTA of chest showed no PE. Developed worsened fever. Broadened abx to vanc/cathryn 02/11. MRI brain was normal. Low grade fever and slight rise in wbc this AM. Vanc is off. Plan stopping cathryn soon. Will follow
[2021-02-17] MEDS: Senna/Docusate Sodium 1 Tablet 2 TABLET NG (21:01)
--- NOTE | 2021-02-17 23:26 | CPS ---
Will hold BiPAP tonight per physician's note. RN aware. CUSTOMER ORDER CLERK will monitor patient overnight.
[2021-02-18] VITALS (19 sets, daily range): BP systolic 117–138; BP diastolic 54–77; PULSE 82–98; RESP 12–93; TEMP 36.6–38.5; O2SAT 9–96
[2021-02-18 07:03] LABS: Absolute Lymphocyte Count 3.51 X10^3/uL (0.83-4.51); Absolute Neutrophil Count 9.7 X10^3/uL (2.0-7.7); Basophil# 0.16 X10^3/uL; Eosinophil# 0.71 X10^3/uL; Eosinophils% 4.5 % (0-5); Hematocrit 31.6 % (37-47); Hemoglobin 9.5 g/dL (12.0-15.0); Lymphocyte # 3.51 X10^3/ul (0.83-4.51); Lymphocyte % 22.4 % (19-41); Mean Corp Hgb Conc 30.1 g/dL (32-36); Mean Corpuscular Hgb 29.9 pg (27.0-32.0); Mean Corpuscular Volume 99.4 fL (81-99); Mean Platelet Vol. 12.3 fl (6.2-12.0); Monocyte# 0.94 X10^3/uL; NRBC Flagged by Analyzer 0.2 % (0-5); Neutrophil % 61.8 % (47-70); Platelet Count 196 K/mm3 (150-450); RBC Distribution Width CV 14.6 % (11.6-14.6); RBC Distribution Width SD 53.9 fl (35.1-43.9); Red Blood Count 3.18 M/mm3 (4.2-5.4); White Blood Count 15.7 K/mm3 (4.4-11.0)
[2021-02-18] MEDS: Ipratropium/Albuterol Sulfate 3 ML AMPUL.NEB INHALATION ×2 (07:15→18:55)
[2021-02-18 07:51] LABS: Anion Gap 7 (5-15); BUN 107 mg/dL (7-18); BUN/Creat Ratio 47.1 RATIO (10-20); Calcium,Total 8.1 mg/dL (8.5-10.1); Chloride 112 mmol/L (98-107); Creatinine, Serum 2.27 mg/dL (0.55-1.02); EST Glomerular Filtration Rate 24 mL/min (>60); Est Glom Filt Rate - Afr Amer 29 mL/min (>60); Estimated Creatinine Clearance 25.91 ml/min; Glucose 133 mg/dL (74-106); Potassium 3.9 mmol/L (3.5-5.1); Sodium Level 148 mmol/L (136-145)
[2021-02-18] MEDS: Vital AF 1.2 Cal Liquid 1,000 ML 60 ML GT (08:18)
--- NOTE | 2021-02-18 08:21 | PCM.PN.INT ---
Assessment & Plan Assessment/Plan (1) Acute hypoxemic respiratory failure: PLAN: RECOMMENDATIONS: 1. Resume BiPAP, at a minimum with naps and nightly once NG removed. 2. Wean supplemental oxygen to maintain saturations at or above 90%. 3. Continue increased free water with free water flushes 4. Patient to remain n.p.o. pending further speech therapy evaluation. 5. Continue antimicrobials per ID recommendations. 6. Appreciate cardiology recommendations. 7. Await next of kin decision on PEG versus hospice IMPRESSIONS: 1. Acute hypoxemic respiratory failure Clinical concern for aspiration pneumonia as precipitating etiology. The patient has been compliant with the use of BiPAP therapy with naps and while sleeping, which I would recommend be continued once NG removed. In the interim, plan to continue to wean supplemental oxygen to maintain saturations at or above 90%. Continue antimicrobials per ID recommendations. The patient is to remain n.p.o. pending further evaluation by speech therapy. Patient with significant hypernatremia and hyperchloremia, so is being given increased free water. This is likely okay to continue from a respiratory standpoint as oxygen requirements have not changed. Patient has been volume sensitive in the past, so we will have to watch closely. Patient's oxygen status has improved with n.p.o. status indicating a possible element of chronic aspiration. 2. Septic shock Resolved. Likely secondary to aspiration pneumonia. The patient is currently on appropriate antimicrobial therapy. She remains hemodynamically stable. Wound care is following. 3. Metabolic/toxic encephalopathy/hypernatremia Unchanged. Likely related to acute infectious etiology and possible polypharmacy in the setting of renal insufficiency. As noted above, I would recommend that all sedating medications be withheld. Continue to address underlying infection with antimicrobials as ordered. Arterial blood gases within normal limits. MRI brain was unremarkable. EEG showed no epileptiform activity. Patient may have delirium from hypernatremia. Patient would benefit from continued increased free water 4. A. fib with RVR Intermittent. Continue current medical management with beta-blockade as tolerated. Appreciate cardiology input 5. History of breast CA/MGUS/schizophrenia/obesity Complicates care, management, recovery and prognosis. Hold home sedating medications, pending improvement in mentation. This note was generated with Student Designed dictation software. It may contain incorrect words, spelling, and punctuation that were not noted in checking the note before signing. Subjective Subjective Patient did okay overnight from a hemodynamic standpoint. Oxygenation continues to slowly improve, but mentation is marginal. Per nursing and hospitalist, patient sister wishes to see her before making any decisions about proceeding with a PEG or hospice therapy. Per nursing, sister has not visited as of my evaluation this morning. Patient is unable to answer questions, but does open eyes to voice. Objective Data Objective Data Vital Signs: Vital Signs Temp Pulse Resp BP Pulse Ox 37.1 C 89 19 H 131/63 H 92 02/18/21 07:00 02/18/21 07:00 02/18/21 07:00 02/18/21 07:00 02/18/21 07:00 Oxygen Flow Rate (L/min) 2 Oxygen Delivery Method Nasal Cannula Weight: 96.3 kg Body Mass Index (BMI) 33.0 Intake & Output: Intake and Output for Last 24 Hours 02/16/21 02/17/21 02/18/21 23:59 23:59 23:59 Intake Total 2200 / 2200 2621 / 2621 1554 / 1554 Output Total 450 / 450 625 / 675 2200 / 2200 Balance 1750 / 1750 1995 / 1946 -646 / -646 Lab / Micro Data Result Diagrams: 02/18/21 06:30 02/18/21 06:30 Labs: Laboratory Results - last 24 hr 02/18/21 06:30: WBC 15.7 H, RBC 3.18 L, Hgb 9.5 L, Hct 31.6 L, MCV 99.4 H, MCH 29.9, MCHC 30.1 L, RDW Std Deviation 53.9 H, RDW Coeff of Kenna 14.6, Plt Count 196, MPV 12.3 H, Immature Gran % (Auto) 4.300 H, Neut % (Auto) 61.8, Lymph % (Auto) 22.4, [place] % (Auto) 6.0, Eos % (Auto) 4.5, Baso % (Auto) 1.0, Absolute Neuts (auto) 9.7 H, Absolute Lymphs (auto) 3.51, Nucleated RBC % 0.2 02/18/21 06:30: Sodium 148 H, Potassium 3.9, Chloride 112 H, Carbon Dioxide 29.0, Anion Gap 7, BUN 107 H*, Creatinine 2.27 H, Estim Creat Clear Calc 25.91, Est GFR (MDRD) Af Amer 29 L, Est GFR (MDRD) Non-Af 24 L, BUN/Creatinine Ratio 47.1 H, Glucose 133 H, Calcium 8.1 L Micro: Microbiology 02/11/21 11:00 Blood Culture (Wb) - Other Blood Culture - Final No growth in 5 days. 02/11/21 11:15 Blood Culture (Wb) - Left Forearm Blood Culture - Final No growth in 5 days. 02/08/21 16:15 Blood Culture (Wb) - Left Hand Blood Culture - Final No growth in 5 days. 02/08/21 15:10 Blood Culture (Wb) - Central Line Blood Culture - Final No growth in 5 days. 02/11/21 08:00 Urine Catheter - Henry Urine Culture - Final Presumptive C albicans 02/12/21 08:15 Stool Stool Occult Blood (EDU) - Final 02/08/21 13:40 Mucosa - Nose Respiratory Panel (PCR) - Final 02/03/21 20:48 Blood Culture (Wb) - Left Wrist Blood Culture - Final No growth in 5 days. 02/03/21 18:15 Blood Culture (Wb) - Left Wrist Blood Culture - Final No growth in 5 days. 02/03/21 12:32 Urine Catheter - Henry Urine Culture - Final Culture exhibits no growth. 02/03/21 12:32 Urine Catheter - Henry Legionella Antigen - Final 02/03/21 12:32 Urine Catheter - Henry Streptococcus pneumoniae Antigen (M - Final 02/03/21 14:50 Mucosa - Nose SARS-CoV-2 Antigen (Rapid) - Final Physical Exam Const Constitutional Narrative: The patient is relatively unchanged from a mentation standpoint today. Arouses to voice by opening eyes, but not answering questions General Appearance: disheveled and lethargic; Negative for well kempt Eyes Sclera: sclera abnormal Positive for bilateral Details: scleral injection Neck full ROM and no lymphadenopathy Chest inspection of chest normal Resp normal respiratory effort and no use of accessory muscles Effort and Inspection: able to speak in complete sentences Auscultation: clear to auscultation bilaterally Percussion: Negative for dullness Cardio no murmurs, no rub and no gallops Rate: tachycardic Rhythm: abnormal rhythm irregularly irregular no CVA tenderness Extremity no clubbing, cyanosis or edema Extremity Narrative: Wrapped lower extremities Skin Skin Narrative: Dressings in place. Multiple lesions noted including superficial ulcers, areas of ecchymosis and granulation tissue (all dressed). Lesions on the knee, right shoulder and bilateral feet were noted. See nursing documentation for specific details Psych cooperative Appearance: unkempt Attitude: uncooperative Charges/Coding Visit Charges Inpatient E&M: 77261 Subs Hosp L2
[2021-02-18] MEDS: Famotidine 200 MG/20 ML MDV 20 MG in 0.9% Normal Saline (Pres. free 8 ML 300 MG IV (10:09)
[2021-02-18] MEDS: Juven (unflavored) Packet 1 PACKET NG (10:13)
[2021-02-18] MEDS: Metoprolol Tartrate 100 MG Tablet NG (10:14)
[2021-02-18] MEDS: Tamoxifen 10 MG Tablet 20 MG NG (10:14)
[2021-02-18] MEDS: Amiodarone 200 MG Tablet NG ×2 (10:14→18:28)
[2021-02-18] MEDS: Enoxaparin 40 MG/0.4 ML Syringe SC (10:22)
--- NOTE | 2021-02-18 11:09 | CASEMGMT ---
BREN called [facility] and spoke with Caryn. SW let her know patient may come to them on Hospice. She said she will check, but she does not think she will have to get a pre-cert just a level of care. She is confirming this with their business office. SW to continue to follow for d/c planning. Negin Oconnell TOWEL FOLDER JAYY
[2021-02-18] MEDS: Acetaminophen 650 MG/20 ML UDC NG (14:41)
--- NOTE | 2021-02-18 15:00 | CASEMGMT ---
BREN spoke with patient's sister Odilia and brother Jose Miguel. BREN let them know [facility] can take patient and that her insurance will pickling drum operator the cost even if she goes on Hospice. Patient's brother asked if BREN could send a referral to [facility] as that is closer for everyone. BREN told him BREN can do this, but will likely not get a response today. BREN told them BREN can let them know tomorrow. BREN tried calling [facility] and there was no answer. BREN faxed referral to [facility]. Negin Oconnell TAXICAB DISPATCHER JAYY
--- NOTE | 2021-02-18 15:50 | PCM.PN.HOSP ---
Subjective Subjective Worsening renal function today. No new issues overnight. She is still incoherent with her speech and is difficult to have a conversation with. Objective Data Objective Data Vital Signs: Vital Signs Temp Pulse Resp BP Pulse Ox 100.8 F H 90 22 H 126/60 H 94 02/18/21 15:00 02/18/21 15:00 02/18/21 15:00 02/18/21 15:00 02/18/21 15:00 Oxygen Flow Rate (L/min) 3 Oxygen Delivery Method Nasal Cannula Weight: 212 lb 4.882 oz Body Mass Index (BMI) 33.0 Intake & Output: Intake and Output for Last 24 Hours 02/17/21 02/18/21 02/19/21 03:59 03:59 03:59 Intake Total 2200 / 2200 3445 / 3445 920 / 920 Output Total 450 / 450 675 / 675 2575 / 2575 Balance 1750 / 1750 2770 / 2770 -1655 / -1655 Lab / Micro Data Result Diagrams: 02/18/21 06:30 02/18/21 06:30 Labs: Laboratory Results - last 24 hr 02/18/21 06:30: WBC 15.7 H, RBC 3.18 L, Hgb 9.5 L, Hct 31.6 L, MCV 99.4 H, MCH 29.9, MCHC 30.1 L, RDW Std Deviation 53.9 H, RDW Coeff of Kenna 14.6, Plt Count 196, MPV 12.3 H, Immature Gran % (Auto) 4.300 H, Neut % (Auto) 61.8, Lymph % (Auto) 22.4, Isabella % (Auto) 6.0, Eos % (Auto) 4.5, Baso % (Auto) 1.0, Absolute Neuts (auto) 9.7 H, Absolute Lymphs (auto) 3.51, Nucleated RBC % 0.2 02/18/21 06:30: Sodium 148 H, Potassium 3.9, Chloride 112 H, Carbon Dioxide 29.0, Anion Gap 7, BUN 107 H*, Creatinine 2.27 H, Estim Creat Clear Calc 25.91, Est GFR (MDRD) Af Amer 29 L, Est GFR (MDRD) Non-Af 24 L, BUN/Creatinine Ratio 47.1 H, Glucose 133 H, Calcium 8.1 L Micro: Microbiology 02/11/21 11:00 Blood Culture (Wb) - Other Blood Culture - Final No growth in 5 days. 02/11/21 11:15 Blood Culture (Wb) - Left Forearm Blood Culture - Final No growth in 5 days. 02/08/21 16:15 Blood Culture (Wb) - Left Hand Blood Culture - Final No growth in 5 days. 02/08/21 15:10 Blood Culture (Wb) - Central Line Blood Culture - Final No growth in 5 days. 02/11/21 08:00 Urine Catheter - Henry Urine Culture - Final Presumptive C albicans 02/12/21 08:15 Stool Stool Occult Blood (EDU) - Final 02/08/21 13:40 Mucosa - Nose Respiratory Panel (PCR) - Final 02/03/21 20:48 Blood Culture (Wb) - Left Wrist Blood Culture - Final No growth in 5 days. 02/03/21 18:15 Blood Culture (Wb) - Left Wrist Blood Culture - Final No growth in 5 days. 02/03/21 12:32 Urine Catheter - Henry Urine Culture - Final Culture exhibits no growth. 02/03/21 12:32 Urine Catheter - Henry Legionella Antigen - Final 02/03/21 12:32 Urine Catheter - Henry Streptococcus pneumoniae Antigen (M - Final 02/03/21 14:50 Mucosa - Nose SARS-CoV-2 Antigen (Rapid) - Final Physical Exam Const no apparent distress General Appearance: cooperative Orientation / Consciousness: confused and lethargic Nutritional Appearance: obese HEENT normocephalic and moist oral mucous membranes Eyes PERRL, EOMs intact bilaterally and conjunctivae normal Neck supple and no JVD Resp normal respiratory effort, no retractions, no use of accessory muscles and clear to auscultation bilaterally Auscultation: Negative for crackles, rales, rhonchi or wheezes Cardio S1 normal heart sound, S2 normal heart sound and no murmurs Rate: tachycardic Rhythm: abnormal rhythm GI soft to palpation, non-tender and non-distended; Negative for hepatosplenomegaly Extremity no clubbing, cyanosis or edema Extremity Narrative: Diffuse anasarca General Extremity: edema bilateral Skin Skin Narrative: Multiple wounds and lesions with dressings in place. No significant surrounding erythema Neuro no focal motor deficits and no sensory deficits noted Psych Appearance: unkempt Speech: incoherent Assessment & Plan Assessment/Plan (1) Septic shock: (2) Pneumonia: QUALIFIERS: Pneumonia type: due to unspecified organism Laterality: unspecified laterality Lung location: unspecified part of lung Qualified Code(s): J18.9 - Pneumonia, unspecified organism PLAN: 1. Acute encephalopathy secondary to septic shock and acute hypoxic respiratory failure secondary to bilateral pneumonia likely aspiration/hypernatremia/TRICIA -She has completed all antibiotics per ID -Continue with BiPAP as needed especially with sleeping -We will remove NG tube today -No longer in septic shock, she did have to transition to the ICU on 02/08/2021 secondary to respiratory distress from the aspiration event -Awaiting pre-CERT for transition back to the intermediate -Continue to monitor renal function -Had a 30-minute discussion with the sister and the brother as well as the niece about goals of care. We discussed once again all of the options to move forward and they have elected to pull the NG tube and have her be evaluated by speech therapy and if there is no meaningful improvement since last she was evaluated speech therapy on being able to protect her airway and take p.o., then they would like to discuss the situation with hospice. In the meantime will obtain pre-CERT for transfer to a intermediate. -Can restart some IV fluids given her worsening renal function 2. A. fib with RVR/HTN -Echo was unremarkable -Continue with amiodarone and metoprolol -Appreciate cardiology assistance 3. Acute normocytic anemia/acute thrombocytopenia -Stool guaiac negative, iron studies consistent with anemia of chronic disease -Vitamin B12 level of 269 -Transfused on 02/13/2021 -Thrombocytopenia is likely secondary to sepsis, has resolved 4. Failure to thrive with multiple wounds and mild acute rhabdomyolysis -Rhabdomyolysis has resolved, CK was minimally elevated to 260 -Continue with local wound care -PT/OT for possible placement 5. Schizophrenia -She is on quite a few medications that can be sedating, the will hold and monitor -If she does become more alert can start restarting some of these DVT: SCDs/Lovenox Charges/Coding Visit Charges Inpatient E&M: 02082 Subs Hosp L2 Procedures Hospitalists Procedures: 82528 Advncd Care Plan 30 Min
[2021-02-18] MEDS: 0.45% Normal Saline 1,000 ML 60 ML IV (16:17)
--- NOTE | 2021-02-18 18:33 | NURSING ---
order to d/c NG tube given by martell AWAD dose amio given early.
--- NOTE | 2021-02-18 18:39 | NURSING ---
NG tube d/c, pt tolerated well.
[2021-02-18] MEDS: Nystatin Powder 15gm Bottle 1 APPLIC TOPICAL (23:13)
[2021-02-19] VITALS (14 sets, daily range): BP systolic 133–145; BP diastolic 47–67; PULSE 66–121; RESP 12–23; TEMP 36.1–36.8; O2SAT 88–99
[2021-02-19 05:51] LABS: Anion Gap 4 (5-15); BUN 76 mg/dL (7-18); BUN/Creat Ratio 62.3 RATIO (10-20); Calcium,Total 7.9 mg/dL (8.5-10.1); Chloride 117 mmol/L (98-107); Creatinine, Serum 1.22 mg/dL (0.55-1.02); EST Glomerular Filtration Rate 48 mL/min (>60); Est Glom Filt Rate - Afr Amer 59 mL/min (>60); Glucose 109 mg/dL (74-106); Potassium 3.8 mmol/L (3.5-5.1); Sodium Level 153 mmol/L (136-145)
--- NOTE | 2021-02-19 07:12 | EKG12_ITS ---
Test Reason : ARRYTHMIA Blood Pressure : / mmHG Vent. Rate : 094 BPM Atrial Rate : 094 BPM P-R Int : 164 ms QRS Dur : 080 ms QT Int : 356 ms P-R-T Axes : 043 050 043 degrees QTc Int : 445 ms Normal sinus rhythm Low voltage QRS Borderline ECG When compared with ECG of 15-FEB-2021 17:10, NM interval has decreased Nonspecific T wave abnormality, improved in Inferior leads T wave inversion no longer evident in Anterior leads Confirmed by JM AWAD, VERONA ([id number]), school photograph editor JAMAAL ENRIQUEZ ([id number]) on 02/23/2021 9:56:29 AM Referred By: FAHEEM Confirmed By:VERONA ONEAL MD
[2021-02-19] MEDS: Ipratropium/Albuterol Sulfate 3 ML AMPUL.NEB INHALATION ×3 (07:35→19:05)
[2021-02-19] MEDS: Nystatin Powder 15gm Bottle 1 APPLIC TOPICAL ×2 (09:02→23:01)
[2021-02-19] MEDS: 0.9% Saline Lock 10 ML Syringe IV ×2 (09:02→23:01)
[2021-02-19] MEDS: Famotidine 200 MG/20 ML MDV 20 MG in 0.9% Normal Saline (Pres. free 8 ML 300 MG IV (09:02)
[2021-02-19] MEDS: Enoxaparin 40 MG/0.4 ML Syringe SC (09:03)
--- NOTE | 2021-02-19 09:22 | CASEMGMT ---
BREN called [facility]. The director of undergraduate admissions is not in yet today. BREN left a message requesting a return call. Negin HOPE
--- NOTE | 2021-02-19 10:20 | CASEMGMT ---
BREN received a return call from Emerita with [facility]. She said they can take patient. She said whether patient would come on Hospice or skilled she would need either a level of care from insurance or a pre-cert. She does not think she would be able to obtain either of these before the end of the day. BREN told her SW will let her know the plan as soon as SW knows. BREN called patient's brother, Jose Miguel. BREN let him know [facility] can accept patient. BREN asked if they definitely want [facility] so SW can cancel the [facility] referral. He said they definitely want [facility]. BREN called [facility] and left a message letting them know that patient's family has chosen for patient to go to [facility] now as it is closer for everyone. BREN asked them to cancel the referral and anything with insurance if they have started anything. BREN called Emerita with [facility] and let her know family definitely wants [facility]. She will start insurance auth as soon as she knows if patient will be skilled or Hospice. Negin Oconnell VB DEVELOPER JAYY
--- NOTE | 2021-02-19 10:28 | PN.HOSP_ITS ---
Subjective Subjective NG tube was removed yesterday evening. Kidney function is better and her BUN is down, she is a little more lucid today and asked for applesauce and ice chips. Objective Data Objective Data Vital Signs: Vital Signs Temp Pulse Resp BP Pulse Ox 98.1 F 95 18 133/64 H 94 02/19/21 09:00 02/19/21 09:00 02/19/21 09:00 02/19/21 09:00 02/19/21 09:00 Oxygen Flow Rate (L/min) 2 Oxygen Delivery Method Nasal Cannula Weight: 206 lb 9.17 oz Body Mass Index (BMI) 33.0 Intake & Output: Intake and Output for Last 24 Hours 02/18/21 02/19/21 02/20/21 03:59 03:59 03:59 Intake Total 3445 / 3445 1135.75 / 1135.75 10 / 10 Output Total 675 / 675 3925 / 3925 300 / 300 Balance 2770 / 2770 -2789.25 / -2789.25 -290 / -290 Lab / Micro Data Result Diagrams: 02/18/21 06:30 02/19/21 05:23 Labs: Laboratory Results - last 24 hr 02/19/21 05:23: Sodium 153 H, Potassium 3.8, Chloride 117 H, Carbon Dioxide 32.0, Anion Gap 4 L, BUN 76 H, Creatinine 1.22 H, Estim Creat Clear Calc 48.20, Est GFR (MDRD) Af Amer 59 L, Est GFR (MDRD) Non-Af 48 L, BUN/Creatinine Ratio 62.3 H, Glucose 109 H, Calcium 7.9 L Micro: Microbiology 02/11/21 11:00 Blood Culture (Wb) - Other Blood Culture - Final No growth in 5 days. 02/11/21 11:15 Blood Culture (Wb) - Left Forearm Blood Culture - Final No growth in 5 days. 02/08/21 16:15 Blood Culture (Wb) - Left Hand Blood Culture - Final No growth in 5 days. 02/08/21 15:10 Blood Culture (Wb) - Central Line Blood Culture - Final No growth in 5 days. 02/11/21 08:00 Urine Catheter - Henry Urine Culture - Final Presumptive C albicans 02/12/21 08:15 Stool Stool Occult Blood (EDU) - Final 02/08/21 13:40 Mucosa - Nose Respiratory Panel (PCR) - Final 02/03/21 20:48 Blood Culture (Wb) - Left Wrist Blood Culture - Final No growth in 5 days. 02/03/21 18:15 Blood Culture (Wb) - Left Wrist Blood Culture - Final No growth in 5 days. 02/03/21 12:32 Urine Catheter - Henry Urine Culture - Final Culture exhibits no growth. 02/03/21 12:32 Urine Catheter - Henry Legionella Antigen - Final 02/03/21 12:32 Urine Catheter - Henry Streptococcus pneumoniae Antigen (M - Final 02/03/21 14:50 Mucosa - Nose SARS-CoV-2 Antigen (Rapid) - Final Physical Exam Const no apparent distress General Appearance: cooperative Orientation / Consciousness: confused and lethargic Nutritional Appearance: obese HEENT normocephalic and moist oral mucous membranes Eyes PERRL, EOMs intact bilaterally and conjunctivae normal Neck supple and no JVD Resp normal respiratory effort, no retractions, no use of accessory muscles and clear to auscultation bilaterally Auscultation: Negative for crackles, rales, rhonchi or wheezes Cardio regular rate, regular rhythm, S1 normal heart sound, S2 normal heart sound, no murmurs, no rub, no gallops, no clicks and no JVD GI soft to palpation, non-tender and non-distended; Negative for hepatosplenomegaly Extremity no clubbing, cyanosis or edema Skin Skin Narrative: Multiple wounds and lesions with dressings in place. No significant surrounding erythema Neuro no focal motor deficits and no sensory deficits noted Psych Appearance: unkempt Speech: incoherent Assessment & Plan Assessment/Plan (1) Septic shock: (2) Pneumonia: QUALIFIERS: Pneumonia type: due to unspecified organism Laterality: unspecified laterality Lung location: unspecified part of lung Qualified Code(s): J18.9 - Pneumonia, unspecified organism PLAN: 1. Acute encephalopathy secondary to septic shock and acute hypoxic respiratory failure secondary to bilateral pneumonia likely aspiration/hypernatremia/TRICIA/hypernatremia -She has completed all antibiotics per ID -Continue with BiPAP as needed especially with sleeping -NG removed 02/18/2021 -No longer in septic shock, she did have to transition to the ICU on 02/08/2021 secondary to respiratory distress from the aspiration event -Awaiting pre-CERT for transition back to the [place] [facility] -Continue to monitor renal function -Creatinine did improve however her so edema is back up to 153 despite being on half-normal saline. We will discontinue IV fluids and monitor -We will speech therapy follow-up with her today and see if they can make recommendations other than n.p.o. if it safe. Otherwise family would like to proceed with hospice placement. 2. A. fib with RVR/HTN -Echo was unremarkable -We will continue with IV metoprolol since she does have an NG tube and will hold off on her p.o. amiodarone unless she is able to take p.o. -Appreciate cardiology assistance 3. Acute normocytic anemia/acute thrombocytopenia -Stool guaiac negative, iron studies consistent with anemia of chronic disease -Vitamin B12 level of 269 -Transfused on 02/13/2021 -Thrombocytopenia is likely secondary to sepsis, has resolved 4. Failure to thrive with multiple wounds and mild acute rhabdomyolysis -Rhabdomyolysis has resolved, CK was minimally elevated to 260 -Continue with local wound care -PT/OT for possible placement 5. Schizophrenia -She is on quite a few medications that can be sedating, the will hold and monitor -If she does become more alert can start restarting some of these DVT: SCDs/Lovenox Charges/Coding Visit Charges Inpatient E&M: 07600 Subs Hosp L2
--- NOTE | 2021-02-19 12:41 | PN.CC_ITS ---
Assessment & Plan Assessment/Plan (1) Acute hypoxemic respiratory failure: PLAN: RECOMMENDATIONS: 1. Resume BiPAP, at a minimum with sleep. 2. Wean supplemental oxygen to maintain saturations at or above 90%. 3. We will need to watch sodium closely given removal of NG 4. Await response to p.o. intake 5. Recommend hospice if patient starts desaturating once p.o. intake is resumed IMPRESSIONS: 1. Acute hypoxemic respiratory failure Clinical concern for aspiration pneumonia as precipitating etiology. The patient has been compliant with the use of BiPAP therapy with naps and while sleeping, which I would recommend be continued once NG removed. In the interim, plan to continue to wean supplemental oxygen to maintain saturations at or above 90%. Patient's oxygen status has been stable for days with NG feeds. If luiz jorge starts to develop progressive hypoxia, would recommend hospice measures as this likely represents aspiration. Do anticipate patient will require minimal nasal cannula oxygen on discharge. 2. Septic shock Resolved. Likely secondary to aspiration pneumonia. The patient is currently on appropriate antimicrobial therapy. She remains hemodynamically stable. Wound care is following. 3. Metabolic/toxic encephalopathy/hypernatremia Unchanged. Likely related to acute infectious etiology and possible polypharmacy in the setting of renal insufficiency. As noted above, I would recommend that all sedating medications be withheld. Continue to address underlying infection with antimicrobials as ordered. Arterial blood gases within normal limits. MRI brain was unremarkable. EEG showed no epileptiform activity. Patient may have delirium from hypernatremia. Patient would benefit from continued increased free water 4. A. fib with RVR Intermittent. Continue current medical management with beta-blockade as tolerated. Appreciate cardiology input 5. History of breast CA/MGUS/schizophrenia/obesity Complicates care, management, recovery and prognosis. Hold home sedating medications, pending improvement in mentation. This note was generated with [employer] dictation software. It may contain incorrect words, spelling, and punctuation that were not noted in checking the note before signing. Subjective Subjective Patient much more interactive today compared to yesterday. Patient is denying any pain or shortness of breath. Appreciate hospitalist conversation with family. Patient had NG removed with plans for recovery versus hospice evaluation. Objective Data Objective Data Vital Signs: Vital Signs Temp Pulse Resp BP Pulse Ox 36.7 C 89 18 133/64 H 94 02/19/21 09:00 02/19/21 11:00 02/19/21 09:00 02/19/21 09:00 02/19/21 09:00 Oxygen Flow Rate (L/min) 2 Oxygen Delivery Method Nasal Cannula Weight: 93.7 kg Body Mass Index (BMI) 33.0 Intake & Output: Intake and Output for Last 24 Hours 02/17/21 02/18/21 02/19/21 23:59 23:59 23:59 Intake Total 2621 / 2621 2079.75 / 2079.75 1010 / 1010 Output Total 625 / 675 3075 / 3075 1625 / 1625 Balance 1996 / 1946 -995.25 / -995.25 -615 / -615 Lab / Micro Data Result Diagrams: 02/18/21 06:30 02/19/21 05:23 Labs: Laboratory Results - last 24 hr 02/19/21 05:23: Sodium 153 H, Potassium 3.8, Chloride 117 H, Carbon Dioxide 32.0, Anion Gap 4 L, BUN 76 H, Creatinine 1.22 H, Estim Creat Clear Calc 48.20, Est GFR (MDRD) Af Amer 59 L, Est GFR (MDRD) Non-Af 48 L, BUN/Creatinine Ratio 62.3 H, Glucose 109 H, Calcium 7.9 L Micro: Microbiology 02/11/21 11:00 Blood Culture (Wb) - Other Blood Culture - Final No growth in 5 days. 02/11/21 11:15 Blood Culture (Wb) - Left Forearm Blood Culture - Final No growth in 5 days. 02/08/21 16:15 Blood Culture (Wb) - Left Hand Blood Culture - Final No growth in 5 days. 02/08/21 15:10 Blood Culture (Wb) - Central Line Blood Culture - Final No growth in 5 days. 02/11/21 08:00 Urine Catheter - Henry Urine Culture - Final Presumptive C albicans 02/12/21 08:15 Stool Stool Occult Blood (EDU) - Final 02/08/21 13:40 Mucosa - Nose Respiratory Panel (PCR) - Final 02/03/21 20:48 Blood Culture (Wb) - Left Wrist Blood Culture - Final No growth in 5 days. 02/03/21 18:15 Blood Culture (Wb) - Left Wrist Blood Culture - Final No growth in 5 days. 02/03/21 12:32 Urine Catheter - Henry Urine Culture - Final Culture exhibits no growth. 02/03/21 12:32 Urine Catheter - Henry Legionella Antigen - Final 02/03/21 12:32 Urine Catheter - Henry Streptococcus pneumoniae Antigen (M - Final 02/03/21 14:50 Mucosa - Nose SARS-CoV-2 Antigen (Rapid) - Final Physical Exam Const alert and no apparent distress Constitutional Narrative: The patient is relatively unchanged from a mentation standpoint today. Patient able to notice me walking into the room General Appearance: Negative for well kempt Eyes PERRL, EOMs intact bilaterally and conjunctivae normal Neck full ROM and no lymphadenopathy Chest inspection of chest normal Resp normal respiratory effort and no use of accessory muscles Effort and Inspection: able to speak in complete sentences Auscultation: clear to auscultation bilaterally Percussion: Negative for dullness Cardio no murmurs, no rub and no gallops Cardio Narrative: Normal sinus rhythm on telemetry Rate: tachycardic Rhythm: abnormal rhythm irregularly irregular no CVA tenderness Extremity no clubbing, cyanosis or edema Extremity Narrative: Wrapped lower extremities Skin Skin Narrative: Dressings in place. Multiple lesions noted including superficial ulcers, areas of ecchymosis and granulation tissue (all dressed). Lesions on the knee, right shoulder and bilateral feet were noted. See nursing documentation for specific details Psych cooperative Appearance: unkempt Attitude: uncooperative Charges/Coding Visit Charges Inpatient E&M: 48267 Subs Hosp L2
--- NOTE | 2021-02-19 14:56 | CASEMGMT ---
BREN called Emerita at [facility] and let her know that we are not going to know if patient will be Hospice or skilled until she has a Modified Barium Swallow. BREN told her this cannot be done until Monday. BREN will follow up with her Monday. Negin HOPE
[2021-02-20] VITALS (16 sets, daily range): BP systolic 128–153; BP diastolic 54–81; PULSE 69–113; RESP 12–31; TEMP 36.4–36.9; O2SAT 95–99
[2021-02-20 07:13] LABS: Absolute Neutrophil Count 7.2 X10^3/uL (2.0-7.7); Basophil# 0.13 X10^3/uL; Basophil% 1.1 % (0-1); Eosinophil# 0.53 X10^3/uL; Eosinophils% 4.6 % (0-5); Hematocrit 28.2 % (37-47); Hemoglobin 8.5 g/dL (12.0-15.0); Lymphocyte % 21.8 % (19-41); Mean Corp Hgb Conc 30.1 g/dL (32-36); Mean Corpuscular Hgb 29.6 pg (27.0-32.0); Mean Corpuscular Volume 98.3 fL (81-99); Mean Platelet Vol. 11.8 fl (6.2-12.0); Monocyte# 0.75 X10^3/uL; Monocyte% 6.5 % (0-10); NRBC Flagged by Analyzer 0.2 % (0-5); Neutrophil # 7.21 X10^3/uL (2.7-7.7); Neutrophil % 62.9 % (47-70); Platelet Count 215 K/mm3 (150-450); RBC Distribution Width CV 14.4 % (11.6-14.6); RBC Distribution Width SD 51.3 fl (35.1-43.9); Red Blood Count 2.87 M/mm3 (4.2-5.4); White Blood Count 11.5 K/mm3 (4.4-11.0)
[2021-02-20] MEDS: Ipratropium/Albuterol Sulfate 3 ML AMPUL.NEB INHALATION ×3 (07:31→19:23)
[2021-02-20 08:03] LABS: Anion Gap 4 (5-15); BUN 43 mg/dL (7-18); BUN/Creat Ratio 54.3 RATIO (10-20); Calcium,Total 8.1 mg/dL (8.5-10.1); Chloride 118 mmol/L (98-107); Creatinine, Serum 0.79 mg/dL (0.55-1.02); EST Glomerular Filtration Rate 80 mL/min (>60); Est Glom Filt Rate - Afr Amer 96 mL/min (>60); Estimated Creatinine Clearance 74.44 ml/min; Glucose 121 mg/dL (74-106); Potassium 3.3 mmol/L (3.5-5.1); Sodium Level 151 mmol/L (136-145)
--- NOTE | 2021-02-20 08:03 | PN.CC_ITS ---
Assessment & Plan Assessment/Plan (1) Acute hypoxemic respiratory failure: PLAN: RECOMMENDATIONS: 1. Continue BiPAP with sleep. 2. Wean supplemental oxygen to maintain saturations at or above 90%. 3. We will need to watch sodium closely given removal of NG. IV fluids per hospitalist 4. Hemodynamically stable on minimal nasal cannula. Will sign off from a pulmonary perspective 5. Recommend hospice if patient starts desaturating once p.o. intake is resumed IMPRESSIONS: 1. Acute hypoxemic respiratory failure Clinical concern for aspiration pneumonia as precipitating etiology. The patient has been compliant with the use of BiPAP therapy with naps and while sleeping, which I would recommend be continued once NG removed. In the interim, plan to continue to wean supplemental oxygen to maintain saturations at or above 90%. Patient's oxygen status has been stable for days with NG feeds. If patient starts to develop progressive hypoxia, would recommend hospice measures as this likely represents aspiration and family has stated they are not open to a PEG tube. Do anticipate patient will require minimal nasal cannula oxygen on discharge. BiPAP could be continued at an [facility] empirically until a sleep study can be obtained. Given relative stability of respiratory status and goals of therapy, will sign off from a pulmonary perspective. Please call with any further issues or questions. 2. Septic shock Resolved. Likely secondary to aspiration pneumonia. The patient is currently on appropriate antimicrobial therapy. She remains hemodynamically stable. Wound care is following. 3. Metabolic/toxic encephalopathy/hypernatremia Improving. Likely related to acute infectious etiology and possible polypharmacy in the setting of renal insufficiency. As noted above, I would recommend that all sedating medications be withheld. Continue to address underlying infection with antimicrobials as ordered. Arterial blood gases within normal limits. MRI brain was unremarkable. EEG showed no epileptiform activity. Patient may have delirium from hypernatremia. Patient would benefit from continued increased free water. Morning labs are currently pending 4. A. fib with RVR Intermittent. Continue current medical management with beta-blockade as tolerated. Appreciate cardiology input 5. History of breast CA/MGUS/schizophrenia/obesity Complicates care, management, recovery and prognosis. Hold home sedating medications, pending improvement in mentation. This note was generated with [employer] dictation software. It may contain incorrect words, spelling, and punctuation that were not noted in checking the note before signing. Subjective Subjective Patient continues to be interactive. Patient reports generalized body aches, but no specific location of increased pain. Patient's oxygen status has cont inued to improve and she is now on 1 L nasal cannula. Patient did use BiPAP overnight and tolerated well. Patient is to have a swallow evaluation. Objective Data Objective Data Vital Signs: Vital Signs Temp Pulse Resp BP Pulse Ox 36.7 C 91 19 H 152/71 H 98 02/20/21 02:55 02/20/21 07:00 02/20/21 02:55 02/20/21 02:55 02/20/21 02:55 Oxygen Flow Rate (L/min) 3 Oxygen Delivery Method Bi-pap Weight: 92.1 kg Body Mass Index (BMI) 33.0 Intake & Output: Intake and Output for Last 24 Hours 02/18/21 02/19/21 02/20/21 23:59 23:59 23:59 Intake Total 2079.75 / 2079.75 1010 / 1010 1000 / 1000 Output Total 3075 / 3075 2325 / 2325 730 / 730 Balance -995.25 / -995.25 -1315 / -1315 270 / 270 Lab / Micro Data Result Diagrams: 02/20/21 06:23 02/20/21 06:23 Labs: Laboratory Results - last 24 hr 02/20/21 06:23: WBC 11.5 H, RBC 2.87 L, Hgb 8.5 L, Hct 28.2 L, MCV 98.3, MCH 29.6, MCHC 30.1 L, RDW Std Deviation 51.3 H, RDW Coeff of [place] 14.4, Plt Count 215, MPV 11.8, Immature Gran % (Auto) 3.100 H, Neut % (Auto) 62.9, Lymph % (Auto) 21.8, [place] % (Auto) 6.5, Eos % (Auto) 4.6, Baso % (Auto) 1.1 H, Absolute Neuts (auto) 7.2, Absolute Lymphs (auto) 2.50, Nucleated RBC % 0.2 02/20/21 06:23: Sodium 151 H, Potassium 3.3 L, Chloride 118 H, Carbon Dioxide 29.0, Anion Gap 4 L, BUN 43 H, Creatinine 0.79, Estim Creat Clear Calc 74.44, Est GFR (MDRD) Af Amer 96, Est GFR (MDRD) Non-Af 80, BUN/Creatinine Ratio 54.3 H , Glucose 121 H, Calcium 8.1 L Micro: Microbiology 02/11/21 11:00 Blood Culture (Wb) - Other Blood Culture - Final No growth in 5 days. 02/11/21 11:15 Blood Culture (Wb) - Left Forearm Blood Culture - Final No growth in 5 days. 02/08/21 16:15 Blood Culture (Wb) - Left Hand Blood Culture - Final No growth in 5 days. 02/08/21 15:10 Blood Culture (Wb) - Central Line Blood Culture - Final No growth in 5 days. 02/11/21 08:00 Urine Catheter - Henry Urine Culture - Final Presumptive C albicans 02/12/21 08:15 Stool Stool Occult Blood (EDU) - Final 02/08/21 13:40 Mucosa - Nose Respiratory Panel (PCR) - Final 02/03/21 20:48 Blood Culture (Wb) - Left Wrist Blood Culture - Final No growth in 5 days. 02/03/21 18:15 Blood Culture (Wb) - Left Wrist Blood Culture - Final No growth in 5 days. 02/03/21 12:32 Urine Catheter - Henry Urine Culture - Final Culture exhibits no growth. 02/03/21 12:32 Urine Catheter - Henry Legionella Antigen - Final 02/03/21 12:32 Urine Catheter - Henry Streptococcus pneumoniae Antigen (M - Final 02/03/21 14:50 Mucosa - Nose SARS-CoV-2 Antigen (Rapid) - Final Physical Exam Const alert and no apparent distress Constitutional Narrative: The patient is relatively unchanged from a mentation standpoint today. Patient able to notice me walking into the room General Appearance: Negative for well kempt Eyes PERRL, EOMs intact bilaterally and conjunctivae normal Sclera: sclera abnormal Positive for bilateral Details: scleral injection Neck full ROM and no lymphadenopathy Chest inspection of chest normal Resp normal respiratory effort and no use of accessory muscles Effort and Inspection: able to speak in complete sentences Auscultation: clear to auscultation bilaterally Percussion: Negative for dullness Cardio no murmurs, no rub and no gallops Cardio Narrative: Normal sinus rhythm on telemetry Rate: tachycardic Rhythm: abnormal rhythm irregularly irregular no CVA tenderness Extremity no clubbing, cyanosis or edema Extremity Narrative: Wrapped lower extremities Skin Skin Narrative: Dressings in place. Multiple lesions noted including superficial ulcers, areas of ecchymosis and granulation tissue (all dressed). Lesions on the knee, right shoulder and bilateral feet were noted. See nursing documentation for specific details Psych cooperative Appearance: unkempt Attitude: uncooperative Charges/Coding Visit Charges Inpatient E&M: 91114 Subs Hosp L2
[2021-02-20] MEDS: Tamoxifen 10 MG Tablet 20 MG NG (10:47)
[2021-02-20] MEDS: Nystatin Powder 15gm Bottle 1 APPLIC TOPICAL ×2 (10:47→21:18)
[2021-02-20] MEDS: Enoxaparin 40 MG/0.4 ML Syringe SC (10:47)
[2021-02-20] MEDS: Amiodarone 200 MG Tablet NG ×2 (10:47→21:17)
[2021-02-20] MEDS: Famotidine 200 MG/20 ML MDV 20 MG in 0.9% Normal Saline (Pres. free 8 ML 300 MG IV (10:48)
[2021-02-20] MEDS: 0.9% Saline Lock 10 ML Syringe IV ×2 (10:49→17:55)
--- NOTE | 2021-02-20 11:04 | PN.HOSP_ITS ---
Subjective Subjective More alert today. She is asking to drink water. She will still need to be maintained n.p.o. until she can have a modified barium swallow on Monday. Objective Data Objective Data Vital Signs: Vital Signs Temp Pulse Resp BP Pulse Ox 97.7 F L 100 20 H 128/81 H 96 02/20/21 08:55 02/20/21 08:55 02/20/21 08:55 02/20/21 08:55 02/20/21 08:55 Oxygen Flow Rate (L/min) 2 Oxygen Delivery Method Nasal Cannula Weight: 203 lb 0.732 oz Body Mass Index (BMI) 33.0 Intake & Output: Intake and Output for Last 24 Hours 02/19/21 02/20/21 02/21/21 03:59 03:59 03:59 Intake Total 1135.75 / 1135.75 1010 / 1010 1010 / 1010 Output Total 3925 / 3925 1425 / 1425 730 / 730 Balance -2789.25 / -2789.25 -415 / -415 280 / 280 Lab / Micro Data Result Diagrams: 02/20/21 06:23 02/20/21 06:23 Labs: Laboratory Results - last 24 hr 02/20/21 06:23: WBC 11.5 H, RBC 2.87 L, Hgb 8.5 L, Hct 28.2 L, MCV 98.3, MCH 29.6, MCHC 30.1 L, RDW Std Deviation 51.3 H, RDW Coeff of [place] 14.4, Plt Count 215, MPV 11.8, Immature Gran % (Auto) 3.100 H, Neut % (Auto) 62.9, Lymph % (Auto ) 21.8, [place] % (Auto) 6.5, Eos % (Auto) 4.6, Baso % (Auto) 1.1 H, Absolute Neuts (auto) 7.2, Absolute Lymphs (auto) 2.50, Nucleated RBC % 0.2 02/20/21 06:23: Sodium 151 H, Potassium 3.3 L, Chloride 118 H, Carbon Dioxide 29.0, Anion Gap 4 L, BUN 43 H, Creatinine 0.79, Estim Creat Clear Calc 74.44, Est GFR (MDRD) Af Amer 96, Est GFR (MDRD) Non-Af 80, BUN/Creatinine Ratio 54.3 H , Glucose 121 H, Calcium 8.1 L Micro: Microbiology 02/11/21 11:00 Blood Culture (Wb) - Other Blood Culture - Final No growth in 5 days. 02/11/21 11:15 Blood Culture (Wb) - Left Forearm Blood Culture - Final No growth in 5 days. 02/08/21 16:15 Blood Culture (Wb) - Left Hand Blood Culture - Final No growth in 5 days. 02/08/21 15:10 Blood Culture (Wb) - Central Line Blood Culture - Final No growth in 5 days. 02/11/21 08:00 Urine Catheter - Henry Urine Culture - Final Presumptive C albicans 02/12/21 08:15 Stool Stool Occult Blood (EDU) - Final 02/08/21 13:40 Mucosa - Nose Respiratory Panel (PCR) - Final 02/03/21 20:48 Blood Culture (Wb) - Left Wrist Blood Culture - Final No growth in 5 days. 02/03/21 18:15 Blood Culture (Wb) - Left Wrist Blood Culture - Final No growth in 5 days. 02/03/21 12:32 Urine Catheter - Henry Urine Culture - Final Culture exhibits no growth. 02/03/21 12:32 Urine Catheter - Henry Legionella Antigen - Final 02/03/21 12:32 Urine Catheter - Henry Streptococcus pneumoniae Antigen (M - Final 02/03/21 14:50 Mucosa - Nose SARS-CoV-2 Antigen (Rapid) - Final Physical Exam Const alert and no apparent distress General Appearance: cooperative Nutritional Appearance: obese HEENT normocephalic and moist oral mucous membranes Eyes PERRL, EOMs intact bilaterally and conjunctivae normal Neck supple and no JVD Resp normal respiratory effort, no retractions, no use of accessory muscles and clear to auscultation bilaterally Resp Narrative: Diminished secondary to body habitus Auscultation: Negative for crackles, rales, rhonchi or wheezes Cardio regular rate, regular rhythm, S1 normal heart sound, S2 normal heart sound and no murmurs GI soft to palpation, non-tender and non-distended; Negative for hepatosplenomegaly Extremity no clubbing, cyanosis or edema Extremity Narrative: Diffuse anasarca General Extremity: edema bilateral Skin Skin Narrative: Multiple wounds and lesions with dressings in place. No significant surrounding erythema Neuro no focal motor deficits and no sensory deficits noted Psych affect normal Appearance: grossly normal Assessment & Plan Assessment/Plan (1) Septic shock: (2) Pneumonia: QUALIFIERS: Pneumonia type: due to unspecified organism Laterality: unspecified laterality Lung location: unspecified part of lung Qualified Code(s): J18.9 - Pneumonia, unspecified organism PLAN: 1. Acute encephalopathy secondary to septic shock and acute hypoxic respiratory failure secondary to bilateral pneumonia likely aspiration/hypernatremia/TRICIA/h ypernatremia -She has completed all antibiotics per ID -Continue with BiPAP as needed especially with sleeping -NG removed 02/18/2021 -No longer in septic shock, she did have to transition to the ICU on 02/08/2021 secondary to respiratory distress from the aspiration event -Continue to monitor renal function -Transition to D5W for hypernatremia and continue to monitor, down to 151 today -Modified barium swallow on Monday 2. A. fib with RVR/HTN -Echo was unremarkable -We will continue with IV metoprolol since she does have an NG tube and will hold off on her p.o. amiodarone unless she is able to take p.o. -Appreciate cardiology assistance 3. Acute normocytic anemia/acute thrombocytopenia -Stool guaiac negative, iron studies consistent with anemia of chronic disease -Vitamin B12 level of 269 -Transfused on 02/13/2021 -Thrombocytopenia is likely secondary to sepsis, has resolved 4. Failure to thrive with multiple wounds and mild acute rhabdomyolysis -Rhabdomyolysis has resolved, CK was minimally elevated to 260 -Continue with local wound care -PT/OT for possible placement 5. Schizophrenia -She is on quite a few medications that can be sedating, the will hold and monitor -If she does become more alert can start restarting some of these DVT: SCDs/Lovenox Charges/Coding Visit Charges Inpatient E&M: 28895 Subs Hosp L2
[2021-02-20 11:58] LABS: Magnesium 2.1 mg/dL (1.6-2.6)
[2021-02-20] MEDS: Potassium Chloride 10mEq/100mL 10 MEQ/100 ML IV.SOLN. 100 MEQ IV BOLUS ×4 (15:32→19:19)
[2021-02-20] MEDS: Senna/Docusate Sodium 1 Tablet 2 TABLET NG (21:19)
--- NOTE | 2021-02-20 23:50 | CPS ---
pt refusing BIPAP
[2021-02-21] VITALS (17 sets, daily range): BP systolic 126–148; BP diastolic 62–72; PULSE 64–111; RESP 16–20; TEMP 36.4–37.1; O2SAT 92–99
[2021-02-21] MEDS: Ipratropium/Albuterol Sulfate 3 ML AMPUL.NEB INHALATION ×3 (07:23→19:19)
[2021-02-21 07:31] LABS: Absolute Lymphocyte Count 2.63 X10^3/uL (0.83-4.51); Basophil% 0.9 % (0-1); Eosinophil# 0.46 X10^3/uL; Eosinophils% 4.1 % (0-5); Hematocrit 28.5 % (37-47); Hemoglobin 8.6 g/dL (12.0-15.0); Lymphocyte # 2.63 X10^3/ul (0.83-4.51); Lymphocyte % 23.6 % (19-41); Mean Corp Hgb Conc 30.2 g/dL (32-36); Mean Corpuscular Volume 99.3 fL (81-99); Mean Platelet Vol. 11.3 fl (6.2-12.0); Monocyte# 0.63 X10^3/uL; Monocyte% 5.7 % (0-10); NRBC Flagged by Analyzer 0 % (0-5); Neutrophil # 7.04 X10^3/uL (2.7-7.7); Neutrophil % 63.1 % (47-70); Platelet Count 238 K/mm3 (150-450); RBC Distribution Width CV 14.3 % (11.6-14.6); RBC Distribution Width SD 51.8 fl (35.1-43.9); Red Blood Count 2.87 M/mm3 (4.2-5.4); White Blood Count 11.2 K/mm3 (4.4-11.0)
[2021-02-21 07:54] LABS: Anion Gap 3 (5-15); BUN 29 mg/dL (7-18); BUN/Creat Ratio 38.5 RATIO (10-20); Chloride 115 mmol/L (98-107); Creatinine, Serum 0.75 mg/dL (0.55-1.02); EST Glomerular Filtration Rate 84 mL/min (>60); Est Glom Filt Rate - Afr Amer 102 mL/min (>60); Estimated Creatinine Clearance 78.41 ml/min; Glucose 123 mg/dL (74-106); Potassium 3.7 mmol/L (3.5-5.1); Sodium Level 147 mmol/L (136-145)
[2021-02-21] MEDS: Enoxaparin 40 MG/0.4 ML Syringe SC (11:29)
[2021-02-21] MEDS: Nystatin Powder 15gm Bottle 1 APPLIC TOPICAL ×2 (11:38→21:25)
[2021-02-21] MEDS: Amiodarone 200 MG Tablet NG ×2 (11:38→21:25)
[2021-02-21] MEDS: Tamoxifen 10 MG Tablet 20 MG NG (11:39)
[2021-02-21] MEDS: Famotidine 200 MG/20 ML MDV 20 MG in 0.9% Normal Saline (Pres. free 8 ML 60 MG IV (11:41)
--- NOTE | 2021-02-21 12:39 | PN.HOSP_ITS ---
Subjective Subjective No issues overnight, she has been advanced to a pur?ed diet with honey thickened liquids. Objective Data Objective Data Vital Signs: Vital Signs Temp Pulse Resp BP Pulse Ox 98.1 F 77 17 146/72 H 97 02/21/21 12:22 02/21/21 12:22 02/21/21 12:22 02/21/21 12:22 02/21/21 12:22 Oxygen Flow Rate (L/min) 3 Oxygen Delivery Method Nasal Cannula Weight: 207 lb 0.225 oz Body Mass Index (BMI) 33.0 Intake & Output: Intake and Output for Last 24 Hours 02/20/21 02/21/21 02/22/21 03:59 03:59 03:59 Intake Total 1010 / 1010 2147.33 / 2147.33 0 / 0 Output Total 1425 / 1425 1880 / 1880 125 / 125 Balance -415 / -415 267.33 / 267.33 -125 / -125 Lab / Micro Data Result Diagrams: 02/21/21 07:00 02/21/21 07:00 Labs: Laboratory Results - last 24 hr 02/21/21 07:00: WBC 11.2 H, RBC 2.87 L, Hgb 8.6 L, Hct 28.5 L, MCV 99.3 H, MCH 30.0, MCHC 30.2 L, RDW Std Deviation 51.8 H, RDW Coeff of [place]na 14.3, Plt Count 238, MPV 11.3, Immature Gran % (Auto) 2.600 H, Neut % (Auto) 63.1, Lymph % (Auto) 23.6, [place] % (Auto) 5.7, Eos % (Auto) 4.1, Baso % (Auto) 0.9, Absolute Neuts (auto) 7.0, Absolute Lymphs (auto) 2.63, Nucleated RBC % 0 02/21/21 07:00: Sodium 147 H, Potassium 3.7, Chloride 115 H, Carbon Dioxide 29.0, Anion Gap 3 L, BUN 29 H, Creatinine 0.75, Estim Creat Clear Calc 78.41, Est GFR (MDRD) Af Amer 102, Est GFR (MDRD) Non-Af 84, BUN/Creatinine Ratio 38.5 H, Glucose 123 H, Calcium 8.0 L Micro: Microbiology 02/11/21 11:00 Blood Culture (Wb) - Other Blood Culture - Final No growth in 5 days. 02/11/21 11:15 Blood Culture (Wb) - Left Forearm Blood Culture - Final No growth in 5 days. 02/08/21 16:15 Blood Culture (Wb) - Left Hand Blood Culture - Final No growth in 5 days. 02/08/21 15:10 Blood Culture (Wb) - Central Line Blood Culture - Final No growth in 5 days. 02/11/21 08:00 Urine Catheter - Henry Urine Culture - Final Presumptive C albicans 02/12/21 08:15 Stool Stool Occult Blood (EDU) - Final 02/08/21 13:40 Mucosa - Nose Respiratory Panel (PCR) - Final 02/03/21 20:48 Blood Culture (Wb) - Left Wrist Blood Culture - Final No growth in 5 days. 02/03/21 18:15 Blood Culture (Wb) - Left Wrist Blood Culture - Final No growth in 5 days. 02/03/21 12:32 Urine Catheter - Henry Urine Culture - Final Culture exhibits no growth. 02/03/21 12:32 Urine Catheter - Henry Legionella Antigen - Final 02/03/21 12:32 Urine Catheter - Henry Streptococcus pneumoniae Antigen (M - Final 02/03/21 14:50 Mucosa - Nose SARS-CoV-2 Antigen (Rapid) - Final Physical Exam Const alert and no apparent distress General Appearance: cooperative Orientation / Consciousness: confused and lethargic Nutritional Appearance: obese HEENT normocephalic and moist oral mucous membranes Eyes PERRL, EOMs intact bilaterally and conjunctivae normal Neck supple and no JVD Resp normal respiratory effort, no retractions, no use of accessory muscles and clear to auscultation bilaterally Resp Narrative: Diminished secondary to body habitus Auscultation: Negative for crackles, rales, rhonchi or wheezes Cardio regular rate, regular rhythm, S1 normal heart sound, S2 normal heart sound, no murmurs and no rub GI soft to palpation, non-tender and non-distended; Negative for hepatosplenomegaly Extremity no clubbing, cyanosis or edema Extremity Narrative: Diffuse anasarca General Extremity: edema bilateral Skin Skin Narrative: Multiple wounds and lesions with dressings in place. No significant surrounding erythema Neuro no focal motor deficits and no sensory deficits noted Psych affect normal Appearance: grossly normal Assessment & Plan Assessment/Plan (1) Septic shock: (2) Pneumonia: QUALIFIERS: Pneumonia type: due to unspecified organism Lateral ity: unspecified laterality Lung location: unspecified part of lung Qualified Code(s): J18.9 - Pneumonia, unspecified organism PLAN: 1. Acute encephalopathy secondary to septic shock and acute hypoxic respiratory failure secondary to bilateral pneumonia likely aspiration/hypernatremia/TRICIA/hypernatremia -She has completed all antibiotics per ID -Continue with BiPAP as needed especially with sleeping -NG removed 02/18/2021 -No longer in septic shock, she did have to transition to the ICU on 02/08/2021 s econdary to respiratory distress from the aspiration event -Continue to monitor renal function -Transition to D5W for hypernatremia and continue to monitor, down to 151 today -Modified barium swallow on Monday, currently on pur?ed diet with honey thickened liquids 2. A. fib with RVR/HTN -Echo was unremarkable -We will continue with IV metoprolol since she does have an NG tube and will hold off on her p.o. amiodarone unless she is able to take p.o. -Appreciate cardiology assistance 3. Acute normocytic anemia/acute thrombocytopenia -Stool guaiac negative, iron studies consistent with anemia of chronic disease -Vitamin B12 level of 269 -Transfused on 02/13/2021 -Thrombocytopenia is likely secondary to sepsis, has resolved 4. Failure to thrive with multiple wounds and mild acute rhabdomyolysis -Rhabdomyolysis has resolved, CK was minimally elevated to 260 -Continue with local wound care -PT/OT for possible placement 5. Schizophrenia -She is on quite a few medications that can be sedating, the will hold and monitor -If she does become more alert can start restarting some of these DVT: SCDs/Lovenox Charges/Coding Visit Charges Inpatient E&M: 38321 Subs Hosp L2
[2021-02-21] MEDS: Senna/Docusate Sodium 1 Tablet 2 TABLET NG (21:25)
[2021-02-22] VITALS (16 sets, daily range): BP systolic 119–146; BP diastolic 56–66; PULSE 56–98; RESP 12–26; TEMP 36.7–36.9; O2SAT 92–100
--- NOTE | 2021-02-22 05:30 | CPS ---
Pts sats dropping into the 70's due to sleep apnea. Tried to explain this to pt and why wearing the BIPAP is beneficial. Pt let me put it on but only tolerated it for maybe 10 mins and requesting it to be taken off.
[2021-02-22 06:34] LABS: Anion Gap 4 (5-15); BUN 20 mg/dL (7-18); BUN/Creat Ratio 31.7 RATIO (10-20); Calcium,Total 7.8 mg/dL (8.5-10.1); Chloride 108 mmol/L (98-107); Creatinine, Serum 0.63 mg/dL (0.55-1.02); EST Glomerular Filtration Rate 104 mL/min (>60); Est Glom Filt Rate - Afr Amer 125 mL/min (>60); Estimated Creatinine Clearance 93.34 ml/min; Glucose 106 mg/dL (74-106); Potassium 3.5 mmol/L (3.5-5.1); Sodium Level 141 mmol/L (136-145)
[2021-02-22] MEDS: Ipratropium/Albuterol Sulfate 3 ML AMPUL.NEB INHALATION ×3 (07:29→19:55)
[2021-02-22] MEDS: Amiodarone 200 MG Tablet NG ×2 (08:38→21:23)
[2021-02-22] MEDS: Tamoxifen 10 MG Tablet 20 MG NG (08:38)
[2021-02-22] MEDS: Enoxaparin 40 MG/0.4 ML Syringe SC (08:42)
[2021-02-22] MEDS: Famotidine 200 MG/20 ML MDV 20 MG in 0.9% Normal Saline (Pres. free 8 ML IV (08:42)
[2021-02-22] MEDS: Nystatin Powder 15gm Bottle 1 APPLIC TOPICAL ×2 (08:47→21:23)
--- NOTE | 2021-02-22 08:56 | CASEMGMT ---
Rounded with physician today. Patient is now on a diet. He asked SW to have the [facility] start the pre-cert for skilled. BREN faxed all information to [facility]. BREN also called [facility] and spoke with Emerita in admissions. BREN asked her to please start the pre-cert for skilled. Plan: [facility] under skilled level of care pending pre-cert. Negin Oconnell TRANSPLANT NURSE PRACTITIONER PHARMACIST CRITICAL CARE
--- NOTE | 2021-02-22 11:21 | ST.MBS ---
Modified Barium Swallow - Patient Information Study Date: 02/22/21 Study Time: 10:30 Direct Billable Minutes: 105 Total Minutes procedure & reportin Diagnosis: Acute hypoxemic respiratory failure (J96.01), Pneumonia (J18.9) Referring Physician: Arron Oliveira Reason for Referral: Objectively assess swallow function and aspiration risk. Medical History: PMH: Anxiety, Asthma, GERD (gastroesophageal reflux disease), Hypertension, Hypokalemia, Monoclonal gammopathy, Schizophrenia, Thyroid disease BRANDO NIXON, is a 55 F with PMH listed above who presented to [facility] ED 02/03/21 with complaint of altered mental status. She was found lying on the floor in her apartment, and she couldn?t tell whether she fell or not. On admission, Chest x-ray showed multilobar infiltrates which could represent pneumonia and atelectasis. She was admitted to manage septic shock and pneumonia. The pt was evaluated by speech therapy and placed on mechanical soft textures / thin liquids; however, she was downgraded to NPO on 02/08/21 following an aspiration event with thin liquids resulting in O2 sats dropping to the 50s. Following episode, the pt had fluctuating alertness and participation due to lethargy and confusion. Pt remained NPO until 02/20/21, when pt was upgraded to puree textures / honey thick liquids with TOTAL FEED and recommendations for close monitoring of lung sounds and MBS study 02/22/21. Current Diet Ordered: Puree textures / Thin liquids Dentition: Natural Teeth Mental Status: Impaired - Pt with some remaining confusion per RNNavneet. Respiratory Status: Oxygenating on 2L/M nasal cannula - 1L/M - Study Findings Consistencies: Thin Liquid, Ambia Thick Liquid, Honey Thick Liquid, Pudding, Cookie - Penetration-Aspiration Scale Penetration-Aspiration Scale: OBJECTIVE ASSESSMENT OF SWALLOW FUNCTION (QUANTITATIVE ? PER TRIAL): PENETRATION / ASPIRATION SCALE (MILLIGAN): 1 = does not enter airway 2 = enters airway/above vocal folds/ejected 3 = enters airway/above vocal folds/not ejected 4 = enters airway/contacts vocal folds/ejected 5 = enters airway/contacts vocal folds/not ejected 6 = enters airway/below vocal folds/ejected 7 = enters airway/below vocal folds/not ejected despite effort 8 = enters airway/below vocal folds/no effort VIDEOFLOROSCOPIC SCALE SCORE (MILLIGAN): Grade I = aspiration of material that has penetrated into the laryngeal vestibule, intact cough reflex Grade II = aspiration < 10 % of the bolus, intact cough reflex Grade III = aspiration of < 10 % of the bolus, reduced cough reflex or aspiration of > 10 % of the bolus, intact cough reflex Grade IV = aspiration of > 10 % of the bolus, reduced cough reflex - Penetration-Aspiration Scale Score Thin Liquid via teaspoon Result: 1= does not enter airway Thin Liquid via large single sip from cup Result: 2= enter airway/above vocal folds/ejected Thin Liquid via small single sip from cup Result: 1= does not enter airway Comment: MULTIPLE NEEDLE STITCHER cued pt for small sip. Ambia Thick Liquid via small single sip from cup Result: 1= does not enter airway Honey Thick Liquid via small single sip from cup Result: 1= does not enter airway Cookie Result: 1= does not enter airway Comment: 08/03 of Caitlyn koo cookie. Pt presented with piecemeal deglutition, stating I'm done after completing a majority of the bolus, but then initiating a second swallow to clear moderate oral residue. Thin Liquid via single sip from straw Result: 1= does not enter airway Thin Liquid via sequential sips from straw Result: 2= enter airway/above vocal folds/ejected Pudding with esophageal screen Result: 1= does not enter airway Thin Liquid via small single sip from cup Trial 2 Result: 1= does not enter airway Thin Liquid via sequential sips from cup Result: 2= enter airway/above vocal folds/ejected - Oral Phase Labial Seal: Interlabial escape, no progression to anterior lip Tongue Control During Bolus Hold: Posterior escape of less than half of bolus Bolus Preparation/Mastication: Slow prolonged chewing/mashing with complete recollection Bolus Transport/Lingual Motion: Repetitive/disorganized tongue motion Oral Residue: Residue collection on oral structures - Pharyngeal Phase Initiation of Pharyngeal Swallow: Bolus head in pyriforms Soft Palate Elevation: Trace column of contrast/air between soft palate and pharyngeal wall Laryngeal Elevation: Partial superior movement thyroid cart/partial apprx aryt-epig petiole Anterior Hyoid Excursion: Complete anterior movement Epiglottic Movement: Partial inversion Laryngeal Vestibule Closure at Height of Swallow: Incomplete; narrow column of air/contrast in laryngeal vestibule Pharyngeal Stripping Wave: Present - diminished Pharyngoesophageal Segment Opening: Parital distension and partial duration; parital obstruction of flow Tongue Base Retraction: Trace column of contrast between tongue base & post. pharyngeal wall Pharyngeal Residue: Collection of residue within or on pharyngeal structures - Esophageal Phase Esophageal Clearance: Complete clearance - Treatment Strategies Effects of treatment strategies attemped:: Decreased bolus size = Effective. Decreased bolus rate = Effective. - Diagnosis/Impression Diagnosis: Mild oropharyngeal phase dysphagia (R13.12) Impression: The oral phase of the swallow is marked by decreased bolus control and transport characterized by premature spillage, especially noted with large thin liquid sip, resulting in suboptimal bolus placement upon swallow initiation. She additionally presents with prolonged mastication of small bolus size. MULTIPLE NEEDLE STITCHER initially provided the patient a half shortbread cookie bite; however, pt only accepted a 1/4 cookie bite. The patient presents with collection of oral residue noted with both liquid and solid trials with independent initiation of a second swallow to effectively clear residue. The pharyngeal phase of the swallow is marked by reduced airway closure due to decreased laryngeal elevation and pharyngeal contraction resulting in mildly decreased epiglottic inversion and mild pharyngeal residue. The patient also presents with delayed swallow onset, especially noted with large bolus sizes and continuous sips of liquids. The patient presented with penetration above the vocal folds of large or sequential sips of thin liquid trials. She benefits from consistent cues to consume small, single sip size. - Recommendations Diet: Mechanical Soft Textures - Minced and Moist Textures, Thin Liquids Comment: SIPS ONE AT A TIME Compensatory Strategies: Small Bites, Small Sips, Slow Rate, Sitting upright, Remain sitting upright for 30 minutes after PO intake, Assist with verbal cues to use recommended strategies Supervision: 1:1 Close Supervision - For consumption of both liquids and solids. Recommend Repeat Modified Barium Swallow: TBD Need for Skilled Speech Therapy Services: Yes Comment: The patient would benefit from continued skilled speech therapy services for training in recommended diet textures, compensatory strategies to reduce risk for aspiration, and implementation of oropharyngeal strengthening to promote improved lingual coordination, laryngeal elevation, and pharyngeal contraction. This patient requires 1:1 close supervision for both consumption of liquids and solids to ensure strict adherence of aspiration precautions, especially for consumption of thin liquids via small sips, one at a time. She may benefit from use of Provale cup to better control bolus size and rate. Education Completed: 1. Described result of evaluation., 7. Pt requires further education on strategies & risks. - Status Active ST Patient: Active - Contact Information [facility] Speech Therapy:: Yadira Turner M.A., [facility]-MULTIPLE NEEDLE STITCHER Speech Language Pathologist [facility] [address] [place] [address] [email or web address] [phone]
--- NOTE | 2021-02-22 12:08 | PN.HOSP_ITS ---
Subjective Subjective Continues to be alert, no issues overnight. Objective Data Objective Data Vital Signs: Vital Signs Temp Pulse Resp BP Pulse Ox 98.0 F 96 18 140/66 H 95 02/22/21 08:28 02/22/21 08:28 02/22/21 08:28 02/22/21 08:28 02/22/21 09:33 Oxygen Flow Rate (L/min) 1 Oxygen Delivery Method Nasal Cannula Weight: 207 lb 0.225 oz Body Mass Index (BMI) 33.0 Intake & Output: Intake and Output for Last 24 Hours 02/21/21 02/22/21 02/23/21 03:59 03:59 03:59 Intake Total 2147.33 / 2147.33 1391 / 1391 1130 / 1130 Output Total 1880 / 1880 1200 / 1200 900 / 900 Balance 267.33 / 267.33 191 / 191 230 / 230 Lab / Micro Data Result Diagrams: 02/21/21 07:00 02/22/21 06:00 Labs: Laboratory Results - last 24 hr 02/22/21 06:00: Sodium 141, Potassium 3.5, Chloride 108 H, Carbon Dioxide 29.0, Anion Gap 4 L, BUN 20 H, Creatinine 0.63, Estim Creat Clear Calc 93.34, Est GFR (MDRD) Af Amer 125, Est GFR (MDRD) Non-Af 104, BUN/Creatinine Ratio 31.7 H, Glucose 106, Calcium 7.8 L Micro: Microbiology 02/11/21 11:00 Blood Culture (Wb) - Other Blood Culture - Final No growth in 5 days. 02/11/21 11:15 Blood Culture (Wb) - Left Forearm Blood Culture - Final No growth in 5 days. 02/08/21 16:15 Blood Culture (Wb) - Left Hand Blood Culture - Final No growth in 5 days. 02/08/21 15:10 Blood Culture (Wb) - Central Line Blood Culture - Final No growth in 5 days. 02/11/21 08:00 Urine Catheter - Henry Urine Culture - Final Presumptive C albicans 02/12/21 08:15 Stool Stool Occult Blood (EDU) - Final 02/08/21 13:40 Mucosa - Nose Respiratory Panel (PCR) - Final 02/03/21 20:48 Blood Culture (Wb) - Left Wrist Blood Culture - Final No growth in 5 days. 02/03/21 18:15 Blood Culture (Wb) - Left Wrist Blood Culture - Final No growth in 5 days. 02/03/21 12:32 Urine Catheter - Henry Urine Culture - Final Culture exhibits no growth. 02/03/21 12:32 Urine Catheter - Henry Legionella Antigen - Final 02/03/21 12:32 Urine Catheter - Henry Streptococcus pneumoniae Antigen (M - Final 02/03/21 14:50 Mucosa - Nose SARS-CoV-2 Antigen (Rapid) - Final Physical Exam Const alert and no apparent distress General Appearance: cooperative Nutritional Appearance: obese HEENT normocephalic and moist oral mucous membranes Eyes PERRL, EOMs intact bilaterally and conjunctivae normal Neck supple and no JVD Resp normal respiratory effort, no retractions, no use of accessory muscles and clear to auscultation bilaterally Resp Narrative: Diminished secondary to body habitus Auscultation: Negative for crackles, rales, rhonchi or wheezes Cardio regular rate, regular rhythm, S1 normal heart sound, S2 normal heart sound and no murmurs GI soft to palpation, non-tender and non-distended; Negative for hepatosplenomegaly Extremity no clubbing, cyanosis or edema Extremity Narrative: Diffuse anasarca General Extremity: edema bilateral Skin Skin Narrative: Multiple wounds and lesions with dressings in place. No significant surrounding erythema Neuro no focal motor deficits and no sensory deficits noted Psych affect normal Appearance: grossly normal Assessment & Plan Assessment/Plan (1) Septic shock: (2) Pneumonia: QUALIFIERS: Pneumonia type: due to unspecified organism Laterality: unspecified laterality Lung location: unspecified part of lung Qualified Code(s): J18.9 - Pneumonia, unspecified organism PLAN: 1. Acute encephalopathy secondary to septic shock and acute hypoxic respiratory failure secondary to bilateral pneumonia likely as piration/hypernatremia/TRICIA/hypernatremia -She has completed all antibiotics per ID -Continue with BiPAP as needed especially with sleeping -NG removed 02/18/2021 -No longer in septic shock, she did have to transition to the ICU on 02/08/2021 secondary to respiratory distress from the aspiration event -Continue to monitor renal function -Transition to D5W for hypernatremia and continue to monitor, sodium is normal, will hold her D5W and restart if necessary -Modified barium swallow today, currently on pur?ed diet with honey thickened liquids must be fed for safety 2. A. fib with RVR/HTN -Echo was unremarkable -Continue with her amiodarone, if necessary can restart metoprolol p.o. -Appreciate cardiology assistance 3. Acute normocytic anemia/acute thrombocytopenia -Stool guaiac negative, iron studies consistent with anemia of chronic disease -Vitamin B12 level of 269 -Transfused on 02/13/2021 -Thrombocytopenia is likely secondary to sepsis, has resolved 4. Failure to thrive with multiple wounds and mild acute rhabdomyolysis -Rhabdomyolysis has resolved, CK was minimally elevated to 260 -Continue with local wound care -PT/OT for possible placement 5. Schizophrenia -She is on quite a few medications that can be sedating, the will hold and monitor -If she does become more alert can start restarting some of these Disposition: We will obtain pre-CERT for skilled therapy DVT: SCDs/Lovenox Charges/Coding Visit Charges Inpatient E&M: 59931 Subs Hosp L2
--- NOTE | 2021-02-22 13:32 | CASEMGMT ---
BREN called patient's brother Jose Miguel. BREN discussed plan of going to [facility] for rehab instead of Hospice. Patient is improving, she is more alert, and she now has a diet. BREN let him know we have to wait on insurance to give us the okay before we can send her . BREN told him tomorrow would be the earliest. BREN let him know SW will let him know when she is leaving. He thanked BREN for the update and [facility] He will call their sister Odilia and update her as well. Plan: [facility] under skilled level of care pending insurance pre-cert. Negin Oconnell QUALITY ANALYST JAYY
[2021-02-22] MEDS: Juven (unflavored) Packet 1 PACKET PO (16:51)
[2021-02-22] MEDS: Senna/Docusate Sodium 1 Tablet 2 TABLET NG (21:23)
[2021-02-23] VITALS (8 sets, daily range): BP systolic 131–159; BP diastolic 56–72; PULSE 74–100; RESP 18–20; TEMP 36.6–36.8; O2SAT 94–998
--- NOTE | 2021-02-23 04:29 | CPS ---
Attempted to put on bipap for RN. pt agreed to wear. But i tried placing it on her and even after lowering pressures she still could not tolerate. o2 at 1LPM
[2021-02-23 06:26] LABS: Absolute Lymphocyte Count 2.88 X10^3/uL (0.83-4.51); Absolute Neutrophil Count 7.5 X10^3/uL (2.0-7.7); Basophil# 0.13 X10^3/uL; Basophil% 1.1 % (0-1); Eosinophil# 0.45 X10^3/uL; Eosinophils% 3.8 % (0-5); Hematocrit 26.4 % (37-47); Hemoglobin 8.2 g/dL (12.0-15.0); Lymphocyte # 2.88 X10^3/ul (0.83-4.51); Lymphocyte % 24.2 % (19-41); Mean Corp Hgb Conc 31.1 g/dL (32-36); Mean Corpuscular Hgb 29.3 pg (27.0-32.0); Mean Corpuscular Volume 94.3 fL (81-99); Mean Platelet Vol. 11.4 fl (6.2-12.0); Monocyte# 0.58 X10^3/uL; Monocyte% 4.9 % (0-10); NRBC Flagged by Analyzer 0 % (0-5); Neutrophil # 7.46 X10^3/uL (2.7-7.7); Neutrophil % 62.5 % (47-70); Platelet Count 223 K/mm3 (150-450); RBC Distribution Width CV 13.5 % (11.6-14.6); RBC Distribution Width SD 45.9 fl (35.1-43.9); White Blood Count 11.9 K/mm3 (4.4-11.0)
[2021-02-23] MEDS: Ipratropium/Albuterol Sulfate 3 ML AMPUL.NEB INHALATION ×2 (07:35→13:23)
[2021-02-23 07:57] LABS: Anion Gap 5 (5-15); BUN 18 mg/dL (7-18); BUN/Creat Ratio 27.3 RATIO (10-20); Calcium,Total 7.9 mg/dL (8.5-10.1); Chloride 108 mmol/L (98-107); Creatinine, Serum 0.66 mg/dL (0.55-1.02); EST Glomerular Filtration Rate 98 mL/min (>60); Est Glom Filt Rate - Afr Amer 119 mL/min (>60); Glucose 111 mg/dL (74-106); Potassium 3.4 mmol/L (3.5-5.1); Sodium Level 141 mmol/L (136-145)
[2021-02-23] MEDS: Enoxaparin 40 MG/0.4 ML Syringe SC (08:18)
[2021-02-23] MEDS: Amiodarone 200 MG Tablet NG (08:18)
[2021-02-23] MEDS: Juven (unflavored) Packet 1 PACKET PO (08:18)
[2021-02-23] MEDS: Tamoxifen 10 MG Tablet 20 MG NG (08:18)
[2021-02-23] MEDS: Nystatin Powder 15gm Bottle 1 APPLIC TOPICAL (08:19)
[2021-02-23] MEDS: Famotidine 200 MG/20 ML MDV 20 MG in 0.9% Normal Saline (Pres. free 8 ML 300 MG IV (08:22)
--- NOTE | 2021-02-23 12:00 | CASEMGMT ---
BREN received a message from [facility] that patient was approved. BREN notified physician, RN, and pathology secretary. Await orders. Negin HOPE
--- NOTE | 2021-02-23 13:28 | TREXTCAR_ITS ---
Diet 02/21/21 09:36 Diet: Regular - General Food consistency:: Mechanical (Minced/Moist) Liquid Consistency:: Regular/Thin Type of Dietary Supplement:: Magic Cup Dessert Is pt able to select menu?: No Diet Comments: 1:1 Direct Supervision,small bites/sips,sips 1 at a time; Magic Cup BID L/D Routine Orders/Code Status Routine Lab Work: CBC and BMP Code Status: Full Code Wound(s) R neck: Wound Type: Puncture R shoulder: Wound Type: Pressure Injury R posterior arm: Wound Type: Abrasion Dressing Change: Adaptic R forearm: Wound Type: Abrasion Dressing Change: Adaptic R Hip: Wound Type: Pressure Injury Dressing Change: Mepilex Right Lateral Anderson: Wound Type: Abrasion Dressing Change: Adaptic R knee: Wound Type: Abrasion Dressing Change: Adaptic R knee lateral: Wound Type: Pressure Injury R knee proximal: Wound Type: Pressure Injury R digits: Wound Type: Abrasion Dressing Change: Dry Sterile Dressing L digits: Wound Type: Abrasion Dressing Change: Dry Sterile Dressing L medial knee: Wound Type: Abrasion Dressing Change: Adaptic R Groin: Wound Type: wound Dressing Change: AntiMicrobial (Aquacel AG, etc) L Hip: Wound Type: shearing Dressing Change: Mepilex maryellen feet: Wound Type: Abrasion nose: Wound Type: Abrasion Therapies Physical Therapy: Eval and Treat Occupational Therapy: Eval and Treat Speech Therapy: Eval and Treat Problem/Diagnosis (1) Septic shock: Status: Acute (2) Pneumonia: Status: Acute Allergies/Procedures Done in Hospital Allergies diazepam [From Valium] Allergy (Severe, Verified 01/25/21 13:41) Other coma state pseudoephedrine HCl [From Sudafed] Allergy (Severe, Verified 01/25/21 13:41) Other coma state diphenhydramine HCl [From Benadryl] Adverse Reaction (Severe, Verified 01/25/21 13:41) Unknown shaky erythromycin base [Erythromycin Base] Adverse Reaction (Severe, Verified 01/25/21 13:41) Other shaky Antihistamines - Piperidine Adverse Reaction (Intermediate, Verified 01/25/21 13:41) Unknown sleepy Macrolide Antibiotics Adverse Reaction (Intermediate, Verified 01/25/21 13:41) Other sleepy darbepoetin mary [From Aranesp (in polysorbate)] Adverse Reaction (Unknown, Verified 01/25/21 13:41) Unknown menthol Adverse Reaction (Verified 01/25/21 13:41) Swelling quinapril [From Accupril] Adverse Reaction (Verified 01/25/21 13:41) Unknown KETOLIDES Adverse Reaction (Uncoded 01/25/21 13:41) Unknown Procedures: 2-D Echocardiogram Type of Care/Length of Stay Estimated LOS: Convalescent Care Less Than 30 days Type of Care Needed: Skilled Rehab Potential: Fair Prognosis: Fair Additional Orders/Day of Discharge Day of Discharge: 02/23/21 Dietary and Speech Recommendations Dietitian Recommendations/Changes: Will monitor PO, wt, labs and follow-up. Continue Regular diet with consistency as per CEMENTER MACHINE JOINER---currently mech (minced/moist) with thin liquids. Ambrocio BID w/ meds. 120ml ensure enlive 4 times per day w/ medpass. Magic Cup BID w/ lunch and dinner. Speech Linguistic Eval Summary: Pt was able to correctly provide full name and , but was unable to provide accurate age. Pt displayed disorientation intermittently throughout evaluation, repeatedly asking where she was. Pt became increasingly agitated as more orientation questions were asked, refusing to answer them. Further cognitive evaluation is recommended in following ST session. Discharge Plan Admission Admit Date/Time: 02/03/21 14:55 Attending Provider: Arron Oliveira Primary Care Provider: Brannon Cavazos Consulting Providers: Lucio Silva ; Emil Jalloh ; Deniz Lr ; Alex Nguyen ; Geovanna Dockery BRASS FINISHER Instructions Additional Instructions / Restrictions: Did have a palliative care/hospice discussion with the family, so if necessary can be readdressed at [facility] 1 the future. Discharge Orders/Prescriptions Prescriptions: New amiodarone 200 mg Tablet 200 mg NG BID Qty: 0 RF: 0 metoprolol tartrate 50 mg tablet 50 mg PO BID Qty: 60 RF: 0 Continued omeprazole 20 MG capsule 20 mg PO DAILY RF: 0 sennosides-docusate sodium [Doc-Q-Lax] 1 EACH tablet 2 ea PO QHS RF: 0 tamoxifen 20 mg tablet 20 mg PO DAILY Qty: 30 RF: 2 Discontinued quetiapine [Seroquel XR] 200 MG tablet extended release 24 hr 500 mg PO QHS RF: 0 lisinopril 20 MG tablet 20 mg PO DAILY RF: 0 meloxicam 15 MG tablet 15 mg PO DAILY RF: 0 amlodipine 10 MG tablet 10 mg PO DAILY RF: 0 benztropine 2 MG tablet 1 mg PO BID PRN PRN (Reason: Restlessness) RF: 0 Quetiapine Fumarate [Seroquel Xr] 300 MG Tab.Sr.24h 300 mg PO BREAKFAST RF: 0 clonazepam [Klonopin] 0.5 MG tablet 0.5 mg PO DAILY RF: 0 clonazepam 1 MG tablet 1 mg PO QHS RF: 0 Inderal XL 80 MG capsule,extended release 24hr 60 mg PO BID RF: 0 Referrals / Follow Up: Brannon Cavazos MD [Primary Care Provider] - Disposition Disposition (needs filled in before D/C Order can be placed): [facility] Facility
--- NOTE | 2021-02-23 13:31 | CASEMGMT ---
SW spoke with patient. BREN introduced self and role at [facility]. SW let her know that SW worked with her siblings for a discharge plan. SW told her she will be going to [facility] for rehab. She thanked BREN for updating her. BREN will let patient's brother know as well. Negin HOPE
--- NOTE | 2021-02-23 13:39 | CASEMGMT ---
SW called patient's brother and let him know patient was approved [facility]. BREN asked if he would like SW to call him when SW has a picker time and he said he would like to be notified. Negin HOPE
--- NOTE | 2021-02-23 14:51 | CASEMGMT ---
BREN faxed orders and negative COVID to [facility]. BREN arranged for patient to get picked up 430p via cot. BREN notified RN, patient, clerical secretary, Emerita at [facility], and patient's brother. Convalescent completed on HENS. Plan: d/c to [facility] under skilled level of care on a convalescent stay. [facility] will transport patient via cot at 430. Negin HOPE
--- NOTE | 2021-02-23 15:05 | DS.PCM_ITS ---
Providers Date of Admission: 02/03/21 Primary Care Physician: Dr. Brannon Cavazos MD Consultations 02/03/21 17:36 Consult: Project Planner / Pulmonary Medicine Routine Consulting Provider: Pulmonary Medicine martínez Kat Reason for Consult: hypotensive, septic shock EMERGENT Consult: No Notified: Yes Date Notified: 02/03/21 Time Notified: 17:36 Method of Notification: Text 02/03/21 19:10 Consult: Cardiology Routine Consulting Provider: Lucio Silva Reason for Consult: irregular heart beat EMERGENT Consult: No Notified: Yes Date Notified: 02/03/21 Time Notified: 19:10 Method of Notification: Verbal Method of Consult:: In-Person 02/08/21 13:36 Consult: Infectious Disease Routine Consulting Provider: Emil Jalloh Reason for Consult: Septic shock, Resp failure, PNA EMERGENT Consult: No Notified: Yes Date Notified: 02/08/21 Time Notified: 13:36 Method of Notification: Answering Service 02/08/21 13:38 Consult: Onc/Wound/anime designer Routine Comment: Reason For Visit: SEPTIC SHOCK, PNEUMONIA Diagnosis Discharge Diagnosis (1) Septic shock: Status: Acute Code(s): A41.9 - Sepsis, unspecified organism; R65.21 - Severe sepsis with septic shock (2) Pneumonia: Status: Acute Code(s): J18.9 - Pneumonia, unspecified organism Qualifiers: Pneumonia type: due to unspecified organism Laterality: unspecified laterality Lung location: unspecified part of lung Qualified Code(s): J18.9 - Pneumonia, unspecified organism Medications at Discharge Home Medications omeprazole 20 mg PO DAILY 11/11/13 sennosides-docusate sodium [Doc-Q-Lax] 2 ea PO QHS 05/14/14 tamoxifen 20 mg tablet 20 mg PO DAILY #30 tab 01/21/21 amiodarone 200 mg NG BID #0 tab 02/23/21 metoprolol tartrate 50 mg PO BID #60 tab 02/23/21 Hospital Course Procedures 2-D Echocardiogram and Electroencephalogram Summary of Care Provided Minutes Spent on Discharge: 55 Hospital Course: Per HPI: BRANDO NIXON, is a 55 F with an extensive PMH as outlined who presents with a complaint of altered mental status. She was found lying on the floor in her apartment, and couldnt tell whether she fell or not. She couldnt say whether she hit her head. On admission, she was found to have temperature of 97.8F, with WV of 118, RR of 34 and BP initially of 151/35, but which dropped to the 80s systolic. She was unable to give any further information. CBC showed wbc of 14.4, Hb of 12.5 and platelets of 200. Sodium was 148 and creatinine was 2.86 with potassium of 3.5. CT of the brain was normal. Lactic acid was 2. Chest x-ray showed multilobar infiltrates which could represent pneumonia and atelectasis. She was started on IV fluids and started on IV vancomycin and Zosyn and has been admitted to be managed for septic shock due to pneumonia. WHilst evaluating her in the ED, patient became tachycardic, with heart rate going up into the 170s. Hospital Course: 1. Acute encephalopathy secondary to septic shock and acute hypoxic respiratory failure secondary to bilateral pneumonia likely aspiration/hypernatremia/TRICIA/hypernatremia -She has completed all antibiotics per ID -Continue with BiPAP as needed especially with sleeping -NG removed 02/18/2021 -No longer in septic shock, she did have to transition to the ICU on 02/08/2021 secondary to respiratory distress from the aspiration event and an NG tube was placed at that time -Continue to monitor renal function -Transition to D5W for hypernatremia and continue to monitor, sodium is normal, will hold her D5W and restart if necessary -Modified barium swallow was performed and recommendations after mechanical soft diet with thin liquids. She will require close supervision -I had extensive discussions with the family about prognosis and possible palliative care/hospice. Discussion was centered around her mentation at the time and the need to remove the NG tube. They decided that they would remove the NG tube and see if she was able to eat on her own, she did recover with continued IV fluids and lowering of her hyponatremia and improvement in her TRICIA. All of her sedating meds specifically the Seroquel and the Klonopin were discontinued and will remain discontinued. She is now much more alert but I do recommend continued follow-up with palliative care at this time. 2. A. fib with RVR/HTN -Echo was unremarkable -Continue with her amiodarone, and will restart her metoprolol on discharge to 50 mg p.o. twice daily -Appreciate cardiology assistance 3. Acute normocytic anemia/acute thrombocytopenia -Stool guaiac negative, iron studies consistent with anemia of chronic disease -Vitamin B12 level of 269 -Transfused on 02/13/2021, hemoglobin today on discharge is 8.2, would monitor at the SNF -Thrombocytopenia is likely secondary to sepsis, has resolved 4. Failure to thrive with multiple wounds and mild acute rhabdomyolysis -Rhabdomyolysis has resolved, CK was minimally elevated to 260 -Continue with local wound care -PT/OT for possible placement 5. Schizophrenia -She is on quite a few medications that can be sedating, the will hold and monitor -She was on 800 mg of Seroquel as well as Klonopin, will discontinue all of her psych medications on discharge and would recommend close follow-up with a psychiatrist for evaluation of need of reinitiation of some of these meds hopefully at doses that will not sedate her as much. Physical Exam Const alert and no apparent distress General Appearance: cooperative Orientation / Consciousness: confused and lethargic Nutritional Appearance: obese HEENT normocephalic and moist oral mucous membranes Eyes PERRL, EOMs intact bilaterally and conjunctivae normal Neck supple and no JVD Resp normal respiratory effort, no retractions, no use of accessory muscles and clear to auscultation bilaterally Resp Narrative: Diminished secondary to body habitus Auscultation: Negative for crackles, rales, rhonchi or wheezes Cardio regular rate, regular rhythm, S1 normal heart sound, S2 normal heart sound and no murmurs GI soft to palpation, non-tender and non-distended; Negative for hepatosplenomegaly Extremity no clubbing, cyanosis or edema Extremity Narrative: Diffuse anasarca General Extremity: edema bilateral Skin Skin Narrative: Multiple wounds and lesions with dressings in place. No significant surrounding erythema Neuro no focal motor deficits and no sensory deficits noted Psych affect normal Appearance: grossly normal Medical Records Data Medical Nutrition Assessment Dietitian: Nutrition Therapy Diagnosis Start: 02/22/21 14:11 Freq: Status: Active Protocol: Document 02/22/21 14:12 RMA (Rec: 02/22/21 14:12 RMA [id number]) Nutrition Malnutrition Evidence of Malnutrition Exists No Intake Problem Increased Nutrient Needs (specify) Etiology (protein) related to increased protein needs for wound healing Signs/Symptoms as evidenced by multiple areas of pressure injury wounds Status Active Problem Inadequate Oral Intake Etiology related to difficulty swallowing Signs/Symptoms as evidenced by PO less than 50% at meals and mechanical soft diet Status Active Problem Recommendation Dietitian Recommendations/Changes Will monitor PO, wt, labs and follow-up. Continue Regular diet with consistency as per [employer]CRETE CRUS[employer] LOADER OPERATOR--- currently mech (minced/moist) with thin liquids. Ambrocio BID w/ meds. 120ml ensure enlive 4 times per day w/ medpass. Magic Cup BID w/ lunch and dinner. Weight / BMI Weight Weight: 206 lb 12.697 oz Body Mass Index (BMI) 33.0 ABG / Lab / Microbiology Data Result Diagrams: 02/23/21 05:53 02/23/21 05:53 Laboratory: Laboratory Results - last 24 hr 02/23/21 05:53: WBC 11.9 H, RBC 2.80 L, Hgb 8.2 L, Hct 26.4 L, MCV 94.3 D, MCH 29.3, MCHC 31.1 L, RDW Std Deviation 45.9 H, RDW Coeff of Kenna 13.5, Plt Count 223, MPV 11.4, Immature Gran % (Auto) 3.500 H, Neut % (Auto) 62.5, Lymph % (Auto) 24.2, Ceiba % (Auto) 4.9, Eos % (Auto) 3.8, Baso % (Auto) 1.1 H, Absolute Neuts (auto) 7.5, Absolute Lymphs (auto) 2.88, Nucleated RBC % 0 02/23/21 05:53: Sodium 141, Potassium 3.4 L, Chloride 108 H, Carbon Dioxide 28.0, Anion Gap 5, BUN 18, Creatinine 0.66, Estim Creat Clear Calc 89.10, Est GFR (MDRD) Af Amer 119, Est GFR (MDRD) Non-Af 98, BUN/Creatinine Ratio 27.3 H, Glucose 111 H, Calcium 7.9 L Microbiology: Microbiology 02/23/21 12:50 Mucosa - Nasopharyngeal SARS-CoV-2 Antigen (Rapid) - Final 02/11/21 11:00 Blood Culture (Wb) - Other Blood Culture - Final No growth in 5 days. 02/11/21 11:15 Blood Culture (Wb) - Left Forearm Blood Culture - Final No growth in 5 days. 02/08/21 16:15 Blood Culture (Wb) - Left Hand Blood Culture - Final No growth in 5 days. 02/08/21 15:10 Blood Culture (Wb) - Central Line Blood Culture - Final No growth in 5 days. 02/11/21 08:00 Urine Catheter - Henry Urine Culture - Final Presumptive C albicans 02/12/21 08:15 Stool Stool Occult Blood (EDU) - Final 02/08/21 13:40 Mucosa - Nose Respiratory Panel (PCR) - Final 02/03/21 20:48 Blood Culture (Wb) - Left Wrist Blood Culture - Final No growth in 5 days. 02/03/21 18:15 Blood Culture (Wb) - Left Wrist Blood Culture - Final No growth in 5 days. 02/03/21 12:32 Urine Catheter - Henry Urine Culture - Final Culture exhibits no growth. 02/03/21 12:32 Urine Catheter - Henry Legionella Antigen - Final 02/03/21 12:32 Urine Catheter - Henry Streptococcus pneumoniae Antigen (M - Final 02/03/21 14:50 Mucosa - Nose SARS-CoV-2 Antigen (Rapid) - Final Meaningful Use Info Meaningful Use Diagnoses (Choose all that apply): None applicable Discharge Plan Admission Admit Date/Time: 02/03/21 14:55 Attending Provider: Arron Oliveira Primary Care Provider: Brannon Cavazos Consulting Providers: Lucio Silva ; Emil Jalloh ; Deniz Lr ; Alex Nguyen ; Geovanna Dockery SLIP MAKER Instructions Additional Instructions / Restrictions: Did have a palliative care/hospice discussion with the family, so if necessary can be readdressed at [facility] 1 the future. Discharge Orders/Prescriptions Prescriptions: New amiodarone 200 mg Tablet 200 mg NG BID Qty: 0 RF: 0 metoprolol tartrate 50 mg tablet 50 mg PO BID Qty: 60 RF: 0 Continued omeprazole 20 MG capsule 20 mg PO DAILY RF: 0 sennosides-docusate sodium [Doc-Q-Lax] 1 EACH tablet 2 ea PO QHS RF: 0 tamoxifen 20 mg tablet 20 mg PO DAILY Qty: 30 RF: 2 Discontinued quetiapine [Seroquel XR] 200 MG tablet extended release 24 hr 500 mg PO QHS RF: 0 lisinopril 20 MG tablet 20 mg PO DAILY RF: 0 meloxicam 15 MG tablet 15 mg PO DAILY RF: 0 amlodipine 10 MG tablet 10 mg PO DAILY RF: 0 benztropine 2 MG tablet 1 mg PO BID PRN PRN (Reason: Restlessness) RF: 0 Quetiapine Fumarate [Seroquel Xr] 300 MG Tab.Sr.24h 300 mg PO BREAKFAST RF: 0 clonazepam [Klonopin] 0.5 MG tablet 0.5 mg PO DAILY RF: 0 clonazepam 1 MG tablet 1 mg PO QHS RF: 0 Inderal XL 80 MG capsule,extended release 24hr 60 mg PO BID RF: 0 Referrals / Follow Up: Brannon Cavazos MD [Primary Care Provider] - Disposition Disposition (needs filled in before D/C Order can be placed): [facility] Charges/Coding Visit Charges Inpatient E&M: 23556 Disch Hosp
== END 2021-02-23 16:21 | DRG 871 ==
LOC: ED 14:48 → ICU 14:57 → PCU 02-05 17:54 → ICU 02-08 15:05 → PCU 02-12 17:01
PROVIDERS: Family Medicine; Hospitalist; Internal Medicine; Internal Medicine Critical Care Medicine; Internal Medicine Infectious Disease; Admitting Provider Student in an Organized Health Care Education/Training Program; Emergency Provider Emergency Medicine; PCP Family Medicine; Visit Provider Family Medicine
DX: A41.9 Sepsis, unspecified organism (principal); R65.21 Severe sepsis with septic shock; G93.41 Metabolic encephalopathy; J96.01 Acute respiratory failure with hypoxia; J69.0 Pneumonitis due to inhalation of food and vomit; G92 Toxic encephalopathy; N17.9 Acute kidney failure, unspecified; I47.1 Supraventricular tachycardia; M62.82 Rhabdomyolysis; N39.0 Urinary tract infection, site not specified; E87.0 Hyperosmolality and hypernatremia; E87.1 Hypo-osmolality and hyponatremia; I10 Essential (primary) hypertension; D63.8 Anemia in other chronic diseases classified elsewhere; D69.6 Thrombocytopenia, unspecified; I48.91 Unspecified atrial fibrillation; R62.7 Adult failure to thrive; E87.6 Hypokalemia; F20.9 Schizophrenia, unspecified; D47.2 Monoclonal gammopathy; E66.9 Obesity, unspecified; M41.9 Scoliosis, unspecified; J45.909 Unspecified asthma, uncomplicated; Z85.3 Personal history of malignant neoplasm of breast; Z68.33 Body mass index [BMI] 33.0-33.9, adult; Z82.49 Family history of ischemic heart disease and other diseases of the circulatory system; Z98.51 Tubal ligation status; T17.920A Food in respiratory tract, part unspecified causing asphyxiation, initial encounter; D64.9 Anemia, unspecified; E07.9 Disorder of thyroid, unspecified; E87.8 Other disorders of electrolyte and fluid balance, not elsewhere classified
CPT/HCPCS: 36415; 36556; 36569; 36600; 51702; 70450; 70551; 71045; 71275; 74018; 74230; 80048; 80053; 80202; 81001; 82140; 82274; 82550; 82607; 82728; 82746; 82803; 83540; 83550; 83605; 83735; 83880; 84100; 84132; 84145; 84439; 84443; 84484; 85025; 86850; 86900; 86901; 86920; 86922; 87040; 87086; 87088; 87426; 87449; 87633; 87635; 87641; 92507; 92523; 92526; 92610; 92611; 93005; 93306; 94002; 94003; 94640; 94762; 95819; 97110; 97162; 97166; 97530; 97535; 97802; 97803; 99251; 99285; J2185; J7030; J7040; J7050; P9016; Q9957; Q9967; U0005; A4216; C8929; G0463; J1940; J3490; U0003